=== PATIENT | female | born 1955 | race Caucasian/White ===

== ENCOUNTER 2022-09-19 15:18 | Emergency (ER) | payer OTHER ==
--- OUTSIDE RECORDS SUMMARY | 2022-09-19 15:24 | XMS REPORT | Continuity of Care Document ---
:1955 Author Organization [facility] t Address [address] [place] [address] Care Team Providers Name Role Phone Pcp, Patient Does Not Have A Primary Care Physician +1-000-0 00-0000 JOSETTE SCHAFFER Attending Clinician Unavailable MOE YOON Attending Clinician Unavailable WALTER MELTON Attending Clinician Unavailable YAAKOV SANTOYO Attending Clinician Unavailable JACEK Attending Clinician Unavailable HUNG BRAMBILA Attending Clinician Unavailable NEVILLE VACA Attending Clinician Unavailable BURKE MAI Attending Clinician Unavailable BROOKE BORJAS Attending Clinician Unavailable LAB47 Attending Clinician Unavailable LOREE GODOY Attending Clinician Unavailable FLAVIO OROURKE Attending Clinician Unavailable MD SUHAIL Attending Clinician Unavailable DARA LOPEZ Attending Clinician Unavailable AICHA ROBERTS Attending Clinician Unavailable VF1 Attending Clinician Unavailable TRED47 Attending Clinician Unavailable ERICA CROSS Attending Clinician Unavailable MARIE DELGADO Attending Clinician Unavailable PL, TECH 1 Attending Clinician Unavailable RAFIQ NERI Attending Clinician Unavailable JOSE AGUILA Attending Clinician Unavailable PAWAN RECINOS Attending Clinician Unavailable TOÑITO HUFF Attending Clinician Unavailable [facility] Attending Clinician Unavailable PRITI HAMILTON Attending Clinician Unavailable LAB90 Attending Clinician Unavailable OTTO SAUNDERS Attending Clinician Unavailable VLAD BARAHONA Attending Clinician Unavailable CLEMENCIA GANDARA Attending Clinician Unavailable PLAB Attending Clinician Unavailable LAB39 Attending Clinician Unavailable DAVID PIEDRA Attending Clinician Unavailable 39, HOLTER Attending Clinician Unavailable ESTEBAN MYERS Attending Clinician Unavailable KITTY EDMONDSON Attending Clinician Unavailable NORMA SHETH Attending Clinician Unavailable Dejah Manuel MD Attending Clinician ALICE ABBOTT Attending Clinician Unavailable GLEN SMITH Attending Clinician Unavailable JR HORTA Attending Clinician Unavailable Doctor Unassigned, [place] Attending Clinician Unavailable Bethany Grayson DO Attending Clinician ARELIS MONTELONGO Attending Clinician Unavailable Sudireddy_R Attending Clinician Unavailable BETHANY GRAYSON Admitting Clinician Unavailable Sudireddy_R Admitting Clinician Unavailable Payers Payer Name Policy Type Policy Number Effective Date Expiration Date S ource [facility] O 7 [id number] 2022 00:00:00 [facility] [id number] 2021 2021 00:00:00 00:00:00 [place] [id number] 2018 00:00:00 [facility] [id number] 2017 00:00:00 Problems Condition Condition Condition Status Onset Resolution Last Treating Co mments Source Name Details Category Date Date Treatment Clinician Date Palpitatio Palpitatio Disease Active K veronika ns ns 5-16 Seybold 00:00: - 00 Externa l Chronic Chronic Disease Active Lucero obstructiv obstructiv 1-20 Se ybold e e 00:00: - pulmonary pulmonary 00 Exte rna disease, disease, l unspecifie unspecifie d COPD d COPD type type Chronic Chronic Disease Active Lucero respirator respirator 1-20 Se ybold y failure y failure 00:00: - with with 00 Externa hypoxia hypoxia l Pulmonary Pulmonary Disease Active William heather fibrosis, fibrosis, 1-20 Seyb old postinflam postinflam 00:00: - matory matory 00 Externa l Well adult Well adult Disease Active Dea banda exam exam 1-20 Seybold 00:00: - 00 Externa l 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 due 1-20 Se ybold to to 00:00: - conditions conditions 00 Ex terna classified classified l elsewhere elsewhere ZACH ZACH Disease Active Lucero (obstructi (obstructi 1-20 Se ybold ve sleep ve sleep 00:00: - apnea) apnea) 00 Externa l Mild major Mild major Disease Active Dea banda depression depression 1-20 Se ybold 00:00: - 00 Externa l Risk for Risk for Disease Active Williamse y falls falls 1-20 Seybold 00:00: - 00 Externa l 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 1-20 Seybol d 00:00: - 00 Externa l Gastroesop Gastroesop Disease Active Dea banda hageal hageal 1-20 Seybold reflux reflux 00:00: - disease disease 00 Externa without without l esophagiti esophagiti s s Acute pain Acute pain Disease Active 2021-03 K elsey of right of right 1-22 Seybol d knee knee 00:00: - 00 Externa l Right hip Right hip Disease Active Uni vers pain pain 7-10 ity of 00:00: 00 Medical Branch Sciatica Sciatica Disease Active Unive rs of right of right 7-10 ity of side side 00:00: 00 Medical Branch Hypothyroi Hypothyroi Problem Active V illage dism dism 08-20 Family 00:00: Practic 00 e Mixed Mixed Problem Active [place] hyperlipid Hyperlipid 08-20 Fa gladis morales emia 00:00: Practic 00 e Mixed Mixed Problem Active [place] anxiety Anxiety 08-20 Family and and 00:00: Practic depressive Depressive 00 e disorder Disorder Fibromyalg Fibromyalg Problem Active V illage ia ia 08-20 Family 00:00: Practic 00 e History of History of Problem Active V illage malignant Malignant 08-20 Fami ly neoplasm Neoplasm 00:00: Practi c of breast of Breast 00 e 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 L superior occipital scalp Restless Restless Disease Active Kelse y leg leg 09-22 Seybold 00:00: - 00 Externa l Personal Personal Disease Active Kelse y history of history of 1-17 Se ybold breast breast 00:00: - cancer cancer 00 Externa l Hypothyroi Hypothyroi Disease Active K veronika dism dism 5 Seybold 00:00: - 00 Externa l Fibromyalg Fibromyalg Disease Active K elsey ia ia 07-15 Seybold 00:00: - 00 Externa l Hyperlipid Hyperlipid Disease Active K veronika rodriguezia emia 4 Seybold 00:00: - 00 Externa l Chronic Chronic Disease Active Lucero pain pain 09-26 Seybold 00:00: - 00 Externa l Insomnia Insomnia Disease Active Kelse y 7-13 Seybold 00:00: - 00 Externa l Fx Fx Disease Active Lucero 6 Seybold 00:00: - 00 Externa l Allergies, Adverse Reactions, Alerts Allergy Allergy Status Severity Reaction(s) Onset Inactive Treating Comm ents Source Name Type Date Date Clinician Doxylami Propensi Active Hives 2021-03 Lucero ne ty to 1-22 Seybold adverse 00:00: - reaction 00 Externa s l Doxycycl Propensi Active Rash Univer s ine ty to 7-10 ity of Hyclate adverse 00:00: [place] reaction 00 Medical s Branch Penicill Propensi Active Rash 2021-0 Univer s ins ty to 7-10 ity of adverse 00:00: [place] reaction 00 Medical s Branch Statins- Propensi Active Rash 0 And leg Unive rs Hmg-Coa ty to 7-10 pain ity of Reductas adverse 00:00: [place] e reaction 00 Medical Inhibito s Branch rs Penicill Propensi Active Rash Univer s ins ty to 7-10 ity of adverse 00:00: [place] reaction 00 Medical s Branch Statins- Propensi Active Rash And leg Unive rs Hmg-Coa ty to 7-10 pain ity of [place] adverse 00:00: [place] e reaction 00 Medical Inhibito s Branch rs PENICILL Drug Active Rash 2021-0 Univers INS Class 7-10 ity of 00:00: [place] 00 Medical Branch DOXYCYCL DRUG Active Rash 2021-0 Univers INE INGREDI 7-10 ity of HYCLATE 00:00: [place] 00 Medical Branch STATINS- Drug Active Rash 2021-0 Univers HMG-COA Class 7-10 ity of REDUCTAS 00:00: [place] E 00 Medical INHIBITO Branch RS Penicill DA Active [place] [facility] ins 07-10 [place] 00[facility] doxycycl DA Active U 2018- [facility] ine 4- [place] 00:00: [facility] latex DA Active [place] 2018-0 [facility] 4-26 [place] 00:00: [facility] Penicill DA Active [place] [facility] ins 425 [place] 00:00: Orthope 00 [facility] doxycycl DA Active U 2018-0 [facility] ine 4-25 [place] 00:00: [facility]ope 00 [facility] latex DA Active [place] 2018-0 [facility] 4-25 [place] 00:00: Orthope 00 [facility]osp[facility] l Doxycycl Drug Active Contact Lucero ine Allergy Dermatitis 07-22 Seybo ld 00:00: - 00 Externa l Penicill DA Active [place] 0 [facility] ins 4- [place] 00:00: Orthope 00 dic [facility]osp[facility] l Statins- DA Active U [facility] Hmg-Coa 07-06 [place] Reduct[place] 00:00: Orthope e 00 dic Inhibito Hospita r l latex DA Active [place] [facility] 4-22 [place] 00:00: Orthope 00 dic [facility]ospita l Rosuvast Propensi Active Rash Cant take William heather atin ty to 6-15 any Seybold Calcium adverse 00:00: statins - reaction 00 Externa s l Latex Propensi Active Lucero ty to 6-15 Seybold adverse 00:00: - reaction 00 Externa s l Penicill Propensi Active Rash Lucero ins ty to 6-15 Seybold adverse 00:00: - reaction 00 Externa s l Doxylami Allergy Active Severe Hives [place] ne to Family substanc Practic e e Latex Allergy Active Moderate [place] to to severe Family substanc Practic e e NO KNOWN Drug Active Univers ALLERGIE Class ity of [facility] PENICILL Allergy Active Moderate Hives [place] ge INS to to severe Family substanc Practic e e STATINS- Allergy Active [place] HMG-COA to Family REDUCTAS substanc Practi c E e e INHIBITO RS Social History Social Habit Start Date Stop Date Quantity Comments Source Gender identity 2021-02-24 Identifies as Lucero Mcbride - 00:08:00 female gender External (finding) History of tobacco Cigarette Smoker Lucero Mcbride - use External Sexual orientation Lucero Mcbride - External Alcohol intake 2022-08-22 2022-08-22 Current Lucero whiteside - 00:00:00 00:00:00 non-drinker of External alcohol (finding) Cigarette 2022-04-05 2022-04-05 Lucero Mcbride - pack-years 00:00:00 00:00:00 External Education 2022-04-05 2022-04-05 17 Lucero Mcbride - 00:00:00 00:00:00 External Cigarettes smoked 2022-04-05 2022-04-05 Lucero Mcbride - current (pack per 00:00:00 00:00:00 Externa l day) - Reported Tobacco use and 2022-04-05 2022-04-05 Smokeless tobacco Ke jed Mcbride - exposure 00:00:00 00:00:00 non-user External History of Social 2022-04-05 2022-04-05 Lucero Mcbride - function 00:00:00 00:00:00 External Exposure to 2021-09-13 2021-09-23 Not sure [facility] SARS-CoV-2 (event) 00:00:00 20:32:00 [facility] Sex Ass[birth year] Universit y of 00:00:00 00:00:00 [facility] Smoking Status Start Date Stop Date Source Tobacco smoking [facility] xa consumption unknown Medical Bran ch Ex-smoker 2022-04-05 00:00:00 2022-04-05 Lucero Seybo ld - 00:00:00 External Medications Ordered Filled Start Stop Current Ordering Indication Dosage Frequency Signature Comments Components Source Medication Medication Date Date Medication? Clinician (SIG) Name Name Famotidine Yes 40mg Take 1 Kelse y 40 MG oral 6-08 tablet (40 Sey bold Tablet 00:00: mg total) - 00 by mouth Externa daily l predniSONE Yes Take 2 Kelse y (DELTASONE) 6-08 tabs po Seybo ld 20 MG oral 00:00: daily x 3 - tablet 00 days then Externa 1 tab po l daily x 4 days predniSONE Yes Take 2 Kelse y (DELTASONE) 6-08 tabs po Seybo ld 20 MG oral 00:00: daily x 3 - tablet 00 days then Externa 1 tab po l daily x 4 days Albuterol 2022- Yes [id number] 2.5mg Q4H Take 2.5 Lucero (PROVENTIL) 6-08 07-09 mg by Seybol d (2.5 00:00: 04:59 nebulizati - MG/3ML) 00 :00 on every 4 Prekindergarten Teacher a 0.083% hours as l inhalation needed for Inhalant wheezing Solution Albuterol-I 2022- Yes [id number] 3mg Q4H Inhale 3.6 Lucero pratropium 6-08 07-09 mL (3 mg Seyb old 0.5-2.5 (3) 00:00: 04:59 total) - MG/3ML 00 :00 into the Externa inhalation lungs l Solution every 4 hours as needed (sob, cough, wheeze) Alirocumab Yes 75mg Inject 75 Ke lsey (Praluent) 6-06 mg into Seybol d 75 MG/ML 00:00: the skin - subcutaneou 00 every 14 Exte rna s Solution days l Auto-inject or Temazepam 2022-0 Yes [id number] 30mg QD Take 1 William sey 30 MG oral 5-18 capsule Seybol d Capsule 00:00: (30 mg - 00 total) by Externa mouth l nightly as needed for sleep Bupropion 2022-0 Yes [id number] 150mg Take 1 K elsey HCL XL 150 5-18 tablet Seybold MG OR TB24 00:00: (150 mg - 00 total) by Externa mouth l every morning Temazepam 2022-0 Yes [id number] 30mg QD Take 1 William sey 30 MG oral 5-18 capsule Seybol d Capsule 00:00: (30 mg - 00 total) by Externa mouth l nightly as needed for sleep Bupropion 0 Yes [id number] 150mg Take 1 K elsey HCL XL 150 5-18 tablet Seybold MG OR TB24 00:00: (150 mg - 00 total) by Externa mouth l every morning Metoprolol 0 Yes [id number] 12.5mg Take 0.5 Lucero Tartrate 5-16 tablets Seybold (LOPRESSOR) 00:00: (12.5 mg - 25 MG oral 00 total) by Exte rna Tablet mouth l daily Metoprolol Yes [id number] 12.5mg Take 0.5 Lucero Tartrate 5-16 tablets Seybold (LOPRESSOR) 00:00: (12.5 mg - 25 MG oral 00 total) by Exte rna Tablet mouth l daily Metoprolol Yes [id number] 12.5mg Take 0.5 Lucero Tartrate 5-16 tablets Seybold (LOPRESSOR) 00:00: (12.5 mg - 25 MG oral 00 total) by Exte rna Tablet mouth l daily Metoprolol 0 2022- No [id number] 12.5mg Take 0.5 Lucero Tartrate 5-16 05-16 tablets Seybold (LOPRESSOR) 00:00: 00:00 (12.5 mg - 25 MG oral 00 :00 total) by Exte rna Tablet mouth l daily Alirocumab 0 Yes 75mg Inject 75 Ke lsey (Praluent) 5-01 mg into Seybol d 75 MG/ML 00:00: the skin - subcutaneou 00 every 14 Exte rna s Solution days l Auto-inject or Alirocumab 3-0 Yes 75mg Inject 75 Ke lsey (Praluent) 5-01 mg into Seybol d 75 MG/ML 00:00: the skin - subcutaneou 00 every 14 Exte rna s Solution days l Auto-inject or Fluticasone 2022-0 Yes 1{puff} Inhale 1 Lucero -Salmeterol 4-25 puff into Sey bold (Advair 00:00: the lungs - Diskus) 00 2 times Externa 500-50 daily l MCG/ACT inhalation AEROSOL POWDER, BREATH ACTIVATED Fluticasone 2022-0 Yes 1{puff} Inhale 1 Lucero -Salmeterol 4-25 puff into Sey bold (Advair 00:00: the lungs - Diskus) 00 2 times Externa 500-50 daily l MCG/ACT inhalation AEROSOL POWDER, BREATH ACTIVATED Fluticasone 2022-0 Yes 1{puff} Inhale 1 Lucero -Salmeterol 4-25 puff into Sey bold (Advair 00:00: the lungs - Diskus) 00 2 times Externa 500-50 daily l MCG/ACT inhalation AEROSOL POWDER, BREATH ACTIVATED Fluticasone 2022-0 Yes 1{puff} Inhale 1 Lucero -Salmeterol 4-14 puff into Sey bold (Advair 00:00: the lungs - Diskus) 00 2 times Externa 500-50 daily l MCG/ACT inhalation AEROSOL POWDER, BREATH ACTIVATED Fluticasone 2022-0 Yes 1{puff} Inhale 1 Lucero -Salmeterol 4-14 puff into Sey bold (Advair 00:00: the lungs - Diskus) 00 2 times Externa 500-50 daily l MCG/ACT inhalation AEROSOL POWDER, BREATH ACTIVATED Fluticasone 3-0 Yes 1{puff} Inhale 1 Lucero -Salmeterol 4-14 puff into Sey bold (Advair 00:00: the lungs - Diskus) 00 2 times Externa 500-50 daily l MCG/ACT inhalation AEROSOL POWDER, BREATH ACTIVATED Montelukast 2022-0 Yes 10mg Take 1 Jessica ey (SINGULAIR) 4-12 tablet (10 Se ybold 10 MG oral 00:00: mg total) - Tablet 00 by mouth Externa tablet daily l Temazepam 3-0 Yes [id number] 30mg QD Take 1 William sey 30 MG oral 4-12 capsule Seybol d Capsule 00:00: (30 mg - 00 total) by Externa mouth l nightly as needed for sleep Celecoxib 3-0 Yes [id number] 200mg QD Take 1 Lucero 200 MG oral 4-12 capsule Seybo ld Capsule 00:00: (200 mg - 00 total) by Externa mouth l daily as needed for pain Montelukast 2022-0 Yes 10mg Take 1 Jessica ey (SINGULAIR) 4-12 tablet (10 Se ybold 10 MG oral 00:00: mg total) - Tablet 00 by mouth Externa tablet daily l Celecoxib 2022-0 Yes [id number] 200mg QD Take 1 Lucero 200 MG oral 4-12 capsule Seybo ld Capsule 00:00: (200 mg - 00 total) by Externa mouth l daily as needed for pain Montelukast 2022-0 Yes 10mg Take 1 Jessica ey (SINGULAIR) 4-12 tablet (10 Se ybold 10 MG oral 00:00: mg total) - Tablet 00 by mouth Externa tablet daily l Celecoxib 2022-0 Yes [id number] 200mg QD Take 1 Lucero 200 MG oral 4-12 capsule Seybo ld Capsule 00:00: (200 mg - 00 total) by Externa mouth l daily as needed for pain Paroxetine 2022-0 Yes 30mg Take 1 Kelse y HCl 30 MG 4-07 tablet (30 Seyb old oral Tablet 00:00: mg total) - 00 by mouth Externa daily l Paroxetine 3-0 Yes 30mg Take 1 Kelse y HCl 30 MG 4-07 tablet (30 Seyb old oral Tablet 00:00: mg total) - 00 by mouth Externa daily l Paroxetine 3-0 Yes 30mg Take 1 Kelse y HCl 30 MG 4-07 tablet (30 Seyb old oral Tablet 00:00: mg total) - 00 by mouth Externa daily l Methylpredn 3-0 2023- No [id number] 40mg Lcuero isolone 3-22 03-22 Seybold Acetate 22:00: 21:58 - (Depo-Medro 00 :00 Externa l) 40 mg/ml l - Physician Administere d ([id number]) Methylpredn 2022- No [id number] 40mg 40 mg, Lucero isolone 06-05 Physician Jacobol d Acetate 22:00: 21:58 Administer - (Depo-Medro 00 :00 ed, ONCE, Ext dahiana l) 40 mg/ml 1 dose, On l - Physician Wed Administere 06/05/22 at d ([id number]) 1700 Triamcinolo 2022- No by nasal K elsey ne 06-05 route Seybold Acetonide 14:25: 00:00 Indication - 55 MCG/ACT 51 :00 s: 2 Externa nasal sprays in l Aerosol each nostril every day Levothyroxi Yes [id number] 175ug Take 1 Lucero ne Sodium 3-13 tablet Seybold 175 MCG 00:00: (175 mcg - oral Tablet 00 total) by Ext dahiana mouth l daily Pantoprazol Yes [id number] 40mg Take 1 Lucero e Sodium 3-13 tablet (40 Seybo ld (Protonix) 00:00: mg total) - 40 MG oral 00 by mouth Exter na Tablet daily l Delayed Response Celecoxib Yes [id number] 200mg QD Take 1 Lucero 200 MG oral 3-13 capsule Seybo ld Capsule 00:00: (200 mg - 00 total) by Externa mouth l daily as needed for pain Montelukast Yes 10mg Take 1 Jessica ey (SINGULAIR) 3-13 tablet (10 Se ybold 10 MG oral 00:00: mg total) - Tablet 00 by mouth Externa tablet daily l Levothyroxi Yes [id number] 175ug Take 1 Lucero ne Sodium 3-13 tablet Seybold 175 MCG 00:00: (175 mcg - oral Tablet 00 total) by Ext dahiana mouth l daily Pantoprazol Yes [id number] 40mg Take 1 Lucero e Sodium 3-13 tablet (40 Seybo ld (Protonix) 00:00: mg total) - 40 MG oral 00 by mouth Exter na Tablet daily l Delayed Response Levothyroxi Yes [id number] 175ug Take 1 Lucero ne Sodium 3-13 tablet Seybold 175 MCG 00:00: (175 mcg - oral Tablet 00 total) by Ext dahiana mouth l daily Pantoprazol 2022-0 Yes [id number] 40mg Take 1 Lucero e Sodium 3-13 tablet (40 Seybo ld (Protonix) 00:00: mg total) - 40 MG oral 00 by mouth Exter na Tablet daily l Delayed Response Levothyroxi 2022-0 Yes [id number] 175ug Take 1 Lucero ne Sodium 3-13 tablet Seybold 175 MCG 00:00: (175 mcg - oral Tablet 00 total) by Ext dahiana mouth l daily Pantoprazol 2022-0 Yes [id number] 40mg Take 1 Lucero e Sodium 3-13 tablet (40 Seybo ld (Protonix) 00:00: mg total) - 40 MG oral 00 by mouth Exter na Tablet daily l Delayed Response Bupropion 2022-0 Yes 150mg Take 150 William sey HCL XL 150 3-11 mg by Seybold MG OR TB24 00:00: mouth - 00 every Externa morning l Bupropion 2022-0 Yes 150mg Take 1 Kelse y HCL XL 150 3-11 tablet Seybold MG OR TB24 00:00: (150 mg - 00 total) by Externa mouth l every morning Alirocumab 2022-0 Yes 75mg Inject 75 Ke lsey (Praluent) 3-07 mg into Seybol d 75 MG/ML 00:00: the skin - subcutaneou 00 every 14 Exte rna s Solution days l Auto-inject or Cholecalcif 2022-0 Yes [id number] 1{capsu Take 1 Lucero javier 1-23 le} capsule by Reed (Vitamin 00:00: mouth - D-3) 25 MCG 00 daily Externa (1000 UT) l oral Capsule Cholecalcif 2022-0 Yes [id number] 1{capsu Take 1 Lucero javier 1-23 le} capsule by ybmildred (Vitamin 00:00: mouth - D-3) 25 MCG 00 daily Externa (1000 UT) l oral Capsule Cholecalcif 2022-0 Yes [id number] 1{capsu Take 1 Lucero javier 1-23 le} capsule by Seybold (Vitamin 00:00: mouth - D-3) 25 MCG 00 daily Externa (1000 UT) l oral Capsule Cholecalcif 2022-0 Yes [id number] 1{capsu Take 1 Lucero javier -23 le} capsule by Seybold (Vitamin 00:00: mouth - D-3) 25 MCG 00 daily Externa (1000 UT) l oral Capsule Coenzyme 2022-0 2022- No Take by Williamse y Q10 (COQ10) -20 -20 mouth Seybol d 100 MG oral 13:57: 00:00 - Cap 06 :00 Externa l Magnesium 2022-0 2022- No Take by Jessica ey 100 MG oral -20 20 mouth Seybol d Cap 13:55: 00:00 - 54 :00 Externa l Temazepam 2022-0 2022- No 1{capsu 1 capsule Lucero 30 MG oral -20 04-05 le} Seybold Capsule 13:54: 00:00 - 44 :00 Externa l Cetirizine 2022-0 2022- No Take by William sey HCl 10 MG -20 - mouth Seybold oral 13:53: 00:00 - Capsule 11 :00 Externa l Triamcinolo 2022-0 Yes by nasal Ke lsey ne 1-20 route Seybold Acetonide 13:36: Indication - 55 MCG/ACT 17 s: 2 Externa nasal sprays in l Aerosol each nostril every day Cetirizine 2022-0 Yes [id number] 10mg Take 1 K elsey HCl 10 MG 1-20 capsule Seybold oral 00:00: (10 mg - Capsule 00 total) by Externa mouth l daily Temazepam 2022-0 Yes [id number] 30mg QD Take 1 William sey 30 MG oral 1-20 capsule Seybol d Capsule 00:00: (30 mg - 00 total) by Externa mouth l nightly as needed for sleep Magnesium 2022-0 Yes [id number] 1{capsu Take 1 Lucero 100 MG oral 1-20 le} capsule by Se ybold Capsule 00:00: mouth - 00 daily Externa l Ergocalcife 2022-0 Yes [id number] 57962B Take 1 Lucero rol 1.25 MG 1-20 capsule Seybo ld (82374 UT) 00:00: (50,000 - oral 00 units Externa Capsule total) by l mouth once a week busPIRone 2022-0 Yes [id number] 7.5mg QD Take 1 K elsey HCl 7.5 MG 1-20 tablet Seybold oral Tablet 00:00: (7.5 mg - 00 total) by Externa mouth l daily as needed (anxiety) Cetirizine 2022-0 Yes [id number] 10mg Take 1 K elsey HCl 10 MG 1-20 capsule Seybold oral 00:00: (10 mg - Capsule 00 total) by Externa mouth l daily Temazepam 2022-0 Yes [id number] 30mg QD Take 1 William sey 30 MG oral 1-20 capsule Seybol d Capsule 00:00: (30 mg - 00 total) by Externa mouth l nightly as needed for sleep Magnesium 2022-0 Yes [id number] 1{capsu Take 1 Lucero 100 MG oral 1-20 le} capsule by Se ybold Capsule 00:00: mouth - 00 daily Externa l Cetirizine 2022-0 Yes [id number] 10mg Take 1 K elsey HCl 10 MG 1-20 capsule Seybold oral 00:00: (10 mg - Capsule 00 total) by Externa mouth l daily Magnesium 2022-0 Yes [id number] 1{capsu Take 1 Lucero 100 MG oral 1-20 le} capsule by Se ybold Capsule 00:00: mouth - 00 daily Externa l Cetirizine 2022-0 Yes [id number] 10mg Take 1 K elsey HCl 10 MG 1-20 capsule Seybold oral 00:00: (10 mg - Capsule 00 total) by Externa mouth l daily Magnesium 2022-0 Yes [id number] 1{capsu Take 1 Lucero 100 MG oral 1-20 le} capsule by Se ybold Capsule 00:00: mouth - 00 daily Externa l Cetirizine 2022-0 Yes [id number] 10mg Take 1 K elsey HCl 10 MG 1-20 capsule Seybold oral 00:00: (10 mg - Capsule 00 total) by Externa mouth l daily Magnesium 2022-0 Yes [id number] 1{capsu Take 1 Lucero 100 MG oral 1-20 le} capsule by Se ybold Capsule 00:00: mouth - 00 daily Externa l busPIRone 2022-0 2022- No [id number] 7.5mg QD Take 1 Lucero HCl 7.5 MG -20 -22 tablet Seybol d oral Tablet 00:00: 00:00 (7.5 mg - 00 :00 total) by Externa mouth l daily as needed (anxiety) Repatha Yes Lucero SureClick 1-16 Seybold 140 MG/ML 00:00: - subcutaneou 00 Externa s Solution l Auto-inject or Repatha Yes Lucero SureClick 1-16 Seybold 140 MG/ML 00:00: - subcutaneou 00 Externa s Solution l Auto-inject or Repatha Yes Lucero SureClick 1-16 Seybold 140 MG/ML 00:00: - subcutaneou 00 Externa s Solution l Auto-inject or Cetirizine Yes Take by Jessica ey HCl 10 MG 1-13 mouth Seybold oral 14:53: - Capsule 26 Externa l Triamcinolo Yes by nasal Ke narinderey ne 1-13 route Seybold Acetonide 14:53: Indication - 55 MCG/ACT 26 s: 2 Externa nasal sprays in l Aerosol each nostril every day Magnesium Yes Take by Dannielle y 100 MG oral 1-13 mouth Seybold Cap 14:53: - 26 Externa l Coenzyme Yes Take by Lucero Q10 (COQ10) 1-13 mouth Seybold 100 MG oral 14:53: - Cap 26 Externa l Temazepam Yes 1{capsu 1 capsule Lucero 30 MG oral 1-13 le} Seybold Capsule 14:53: - 26 Externa l Evolocumab Yes [id number] 140mg Inject 1 Lucero (Repatha) 1-13 mL (140 mg Seyb old 140 MG/ML 00:00: total) - subcutaneou 00 into the Exte rna s Solution skin every l Prefilled 14 days Syringe Metoprolol Yes [id number] 25mg Take 1 Lucero Tartrate 25 1-13 tablet (25 Se ybold MG oral 00:00: mg total) - Tablet 00 by mouth Externa daily l Evolocumab Yes [id number] 140mg Inject 1 Lucero (Repatha) 1-13 mL (140 mg Seyb old 140 MG/ML 00:00: total) - subcutaneou 00 into the Exte rna s Solution skin every l Prefilled 14 days Syringe Metoprolol 0 Yes [id number] 25mg Take 1 Lucero Tartrate 25 1-13 tablet (25 Se ybold MG oral 00:00: mg total) - Tablet 00 by mouth Externa daily l Metoprolol 0 Yes [id number] 25mg Take 1 Lucero Tartrate 25 1-13 tablet (25 Se ybold MG oral 00:00: mg total) - Tablet 00 by mouth Externa daily l Metoprolol 2022-0 2022- No [id number] 25mg Take 1 Lucero Tartrate 25 1-13 05-16 tablet (25 S eybold MG oral 00:00: 00:00 mg total) - Tablet 00 :00 by mouth Externa daily l Cetirizine 2021-03 Yes Take by Jessica og HCl 10 MG 2-15 mouth Seybold oral 13:53: - Capsule 18 Externa l Triamcinolo 2021-03 Yes by nasal Ke lsey ne 2-15 route Seybold Acetonide 13:53: Indication - 55 MCG/ACT 18 s: 2 Externa nasal sprays in l Aerosol each nostril every day Magnesium 2021-03 Yes Take by Dannielle y 100 MG oral 2-15 mouth Seybold Cap 13:53: - 18 Externa l Coenzyme 2021-03 Yes Take by Lucero Q10 (COQ10) 2-15 mouth Seybold 100 MG oral 13:53: - Cap 18 Externa l Temazepam 2021-03 Yes 1{capsu 1 capsule Lucero 30 MG oral 2-15 le} Seybold Capsule 13:53: - 18 Externa l Fluticasone 2021-03 Yes 1{puff} Inhale 1 Lucero -Salmeterol 2-15 puff into Sey bold (Advair 00:00: the lungs - Diskus) 00 2 times Externa 500-50 daily l MCG/ACT inhalation AEROSOL POWDER, BREATH ACTIVATED Fluticasone 2021-03 Yes 1{puff} Inhale 1 Lucero -Salmeterol 2-15 puff into Sey bold (Advair 00:00: the lungs - Diskus) 00 2 times Externa 500-50 daily l MCG/ACT inhalation AEROSOL POWDER, BREATH ACTIVATED Fluticasone 2021-03 Yes 1{puff} Inhale 1 Lucero -Salmeterol 2-15 puff into Heather bold (Advair 00:00: the lungs - Diskus) 00 2 times Externa 500-50 daily l MCG/ACT inhalation AEROSOL POWDER, BREATH ACTIVATED Fluticasone 2021-03 Yes 1{puff} Inhale 1 Lucero -Salmeterol 2-15 puff into Heather bold (Advair 00:00: the lungs - Diskus) 00 2 times Externa 500-50 daily l MCG/ACT inhalation AEROSOL POWDER, BREATH ACTIVATED Ibuprofen 2021-03 as needed Ke lsey 400 MG OR 04-07 for pain Seybo ld TABS 15:18: 00:00 - 54 :00 Externa l Temazepam 2021-03 Yes 1{capsu 1 capsule Lucero 30 MG oral 04-07 le} Seybold Capsule 15:07: - 05 Externa l Cetirizine 2021-03 Yes Take by Jessica ey HCl 10 MG 04-07 mouth Seybold oral 15:07: - Capsule 05 Externa l Triamcinolo 2021-03 Yes by nasal Ke lsey ne 04-07 route Seybold Acetonide 15:07: Indication - 55 MCG/ACT 05 s: 2 Externa nasal sprays in l Aerosol each nostril every day Magnesium 2021-03 Yes Take by Kelse y 100 MG oral 04-07 mouth Seybold Cap 15:07: - 05 Externa l Coenzyme 2021-03 Yes Take by Lucero Q10 (COQ10) 04-07 mouth Seybold 100 MG oral 15:07: - Cap 05 Externa l Temazepam 2021-03 Yes 1{capsu 1 capsule Lucero 30 MG oral 04-07 le} Seybold Capsule 15:07: - 05 Externa l Cetirizine 2021-03 Yes Take by Jessica ey HCl 10 MG 22 mouth Seybold oral 15:07: - Capsule 05 Externa l Triamcinolo 2021-03 Yes by nasal Ke lsey ne 04-07 route Seybold Acetonide 15:07: Indication - 55 MCG/ACT 05 s: 2 Externa nasal sprays in l Aerosol each nostril every day Magnesium 2021-03 Yes Take by Kelse y 100 MG oral 04-07 mouth Seybold Cap 15:07: - 05 Externa l Coenzyme 2021-03 Yes Take by Lucero Q10 (COQ10) 04-07 mouth Seybold 100 MG oral 15:07: - Cap 05 Externa l Calcium 2021-03- No Take by Lucero Carb-Cholec 04-07 mouth Seybol d alciferol 07:47: 00:00 - (LIQUID 54 :00 Externa CALCIUM l WITH D3 OR) Clonazepam 2021-03- No .5mg Take 0.5 Ke lsey 0.5 MG oral 04-07 mg by Seybol d Tab 07:47: 00:00 mouth as - 48 :00 needed for Externa anxiety l Diclofenac 2021-03- No Apply to Ke lsey Sodium 04-07 eye Seybold (VOLTAREN 07:47: 00:00 - OP) 45 :00 Externa l Duloxetine 2021-03- No 30mg Take 30 mg Lucero HCl 04-07 by mouth Seybold (CYMBALTA) 07:47: 00:00 daily - 30 MG oral 42 :[address] l Particles Temazepam 2021-03- No 30mg QD Take 30 mg K elsey 30 MG oral 04-07 by mouth Seyb old Cap 07:47: 00:00 nightly as - 24 :00 needed for Externa sleep l Venlafaxine 2021-03- No 75mg Take 75 mg Lucero HCl 37.5 MG 04-07 by mouth Sey bold oral Tab 07:47: 00:00 daily 3 - 21 :00 tablet Externa daily l Indication s: 225mg daily Celecoxib 2021-03 Yes [id number] 200mg QD Take 1 Lucero 200 MG oral -22 capsule Seybo ld Capsule 00:00: (200 mg - 00 total) by Externa mouth l daily as needed for pain Celecoxib 2021-03 Yes [id number] 200mg QD Take 1 Lucero 200 MG oral -22 capsule Seybo ld Capsule 00:00: (200 mg - 00 total) by Externa mouth l daily as needed for pain Celecoxib 2021-03 Yes [id number] 200mg QD Take 1 Lucero 200 MG oral 1-22 capsule Seybo ld Capsule 00:00: (200 mg - 00 total) by Externa mouth l daily as needed for pain Celecoxib 2021-03 Yes [id number] 200mg QD Take 1 Lucero 200 MG oral 1-22 capsule Seybo ld Capsule 00:00: (200 mg - 00 total) by Externa mouth l daily as needed for pain Celecoxib 2021-03 Yes [id number] 200mg QD Take 1 Lucero 200 MG oral 1-22 capsule Seybo ld Capsule 00:00: (200 mg - 00 total) by Externa mouth l daily as needed for pain methylpredn 2021- No 125mg 125 mg, U nivers isolone sod 09-24 Intramuscu i ty of succ 02:45: 02:06 lar, ONCE, [place] (SOLU-MEDRO 00 :00 1 dose, On Me dical L) [place] injection 09/23/21 at 125 mg 2144, 2 mL diazePAM 2021- No 5mg 5 mg, [facility] (VALIUM) 09-24 Oral, ity of tablet 5 mg 01:45: 02:06 [place] dose, On Medical [place] 09/23/21 at 2044, LOLY HYDROcodone 2021- No 1{tbl} 1 tablet, [facility] -acetaminop 09-24 Oral, ity of hen (NORCO 01:45: 02:06 ONCE, 1 Dave as 5) 5-325 mg 00 :00 dose, On Medi mahin tablet 1 [place] tablet 09/23/21 at 2044, LOLY methocarbam Yes [id number] 750mg Take 1 [facility] oL 750 mg 7-10 tablet by ity o f tablet 00:00: mouth 4 [place] (four) Medical times Branch daily. methocarbam Yes [id number] 750mg Take 1 [facility] oL 750 mg 7-10 tablet by ity o f tablet 00:00: mouth 4 [place] 00 (four) Medical times Branch daily. methocarbam 0 Yes [id number] 750mg Take 1 [facility] oL 750 mg 7-10 tablet by ity o f tablet 00:00: mouth 4 [place] ([facility]) Medical times Branch daily. methocarbam 2022-0 Yes [id number] 750mg Take 1 [facility] oL 750 mg 7-10 tablet by ity o f tablet 00:00: mouth [place] ([facility]) Medical times Branch daily. methocarbam 2022-0 Yes [id number] 750mg Take 1 [facility] oL 750 mg 7-10 tablet by ity o f tablet 00:00: mouth [place] ([facility]) Medical times Branch daily. methocarbam 2022-0 Yes [id number] 750mg Take 1 [facility] oL 750 mg 7-10 tablet by ity o f tablet 00:00: mouth [place] ([facility]) Medical times Branch daily. busPIRone 2-0 Yes 7.5mg Take 7.5 William sey HCl 7.5 MG 1-01 mg by Seybold oral Tablet 00:00: mouth - 00 daily Externa l Paroxetine 2-0 Yes 20mg Take 20 mg K elsey HCl 20 MG 1-01 by mouth Seybol d oral Tablet 00:00: daily - 00 Externa l Quetiapine 2-0 Yes 25mg Take 25 mg K elsey Fumarate 25 1-01 by mouth Seyb old MG oral 00:00: daily - Tablet 00 Externa l busPIRone 2-0 Yes 7.5mg Take 7.5 William sey HCl 7.5 MG 1-01 mg by Seybold oral Tablet 00:00: mouth - 00 daily Externa l Paroxetine 2-0 Yes 20mg Take 20 mg K elsey HCl 20 MG 1-01 by mouth Seybol d oral Tablet 00:00: daily - 00 Externa l Quetiapine 2-0 Yes 25mg Take 25 mg K elsey Fumarate 25 1-01 by mouth Seyb old MG oral 00:00: daily - Tablet 00 Externa l busPIRone 2-0 Yes 7.5mg Take 7.5 William sey HCl 7.5 MG 1-01 mg by Seybold oral Tablet 00:00: mouth - 00 daily Externa l Paroxetine 2-0 Yes 20mg Take 20 mg K elsey HCl 20 MG 1-01 by mouth Seybol d oral Tablet 00:00: daily - 00 Externa l Quetiapine 2-0 Yes 25mg Take 25 mg K elsey Fumarate 25 1-01 by mouth Seyb old MG oral 00:00: daily - Tablet 00 Externa l Paroxetine 0 Yes 20mg Take 20 mg K elsey HCl 20 MG -01 by mouth Seybol d oral Tablet 00:00: daily - 00 Externa l Quetiapine 2021-0 Yes 25mg Take 25 mg K elsey Fumarate 25 - by mouth Seyb old MG oral 00:00: daily - Tablet Externa l busPIRone 0 Yes 7.5mg Take 7.5 William sey HCl 7.5 MG - mg by Seybold oral Tablet 00:00: mouth - 00 daily Externa l Paroxetine 0 Yes 20mg Take 20 mg K elsey HCl 20 MG 03-17 by mouth Seybol d oral Tablet 00:00: daily - 00 Externa l Quetiapine 0 Yes 25mg Take 25 mg K elsey Fumarate 25 - by mouth Seyb old MG oral 00:00: daily - Tablet Externa l Paroxetine 2021-0 2022- No 20mg Take 20 mg Lucero HCl 20 MG 03-17- by mouth Seybo ld oral Tablet 00:00: 00:00 daily - 00 : Externa l Quetiapine 2021-0 2023- No 25mg Take 25 mg Lucero Fumarate 25 03-17- by mouth Sey bold MG oral 00:00: 00:00 daily - Tablet 00 :00 Externa l busPIRone 2021-0 2023- No 7.5mg Take 7.5 Ke lsey HCl 7.5 MG - 01-20 mg by Seybold oral Tablet 00:00: 00:00 mouth - 00 :00 daily Externa l Celecoxib 2019-1 2021- No 200mg Take 200 Ke lsey 200 MG oral 2-22 11-22 mg by Seybol d Capsule 00:00: 00:00 mouth - 00 :00 Externa l Ergocalcife 2019-0 Yes Lucero rol 1.25 MG -01 Seybold ([id number] [place]) 00:00: - oral 00 Externa Capsule l Metoclopram 2019-0 Yes 10mg Take 10 mg Lucero connor HCl 10 - by mouth Seybo ld MG oral 00:00: daily - Tablet 00 Externa l Montelukast 2020-0 Yes 10mg Take 10 mg Lucero (SINGULAIR) -01 by mouth Seyb old 10 MG oral 00:00: daily - Tablet 00 Externa tablet l Aspirin 81 2020-0 Yes Lucero MG oral - Seybold Tablet 00:00: - Delayed 00 Externa Response l Ergocalcife 2020-0 Yes Lucero rol 1.25 MG - Seybold ([id number] UT) 00:00: - oral 00 Externa Capsule l Metoclopram 2020-0 Yes 10mg Take 10 mg Lucero connor HCl 10 - by mouth Seybo ld MG oral 00:00: daily - Tablet 00 Externa l Montelukast 2020-0 Yes 10mg Take 10 mg Lucero (SINGULAIR) - by mouth Seyb old 10 MG oral 00:00: daily - Tablet 00 Externa tablet l Aspirin 81 2020-0 Yes Lucero MG oral - Seybold Tablet 00:00: - Delayed 00 Externa Response l Ergocalcife 2020-0 Yes Lucero rol 1.25 MG - Seybold ([id number] UT) 00:00: - oral 00 Externa Capsule l Metoclopram 2020-0 Yes 10mg Take 10 mg Lucero connor HCl 10 - by mouth Seybo ld MG oral 00:00: daily - Tablet 00 Externa l Montelukast 2020-0 Yes 10mg Take 10 mg Lucero (SINGULAIR) - by mouth Seyb old 10 MG oral 00:00: daily - Tablet 00 Externa tablet l Aspirin 81 2020-0 Yes Lucero MG oral - Seybold Tablet 00:00: - Delayed 00 Externa Response l Montelukast 2020-0 Yes 10mg Take 10 mg Lucero (SINGULAIR) - by mouth Seyb old 10 MG oral 00:00: daily - Tablet 00 Externa tablet l Aspirin 81 2020-0 Yes Lucero MG oral 1- Seybold Tablet 00:00: - Delayed 00 Externa Response l Aspirin 81 2020-0 Yes Lucero MG oral - Seybold Tablet 00:00: - Delayed 00 Externa Response l Aspirin 81 2020-0 Yes Lucero MG oral - Seybold Tablet 00:00: - Delayed 00 Externa Response l Aspirin 81 2020-0 Yes Lucero MG oral - Seybold Tablet 00:00: - Delayed 00 Externa Response l Aspirin 81 2020-0 Yes Lucero MG oral - Seybold Tablet 00:00: - Delayed 00 Externa Response l Ergocalcife 2020-0 Yes Lucero rol 1.25 MG 03-17 Seybold ([id number] UT) 00:00: - oral 00 Externa Capsule l Metoclopram 2020-0 Yes 10mg Take 10 mg Lucero connor HCl 10 03-17 by mouth Seybo ld MG oral 00:00: daily - Tablet 00 Externa l Montelukast 2019-0 Yes 10mg Take 10 mg Lucero (SINGULAIR) 03-17 by mouth Seyb old 10 MG oral 00:00: daily - Tablet 00 Externa tablet l Aspirin 81 2020-0 Yes Lucero MG oral 03-17 Seybold Tablet 00:00: - Delayed 00 Externa Response l Ergocalcife 2020-0 202- No Kelse y rol 1.25 MG 03-17 Seybold ([id number] UT) 00:00: 00:00 - oral 00 :00 Externa Capsule l Metoclopram 2020-0 202- No 10mg Take 10 mg Lucero connor HCl 10 03-17 by mouth Seyb old MG oral 00:00: 00:00 daily - Tablet 00 :00 Externa l Levothyroxi 2018-0 Yes TAKE 1 Jessica ey ne Sodium 6-18 TABLET BY Seybo ld 150 MCG 00:00: MOUTH - oral Tab 00 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 Levothyroxi Yes TAKE 1 Jessica ey ne Sodium 6-18 TABLET BY Seybo ld 150 MCG 00:00: MOUTH - oral Tab 00 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 Levothyroxi Yes TAKE 1 Jessica ey ne Sodium 6-18 TABLET BY Seybo ld 150 MCG 00:00: MOUTH - oral Tab 00 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 Levothyroxi 2018- Yes TAKE 1 Jessica ey ne Sodium 6-18 TABLET BY Seybo ld 150 MCG 00:00: MOUTH - oral Tab 00 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 90 days. 90 days. Polyethylen 2021- No [id number] 17g Take 17 Lucero e Glycol 07-16 (seventeen Seyb old 3350 oral 00:00: 00:00 ) g by - Powder 00 :00 mouth Externa daily X 3 l days as needed for constipati on Gabapentin 2017-03- No 200mg TAKE 2 William sey 100 MG oral 05-05 (TWO) Seybol d Cap 00:00: 00:00 CAPSULES - 00 :00 BY MOUTH 3 Externa TIMES l DAILY Pantoprazol 2017-03 Yes [id number] 40mg Take 1 Lucero e Sodium 1-09 (one) Seybold (PROTONIX) 00:00: tablet by - 40 MG oral 00 mouth Externa Tablet daily l Delayed Response Pantoprazol 2017-03 Yes [id number] 40mg Take 1 Lucero e Sodium 1-09 (one) Seybold (PROTONIX) 00:00: tablet by - 40 MG oral 00 mouth Externa Tablet daily l Delayed Response Pantoprazol 2017-03 Yes [id number] 40mg Take 1 Lucero e Sodium 1-09 (one) Seybold (PROTONIX) 00:00: tablet by - 40 MG oral 00 mouth Externa Tablet daily l Delayed Response Pantoprazol 2017-03 Yes [id number] 40mg Take 1 Lucero e Sodium 1-09 (one) Seybold (PROTONIX) 00:00: tablet by - 40 MG oral 00 mouth Externa Tablet daily l Delayed Response Pantoprazol 2017-03 Yes [id number] 40mg Take 1 Lucero e Sodium 1-09 (one) Seybold (PROTONIX) 00:00: tablet by - 40 MG oral 00 mouth Externa Tablet daily l Delayed Response Fluticasone 2015-03 Yes 1{puff} Inhale 1 Lucero -Salmeterol 2-23 puff into Sey bold (ADVAIR 00:00: the lungs - DISKUS) 00 2 times Externa 250-50 daily l MCG/DOSE inhalation AEROSOL POWDER, BREATH ACTIVATED Fluticasone 2015-03 Yes 1{puff} Inhale 1 Lucero -Salmeterol 2-23 puff into Sey bold (ADVAIR 00:00: the lungs - DISKUS) 00 2 times Externa 250-50 daily l MCG/DOSE inhalation AEROSOL POWDER, BREATH ACTIVATED Fluticasone 2015-03 Yes 1{puff} Inhale 1 Lucero -Salmeterol 2-23 puff into Sey bold (ADVAIR 00:00: the lungs - DISKUS) 00 2 times Externa 250-50 daily l MCG/DOSE inhalation AEROSOL POWDER, BREATH ACTIVATED Fluticasone 2015-03 Yes 1{puff} Inhale 1 Lucero -Salmeterol 2-23 puff into Sey bold (ADVAIR 00:00: the lungs - DISKUS) 00 2 times Externa 250-50 daily l MCG/DOSE inhalation AEROSOL POWDER, BREATH ACTIVATED Fluticasone 2015-03- No 1{puff} Inhale 1 Lucero -Salmeterol 2-23 01-20 puff into Se tyold (ADVAIR 00:00: 00:00 the lungs - DISKUS) 00 :00 2 times Externa 250-50 daily l MCG/DOSE inhalation AEROSOL POWDER, BREATH ACTIVATED Oxcarbazepi 2015-03- No [id number] 600mg Take 1 Lucero ne 2-13 11-22 tablet by Seybold (TRILEPTAL) 00:00: 00:00 mouth - 600 MG oral 00 :00 every Externa Tab night at l bedtime Albuterol 2011-03 Yes [id number] 2{puff} 2 puffs 4 Lucero 90 MCG/ACT 1-20 6 times Seybold IN AERS 00:00: daily As - 00 needed for Externa shortness l of breath Albuterol 2011-03 Yes [id number] 2{puff} 2 puffs 4 Lucero 90 MCG/ACT 1-20 6 times Seybold IN AERS 00:00: daily As - 00 needed for Externa shortness l of breath Albuterol 2011-03 Yes [id number] 2{puff} 2 puffs 4 Lucero 90 MCG/ACT 1-20 6 times Seybold IN AERS 00:00: daily As - 00 needed for Externa shortness l of breath Albuterol 2011-03 Yes [id number] 2{puff} 2 puffs 4 Lucero 90 MCG/ACT 1-20 6 times Seybold IN AERS 00:00: daily As - 00 needed for Externa shortness l of breath Albuterol 2011-03 Yes [id number] 2{puff} 2 puffs 4 Lucero 90 MCG/ACT 1-20 6 times Seybold IN AERS 00:00: daily As - 00 needed for Externa shortness l of breath Albuterol 2011-03 Yes [id number] 2{puff} 2 puffs 4 Lucero 90 MCG/ACT 1-20 6 times Seybold IN AERS 00:00: daily As - 00 needed for Externa shortness l of breath Albuterol 2011-03 Yes [id number] 2{puff} 2 puffs 4 Lucero 90 MCG/ACT 1-20 6 times Seybold IN AERS 00:00: daily As - 00 needed for Externa shortness l of breath Albuterol 2011-03 Yes [id number] 2{puff} 2 puffs 4 Lucero 90 MCG/ACT 1-20 6 times Seybold IN AERS 00:00: daily As - 00 needed for Externa shortness l of breath Albuterol 2011-03 Yes [id number] 2{puff} 2 puffs 4 Lucero 90 MCG/ACT 1-20 6 times Seybold IN AERS 00:00: daily As - 00 needed for Externa shortness l of breath clonazepam clonazepam No 1 clonazepam [place] 0.5 mg 0.5 mg 0.5 mg Family tablet Take tablet Take tablet Practic 1 tablet as 1 tablet as Take 1 e needed by needed by tablet as oral route oral route needed by for 30 for 30 oral route days. days. for 30 days. gabapentin gabapentin No 3capsul Q1D gabapentin [place] 100 mg 100 mg e(s) 100 mg Family capsule capsule capsule Practi c Take 3 Take 3 Take 3 e capsules capsules capsules every day every day every day by oral by oral by oral route for route for route for 90 days. 90 days. 90 days. levothyroxi levothyroxi No 1 Q1D levothyrox [place] ne 150 mcg ne 150 mcg ine 150 Family tablet Take tablet Take mcg tablet Practic 1 tablet 1 tablet Take 1 e every day every day tablet by oral by oral every day route for route for by oral 90 days. 90 days. route for 90 days. pantoprazol pantoprazol No 1 Q1D pantoprazo [place] e 40 mg e 40 mg le 40 mg Famil y tablet,brooks tablet,brooks tablet,del Practic yed release yed release ayed e Take 1 Take 1 release tablet tablet Take 1 every day every day tablet by oral by oral every day route for route for by oral 90 days. 90 days. route for 90 days. temazepam temazepam No 1capsul temazepam [facility] 30 mg 30 mg e(s) 30 mg Family capsule capsule capsule Practi c Take 1 Take 1 Take 1 e capsule as capsule as capsule as needed by needed by needed by oral route oral route oral route for 30 for 30 for 30 days. days. days. venlafaxine venlafaxine No 1capsul Q1D venlafaxin [place] ER 75 mg ER 75 mg e(s) e ER 75 mg F amily capsule,ext capsule,ext capsule,ex Practic ended ended tended e release 24 release 24 release 24 hr Take 1 hr Take 1 hr Take 1 capsule capsule capsule every day every day every day by oral by oral by oral route for route for route for 90 days. 90 days. 90 days. Immunizations Ordered Immunization Filled Immunization Date Status Commen ts Source Name Name Influenza Virus 2022-02-28 Completed Lucero Se ybold Vaccine, 00:00:00 - External Quadrivalent, High Dose, Age 65 And Up Pneumococcal Vaccine, 2022-02-28 Completed William osei Seybold Polysaccharide 00:00:00 - External Influenza Virus 2022-02-28 Completed Lucero Se ybold Vaccine, 00:00:00 - External Quadrivalent, High Dose, Age 65 And Up Pneumococcal Vaccine, 2022-02-28 Completed William y Seybold Polysaccharide 00:00:00 - External Influenza Virus 2022-02-28 Completed Lucero Villas[place] ybold Vaccine, 00:00:00 - External Quadrivalent, High Dose, Age 65 And Up Pneumococcal Vaccine, 2022-02-28 Completed William y Seybold Polysaccharide 00:00:00 - External Influenza Virus 2022-02-28 Completed Lucero Se ybold Vaccine, 00:00:00 - External Quadrivalent, High Dose, Age 65 And Up Pneumococcal Vaccine, 2022-02-28 Completed William sey Seybold Polysaccharide 00:00:00 - External Influenza Virus 2022-02-28 Completed Lucero Se ybold Vaccine, 00:00:00 - External Quadrivalent, High Dose, Age 65 And Up Pneumococcal Vaccine, 2022-02-28 Completed William sey Seybold Polysaccharide 00:00:00 - External Influenza Virus 2022-02-28 Completed Lucero Se ybold Vaccine, 00:00:00 - External Quadrivalent, High Dose, Age 65 And Up Pneumococcal Vaccine, 2022-02-28 Completed William sey Seybold Polysaccharide 00:00:00 - External Influenza Virus 2022-02-28 Completed Lucero Se ybold Vaccine, 00:00:00 - External Quadrivalent, High Dose, Age 65 And Up Pneumococcal Vaccine, 2022-02-28 Completed William sey Seybold Polysaccharide 00:00:00 - External influenza, influenza, 2018-05-15 Completed [facility] injectable, injectable, 00:00:00 Practice quadrivalent quadrivalent Influenza Virus 2018-05-15 Completed Lucero Se ybold Vaccine, Split, up to 00:00:00 - E xternal age 3 Influenza Virus 2018-05-15 Completed Lucero Se ybold Vaccine, Split, up to 00:00:00 - E xternal age 3 Influenza Virus 2018-05-15 Completed Lucero Se ybold Vaccine, Split, up to 00:00:00 - E xternal age 3 Influenza Virus 2018-05-15 Completed [place] Se ybold Vaccine, Split, up to 00:00:00 - E xternal age 3 Influenza Virus 2018-05-15 Completed Lucero Se ybold Vaccine, Split, up to 00:00:00 - E xternal age 3 Influenza Virus 2018-05-15 Completed Lucero Se ybold Vaccine, Split, up to 00:00:00 - E xternal age 3 Influenza Virus 2018-05-15 Completed Lucero Se ybold Vaccine, Split, up to 00:00:00 - E xternal age 3 Influenza Virus 2018-05-15 Completed Lucero Se ybold Vaccine, Split, up to 00:00:00 - E xternal age 3 Influenza Virus 2018-05-15 Completed Lucero Se ybold Vaccine, Split, up to 00:00:00 - E xternal age 3 Influenza Virus 2016-02-29 Completed Lucero Se ybold Vaccine, age 6 months 00:00:00 - E xternal and up Pneumococcal Vaccine, 2016-02-29 Completed William sey Seybold Conjugate 13 00:00:00 - External Influenza Virus 2016-02-29 Completed Lucero Se ybold Vaccine, age 6 months 00:00:00 - E xternal and up Pneumococcal Vaccine, 2016-02-29 Completed William sey Seybold Conjugate 13 00:00:00 - External Influenza Virus 2016-02-29 Completed Lucero Se ybold Vaccine, age 6 months 00:00:00 - E xternal and up Pneumococcal Vaccine, 2016-02-29 Completed William sey Seybold Conjugate 13 00:00:00 - External Influenza Virus 2016-02-29 Completed Lucero Se ybold Vaccine, age 6 months 00:00:00 - E xternal and up Pneumococcal Vaccine, 2016-02-29 Completed William sey Seybold Conjugate 13 00:00:00 - External Influenza Virus 2016-02-29 Completed Lucero Se ybold Vaccine, age 6 months 00:00:00 - E xternal and up Pneumococcal Vaccine, 2016-02-29 Completed William sey Seybold Conjugate 13 00:00:00 - External Influenza Virus 2016-02-29 Completed Lucero Se ybold Vaccine, age 6 months 00:00:00 - E xternal and up Pneumococcal Vaccine, 2016-02-29 Completed William sey Seybold Conjugate 13 00:00:00 - External Influenza Virus 2016-02-29 Completed Lucero Se ybold Vaccine, age 6 months 00:00:00 - E xternal and up Pneumococcal Vaccine, 2016-02-29 Completed William sey Seybold Conjugate 13 00:00:00 - External Influenza Virus 2016-02-29 Completed Lucero Se ybold Vaccine, age 6 months 00:00:00 - E xternal and up Pneumococcal Vaccine, 2016-02-29 Completed William sey Seybold Conjugate 13 00:00:00 - External Influenza Virus 2016-02-29 Completed Lucero Se ybold Vaccine, age 6 months 00:00:00 - E xternal and up Pneumococcal Vaccine, 2016-02-29 Completed William sey Seybold Conjugate 13 00:00:00 - External Pneumococcal Vaccine, 2008-02-29 Completed William sey Seybold Polysaccharide 00:00:00 - External Pneumococcal Vaccine, 2008-02-29 Completed William sey Seybold Polysaccharide 00:00:00 - External Pneumococcal Vaccine, 2008-02-29 Completed William sey Seybold Polysaccharide 00:00:00 - External Pneumococcal Vaccine, 2008-02-29 Completed William sey Seybold Polysaccharide 00:00:00 - External Pneumococcal Vaccine, 2008-02-29 Completed William sey Seybold Polysaccharide 00:00:00 - External Pneumococcal Vaccine, 2008-02-29 Completed William sey Seybold Polysaccharide 00:00:00 - External Pneumococcal Vaccine, 2008-02-29 Completed William sey Seybold Polysaccharide 00:00:00 - External Pneumococcal Vaccine, 2008-02-29 Completed William sey Seybold Polysaccharide 00:00:00 - External Pneumococcal Vaccine, 2008-02-29 Completed William sey Seybold Polysaccharide 00:00:00 - External Vital Signs Vital Name Observation Time Observation Value Comments Source Systolic blood 2022-08-22 19:10:00 112 mm[Hg] Lucero Seybold - pressure External Diastolic blood 2022-08-22 19:10:00 75 mm[Hg] Williamse y Seybold - pressure External Heart rate 2022-08-22 19:10:00 79 /min Lucero Ortiz eybold - External Body temperature 2022-08-22 19:10:00 36.78 Ariela Jessica og Seybold - External Respiratory rate 2022-08-22 19:10:00 18 /min Jessica og Seybold - External Body height 2022-08-22 19:10:00 157.5 cm Lucero S eybold - External Body weight 2022-08-22 19:10:00 79.833 kg Lucero S eybold - External BMI 2022-08-22 19:10:00 32.19 kg/m2 Lucero Ortiz eybold - External Oxygen saturation in 2022-08-22 19:10:00 96 /min Lucero Mcbride - Arterial blood by External Pulse oximetry Systolic blood 2022-07-30 21:41:00 111 mm[Hg] Lucero Seybold - pressure External Diastolic blood 2022-07-30 21:41:00 91 mm[Hg] Kelse y Seybold - pressure External Heart rate 2022-07-30 21:41:00 87 /min Lucero S eybold - External Body temperature 2022-07-30 21:41:00 37.06 Ariela Jessica ey Seybold - External Respiratory rate 2022-07-30 21:41:00 16 /min Jessica ey Seybold - External Body height 2022-07-30 21:41:00 157.5 cm Lucero Ortiz eybold - External Body weight 2022-07-30 21:41:00 80.287 kg Lucero Ortiz eybold - External BMI 2022-07-30 21:41:00 32.37 kg/m2 Lucero Ortiz eybold - External Oxygen saturation in 2022-07-30 21:41:00 99 /min Lucero Mcbride - Arterial blood by External Pulse oximetry Body height 2022-06-05 19:23:00 157.5 cm Lucero Ortiz eybold - External Body weight 2022-06-05 19:23:00 79.379 kg Lucero Ortiz eybold - External BMI 2022-06-05 19:23:00 32.01 kg/m2 Lucero Ortiz eybold - External Systolic blood 2022-04-05 19:31:00 98 mm[Hg] Lucero Seybold - pressure External Diastolic blood 2022-04-05 19:31:00 56 mm[Hg] Kelse y Seybold - pressure External Heart rate 2022-04-05 19:31:00 92 /min Lucero Ortiz eybold - External Body temperature 2022-04-05 19:31:00 36.5 Ariela Jessica ey Seybold - External Respiratory rate 2022-04-05 19:31:00 14 /min Jessica ey Seybold - External Body height 2022-04-05 19:31:00 157.5 cm Lucero Ortiz eybold - External Body weight 2022-04-05 19:31:00 80.287 kg Lucero Ortiz eybold - External BMI 2022-04-05 19:31:00 32.37 kg/m2 Lucero Ortiz eybold - External Systolic blood 2022-02-28 19:48:00 123 mm[Hg] Lucero Seybold - pressure External Diastolic blood 2022-02-28 19:48:00 83 mm[Hg] Kelse y Seybold - pressure External Heart rate 2022-02-28 19:48:00 74 /min Lucero Ortiz eybold - External Body temperature 2022-02-28 19:48:00 36.17 Ariela Jessica og Seybold - External Respiratory rate 2022-02-28 19:48:00 18 /min Jessica ey Seybold - External Body height 2022-02-28 19:48:00 157.5 cm Lucero Ortiz eybold - External Body weight 2022-02-28 19:48:00 81.194 kg Lucero Ortiz eybold - External BMI 2022-02-28 19:48:00 32.74 kg/m2 Lucero Ortiz eybold - External Oxygen saturation in 2022-02-28 19:48:00 96 /min Lucero Mcbride - Arterial blood by External Pulse oximetry Systolic blood 2022-02-05 20:58:00 102 mm[Hg] Lucero Seybold - pressure External Diastolic blood 2022-02-05 20:58:00 58 mm[Hg] William y Seybold - pressure External Heart rate 2022-02-05 20:58:00 76 /min Lucero Ortiz eybold - External Body temperature 2022-02-05 20:58:00 36.56 Ariela Jessica og Seybold - External Respiratory rate 2022-02-05 20:58:00 16 /min Jessica Jamesold - External Body height 2022-02-05 20:58:00 157.5 cm Lucero ogbold - External Body weight 2022-02-05 20:58:00 81.194 kg Lucero ogbold - External BMI 2022-02-05 20:58:00 32.74 kg/m2 Lucero Ortiz eybold - External Systolic blood 2021-09-24 02:00:00 107 mm[Hg] [facility] Diastolic blood 2021-09-24 02:00:00 82 mm[Hg] [facility] Heart rate 2021-09-24 02:00:00 74 /min [facility] Respiratory rate 2021-09-24 02:00:00 16 /[facility] in 2021-09-24 02:00:00 96 /min [facility] Arterial blood by [facility] Pulse oximetry Branch Body temperature 2021-09-24 01:37:00 36.89 Ariela [facility] Body height 2021-09-24 01:37:00 157.5 cm [facility] Body weight 2021-09-24 01:37:00 78.926 [facility] BMI 2021-09-24 01:37:00 31.83 kg/m2 [facility] BP Diastolic 2018-08-20 00:00:00 84 mm[Hg] [facility] Height 2018-08-20 00:00:00 60.5 [in_i] [facility] BMI (Body Mass 2018-08-20 00:00:00 32.1 kg/m2 [facility] [place] BP Systolic 2018-08-20 00:00:00 112 mm[Hg] [facility] Body Weight 2018-08-20 00:00:00 167 [lb_av] [facility] Procedures Procedure Date / Time Performing Clinician Source Performed [place] 2022-04-05 20:17:56 Flavio Orourke - External EXTERNAL PROVIDER RECORDS 2021-10-26 05:01:00 Doctor Unassigned, [facility] HIP RIGHT WO CONTRAST 2021-09-24 01:54:59 Bethany Grayson [facility] CONSENT/REFUSAL FOR 2021-09-24 01:29:47 Doctor Unassigned, [facility] DIAGNOSIS AND TREATMENT [facility] Colonoscopy 2016-03-17 00:00:00 [facility] Cheo huynh Practice Mastectomy (One Breast) 2007-03-17 00:00:00 Rebekah amezquita [facility] Practice Breast Surgery 2007-03-17 00:00:00 [facility] Cheo huynh [facility] Reconstructive Surgery 2007-03-17 00:00:00 Raciel ewing [facility] Practice Cholecystectomy (Gall 1999-03-17 00:00:00 Christin fagan [facility] Bladder Removal) Practice Orthopedic Surgery 1990-03-17 00:00:00 [facility] Carla caro [facility] Caesarean Section 1979-03-17 00:00:00 [facility] Contreras griffith [facility] Hysterectomy (Total) 1979-03-17 00:00:00 [facility] EXHAUST TENDER Surgery (Gynecology) 1977-03-17 00:00:00 Caden arzate [facility] Appendectomy 1974-03-17 00:00:00 Kirstin huynh Practice Plan of Care Planned Activity Planned Date Details Comments Source Diagnostic Test 2018-08-20 urinalysis, Kirstin Grider ly Pending 00:00:00 dipstick [code = Practice urinalysis, dipstick] Diagnostic Test 2018-08-20 TSH, serum or [facility] Pending 00:00:00 plasma [code = TSH, Practice serum or plasma] Diagnostic Test 2018-08-20 CBC w/ auto diff [facility] Family Pending 00:00:00 [code = CBC w/ auto Practice diff] Diagnostic Test 2018-08-20 CMP, serum or [facility] Pending 00:00:00 plasma [code = CMP, Practice serum or plasma] Diagnostic Test 2018-08-20 lipid panel, serum [facility] Family Pending 00:00:00 [code = lipid Practice panel, serum] Diagnostic Test 2018-08-20 hepatitis C virus [facility] Pending 00:00:00 RNA, quant, PCR, Practice serum or plasma [code = hepatitis C virus RNA, quant, PCR, serum or plasma] Encounters Start End Encounter Admission Attending Care Care Encounter Source Date/Time Date/Time Type Type Clinicians Facility Department ID 2023-01-07 2023-01-07 Outpatient LUCERO SCHAFFER [id number] [facility] 14:15:00 14:15:00 JOSETTE Seybol d 2022-12-31 2022-12-31 Outpatient LUCERO YOON [id number] [facility] 14:30:00 14:30:00 MOE Seybol d 2022-12-18 2022-12-18 Outpatient LUCERO SCHAFFER [id number] [facility] 14:15:00 14:15:00 JOSETTE Seybol d 2022-12-17 2022-12-17 Outpatient LUCERO YOON [id number] [facility] 14:30:00 14:30:00 MOE Seybol d 2022-12-13 2022-12-13 Outpatient WALTER MELTON [id number] [facility] 14:00:00 14:00:00 Seybol d 2022-10-15 2022-10-15 Outpatient LUCERO SANTOYO [id number] [facility] 13:30:00 13:30:00 YAAKOV Damico ld 2022-10-04 2022-10-04 Outpatient NURJB LUCERO CARRASCO [id number] [facility] 13:00:00 13:00:00 Seybol d 2022-09-30 2022-09-30 Outpatient LUCERO BRAMBILA [id number] [facility] 14:30:00 14:30:00 HUNG Seybol d 2022-09-30 2022-09-30 Outpatient LUCERO VACA [id number] [facility] 13:45:00 13:45:00 NEVILLE Seybol d 2022-09-27 2022-09-27 Outpatient LUCERO BRAMBILA [id number] [facility] 14:30:00 14:30:00 HUNG Seybol d 2022-09-27 2022-09-27 Outpatient BURKE MAI [id number] [facility] 11:15:00 11:15:00 Seybol d 2022-09-20 2022-09-20 Outpatient LUCERO BORJAS [id number] [facility] 10:10:00 10:10:00 BROOKE Seybol d 2022-09-18 2022-09-18 Outpatient BURKE MAI [id number] [facility] 00:00:00 00:00:00 Seybol d 2022-09-16 2022-09-16 Outpatient LUCERO BORJAS [id number] [facility] 00:00:00 00:00:00 BROOKE Seybol d 2022-09-13 2022-09-13 Outpatient LAB47 LUCERO CARRASCO [id number] [facility] 17:20:00 17:20:00 Seybol d 2022-09-13 2022-09-13 Outpatient LUCERO CARRASCO [id number] [facility] 17:00:00 17:00:00 Seybol d 2022-09-13 2022-09-13 Outpatient LUCERO GODOY [id number] [facility] 00:00:00 00:00:00 LOREE Jameso ld 2022-09-13 2022-09-13 Outpatient LUCERO OROURKE [id number] [facility] 00:00:00 00:00:00 FLAVIO Seybol d 2022-09-13 2022-09-13 Outpatient LUCERO GODOY [id number] [facility] 00:00:00 00:00:00 LOREE Seybo ld 2022-09-13 2022-09-13 Outpatient LUCERO GODOY [id number] [facility] 00:00:00 00:00:00 LOREE Seybo ld 2022-09-12 2022-09-12 Outpatient PAUBURKE TRENT [id number] [facility] 00:00:00 00:00:00 Seybol d 2022-09-12 2022-09-12 Outpatient LUCERO GODOY [id number] [facility] 00:00:00 00:00:00 LOREE Seybo ld 2022-09-11 2022-09-11 Outpatient PAUBURKE TRENT [id number] [facility] 00:00:00 00:00:00 Seybol d 2022-09-11 2022-09-11 Outpatient LUCERO CARRASCO [id number] [facility] 00:00:00 00:00:00 Seybol d 2022-09-05 2022-09-05 Outpatient LAXMI CARRASCO [id number] [facility] 00:00:00 00:00:00 MD GISSEL Seybol d 2022-09-05 2022-09-05 Outpatient DARA LOPEZ [id number] [facility] 00:00:00 00:00:00 Seybol d 2022-09-05 2022-09-05 Outpatient LUCERO OROURKE [id number] [facility] 00:00:00 00:00:00 FLAVIO Seybol d 2022-09-05 2022-09-05 Outpatient LUCERO OROURKE [id number] [facility] 00:00:00 00:00:00 FLAVIO Seybol d 2022-09-02 2022-09-02 Outpatient LUCERO CARRASCO [id number] [facility] 00:00:00 00:00:00 Seybol d 2022-08-30 2022-08-30 Outpatient LUCERO ROBERTS [id number] [facility] 00:00:00 00:00:00 AICHA Seybol d 2022-08-30 2022-08-30 Outpatient LUCERO OROURKE [id number] [facility] 00:00:00 00:00:00 FLAVIO Seybol d 2022-08-28 2022-08-28 Outpatient LUCERO GODOY [id number] [facility] 00:00:00 00:00:00 LOREE Seybo ld 2022-08-28 2022-08-28 Outpatient PAUBURKE TRENT [id number] [facility] 00:00:00 00:00:00 Seybol d 2022-08-27 2022-08-27 Outpatient LUCERO GODOY [id number] [facility] 00:00:00 00:00:00 LOREE Seybo ld 2022-08-27 2022-08-27 Outpatient LUCERO GODOY [id number] [facility] 00:00:00 00:00:00 LOREE Seybo ld 2022-08-27 2022-08-27 Outpatient LUCERO OROURKE [id number] [facility] 00:00:00 00:00:00 FLAVIO Seybol d 2022-08-27 2022-08-27 Outpatient LUCERO GODOY [id number] [facility] 00:00:00 00:00:00 LOREE Seybo ld 2022-08-26 2022-08-26 Outpatient BURKE MAI [id number] [facility] 15:00:00 15:00:00 Seybol d 2022-08-26 2022-08-26 Outpatient LUCERO GODOY [id number] [facility] 00:00:00 00:00:00 LOREE Seybo ld 2022-08-23 2022-08-23 Outpatient LUCERO GODOY [id number] [facility] 00:00:00 00:00:00 LOREE Seybo ld 2022-08-22 2022-08-22 Outpatient LUCERO GODOY [id number] [facility] 14:30:00 14:30:00 LOREE Seybo ld 2022-08-20 2022-08-20 Outpatient LUCERO BORJAS [id number] [facility] 00:00:00 00:00:00 BROOKE Seybol d 2022-08-15 2022-08-15 Outpatient HARMS, LUCERO CARRASCO [id number] [facility] 00:00:00 00:00:00 BROOKE Seybol d 2022-08-13 2022-08-13 Outpatient PREZAS, LUCERO CARRASCO [id number] [facility] 00:00:00 00:00:00 FLAVIO Seybol d 2022-08-06 2022-08-06 Outpatient LOPEZ, DARA LUCERO CARRASCO [id number] [facility] 15:20:00 15:20:00 Seybol d 2022-08-06 2022-08-06 Outpatient VF1 LUCERO CARRASCO [id number] [facility] 14:00:00 14:00:00 Seybol d 2022-07-30 2022-07-30 Outpatient PREZAS, LUCERO CARRASCO [id number] [facility] 16:45:00 16:45:00 FLAVIO Seybol d 2022-07-30 2022-07-30 Outpatient PREZASLUCERO [id number] [facility] 00:00:00 00:00:00 FLAVIO Seybol d 2022-07-30 2022-07-30 Outpatient HARMS, LUCERO CARRASCO [id number] [facility] 00:00:00 00:00:00 BROOKE Seybol d 2022-07-28 2022-07-28 Outpatient HARMS, LUCERO CARRASCO [id number] [facility] 00:00:00 00:00:00 BROOKE Seybol d 2022-07-28 2022-07-28 Outpatient PREZASLUCERO [id number] [facility] 00:00:00 00:00:00 FLAVIO Seybol d 2022-07-28 2022-07-28 Outpatient HARMS, LUCERO CARRASCO [id number] [facility] 00:00:00 00:00:00 BROOKE Seybol d 2022-07-23 2022-07-23 Outpatient LUCERO GODOY [id number] [facility] 14:00:00 14:00:00 LOREE Jameso ld 2022-07-23 2022-07-23 Outpatient LUCERO GODOY [id number] [facility] 00:00:00 00:00:00 LOREE Seybo ld 2022-07-15 2022-07-15 Outpatient LUCERO BORJAS [id number] [facility] 00:00:00 00:00:00 BROOKE Seybol d 2022-07-11 2022-07-11 Outpatient TRED47 LUCERO CARRASCO [id number] [facility] 14:30:00 14:30:00 Seybol d 2022-07-04 2022-07-04 Outpatient LUCERO GODOY [id number] [facility] 00:00:00 00:00:00 LOREE Seybo ld 2022-07-04 2022-07-04 Outpatient LUCERO BORJAS [id number] [facility] 00:00:00 00:00:00 BROOKE Seybol d 2022-07-02 2022-07-02 Outpatient LUCERO CROSS [id number] [facility] 15:45:00 15:45:00 ERICA Seybol d 2022-07-01 2022-07-01 Outpatient LUCERO SANTOYO [id number] [facility] 08:30:00 08:30:00 YAAKOV Seybo ld 2022-06-28 2022-06-28 Outpatient LUCERO BORJAS [id number] [facility] 10:30:00 10:30:00 BROOKE Seybol d 2022-06-28 2022-06-28 Outpatient LUCERO GODOY [id number] [facility] 00:00:00 00:00:00 LOREE Seybo ld 2022-06-26 2022-06-26 Outpatient MARIE DELGADO [id number] [facility] 14:30:00 14:30:00 Seybol d 2022-06-26 2022-06-26 Outpatient LUCERO OROURKE [id number] [facility] 00:00:00 00:00:00 FLAVIO Seybol d 2022-06-26 2022-06-26 Outpatient LUCERO GODOY [id number] [facility] 00:00:00 00:00:00 LOREE Seybo ld 2022-06-21 2022-06-21 Outpatient LUCERO GODOY [id number] [facility] 00:00:00 00:00:00 LOREE Seybo ld 2022-06-17 2022-06-[address], TECH LUCERO CARRASCO [id number] [facility] 13:30:00 13:30:00 Seybol d 2022-06-14 2022-06-14 Outpatient PREZASLUCERO [id number] [facility] 00:00:00 00:00:00 FLAVIO Seybol d 2022-06-07 2022-06-[address], TECH LUCERO CARRASCO [id number] [facility] 11:00:00 11:00:00 Seybol d 2022-06-05 2022-06-05 Outpatient LUCERO CARRASCO [id number] [facility] 14:05:00 14:05:00 Seybol d 2022-06-05 2022-06-05 Outpatient LUCERO NERI [id number] [facility] 14:00:00 14:00:00 RAFIQ Seybol d 2022-06-05 2022-06-05 Outpatient LUCERO NERI [id number] [facility] 00:00:00 00:00:00 RAFIQ Seybol d 2022-06-03 2022-06-03 Outpatient LOPEZ, DARA LUCERO CARRASCO [id number] [facility] 14:20:00 14:20:00 Seybol d 2022-06-03 2022-06-03 Outpatient VF1 LUCERO CARRASCO [id number] [facility] 13:15:00 13:15:00 Seybol d 2022-06-03 2022-06-03 Outpatient PRELUCERO MATTHEW [id number] [facility] 00:00:00 00:00:00 FLAVIO Seybol d 2022-06-03 2022-06-03 Outpatient LUCERO GODOY [id number] [facility] 00:00:00 00:00:00 LOREE Seybo ld 2022-05-31 2022-05-31 Outpatient AGUILALUCERO Barkley [id number] [facility] 11:30:00 11:30:00 AUSTRALIAN Seybol d 2022-05-27 2022-05-27 Outpatient LUCERO GODOY [id number] [facility] 00:00:00 00:00:00 LOREE Seybo ld 2022-05-24 2022-05-24 Outpatient LUCERO GODOY [id number] [facility] 00:00:00 00:00:00 LOREE Seybo ld 2022-05-24 2022-05-24 Outpatient LUCERO OROURKE [id number] [facility] 00:00:00 00:00:00 FLAVIO Seybol d 2022-05-22 2022-05-22 Outpatient NOLALUCERO [id number] [facility] 13:45:00 13:45:00 NEVILLE Seybol d 2022-05-22 2022-05-22 Outpatient NATANAELLUCERO [id number] [facility] 13:45:00 13:45:00 YAAKOV Seybo ld 2022-05-21 2022-05-21 Outpatient LUCERO RECINOS [id number] [facility] 13:45:00 13:45:00 PAWAN Seybo ld 2022-05-20 2022-05-20 Outpatient LUCERO BORJAS [id number] [facility] 00:00:00 00:00:00 BROOKE Seybol d 2022-05-17 2022-05-17 Outpatient LUCERO YOON [id number] [facility] 11:30:00 11:30:00 MOE Seybol d 2022-05-16 2022-05-16 Outpatient LUCERO NERI [id number] [facility] 14:15:00 14:15:00 RAFIQ Seybol d 2022-05-08 2022-05-08 Outpatient AGUILALUCERO [id number] [facility] 11:15:00 11:15:00 AUSTRALIAN Seybol d 2022-05-06 2022-05-06 Outpatient LUCERO HUFF [id number] [facility] 15:15:00 15:15:00 TOÑITO Seybol d 2022-05-06 2022-05-06 Outpatient LUCERO HUFF [id number] [facility] 00:00:00 00:00:00 TOÑITO Seybol d 2022-05-06 2022-05-06 Outpatient LUCERO GODOY [id number] [facility] 00:00:00 00:00:00 LOREE Seybo ld 2022-05-03 2022-05-03 Outpatient PREZAS, LUCERO CARRASCO [id number] [facility] 15:15:00 15:15:00 FLAVIO Seybol d 2022-05-02 2022-05-02 Outpatient CONFERENCE, LUCERO CARRASCO [id number] [facility] 09:25:00 09:25:00 BDC Seybol d 2022-04-30 2022-04-30 Outpatient PREZAS, LUCERO CARRASCO [id number] [facility] 00:00:00 00:00:00 FLAVIO Seybol d 2022-04-29 2022-04-29 Outpatient ALFONSO, LUCERO CARRASCO [id number] [facility] 00:00:00 00:00:00 PRITI Seybo ld 2022-04-26 2022-04-26 Outpatient PREZAS, LUCERO CARRASCO [id number] [facility] 00:00:00 00:00:00 FLAVIO Seybol d 2022-04-26 2022-04-26 Outpatient PREZAS, LUCERO CARRASCO [id number] [facility] 00:00:00 00:00:00 FLAVIO Seybol d 2022-04-25 2022-04-25 Outpatient LAB90 LUCERO CARRASCO [id number] [facility] 13:45:00 13:45:00 Seybol d 2022-04-23 2022-04-23 Outpatient LOPEZ, DARA LUCERO CARRASCO [id number] [facility] 14:20:00 14:20:00 Seybol d 2022-04-23 2022-04-23 Outpatient VF1 LUCERO CARRASCO [id number] [facility] 12:30:00 12:30:00 Seybol d 2022-04-22 2022-04-22 Outpatient HARMS, LUCERO CARRASCO [id number] [facility] 00:00:00 00:00:00 BROOKE Seybol d 2022-04-19 2022-04-19 Outpatient PREZASLUCERO [id number] [facility] 00:00:00 00:00:00 FLAVIO Seybol d 2022-04-19 2022-04-19 Outpatient PREZASLUCERO [id number] [facility] 00:00:00 00:00:00 FLAVIO Seybol d 2022-04-18 2022-04-18 Outpatient BHAGIA LUCERO CARRASCO [id number] [facility] 13:30:00 13:30:00 OTTO Seybol d 2022-04-17 2022-04-17 Outpatient LUCERO CARRASCO [id number] [facility] 09:20:00 09:20:00 Seybol d 2022-04-17 2022-04-17 Outpatient LUCERO CARRASCO [id number] [facility] 09:15:00 09:15:00 Seybol d 2022-04-17 2022-04-17 Outpatient LUCERO CARRASCO [id number] [facility] 09:10:00 09:10:00 Seybol d 2022-04-17 2022-04-17 Outpatient PRELUCERO MATTHEW [id number] [facility] 00:00:00 00:00:00 FLAVIO Seybol d 2022-04-17 2022-04-17 Outpatient LUCERO OROURKE [id number] [facility] 00:00:00 00:00:00 FLAVIO Seybol d 2022-04-16 2022-04-16 Outpatient LUCERO VACA [id number] [facility] 13:45:00 13:45:00 NEVILLE Seybol d 2022-04-15 2022-04-15 Outpatient LUCERO CARRASCO [id number] [facility] 00:00:00 00:00:00 Seybol d 2022-04-12 2022-04-12 Outpatient LUCERO BARAHONA [id number] [facility] 14:30:00 14:30:00 ATASU Seybol d 2022-04-11 2022-04-11 Outpatient LUCERO GANDARA [id number] [facility] 13:00:00 13:00:00 CLEMENCIA Seybol d 2022-04-09 2022-04-09 Outpatient LUCERO CARRASCO [id number] [facility] 15:30:00 15:30:00 Seybol d 2022-04-09 2022-04-09 Outpatient LUCERO CARRASCO [id number] [facility] 13:40:00 13:40:00 Seybol d 2022-04-09 2022-04-09 Outpatient LUCERO OROURKE [id number] [facility] 00:00:00 00:00:00 FLAVIO Seybol d 2022-04-09 2022-04-09 Outpatient DELONTEVidal LUCERO CARRASCO [id number] [facility] 00:00:00 00:00:00 FLAVIO Seybol d 2022-04-08 2022-04-08 Outpatient WILLY LUCERO CARRASCO [id number] [facility] 00:00:00 00:00:00 FLAVIO Seybol d 2022-04-07 2022-04-07 Outpatient LUCERO GODOY [id number] [facility] 00:00:00 00:00:00 LOREE Seybo ld 2022-04-05 2022-04-05 Outpatient LAB90 LUCERO CARRASCO [id number] [facility] 14:35:00 14:35:00 Seybol d 2022-04-05 2022-04-05 Outpatient LUCERO OROURKE [id number] [facility] 13:30:00 13:30:00 FLAVIO Seybol d 2022-04-04 2022-04-04 Outpatient PLAB LUCERO CARRASCO [id number] [facility] 14:10:00 14:10:00 Seybol d 2022-04-04 2022-04-04 Outpatient LUCERO NERI [id number] [facility] 13:45:00 13:45:00 RAFIQ Seybol d 2022-04-04 2022-04-04 Outpatient ELANGRECIALUCERO Ortiz [id number] [facility] 00:00:00 00:00:00 FLAVIO Seybol d 2022-04-03 2022-04-03 Outpatient LUCERO CARRASCO [id number] [facility] 13:45:00 13:45:00 Seybol d 2022-04-01 2022-04-01 Outpatient LUCERO HAMILTON [id number] [facility] 00:00:00 00:00:00 PRITI Seybo ld 2022-03-29 2022-03-29 Outpatient LAB39 LUCERO CARRASCO [id number] [facility] 15:35:00 15:35:00 Seybol d 2022-03-29 2022-03-29 Outpatient LUCERO PIEDRA [id number] [facility] 15:00:00 15:00:00 DAVID Seybol d 2022-03-29 2022-03-29 Outpatient [id number] LUCERO CARRASCO [id number] [facility] 14:15:00 14:15:00 Seybol d 2022-03-29 2022-03-29 Outpatient SUAD LUCERO CARRASCO [id number] [facility] 13:30:00 13:30:00 BROOKE Seybol d 2022-03-29 2022-03-29 Outpatient PREZALUCERO Ortiz [id number] [facility] 00:00:00 00:00:00 FLAVIO Seybol d 2022-03-27 2022-03-27 Outpatient MARIE DELGADO [id number] [facility] 14:00:00 14:00:00 Seybol d 2022-03-26 2022-03-26 Outpatient LUCERO MYERS [id number] [facility] 14:30:00 14:30:00 ESTEBAN Seybol d 2022-03-26 2022-03-26 Outpatient LUCERO CARRASCO [id number] [facility] 00:00:00 00:00:00 Seybol d 2022-03-25 2022-03-25 Outpatient PLAB LUCERO CARRASCO [id number] [facility] 11:20:00 11:20:00 Seybol d 2022-03-22 2022-03-22 Outpatient LUCERO EDMONDSON [id number] [facility] 14:20:00 14:20:00 KITTY Seybol d 2022-03-22 2022-03-22 Outpatient LUCERO NERI [id number] [facility] 00:00:00 00:00:00 RAFIQ Seybol d 2022-03-21 2022-03-21 Outpatient PREZALUCERO Ortiz [id number] [facility] 00:00:00 00:00:00 FLAVIO Seybol d 2022-03-15 2022-03-15 Outpatient LUCERO SHETH [id number] [facility] 09:40:00 09:40:00 NORMA Seybol d 2022-03-15 2022-03-15 Outpatient LUCERO OROURKE [id number] [facility] 00:00:00 00:00:00 FLAVIO Seybol d 2022-03-15 2022-03-15 Telephone [place], [facility] [phone] [id number] [facility] 00:00:00 00:00:00 Dejah [employer] [id number] [facility] [id number] [facility] - [id number] Med ical MDA [address] 2022-03-12 2022-03-12 Outpatient LUCERO CARRASCO [id number] [place] 00:00:00 00:00:00 Seybol d 2022-03-08 2022-03-08 Outpatient PLAB LUCERO CARRASCO [id number] [facility] 11:40:00 11:40:00 Seybol d 2022-03-08 2022-03-08 Outpatient LUCERO GODOY [id number] [place] 00:00:00 00:00:00 LOREE Seybo ld 2022-03-07 2022-03-07 Outpatient PLAB LUCERO CARRASCO [id number] [place] 13:30:00 13:30:00 Seybol d 2022-03-05 2022-03-05 Outpatient LUCERO RECINOS [id number] [place] 16:30:00 16:30:00 PAWAN Seybo ld 2022-03-05 2022-03-05 Outpatient PLAB LUCERO CARRASCO [id number] [place] 14:30:00 14:30:00 Seybol d 2022-03-04 2022-03-04 Outpatient LUCERO ABBOTT [id number] [place] 14:30:00 14:30:00 ALICE Seybol d 2022-03-04 2022-03-04 Outpatient SARAHLUCERO JOSE [id number] [place] 13:40:00 13:40:00 GLEN Seybol d 2022-03-01 2022-03-01 Outpatient LUCERO OROURKE [id number] [place] 16:00:00 16:00:00 FLAVIO Seybol d 2022-03-01 2022-03-01 Outpatient LUCERO BRAMBILA [id number] [place] 15:15:00 15:15:00 HUNG Seybol d 2022-02-28 2022-02-28 Outpatient LUCERO GODOY [id number] [place] 14:00:00 14:00:00 LOREE Seybo ld 2022-02-27 2022-02-27 Outpatient LUCERO HORTA [id number] [place] 16:00:00 16:00:00 JR Seybol d 2022-02-22 2022-02-22 Outpatient LUCERO MYERS [id number] [place] 13:00:00 13:00:00 ESTEBAN Seybol d 2022-02-21 2022-02-21 Outpatient LUCERO NERI [id number] [place] 14:00:00 14:00:00 RAFIQ Seybol d 2022-02-18 2022-02-18 Outpatient LUCERO OROURKE [id number] [place] 14:30:00 14:30:00 FLAVIO Seybol d 2022-02-18 2022-02-18 [facility] [id number] Univers 00:00:00 00:00:00 MyFab [id number] it y of [place] [facility] 4.2.7.2.686 [facility] - [id number] Med ical MDA [address] 2022-02-14 2022-02-14 Outpatient LUCERO NERI [id number] [place] 00:00:00 00:00:00 RAFIQ Seybol d 2022-02-06 2022-02-06 Outpatient LUCERO PIEDRA [id number] [place] 11:00:00 11:00:00 DAVID Seybol d 2022-02-06 2022-02-06 Outpatient LUCERO PIEDRA [id number] [place] 00:00:00 00:00:00 DAVID Seybol d 2022-02-05 2022-02-05 Outpatient LUCERO OROURKE [id number] [place] 15:00:00 15:00:00 FLAVIO Seybol d 2022-01-29 2022-01-29 Outpatient LUCERO SHETH [id number] [place] 13:00:00 13:00:00 NORMA pineda 2022-01-18 2022-01-18 Outpatient LUCERO OROURKE [id number] [place] 14:15:00 14:15:00 FLAVIO pineda 2021-11-02 2021-11-02 Telephone [facility] [id number] Univers 00:00:00 00:00:00 Dejah HEALTH [id number] it y of [place] 4.2.7.2.686 [facility] - [id number] [facility] [address] 2021-11-01 2021-11-01 [facility] [id number] Univers 00:00:00 00:00:00 Dejah HEALTH [id number] it y of [place] 4.2.7.2.[address] [facility] - [id number] [facility] [address] 2021-10-26 2021-10-26 Orders Doctor BURKE [id number] Univers 00:00:00 00:00:00 Only Unassigned, BRENDAN [id number] [facility] 4.2.7.2.686 [facility] [phone] [facility] [address] 2021-09-23 2021-09-23 Emergency [facility] [id number] Univers 20:40:00 21:51:00 [facility] 350.1.13.10 i ty of [place] 4.2.7.2.686 [facility] [phone] [facility] [address] 2021-09-23 2021-09-[address] [facility] E[facility] [id number] Univers 20:40:00 21:51:00 BETHANY woodward of [facility] 2021-03-27 2021-03-27 Outpatient LUCERO GODOY [id number] [place] 13:30:00 13:30:00 LOREE joiner 2021-03-15 2021-03-15 Outpatient LUCERO GODOY [id number] [facility] 11:30:00 11:30:00 LOREE joiner 2021-01-23 2021-01-23 Outpatient LUCERO MONTELONGO LUCERO [id number] [place] 15:00:00 15:00:00 ARELIS jose m pineda 2020-10-03 2020-10-03 Outpatient Sudireddy_R VFP VFP [phone] [facility] 06:47:00 06:47:00 [id number] Family Practic e 2018-08-20 2018-08-20 Virginie VF [place] - [id number] [facility] 00:00:00 00:00:00 Rose [facility] Family Adejumo, Family Practic MD: [id number] Practice - e Meghan, VFP-[facility] [address], [place] [address] , Ph. Results Test Description Test Time Test Comments Results Result Comments Source QUANTA[facility] 2022-04-05 20:18:54 Test Item Value Reference Range Interpretation Comme nts [facility] left side (test 1.07 See_Comment [ Automated message] The system which code = 56725-1U) generated t his result transmitted reference range : 1.40 - 0.90 NA. The reference range was not used to interpret this result as normal/abnormal . [facility] ([facility] 1.26 See_Comment P resentation Factors: history of breast code = 70722-6P) cancer, hyp othyroidismExercise Modality: At Re stNormal - 1.40 - 1.00Borderline - 0.99 - 0.90Mild - 0.89 - 0.60Moderate - 0.59 - 0.30Severe - 0.29 - 0.00 [Au tomated message] The system which ge nerated this result transmitted ref erence range: 1.40 - 0.90 NA. The re ference range was not used to interpr et this result as normal/abnormal . Lucero Mcbride - ExternalTSH + FREE T4 [id number] 06:35:20 Test Item Value Reference Range Interpretation Comments TSH, THIRD GENERATION (test 27.800 UIU/ML 0.400-4.100 H code = 2821) FREE T4 (THYROXINE) (test code 0.96 NG/DL 0.80-1.90 = 2823) VITAMIN [id number] 06:35:20 Test Item Value Reference Range Interpretation Comments VITAMIN B-12 (test 380 PG/ML 200-950 UNLESS O THERWISE code = 9330) INDICATED, ALL TESTING PERFORMED [facility] [employer] [employer]. [address] [place] [id number] [place] [address] DIRECTOR: KATLIN MEDRANO M.D. CLIA NUMBER [id number] CAP ACCREDITATION N O. [id number] CBC W/AUTO DIFF WITH [id number] 04:17:03 Test Item Value Reference Range Interpretation Comments WBC (test code = 8.4 K/UL 3.5-11.0 1001) RBC (test code = 4.75 M/UL 3.80-5.40 1002) HEMOGLOBIN (test code 14.2 G/DL 11.5-15.5 = 1003) HEMATOCRIT (test code 42.1 % 34.0-45.0 = 1004) MCV (test code = 88.6 fL 80.0-99.0 1005) MCH (test code = 29.9 PG 25.0-33.0 1006) MCHC (test code = 33.7 G/DL 31.0-36.0 1007) RDW (test code = 14.6 % 11.5-15.0 1038) NEUTROPHILS (test 48.1 % code = 1008) LYMPHOCYTES (test 39.1 % code = 1010) MONOCYTES (test code 8.7 % = 1011) EOSINOPHILS (test 2.7 % code = 1012) BASOPHILS (test code 1.2 % = 1013) IMMATURE GRANULOCYTES 0.2 % (test code = 1036) NUCLEATED RBCS (test 0.0 /100 WBC'S See_Comment [Aut omated code = 1065) message] The sy stem which generated this result transmitted reference range : 0.0. The refere nce range was not u sed to interpret th is result as normal/abnormal . PLATELET COUNT (test 350 K/UL 130-400 code = 1015) ABSOLUTE NEUTROPHILS 4.05 K/UL 1.50-7.50 (test code = 1066) ABSOLUTE LYMPHOCYTES 3.29 K/UL 1.00-4.00 (test code = 1067) ABSOLUTE MONOCYTES 0.73 K/UL 0.20-1.00 (test code = 1068) ABSOLUTE EOSINOPHILS 0.23 K/UL 0.00-0.50 (test code = 1040) ABSOLUTE BASOPHILS 0.10 K/UL 0.00-0.20 (test code = 1069) ABS IMMATURE 0.02 K/UL 0.00-0.10 GRANULOCYTES (test code = 1020) ABS NUCLEATED RBCS 0.00 K/UL 0.00-0.11 (test code = 95286) LIPID [id number] 04:08:05 Test Item Value Reference Range Interpretation Comments CHOLESTEROL (test 298 MG/DL <200 H code = 2210) TRIGLYCERIDES (test 225 MG/DL <150 H code = 2232) HDL CHOLESTEROL (test 54 MG/DL >39 code = 2220) CALC LDL CHOL (test 202 MG/DL <100 H NOTE: C ALCULATED LDL code = 2237) IS BASED ON MAIKOL-GRAJEDA METHOD WHICHINCLUDES ADJUSTABLE TRIGLYCERIDE:VL DL CHOLESTEROL RAT IO.THIS FACTOR VARIES B Y MEASURED TRIGLY CERIDE AND NON-HDLCHOL ESTEROL CONCENTRATIONS WITH INCREASED CALCU LATED LDL SEENIN HIGH ER TRIGLYCERIDE OR LOWER NON-HDL SPECIME NS. FOR MOREINFORMATION , SEE CLIENT ANNOUNCE MENT AT [email or web address] [email or web address] LDL/HDL 3.74 RATIO <3.22 H (test code = 2238) COMPREHENSIVE METABOLIC [id number] 04:08:05 Test Item Value Reference Range Interpretation Comments GLUCOSE (test code = 92 MG/DL 70-99 2216) BUN (test code = 16 MG/DL 8-23 2207) CREATININE (test 0.93 MG/DL 0.60-1.30 code = 2214) eGFR (2020 CKD-EPI) 69 ML/MIN/1.73 >60 (test code = 64491) CALC BUN/CREAT (test 17 RATIO 6-28 code = 2235) SODIUM (test code = 141 MEQ/L 762-343 3650) POTASSIUM (test code 4.6 MEQ/L 3.5-5.4 = 2227) CHLORIDE (test code 103 MEQ/L 95-107 = 2214) CARBON DIOXIDE (test 27 MEQ/L 19-31 code = 2206) CALCIUM (test code = 10.0 MG/DL 8.5-10.5 2208) PROTEIN, TOTAL (test 6.8 G/DL 6.1-8.3 code = 2229) ALBUMIN (test code = 4.3 G/DL 3.5-5.2 2200) CALC GLOBULIN (test 2.5 G/DL 1.9-3.7 code = 2240) CALC A/G RATIO (test 1.7 RATIO 1.0-2.6 code = 2234) BILIRUBIN, TOTAL 0.2 MG/DL See_Comment [Automated message] (test code = 2206) The syste m which generated this result transmit harvey reference range : <=1.2. The refe rence range was not u sed to interpret th is result as normal/abnormal . ALKALINE PHOSPHATASE 81 U/L 40-140 (test code = 2203) AST (test code = 16 U/L 9-40 2217) ALT (test code = 14 U/L 5-40 2218) BREAST ULTRASOUND CORE BIOPSY [id number] 14:00:24 Name: Chantel : 1955 Sex: F- BREAST ULTRASOUND CORE BIOPSY LEFTULTRASOUND GUIDED BIOPSY LEFT BREAST WITH MARKING DEVICE INSERTED: 08/30/2021LINICAL: Ultrasound biopsy, left breast. Comparison is made to exams dated 08/15/2021 ultrasound and 08/15/2021 mammogram - [facility]-. An ultrasound guided biopsy using real-time ultrasound was performed for the circumscribed oval lymph node located in the left axillary tail. This was described on the previous mammography and ultrasound reports. The skin was prepped in the usual manner. Local anesthetic was administered to the access site. The abnormality was approached from the lateral aspect. A biopsy needle was placed adjacent to the abnormality under ultrasound guidance. Once the needle was documented to be in the correct location, a specimen was obtained using a [employer] biopsy device. A clip was inserted into the biopsy cavity. The specimen was sent to the laboratory for pathological analysis. IMPRESSION: ULTRASOUND GUIDED BIOPSYUltrasound guided biopsy of the lymph node in the left axillary tail was successful with no apparent post procedure complications. Waiting for pathology results. A final report will be issued when these become available. Final Pathology:Lymph node with no diagnostic evidence of metastatic tumor or lymphoproliferative disorder.Recommendation:Benign biopsy, concordant. Normal interval follow-up in 12 months is recommended for screening mammography.Xavier Moreland M.D. ss/:09/05/2021 14:00:24 Manager Asset: Oly KOCH, [facility]-FWletter sent: Benign BiopsyDIAG MAMM LEFT CAD [id number] 11:47:51Name: Chantel : 1955 Sex: F - DIAG MAMM LEFT CAD DIGITALUNILATERAL LEFTDIGITAL DIAGNOSTIC MAMMOGRAM WITH CAD - LEFT BREAST POST- PROCEDURE IMAGING FOR MARKER PLACEMENT: 08/30/2021LINICAL: Post clip placement,left breast. Current mammographic images were evaluated by [employer] CAD (computer-aided detection) software. Comparison is made to exams dated 08/15/2021 ultrasound and 08/15/2021 mammogram - [facility]-. The tissue of the left breast is predominantly fatty. Postprocedure mammogram demonstrates biopsy marker clip within the biopsied left axillary lymph node. IMPRESSION: POST PROCEDURE IMAGING FOR MARKER PLACEMENTSuccessful biopsy marker placement within the biopsied left axillary lymph node.Xavier Moreland M.D. ss/:08/30/2021 11:47:51 Manager Asset: Anh KOCH, [facility]-Mammogram BI-RADS: Post-procedure mammogram for marker placementBREAST ULTRASOUND [id number] 14:50:53 Name: Chantel : 1955 Sex: F - DIAG MAMM BILATERAL AJ CAD DIGITALBILATERAL DIGITAL DIAGNOSTIC MAMMOGRAM 3D/2D WITH CAD: 08/15/2021LINICAL: Left axillary breast lump.Personal history of breast cancer. Family history of breast cancer. Digital breast tomosynthesis was performed in addition to routine CC and MLO views. Current mammographic images were evaluated by [employer] CAD (computer-aided detection) software. No prior exams were available for comparison. The tissue of both breasts is predominantly fatty. Right mastectomy with TRAM flap reconstruction, benign. No suspicious mass, architectural distortion, malignant type calcification detected. Prominent leftaxillary lymph node. Another axillary lymph node calcifications in the cortex.INCOMPLETE: ADDITIONALIMAGING EVALUATION NEEDEDProminent left axillary lymph node. Another axillary lymph node calcification is in the cortex. Targeted left axillary and bilateral survey ultrasound to follow.- BREAST ULTRASOUND BILATERALULTRASOUND OF BOTH BREASTS: 08/15/2021No prior exams were available for comparison. Colorflow and real-time ultrasound of both breasts were performed. Patel scale images of the real-time examination were reviewed. The breast tissue has scattered fibroglandular background echotexture. Targeted left axillary ultrasound demonstrates a lymph node with thickened cortex up to 5 mm probably correlating with the mammographic left axillary lymph node. No other abnormal lymph nodes are identified. The rest of the bilateral survey ultrasound is negative. No axillary lymphadenopathy on the right wasseen.IMPRESSION: SUSPICIOUS OF MALIGNANCY - FOLLOW-UP RECOMMENDEDThickened cortex of left axillary lymph node. BI-RADS 4. Ultrasound- guided core biopsy is recommended at this time.Xavier Moreland M.D. ss/:08/15/2021 14:50:53 Manager Asset: Suzette KOCH, [facility]-FWletter sent:BIRADS 4/5 Biopsy Mammogram BI-RADS: 0 Incomplete: Additional Imaging Evaluation Needed Ultrasound BI-RADS: 4a Suspicious abnormality - low suspicion for malignancyDIAG MAMM BILATERAL AJ CAD DIGITAL 2021-08-15 14:50:53 Name: Chantel : 1955 Sex: F - DIAG MAMM BILATERAL AJ CAD DIGITALBILATERAL DIGITAL DIAGNOSTIC MAMMOGRAM 3D/2D WITH CAD: 08/15/2021LINICAL: Left axillary breast lump.Personal history of breast cancer. Family history of breast cancer. Digital breast tomosynthesis was performed in addition to routine CC and MLO views. Current mammographic images were evaluated by [employer] CAD (computer-aided detection) software. No prior exams were available for comparison. Thetissue of both breasts is predominantly fatty. Right mastectomy with TRAM flap reconstruction, benign. No suspicious mass, architectural distortion, malignant type calcification detected. Prominent left axillary lymph node. Another axillary lymph node calcifications in the cortex.INCOMPLETE: ADDITIONAL IMAGING EVALUATION NEEDEDProminent left axillary lymph node. Another axillary lymph node calcification is in the cortex. Targeted left axillary and bilateral survey ultrasound to follow.- BREAST ULTRASOUND BILATERALULTRASOUND OF BOTH BREASTS: 08/15/2021No prior exams were available for comparison. Color flow and real-time ultrasound of both breasts were performed. Patel scale images of the real-time examination were reviewed. The breast tissue has scattered fibroglandular background echotexture. Targeted left axillary ultrasound demonstrates a lymph node with thickened cortex up to 5 mm probably correlating with the mammographic left axillary lymph node. No other abnormal lymph nodes are identified.The rest of the bilateral survey ultrasound is negative. No axillary lymphadenopathy on the right was seen.IMPRESSION: SUSPICIOUS OF MALIGNANCY - FOLLOW-UP RECOMMENDEDThickened cortex of left axillary lymph node. BI-RADS 4. Ultrasound- guided core biopsy is recommended at this time.Xavier Moreland M.D. ss/:08/15/2021 14:50:53 Manager Asset: Suzette KOCH, [facility]-FWletter sent: BIRADS 4/5 Biopsy Mammogram BI-RADS: 0 Incomplete: Additional Imaging Evaluation Needed Ultrasound BI-RADS: 4a Suspicious abnormality - low suspicion for malignancy- XR FLUORO FOR SPINE [id number] 16:06:00 Patient Name: CHANTEL RODRIGUEZ Unit No: [id number] EXAMS: CPT CODE: [id number] XR FLUORO FOR SPINE [id number] CERVICAL TRANSFORAMINAL INJECTION REFERRING PHYSICIAN:Inder Tucrios M.D. PREOPERATIVE DIAGNOSIS: Cervical radiculitis POSTOPERATIVE DIAGNOSIS: Bilateral cervical radiculopathy PROCEDURES PERFORMED: Fluoroscopically guided needle localization of the bilateral C6, bilateral C7 spinal nerves with transforaminal epidural steroid injection/injections. 2. Transforaminal epidurogram/epidurograms at bilateral C6, bilateral C7 FINDINGS: Poor filling bilateral C6, bilateral C7. Concordant provocation left C7 posterior shoulder, left C6 neck, right C6 neck. Pain relief-100%. ANTIBIOTICS:Cefazolin ESTIMATED BLOOD LOSS: Minimal ANESTHESIA: (TIVA ) Total intravenous anesthetic (patient intolerant tosedatives and hypnotics) COMPLICATIONS: None DETAILS OF PROCEDURE: After obtaining stable vital signs, informed consent and IV access, with no known contraindications to proceeding, the patient was taken to the fluoroscopy suite and placed in a supine position with all extremities padded and appropriate monitors placed. A sterile prep and drape was performed over the cervical spine. Using fluoroscopic visualization at each level the insertion site was marked for a paravertebral approach to the foramen. Using standard technique, a 27gauge needle was advanced to the base of the pedicle. In AP view, final positioning was obtained outside the 6 on a clock position on the pedicle. Then, 0.5 ml of Isovue-300 contrast was injected to produce the epidurograms. No paresthesias were elicited with needle insertion or injection and there were no signs of intravascular or intrathecal uptake. Then, 0.5 ml of 4% lidocaine was injected as a test dose with no signs of intravascular or intrathecal uptake. Next, 10 mg of Decadron was injected incrementally with frequent negative aspirations.Each subsequent cervical nerve root sleeve was done with the same technique and medications were used.There were no signs of intravascular or intrathecal uptake. The patient's vital signs remained stable. The patient was taken to the PACU in good condition. [facility] Ortho Pain NAME: CHANTEL RODRIGUEZ [facility] P HYS: Edward Salcedo MD [place] [address] : 1955 AGE: 63 SEX: F LOC: ARANZA PHONE #: [phone] EXAM DATE: 07/10/2018 STATUS: [facility] [place] FAX #: [phone] RAD #: D/C DT PAGE 1 Signed Report (CONTINUED) Patient Name: CHANTEL RODRIGUEZ Unit No: [id number] EXAMS: CPT CODE: [id number] XR FLUORO FOR SPINE INJ 17176 (Continued) at 1606 Reported and signed by: Edward Vickers M.D. CC: Technologist: Naila Hernandez(R) Transcribed D/ (4837) Jody [facility] NAME: CHANTEL RODRIGUEZ [facility] PHYS: Edward Salcedo MD [place] [address] : 1955 AGE: 63 SEX: F LOC: ARANZA PHONE #: [phone] EXAM DATE: 07/10/2018 STATUS: [facility] [place] FAX #: [phone] RAD #: D/C DT PAGE 2 Signed Report Patient Name: CHANTEL RODRIGUEZ Unit No: [id number] EXAMS: CPT CODE: [id number] XR FLUORO FOR SPINE INJ 80856 (Continued) Orig Print D/T: S: 07/10/2018 (7621) [facility] Ortho Pain NAME: CHANTEL RODRIGUEZ [facility] PHYS: DOCUD - DoctorEdward MD [place] [address] : 1955 AGE: 63 SEX: F : ARANZA PHONE #: [phone] EXAM DATE: 07/10/2018 STATUS: [facility] [place] FAX #: [phone] RAD #: D/C DT PAGE 3 Signed Report- MRI C-SPINE W/O [id number] 11:38:00 Patient Name: CHANTEL RODRIGUEZ Unit No: [id number] EXAMS: CPT CODE: [id number] MRI C-SPINE W/O CONT 33647 MRI OF THE CERVICAL SPINE: DIAGNOSIS: 1. At C2-3, disc desiccation. No central canal or foraminal stenosis. 2. At C3-4, disc desiccation. No central canal or foraminal stenosis. 3. At C4-5, mild disc degeneration. No central canal or foraminal stenosis. 4. At C5-6,mild disc degeneration. Mild central canal stenosis. 3 mm right foraminal disc protrusion. Moderate to marked right foraminal stenosis. Mild left foraminal stenosis. 5. At C6-7, mild disc degeneration. 3 mm disc protrusion flattens the ventral thecal sac. Moderate central canal stenosis. No foraminal stenosis. 6. At C7-T1, no disc bulge or herniation. No central canal or foraminal stenosis. COMMENT: COMPARISON: No prior exams available. Sagittal T1, T2 and STIR and axial T2 and gradient-echo sequences are obtained of the cervicalspine. Cervical vertebrae are within normal limits in signal. The findings are as above. at 1138 Reported and signed by: Rosalie Brown MD CC: Cj Turcios M.D. Technologist: Char Oliveira, RT(R) Transcribed D/ (8969) tASTERGVG [facility] Orthopedic NAME: CHANTEL RODRIGUEZ [address] [facility] PHYS: Eriberto Hopkins MD : 1955 AGE: 63 SEX: F [place] [address] LOC: Y.MRI PHONE #: [phone] EXAM DATE: 05/30/2018 STATUS: [facility] FAX #: [phone] RAD #: D/C DT PAGE 1 SignedReport Patient Name: CHANTEL RODRIGEUZ Unit No: [id number] EXAMS: CPT CODE: [id number] MRI C-SPINE W/O CONT 33831 (Continued) Orig Print D/T: S: 06/01/2018 (1141) [facility] Orthopedic NAME: CHANTEL RODRIGUEZ [address] [facility] PHYS: Eriberto Hopkins MD : 1955 AGE: 63 SEX: F [place], [place] [address] LOC: Y.MRI PHONE #: [phone] EXAM DATE: 05/30/2018 STATUS: [facility] FAX #: [phone] RAD #: D/C DT PAGE 2 Signed Report
[2022-09-19 16:43] LABS: Absolute Lymphocytes (CBC) 2.1 K/uL (0.7-4.9); Hematocrit 39.9 % (36.0-45.0); Lymphocytes % 15.3 % (15.3-44.8); MCV 89.2 fL (80-100); MPV 7.4 fL (7.6-11.3); RBC Red Blood Cell Count 4.47 M/uL (3.86-4.86)
[2022-09-19 17:02] LABS: Magnesium 2.2 mg/dL (1.6-2.4); Potassium 3.7 mEq/L (3.5-5.1); Troponin High Sensitivity 3.1 pg/mL (<58.9)
--- NOTE | 2022-09-19 17:29 | RAD REPORT ---
EXAM DESCRIPTION: Ladonna Single View09/19/2022 4:03 pm CLINICAL HISTORY: PALPITATIONS COMPARISON: No comparisons TECHNIQUE: Portable AP view of the chest. FINDINGS: The lungs are clear. No pneumothorax or effusion. The cardiomediastinal contours are unre markable. IMPRESSION: No acute cardiopulmonary process.
--- NOTE | 2022-09-19 19:02 | RAD REPORT ---
EXAM DESCRIPTION: CT - Chest For Pe Angio - 09/19/2022 6:29 pm CLINICAL HISTORY: COUGH COMPARISON: Chest Single View dated 09/19/2022 TECHNIQUE: Thin axial CT images of the chest were obtained following administration of 100 mL Isovue 370 IV contrast. Multiplanar reconstructions, and maximum intensity projection reconstructions were generated and reviewed. Exam utilizes a protocol for optimal evaluation of pulmonary arterial tree. All CT scans are performed using dose optimization technique as appropriate and may include automated exposure control or mA/KV adjustment according to patient size. FINDINGS: Noninclusion of the posterior costophrenic angles limits evaluation. Pulmonary arteries ar e normal. No emboli or other suspicious finding. 5 millimeter subpleural left lower lobe granuloma. P latelike atelectatic changes. No acute or significant aorta findings. No mass or infiltrate in the lung parenchyma. No pleural thickening or pleural effusion. No pneumotho rax. No abnormal mediastinal or hilar masses or lymphadenopathy seen. No chest wall mass or abnormal axill iary lymphadenopathy. IMPRESSION: No evidence of acute central pulmonary emboli. No other acute findings in the chest.
--- NOTE | 2022-09-19 19:06 | ER ---
Nurse's Notes [facility] Name: Chantel Rodriguez Age: 67 yrs Sex: Female : 1955 Arrival Date: 09/19/2022 Time: 15:18 Bed 8 Private MD: Diagnosis: Cough Presentation: 09/19 15:27 Chief complaint: Patient states: Cough, SOB for 5 weeks. CXR last week showed ll1 infiltrate R lower lobe. On Levaquin and 2nd round of prednisone. 15:29 Coronavirus screen: Vaccine status: Patient reports receiving the 2nd dose of the covid ll1 vaccine. Client denies travel out of the [place] in the last 14 days. congestion, cough unrelated to allergies, fatigue, shortness of breath, Client presents with at least one sign or symptom that may indicate coronavirus-19. Standard/surgical mask placed on the client. Ebola Screen: Patient denies travel to an Ebola-affected area in the 21 days before illness onset. Initial Sepsis Screen: Does the patient meet any 2 criteria? No. Patient's initial sepsis screen is negative. Does the patient have a suspected source of infection? Yes: Productive cough/pneumonia. Risk Assessment: Do you want to hurt yourself or someone else? Patient reports no desire to harm self or others. Onset of symptoms was August 15, 2022. 15:29 Method Of Arrival: Ambulatory ll1 15:29 Acuity: MIKE 3 ll1 Triage Assessment: 15:27 General: Appears uncomfortable, ill, Behavior is cooperative, appropriate for age. ll1 Pain: Complains of pain in R trunk Quality of pain is described as aching. Respiratory: Reports shortness of breath cough that is Onset: The symptoms/episode began/occurred 5 weeks ago, the patient has moderate shortness of breath. Historical: - Allergies: 15:30 PENICILLINS; ll1 15:30 doxycycline monohydrate (bulk); ll1 15:30 all statins; ll1 - PMHx: 15:27 copd; long covid; ll1 15:30 pulmonary stenosis; Asthma; ll1 15:34 CPAP with oxygen; ll1 - PSHx: 15:30 breast CA R mastectomy; Cholecystectomy; ll1 - Immunization history:: Adult Immunizations up to date, Client reports receiving the 2nd dose of the Covid vaccine. - Social history:: Smoking status: Patient/guardian denies using tobacco, the patient reports quitting approximately 35 years ago. Screenin:23 [facility] ED Fall Risk Assessment (Adult) History of falling in the last 3 months, cm10 including since admission No falls in past 3 months (0 pts) Confusion or Disorientation No (0 pts) Intoxicated or Sedated No (0 pts) Impaired Gait No (0 pts) Mobility Assist Device Used No (0 pt) Altered Elimination No (0 pt) Score/Fall Risk Level 0 - 2 = Low Risk Oriented to surroundings, Maintained a safe environment, Hourly rounding (assess needs \T\ fall precautionary measures) done. Abuse screen: Denies threats or abuse. Denies injuries from another. Nutritional screening: No deficits noted. Tuberculosis screening: No symptoms or risk factors identified. Assessment: 16:22 Neuro: No deficits noted. Level of Consciousness is awake, alert, obeys commands, cm10 Oriented to person, place, time, situation. Cardiovascular: No deficits noted. Rhythm is regular. Respiratory: Airway is patent Respiratory effort is even, unlabored, Respiratory pattern is regular, symmetrical, Breath sounds are clear in right upper lobe, left upper lobe, left posterior upper lobe, right posterior upper lobe and right posterior middle lobe Breath sounds are diminished in left lower lobe, right lower lobe, left posterior lower lobe and right posterior lower lobe Onset: The symptoms/episode began/occurred 5 weeks ago.. 18:08 General: Appears in no apparent distress. comfortable, Behavior is calm, cooperative, ld1 appropriate for age. Pain: Denies pain. Neuro: Level of Consciousness is awake, alert, obeys commands, Oriented to person, place, time, situation. Cardiovascular: No deficits noted. Rhythm is regular. Respiratory: Airway is patent Respiratory effort is even, unlabored, Breath sounds are clear. Vital Signs: 15:29 BP 119 / 89; Pulse 85; Resp 17; Temp 97.9; Pulse Ox 98% on R/A; Pain 2/10; ll1 16:40 BP 106 / 71; Pulse 80; Resp 18; Pulse Ox 95% on R/A; ld1 19:12 BP 105 / 67; Pulse 77; Resp 18 S; Pulse Ox 99% on R/A; as6 15:29 Pain Scale: Adult ll1 ED Course: 15:21 Patient arrived in ED. rg4 15:23 Isabel Palacio FNP-C is [facility]. kb 15:23 Mk Ackerman MD is Attending Physician. kb 15:30 Triage completed. ll1 15:33 Arm band placed on. ll1 16:01 Patient placed in an exam room, on a stretcher. ll1 16:05 XRAY Chest (1 view) In Process Unspecified. EDMS 16:24 Patient has correct armband on for positive identification. Bed in low position. Call cm10 light in reach. Side rails up X2. Client placed on continuous cardiac and pulse oximetry monitoring. NIBP monitoring applied. 16:37 CBC with Diff Sent. aw1 16:38 Inserted saline lock: 20 gauge in right antecubital area, using aseptic technique. aw1 16:38 Initial lab(s) drawn, by me, sent to lab. aw1 18:09 Karma Townsend, RN is Primary Nurse. ld1 18:31 CT Chest For PE Angio In Process Unspecified. EDMS 19:08 No provider procedures requiring assistance completed. IV discontinued, intact, as6 bleeding controlled, No redness/swelling at site. Pressure dressing applied. Administered Medications: No medications were administered Medication: 19:08 VIS not applicable for this client. as6 Outcome: 19:05 Discharge ordered by MD. kb 19:08 Discharged to home ambulatory. as6 19:08 Condition: stable 19:11 Discharge instructions given to patient, Instructed on discharge instructions, follow as6 up and referral plans. Demonstrated understanding of instructions, follow-up care. 19:13 Patient left the ED. as6 Signatures: Dispatcher [employer] EDWA Isabel Palacio FNP-C JOB SUPERINTENDENT-Jing Valera rg4 Tamar James RN RN ll1 Karma Townsend, RN RN ld1 Mitch Pagan, VADIM RN as6 Flor Pimentel, RN RN cm10 Lisa Khan aw1 Corrections: (The following items were deleted from the chart) 15:30 15:27 Chief complaint: Patient states: Cough, SOB for 5 weeks ll1 ll1 15:33 15:26 Social history: Smoking status: Patient denies any tobacco usage or history of. ll1 ll1
--- NOTE | 2022-09-19 19:06 | EDPHYS ---
Physician Documentation [facility] Name: Chantel Rodriguez Age: 67 yrs Sex: Female : 1955 Arrival Date: 09/19/2022 Time: 15:18 Bed 8 Private MD: ED Physician Mk Ackerman HPI: 09/19 18:21 This 67 yrs old Female presents to ER via Ambulatory with complaints of Cough, kb Breathing Difficulty. 18:21 The patient or guardian reports cough, that is intermittent, described as moderate, kb difficulty breathing. Onset: The symptoms/episode began/occurred 5 week(s) ago. Severity of symptoms: At their worst the symptoms were moderate, in the emergency department the symptoms are unchanged. Modifying factors: The symptoms are alleviated by nothing, the symptoms are aggravated by nothing. Associated signs and symptoms: The patient has no apparent associated signs or symptoms. The patient has not experienced similar symptoms in the past. The patient has been recently seen by a physician:. Pt reports cough and shortness of breath for 5 weeks. Has been seen by discotheque dancer a few times since onset of symptoms. Has taken 2 courses of steroids and levaquin without resolution of symptoms. Historical: - Allergies: 15:30 PENICILLINS; ll1 15:30 doxycycline monohydrate (bulk); ll1 15:30 all statins; ll1 - PMHx: 15:27 copd; long covid; ll1 15:30 pulmonary stenosis; Asthma; ll1 15:34 CPAP with oxygen; ll1 - PSHx: 15:30 breast CA R mastectomy; Cholecystectomy; ll1 - Immunization history:: Adult Immunizations up to date, Client reports receiving the 2nd dose of the Covid vaccine. - Social history:: Smoking status: Patient/guardian denies using tobacco, the patient reports quitting approximately 35 years ago. ROS: 18:22 Constitutional: Negative for fever, chills, and weight loss. kb 18:22 Respiratory: Positive for cough, dyspnea on exertion, shortness of breath. 18:22 All other systems are negative. Exam: 17:51 Constitutional: This is a well developed, well nourished patient who is awake, alert, kb and in no acute distress. Head/Face: Normocephalic, atraumatic. ENT: Moist Mucous membranes Cardiovascular: Regular rate and rhythm with a normal S1 and S2. No gallops, murmurs, or rubs. No pulse deficits. Respiratory: Respirations even and unlabored. No increased work of breathing. Talking in full sentences Abdomen/GI: Soft, non-tender. No distention Skin: Warm, dry with normal turgor. Normal color. MS/ Extremity: Pulses equal, no cyanosis. Neurovascular intact. Full, normal range of motion. Neuro: Awake and alert, GCS 15, oriented to person, place, time, and situation. Moves all extremities. Normal gait. 17:51 ECG was reviewed by the Attending Physician. Vital Signs: 15:29 BP 119 / 89; Pulse 85; Resp 17; Temp 97.9; Pulse Ox 98% on R/A; Pain 2/10; ll1 16:40 BP 106 / 71; Pulse 80; Resp 18; Pulse Ox 95% on R/A; ld1 19:12 BP 105 / 67; Pulse 77; Resp 18 S; Pulse Ox 99% on R/A; as6 15:29 Pain Scale: Adult ll1 MDM: 15:24 Patient medically screened. kb 18:22 Differential Diagnosis: Obstructed Airway Bronchitis Influenza Upper Respiratory kb Infection Pneumonia. Data reviewed: vital signs, nurses notes. Consideration of Admission/Observation Escalation of care including admission/observation considered. admission considered, but pt is nontoxic in appearance, in no resp distress. . Counseling: I had a detailed discussion with the patient and/or guardian regarding: the historical points, exam findings, and any diagnostic results supporting the discharge/admit diagnosis, lab results, radiology results, the need for outpatient follow up, a family practitioner, a discotheque dancer, to return to the emergency department if symptoms worsen or persist or if there are any questions or concerns that arise at home. 18:24 Historians other than the Patient: Dr Ackerman spoke with pt's discotheque dancer and obtained kb history. 09/19 15:31 Order name: Basic Metabolic Panel; Complete Time: 17:03 kb 09/19 15:31 Order name: CBC with Diff; Complete Time: 16:55 kb 09/19 15:31 Order name: Magnesium; Complete Time: 17:03 kb 09/19 15:31 Order name: NT PRO-BNP; Complete Time: 17:03 kb 09/19 15:31 Order name: Troponin HS; Complete Time: 17:03 kb 09/19 15:31 Order name: XRAY Chest (1 view); Complete Time: 17:38 kb 09/19 17:20 Order name: CT Chest For PE Angio; Complete Time: 19:03 kb 09/19 15:31 Order name: EKG; Complete Time: 15:32 kb 09/19 15:31 Order name: Cardiac monitoring; Complete Time: 16:35 kb 09/19 15:31 Order name: EKG - Nurse/Tech; Complete Time: 16:35 kb 09/19 15:31 Order name: IV Saline Lock; Complete Time: 16:37 kb 09/19 15:31 Order name: Labs collected and sent; Complete Time: 16:37 kb 09/19 15:31 Order name: O2 Per Protocol; Complete Time: 16:40 kb 09/19 15:31 Order name: O2 Sat Monitoring; Complete Time: 16:40 kb EC:51 Rate is 84 beats/min. Rhythm is regular. QRS [place] is Normal. ND interval is normal at kb 148 msec. QRS interval is normal at 74 msec. QT interval is normal at 449 msec. Administered Medications: No medications were administered Disposition: 20:38 Co-signature as Attending Physician, Mk Ackerman MD I reviewed the patient's care rn provided by the Advanced Practice Provider and agree with the diagnosis and treatment plan. Disposition Summary: 09/19/22 19:05 Discharge Ordered Location: Home kb Condition: Stable kb Diagnosis - Cough kb Followup: kb - With: Emergency Department - When: As needed - Reason: Worsening of condition Followup: kb - With: Private Physician - When: 2 - 3 days - Reason: Recheck today's complaints, Continuance of care, Re-evaluation by your physician Discharge Instructions: - Discharge Summary Sheet kb - Cough, Adult, [id number] kb Forms: - Medication Reconciliation Form kb - Thank You Letter kb - Antibiotic Education kb - Prescription Opioid Use kb - [email or web address] kb Signatures: Dispatcher [employer] Isabel Pino FNP-C FNP-Mk Mayen MD MD rn Lewis, Lynsay, RN RN ll1 Corrections: (The following items were deleted from the chart) 15:33 15:26 Social history: Smoking status: Patient denies any tobacco usage or history of. ll1 ll1 17:50 15:32 [email or web address] ordered. EDMS EDMS
[2022-09-19 19:50] VITALS: TEMP 97.9
[2022-09-19 19:53] VITALS: BP 105/67; O2SAT 99
--- NOTE | 2022-09-21 16:22 | EKG ---
Test Date: 2022-09-19 Test Time: 16:21:43 Client Support Associate: FLIP MEASUREMENT RESULTS: Intervals: Rate: 84 [place]: 148 QRSD: 74 QT: 380 QTc: 449 [place]: P: 23 [place]: 148 QRS: 9 T: 27 INTERPRETIVE STATEMENTS: Sinus rhythm with occasional premature ventricular complexes Low voltage QRS Borderline ECG No previous ECG available for comparison Electronically Signed On 09-21-22 16:18:41 CDT by Lito Viveros
== END 2022-09-19 19:13 | disposition home or self-care (01) ==
LOC: ER 15:18
DX: R05.9 Cough, unspecified (principal); J44.9 Chronic obstructive pulmonary disease, unspecified; Z88.0 Allergy status to penicillin; Z88.1 Allergy status to other antibiotic agents; Z88.8 Allergy status to other drugs, medicaments and biological substances
CPT/HCPCS: 93005; 85025; 80048; 83735; 84484; 83880; 71275; 71045; 99284; Q9967

== ENCOUNTER 2022-10-14 16:02 | Emergency (ER) | payer OTHER ==
--- OUTSIDE RECORDS SUMMARY | 2022-10-14 16:09 | XMS REPORT | Continuity of Care Document ---
:1955 Author Organization [facility] t Address [address] [facility] [address] [place] [address] Care Team Providers Name Role Phone Pcp, Patient Does Not Have A Primary Care Physician +[id number] JOSETTE SCHAFFER Attending Clinician Unavailable MOE YOON Attending Clinician Unavailable ARTHUR KRAMER Attending Clinician Unavailable WALTER MELTON Attending Clinician Unavailable BURKE MAI Attending Clinician Unavailable YAAKOV SANTOYO Attending Clinician Unavailable BROOKE BORJAS Attending Clinician Unavailable MD SUHAIL Attending Clinician Unavailable JACEK Attending Clinician Unavailable FLAVIO OROURKE Attending Clinician Unavailable HUNG BRAMBILA Attending Clinician Unavailable NEVILLE VACA Attending Clinician Unavailable HILDA RINCON Attending Clinician Unavailable LAB47 Attending Clinician Unavailable LOREE GODOY Attending Clinician Unavailable DARA LOPEZ Attending Clinician Unavailable AICHA ROBERTS Attending Clinician Unavailable VF1 Attending Clinician Unavailable TRED47 Attending Clinician Unavailable ERICA CROSS Attending Clinician Unavailable MARIE DELGADO Attending Clinician Unavailable PL, TECH 1 Attending Clinician Unavailable RAFIQ NERI Attending Clinician Unavailable JOSE AGUILA Attending Clinician Unavailable PAWAN RECINOS Attending Clinician Unavailable TOÑITO HUFF Attending Clinician Unavailable CONFERENCE, BDC Attending Clinician Unavailable PRITI HAMILTON Attending Clinician [...] JR HORTA Attending Clinician Unavailable Doctor Unassigned, [place] Attending Clinician Unavailable Bethany Grayson DO Attending Clinician ARELIS MONTELONGO Attending Clinician Unavailable Sudireddy_R Attending Clinician Unavailable BETHANY GRAYSON Admitting Clinician Unavailable Sudireddy_R Admitting Clinician Unavailable Payers Payer Name Policy Type Policy Number Effective Date Expiration Date S drake [facility] O 7 [id number] 2022 00:00:00 [facility] [id number] 2021 2021 00:00:00 00:00:00 [place] [id number] 2018 00:00:00 [facility] [id number] 2017 00:00:00 Problems Condition Condition Condition Status Onset Resolution Last Treating Co mments Source Name Details Category Date Date Treatment Clinician Date Palpitatio Palpitatio Disease Active K elsey ns ns 5-16 Seybold 00:00: - 00 [...] hypoxia l Pulmonary Pulmonary Disease Active William jonesy fibrosis, fibrosis, 1-20 Seyb old postinflam postinflam [...] vers pain pain 7-10 ity of 00:00: Medical Branch Sciatica Sciatica Disease Active Unive rs of right of right 7-10 ity of side side 00:00: Medical Branch Hypothyroi Hypothyroi Problem Active V illage dism dism 6-06 Family 00:00: Practic 00 e Mixed Mixed Problem Active [place] hyperlipid Hyperlipid 08-20 Contreras morales emia 00:00: Practic 00 e Mixed [...] 2-14 Formattin S eybold 00:00: g of note Externa might be l different from [...] Externa l Fibromyalg Fibromyalg Disease Active K veronika ia ia 5 Seybold 00:00: - 00 Externa l Hyperlipid Hyperlipid Disease Active Dea jinroly rodriguezia emia 4 Seybold 00:00: - 00 Externa l Chronic Chronic Disease Active Lucero pain pain 7 Seybold 00:00: - 00 Externa l Insomnia Insomnia Disease Active Kelse y 7- Seybold 00:00: - 00 Externa l Fx Fx Disease Active Lucero 6 Seybold 00:00: - 00 Externa l Allergies, Adverse Reactions, Alerts Allergy Allergy Status Severity Reaction(s) Onset Inactive Treating Comm ents Source Name Type Date Date Clinician Doxylami Propensi Active Hives 2021-03 Lucero ne ty to 04-07 Seybold adverse 00:00: - reaction 00 Externa s l Doxycycl Propensi Active Rash 2021-0 Univer s ine ty to 7-10 ity [...] s Branch rs Penicill Propensi Active Rash 2021-0 Univer s [...] INHIBITO Branch RS Penicill DA Active [place] 2018- [facility] - [place] [facility] doxycycl DA Active [facility] in[facility] 4- [place] 00:00: [facility] latex DA Active [place] 2018- [facility] 4- [place] 00:00: Orthope 00 [facility] Penicill DA Active [place] [facility] ins 4 [place] 00:00: Orthope 00 dic Hospita l doxycycl DA Active U [facility] ine 4-25 [place] 00:00: Orthope 00 [facility] latex DA Active [place] 2018-0 [facility] 4-25 [place] 00:00: Orthope 00 dic Hospita l Doxycycl Drug Active Contact Lucero ine Allergy Dermatitis 07-22 Seybo ld 00:00: - 00 Externa l Penicill DA Active [place] [facility] ins 07-06 [place] 00:00: Orthope 00 dic Hospita l Statins- DA Active U [facility] 07-06 [place] 00:00: Orthope e 00 dic Inhibito Hospita r l latex DA Active [place] [facility] 4-22 [place] 00:00: Orthope 00 dic Hospita l Rosuvast Propensi Active Rash Cant take William sea atin ty to 6-15 any Seybold Calcium [...] to severe Family substanc Practic e e PENICILL Allergy Active Moderate Hives Schrader ge INS to to severe Family substanc Practic e e STATINS- Allergy Active [place] [facility] to Family REDUCTAS substanc Practi c E e e INHIBITO RS NO KNOWN Drug Active Univers ALLERGIE Class ity of [facility] Social History Social Habit Start Date Stop Date Quantity Comments Source Gender identity 2021-02-24 Identifies as Lucero Reed - 00:08:00 female gender External (finding) History [...] External Exposure to 2021-09-13 2021-09-23 Not sure [facility] SARS-CoV-2 (event) 00:00:00 20:32:00 [facility] Sex Ass[birth year] Universit y of 00:00:00 00:00:00 [facility] Smoking Status Start Date Stop Date Source Tobacco smoking [facility] xa consumption unknown Medical Bran ch Ex-smoker [...] daily x 4 days Albuterol 2022- Yes [id number] 2.5mg Q4H Take 2.5 Lucero (PROVENTIL) 08-22 07-09 mg by Seybol d (2.5 00:00: 04:59 nebulizati - MG/3ML) 00 :00 on every 4 [employer] a 0.083% hours as l inhalation needed for Inhalant wheezing Solution Albuterol-I 2022- Yes [id number] 3mg Q4H Inhale 3.6 Lucero pratropium 08-22 07-09 mL (3 mg Seyb old 0.5-2.5 [...] days l Auto-inject or Temazepam 2022-0 Yes [id number] 30mg QD Take 1 William sey 30 MG oral 5-18 capsule Seybol d Capsule 00:00: (30 mg - 00 total) by Externa mouth l nightly as needed for sleep Bupropion 2022-0 Yes [id number] 150mg Take 1 K elsey HCL XL 150 5-18 tablet Seybold MG OR TB24 00:00: (150 mg - 00 total) by Externa mouth l every morning Temazepam 2022-0 Yes [id number] 30mg QD Take 1 William sey 30 MG oral 5-18 capsule Seybol d Capsule 00:00: (30 mg - 00 total) by Externa mouth l nightly as needed for sleep Bupropion 2022-0 Yes [id number] 150mg Take 1 K elsey HCL XL 150 5-18 tablet Seybold MG OR TB24 00:00: (150 mg - 00 total) by Externa mouth l every morning Metoprolol 2022-0 Yes [id number] 12.5mg Take 0.5 Lucero Tartrate 5-16 tablets Seybold (LOPRESSOR) 00:00: (12.5 mg - 25 MG oral 00 total) by Exte rna Tablet mouth l daily Metoprolol 0 Yes [id number] 12.5mg Take 0.5 Lucero Tartrate 5-16 tablets Seybold (LOPRESSOR) 00:00: (12.5 mg - 25 MG oral 00 total) by Exte rna Tablet mouth l daily Metoprolol 0 Yes [id number] 12.5mg Take 0.5 Lucero Tartrate 5-16 tablets Seybold (LOPRESSOR) 00:00: (12.5 mg - 25 MG oral 00 total) by Exte rna Tablet mouth l daily Metoprolol 0 2022- No [id number] 12.5mg Take 0.5 Lucero Tartrate 5-16 05-16 tablets Seybold (LOPRESSOR) 00:00: 00:00 (12.5 mg - 25 MG oral 00 :00 total) by Exte rna Tablet mouth l daily Alirocumab 2023-0 Yes 75mg Inject 75 Ke lsey (Praluent) 5-01 mg into Seybol d 75 MG/ML 00:00: the skin - subcutaneou 00 every 14 Exte rna s Solution days l Auto-inject or Alirocumab 2023-0 Yes 75mg Inject 75 Ke lsey (Praluent) 5-01 mg into Seybol d 75 MG/ML 00:00: the skin - subcutaneou 00 every 14 Exte rna s Solution days l Auto-inject or Fluticasone 2023-0 Yes 1{puff} Inhale 1 Lucero -Salmeterol 4-25 puff into Sey bold (Advair 00:00: the lungs - Diskus) 00 2 times Externa 500-50 daily l MCG/ACT inhalation AEROSOL POWDER, BREATH ACTIVATED Fluticasone 2023-0 Yes 1{puff} Inhale 1 Lucero -Salmeterol 4-25 puff into Sey bold (Advair 00:00: the lungs - Diskus) 00 2 times Externa 500-50 daily l MCG/ACT inhalation AEROSOL POWDER, BREATH ACTIVATED Fluticasone 3-0 Yes 1{puff} Inhale 1 Lucero -Salmeterol 4-25 puff into Sey bold (Advair 00:00: the lungs - Diskus) 00 2 times Externa 500-50 daily l MCG/ACT inhalation AEROSOL POWDER, BREATH ACTIVATED Fluticasone 3-0 Yes 1{puff} Inhale 1 Lucero -Salmeterol 4-14 puff into Sey bold (Advair 00:00: the lungs - Diskus) 00 2 times Externa 500-50 daily l MCG/ACT inhalation AEROSOL POWDER, BREATH ACTIVATED Fluticasone 2023-0 Yes 1{puff} Inhale 1 Lucero -Salmeterol 4-14 puff into Sey bold (Advair 00:00: the lungs - Diskus) 00 2 times Externa 500-50 daily l MCG/ACT inhalation AEROSOL POWDER, BREATH ACTIVATED Fluticasone 2023-0 Yes 1{puff} Inhale 1 Lucero -Salmeterol 4-14 puff into Sey bold (Advair 00:00: the lungs - Diskus) 00 2 times Externa 500-50 daily l MCG/ACT inhalation AEROSOL POWDER, BREATH ACTIVATED Montelukast 2023-0 Yes 10mg Take 1 Jessica ey (SINGULAIR) 4-12 tablet (10 Se ybold 10 MG oral 00:00: mg total) - Tablet 00 by mouth Externa tablet daily l Temazepam 2022-0 Yes [id number] 30mg QD Take 1 William sey 30 MG oral 4-12 capsule Seybol d Capsule 00:00: (30 mg - 00 total) by Externa mouth l nightly as needed for sleep Celecoxib 2022-0 Yes [id number] 200mg QD Take 1 Lucero 200 MG oral 4-12 capsule Seybo ld Capsule 00:00: (200 mg - 00 total) by Externa mouth l daily as needed for pain Montelukast 2022-0 Yes 10mg Take 1 Jessica ey (SINGULAIR) 4-12 tablet (10 Se ybold 10 MG oral 00:00: mg total) - Tablet 00 by mouth Externa tablet daily l Celecoxib 2022-0 Yes [id number] 200mg QD Take 1 Lucero 200 MG oral 4-12 capsule Seybo ld Capsule 00:00: (200 mg - 00 total) by Externa mouth l daily as needed for pain Montelukast 2022-0 Yes 10mg Take 1 Jessica ey (SINGULAIR) 4-12 tablet (10 Se ybold 10 MG oral 00:00: mg total) - Tablet 00 by mouth Externa tablet daily l Celecoxib 2022-0 Yes [id number] 200mg QD Take 1 Lucero 200 MG oral 4-12 capsule Seybo ld Capsule 00:00: (200 mg - 00 total) by Externa mouth l daily as needed for pain Paroxetine 2022-0 Yes 30mg Take 1 Kelse y HCl 30 MG 4-07 tablet (30 Seyb old oral Tablet 00:00: mg total) - 00 by mouth Externa daily l Paroxetine 2022-0 Yes 30mg Take 1 Kelse y HCl 30 MG 4-07 tablet (30 Seyb old oral Tablet 00:00: mg total) - 00 by mouth Externa daily l Paroxetine 2022-0 Yes 30mg Take 1 Kelse y HCl 30 MG 4-07 tablet (30 Seyb old oral Tablet 00:00: mg total) - 00 by mouth Externa daily l Methylpredn 3-0 3- No [id number] 40mg Lucero isolone 3-22 03-22 Seybold Acetate 22:00: 21:58 - (Depo-Medro 00 :00 Externa l) 40 mg/ml l - Physician Administere d ([id number]) Methylpredn 2022- No [id number] 40mg 40 mg, Lucero isolone 06-05 Physician [...] Aerosol each nostril every day Levothyroxi Yes [id number] 175ug Take 1 Lucero ne Sodium 3-13 tablet Seybold 175 MCG 00:00: (175 mcg - oral Tablet 00 total) by Ext dahiana mouth l daily Pantoprazol Yes [id number] 40mg Take 1 Lucero e Sodium 3-13 tablet (40 Seybo ld (Protonix) 00:00: mg total) - 40 MG oral 00 by mouth Exter na Tablet daily l Delayed Response Celecoxib Yes [id number] 200mg QD Take 1 Lucero 200 MG oral 3-13 capsule Seybo ld Capsule 00:00: (200 mg - 00 total) by Externa mouth l daily as needed for pain Montelukast Yes 10mg Take 1 Jessica ey (SINGULAIR) 3-13 tablet (10 Se ybold 10 MG oral 00:00: mg total) - Tablet 00 by mouth Externa tablet daily l Levothyroxi Yes [id number] 175ug Take 1 Lucero ne Sodium 3-13 tablet Seybold 175 MCG 00:00: (175 mcg - oral Tablet 00 total) by Ext dahiana mouth l daily Pantoprazol 0 Yes [id number] 40mg Take 1 Lucero e Sodium 3-13 tablet (40 Seybo ld (Protonix) 00:00: mg total) - 40 MG oral 00 by mouth Exter na Tablet daily l Delayed Response Levothyroxi 2022-0 Yes [id number] 175ug Take 1 Lucero ne Sodium 3-13 tablet Seybold 175 MCG 00:00: (175 mcg - oral Tablet 00 total) by Ext dahiana mouth l daily Pantoprazol 2022-0 Yes [id number] 40mg Take 1 Lucero e Sodium 3-13 tablet (40 Seybo ld (Protonix) 00:00: mg total) - 40 MG oral 00 by mouth Exter na Tablet daily l Delayed Response Levothyroxi 2022-0 Yes [id number] 175ug Take 1 Lucero ne Sodium 3-13 tablet Seybold 175 MCG 00:00: (175 mcg - oral Tablet 00 total) by Ext dahiana mouth l daily Pantoprazol 2022-0 Yes [id number] 40mg Take 1 Lucero e Sodium 3-13 [...] days l Auto-inject or Cholecalcif 2022-0 Yes [id number] 1{capsu Take 1 Lucero javier 1-23 le} capsule by Seybold (Vitamin 00:00: mouth - D-3) 25 MCG 00 daily Externa (1000 UT) l oral Capsule Cholecalcif 2022-0 Yes [id number] 1{capsu Take 1 Lucero javier 1-23 le} capsule by Seybold (Vitamin 00:00: mouth - D-3) 25 MCG 00 daily Externa (1000 UT) l oral Capsule Cholecalcif 2022-0 Yes [id number] 1{capsu Take 1 Lucero javier 1-23 le} capsule by Reed (Vitamin 00:00: mouth - D-3) 25 MCG 00 daily Externa (1000 UT) l oral Capsule Cholecalcif 0 Yes [id number] 1{capsu Take 1 Lucero javier 1-23 le} capsule by Reed (Vitamin 00:00: mouth - D-3) 25 MCG 00 daily Externa (1000 UT) l oral Capsule Coenzyme 2022-0 2022- No Take by Dannielle y Q10 (COQ10) 1-20 -20 mouth Seybol d 100 MG oral 13:57: 00:00 - Cap 06 :00 Externa l Magnesium 2022-0 2022- No Take by Jessica ey 100 MG oral -20 20 mouth Seybol d Cap 13:55: 00:00 - 54 :00 Externa l Temazepam 2022-0 2022- No 1{capsu 1 capsule Lucero 30 MG oral 1-20 04-05 le} Seybold Capsule 13:54: 00:00 - 44 :00 Externa l Cetirizine 2022-0 2022- No Take by William sey HCl 10 MG -20 20 mouth Seybold oral 13:53: 00:00 - Capsule 11 :00 Externa l Triamcinolo 0 Yes by nasal Ke lsey ne 1-20 route Seybold Acetonide 13:36: Indication - 55 MCG/ACT 17 s: 2 Externa nasal sprays in l Aerosol each nostril every day Cetirizine 2022-0 Yes [id number] 10mg Take 1 K elsey HCl 10 MG 1-20 capsule Seybold oral 00:00: (10 mg - Capsule 00 total) by Externa mouth l daily Temazepam 2022-0 Yes [id number] 30mg QD Take 1 William sey 30 MG oral 1-20 capsule Seybol d Capsule 00:00: (30 mg - 00 total) by Externa mouth l nightly as needed for sleep Magnesium 2022-0 Yes [id number] 1{capsu Take 1 Lcuero 100 MG oral 1-20 le} capsule by Se ybold Capsule 00:00: mouth - 00 daily Externa l Ergocalcife 2022-0 Yes [id number] 30291Z Take 1 Lucero rol 1.25 MG 1-20 capsule Seybo ld (73929 UT) 00:00: (50,000 - oral 00 units Externa Capsule total) by l mouth once a week busPIRone 2022-0 Yes [id number] 7.5mg QD Take 1 K elsey HCl 7.5 MG 1-20 tablet Seybold oral Tablet 00:00: (7.5 mg - 00 total) by Externa mouth l daily as needed (anxiety) Cetirizine 2022-0 Yes [id number] 10mg Take 1 K elsey HCl 10 MG 1-20 capsule Seybold oral 00:00: (10 mg - Capsule 00 total) by Externa mouth l daily Temazepam 2022-0 Yes [id number] 30mg QD Take 1 William sey 30 MG oral 1-20 capsule Seybol d Capsule 00:00: (30 mg - 00 total) by Externa mouth l nightly as needed for sleep Magnesium 2022-0 Yes [id number] 1{capsu Take 1 Lucero 100 MG oral 1-20 le} capsule by Se ybold Capsule 00:00: mouth - 00 daily Externa l Cetirizine 2022-0 Yes [id number] 10mg Take 1 K elsey HCl 10 MG 1-20 capsule Seybold oral 00:00: (10 mg - Capsule 00 total) by Externa mouth l daily Magnesium 2022-0 Yes [id number] 1{capsu Take 1 Lucero 100 MG oral 1-20 le} capsule by Se ybold Capsule 00:00: mouth - 00 daily Externa l Cetirizine 2022-0 Yes [id number] 10mg Take 1 K elsey HCl 10 MG 1-20 capsule Seybold oral 00:00: (10 mg - Capsule 00 total) by Externa mouth l daily Magnesium 2022-0 Yes [id number] 1{capsu Take 1 Lucero 100 MG oral 1-20 le} capsule by Se ybold Capsule 00:00: mouth - 00 daily Externa l Cetirizine 2022-0 Yes [id number] 10mg Take 1 K elsey HCl 10 MG 1-20 capsule Seybold oral 00:00: (10 mg - Capsule 00 total) by Externa mouth l daily Magnesium 2022-0 Yes [id number] 1{capsu Take 1 Lucero 100 MG oral 1-20 le} capsule by Se ybold Capsule 00:00: mouth - 00 daily Externa l busPIRone 2022-0 3- No [id number] 7.5mg QD Take 1 Lucero HCl 7.5 MG 04-05-22 tablet Seybol d oral Tablet 00:00: 00:00 (7.5 mg - 00 :00 total) by Externa mouth l daily as needed (anxiety) Repatha 0 Yes Lucero SureClick 1-16 Seybold 140 MG/ML 00:00: - subcutaneou 00 Externa s Solution l Auto-inject or Repatha Yes Lucero SureClick 1-16 Seybold 140 MG/ML 00:00: - subcutaneou 00 Externa s Solution l Auto-inject or Repatha Yes Lucero SureClick 1-16 Seybold 140 MG/ML 00:00: - subcutaneou 00 Externa s Solution l Auto-inject or Cetirizine Yes Take by Jessica og HCl 10 MG 1-13 mouth Seybold oral 14:53: - Capsule 26 Externa l Triamcinolo Yes by nasal Ke lsey ne 1-13 route Seybold Acetonide 14:53: Indication - 55 MCG/ACT 26 s: 2 Externa nasal sprays in l Aerosol each nostril every day Magnesium Yes Take by Dannielle y 100 MG oral 1-13 mouth Seybold Cap 14:53: - 26 Externa l Coenzyme 0 Yes Take by Lucero Q10 (COQ10) 1-13 mouth Seybold 100 MG oral 14:53: - Cap 26 Externa l Temazepam 0 Yes 1{capsu 1 capsule Lucero 30 MG oral 1-13 le} Seybold Capsule 14:53: - 26 Externa l Evolocumab 0 Yes [id number] 140mg Inject 1 Lucero (Repatha) 1-13 mL (140 mg Seyb old 140 MG/ML 00:00: total) - subcutaneou 00 into the Exte rna s Solution skin every l Prefilled 14 days Syringe Metoprolol 0 Yes [id number] 25mg Take 1 Lucero Tartrate 25 1-13 tablet (25 Se ybold MG oral 00:00: mg total) - Tablet 00 by mouth Externa daily l Evolocumab Yes [id number] 140mg Inject 1 Lucero (Repatha) 1-13 mL (140 mg Seyb old 140 MG/ML 00:00: total) - subcutaneou 00 into the Exte rna s Solution skin every l Prefilled 14 days Syringe Metoprolol Yes [id number] 25mg Take 1 Lucero Tartrate 25 1-13 tablet (25 Se ybold MG oral 00:00: mg total) - Tablet 00 by mouth Externa daily l Metoprolol Yes [id number] 25mg Take 1 Lucero Tartrate 25 1-13 tablet (25 Se ybold MG oral 00:00: mg total) - Tablet 00 by mouth Externa daily l Metoprolol 2022- No [id number] 25mg Take 1 Lucero Tartrate 25 1-13 [...] Inhale 1 Lucero -Salmeterol 2-15 puff into y bold (Advair 00:00: the lungs - Diskus) [...] inhalation AEROSOL POWDER, BREATH ACTIVATED Ibuprofen 2021-03 No as needed Ke lsey 400 MG OR [...] every day Magnesium 2021-03 Yes Take by Williamse y 100 MG oral 04-07 mouth Seybold [...] Indication s: 225mg daily Celecoxib 2021-03 Yes [id number] 200mg QD Take 1 Lucero 200 MG oral 22 capsule Seybo ld Capsule 00:00: (200 mg - 00 total) by Externa mouth l daily as needed for pain Celecoxib 2021-03 Yes [id number] 200mg QD Take 1 Lucero 200 MG oral -22 capsule Seybo ld Capsule 00:00: (200 mg - 00 total) by Externa mouth l daily as needed for pain Celecoxib 2021-03 Yes [id number] 200mg QD Take 1 Lucero 200 MG oral 1-22 capsule Seybo ld Capsule 00:00: (200 mg - 00 total) by Externa mouth l daily as needed for pain Celecoxib 2021-03 Yes [id number] 200mg QD Take 1 Lucero 200 MG oral 1-22 capsule Seybo ld Capsule 00:00: (200 mg - 00 total) by Externa mouth l daily as needed for pain Celecoxib 2021-03 Yes [id number] 200mg QD Take 1 Lucero 200 MG oral 1-22 capsule Seybo ld Capsule 00:00: (200 mg - 00 total) by Externa mouth l daily as needed for pain methylpredn 2021- No 125mg 125 mg, U nivers isolone sod 09-24 Intramuscu i ty of succ 02:45: 02:06 lar, ONCE, [place] (SOLU-MEDRO 00 :00 1 dose, On Me [...] tablet 09/23/21 at 2044, LOLY methocarbam Yes [id number] 750mg Take 1 Univers oL 750 mg 7-10 tablet by ity o f tablet 00:00: mouth 4 [place] (four) Medical times Branch daily. methocarbam 2021-0 Yes [id number] 750mg Take 1 Univers oL 750 mg 7-10 tablet by ity o f tablet 00:00: mouth 4 [place] (four) Medical times Branch daily. methocarbam 2021-0 Yes [id number] 750mg Take 1 Univers oL 750 mg 7-10 tablet by ity o f tablet 00:00: mouth ([facility]) Medical times Branch daily. methocarbam 2-0 Yes [id number] 750mg Take 1 Univers oL 750 mg 7-10 tablet by ity o f tablet 00:00: mouth ([facility]) Medical times Branch daily. methocarbam 2-0 Yes [id number] 750mg Take 1 Univers oL 750 mg 7-10 tablet by ity o f tablet 00:00: mouth ([facility]) Medical times Branch daily. methocarbam 2-0 Yes [id number] 750mg Take 1 Univers oL 750 mg 7-10 tablet by ity o f tablet 00:00: mouth [place] ([facility]) Medical times Branch daily. busPIRone 2021-0 Yes 7.5mg Take 7.5 William sey HCl 7.5 MG 1-01 mg by Seybold oral Tablet 00:00: mouth - 00 daily Externa l Paroxetine 2021-0 Yes 20mg Take 20 mg K elsey HCl 20 MG 1-01 by mouth Seybol d oral Tablet 00:00: daily - 00 Externa l Quetiapine 2021-0 Yes 25mg Take 25 mg K elsey Fumarate 25 1-01 by mouth Seyb old MG oral 00:00: daily - Tablet 00 Externa l busPIRone 2021-0 Yes 7.5mg Take 7.5 William sey HCl 7.5 MG 1-01 mg by Seybold oral Tablet 00:00: mouth - 00 daily Externa l Paroxetine 2021-0 Yes 20mg Take 20 mg K elsey HCl 20 MG 1-01 by mouth Seybol d oral Tablet 00:00: daily - 00 Externa l Quetiapine 2021-0 Yes 25mg Take 25 mg K elsey Fumarate 25 1-01 by mouth Seyb old MG oral 00:00: daily - Tablet 00 Externa l busPIRone 2021-0 Yes 7.5mg Take 7.5 William sey HCl [...] 00:00: daily - Tablet Externa l Paroxetine 0 Yes 20mg Take [...] Take 25 mg K elsey Fumarate 25 03-17 by mouth Seyb old MG oral 00:00: daily - Tablet Externa l Paroxetine 0 2022- No 20mg Take 20 mg Lucero HCl 20 MG 03-17- by mouth Seybo ld oral Tablet 00:00: 00:00 daily - 00 : Externa l Quetiapine 0 2022- No 25mg Take 25 mg Lucero Fumarate 25 03-17- by mouth Sey bold MG oral 00:00: 00:00 daily - Tablet 00 :00 Externa l busPIRone 0 2022- No 7.5mg Take 7.5 Ke lsey HCl 7.5 MG - 01-20 mg by Seybold oral Tablet 00:00: 00:00 mouth - 00 :00 daily Externa l Celecoxib 2019-2021- No 200mg Take 200 Ke lsey 200 MG oral - 11-22 mg by Seybol d Capsule 00:00: 00:00 mouth - 00 :00 Externa l Ergocalcife 2019-0 Yes Lucero rol 1.25 MG - Seybold (78994 UT) 00:00: - oral 00 Externa Capsule l Metoclopram 2019- Yes 10mg Take 10 mg Lucero connor [...] Yes Lucero rol 1.25 MG - Seybold (23377 UT) 00:00: - oral 00 Externa Capsule [...] Yes Lucero rol 1.25 MG - Seybold (00214 UT) 00:00: - oral 00 Externa Capsule [...] Yes Lucero rol 1.25 MG - Seybold (08428 UT) 00:00: - oral 00 Externa Capsule [...] Delayed 00 Externa Response l Ergocalcife 2020-0 2023- No Kelse y rol 1.25 MG 03-17 Seybold (75687 UT) 00:00: 00:00 - oral 00 :00 Externa Capsule l Metoclopram 2020-0 2023- No 10mg Take 10 mg Lucero connor HCl 10 03-17 by mouth Seyb old MG oral 00:00: 00:00 daily - Tablet 00 :00 Externa l Levothyroxi 2019-0 Yes TAKE 1 Jessica ey ne Sodium 6-18 TABLET BY Seybo ld 150 MCG 00:00: MOUTH - oral Tab 00 EVERY DAY [employer] a l Levothyroxi Yes TAKE 1 Jessica ey ne Sodium 6-18 TABLET BY Seybo ld 150 MCG 00:00: MOUTH - oral Tab 00 EVERY DAY [employer] a l Levothyroxi 2019- Yes TAKE 1 Jessica ey ne Sodium 6-18 TABLET BY Seybo ld 150 MCG 00:00: MOUTH - oral Tab 00 EVERY DAY [employer] a l Levothyroxi 2019- Yes TAKE 1 Jessica ey ne Sodium 6-18 TABLET BY Seybo ld 150 MCG 00:00: MOUTH - oral Tab 00 EVERY DAY [employer] a l Levothyroxi 2019- Yes TAKE 1 Jessica ey ne Sodium 6-18 TABLET BY Seybo ld 150 MCG 00:00: MOUTH - oral Tab 00 EVERY DAY [employer] a l duloxetine duloxetine No 1capsul Q1D duloxetine [place] 60 mg 60 mg 6-06 e(s) 60 mg Family capsule,del capsule,del 00:00: capsule,de Practic ayed ayed 00 layed e release release release Take 1 Take 1 Take 1 capsule capsule capsule every day every day every day by oral by oral by oral route for route for route for 90 days. 90 days. 90 days. Polyethylen 2021- No [id number] 17g Take 17 Lucero e Glycol 07-16 [...] Externa TIMES l DAILY Pantoprazol 2017-03 Yes [id number] 40mg Take 1 Lucero e Sodium 1-09 (one) Seybold (PROTONIX) 00:00: tablet by - 40 MG oral 00 mouth Externa Tablet daily l Delayed Response Pantoprazol 2017-03 Yes [id number] 40mg Take 1 Lucero e Sodium 1-09 (one) Seybold (PROTONIX) 00:00: tablet by - 40 MG oral 00 mouth Externa Tablet daily l Delayed Response Pantoprazol 2017-03 Yes [id number] 40mg Take 1 Lucero e Sodium 1-09 (one) Seybold (PROTONIX) 00:00: tablet by - 40 MG oral 00 mouth Externa Tablet daily l Delayed Response Pantoprazol 2017-03 Yes [id number] 40mg Take 1 Lucero e Sodium 1-09 (one) Seybold (PROTONIX) 00:00: tablet by - 40 MG oral 00 mouth Externa Tablet daily l Delayed Response Pantoprazol 2017-03 Yes [id number] 40mg Take 1 Lucero e Sodium 1-09 (one) Seybold (PROTONIX) 00:00: tablet by - 40 MG oral 00 mouth Externa Tablet daily l Delayed Response Fluticasone 2015-03 Yes 1{puff} Inhale 1 Lucero -Salmeterol 2-23 puff into Sey bold (ADVAIR 00:00: the lungs - DISKUS) 00 2 times Externa 250-50 daily l MCG/DOSE inhalation AEROSOL POWDER, BREATH ACTIVATED Fluticasone 2015-03 Yes 1{puff} Inhale 1 Ulcero -Salmeterol 2-23 puff into Sey bold (ADVAIR [...] Lucero -Salmeterol 2-23 01-20 puff into Se ybold (ADVAIR 00:00: 00:00 the lungs - DISKUS) 00 :00 2 times Externa 250-50 daily l MCG/DOSE inhalation AEROSOL POWDER, BREATH ACTIVATED Oxcarbazepi 2015-03- No [id number] 600mg Take 1 Lucero ne 2-13 11-22 tablet by ybmildred (TRILEPTAL) 00:00: 00:00 mouth - 600 MG oral 00 :00 every Externa Tab night at l bedtime Albuterol 2011-03 Yes [id number] 2{puff} 2 puffs 4 Lucero 90 MCG/ACT 1-20 6 times Seybold IN AERS 00:00: daily As - 00 needed for Externa shortness l of breath Albuterol 2011-03 Yes [id number] 2{puff} 2 puffs 4 Lucero 90 MCG/ACT 1-20 6 times Seybold IN AERS 00:00: daily As - 00 needed for Externa shortness l of breath Albuterol 2011-03 Yes [id number] 2{puff} 2 puffs 4 Lucero 90 MCG/ACT 1-20 6 times Seybold IN AERS 00:00: daily As - 00 needed for Externa shortness l of breath Albuterol 2011-03 Yes [id number] 2{puff} 2 puffs 4 Lucero 90 MCG/ACT 1-20 6 times Seybold IN AERS 00:00: daily As - 00 needed for Externa shortness l of breath Albuterol 2011-03 Yes [id number] 2{puff} 2 puffs 4 Lucero 90 MCG/ACT 1-20 6 times Seybold IN AERS 00:00: daily As - 00 needed for Externa shortness l of breath Albuterol 2011-03 Yes [id number] 2{puff} 2 puffs 4 Lucero 90 MCG/ACT 1-20 6 times Seybold IN AERS 00:00: daily As - 00 needed for Externa shortness l of breath Albuterol 2011-03 Yes [id number] 2{puff} 2 puffs 4 Lucero 90 MCG/ACT 1-20 6 times Seybold IN AERS 00:00: daily As - 00 needed for Externa shortness l of breath Albuterol 2011-03 Yes [id number] 2{puff} 2 puffs 4 Lucero 90 MCG/ACT 1-20 6 times Seybold IN AERS 00:00: daily As - 00 needed for Externa shortness l of breath Albuterol 2011-03 Yes [id number] 2{puff} 2 puffs 4 Lucero 90 MCG/ACT 1-20 6 times Seybold IN AERS 00:00: daily As - 00 needed for Externa shortness l of breath clonazepam clonazepam No 1 clonazepam [facility] 0.5 mg 0.5 mg 0.5 mg Family tablet Take tablet Take tablet Practic 1 tablet as 1 tablet as Take 1 e needed by needed by tablet as oral route oral route needed by for 30 for 30 oral route days. days. for 30 days. gabapentin gabapentin No 3capsul Q1D gabapentin [facility] 100 mg 100 mg e(s) 100 mg Family capsule capsule capsule Practi c Take 3 Take 3 Take 3 e capsules capsules capsules every day every day every day by oral by oral by oral route for route for route for 90 days. 90 days. 90 days. levothyroxi levothyroxi No 1 Q1D levothyrox [facility] ne 150 mcg ne 150 mcg ine [...] 90 days. temazepam temazepam No 1capsul temazepam [facility] 30 mg 30 mg e(s) 30 mg Family capsule capsule capsule Practi c Take 1 Take 1 Take 1 e capsule as capsule as capsule as needed by needed by needed by oral route oral route oral route for 30 for 30 for 30 days. days. days. venlafaxine venlafaxine No 1capsul Q1D venlafaxin [facility] ER 75 mg ER 75 mg e(s) [...] Name Name Influenza Virus 2022-02-28 Completed Lucero Jones ybold Vaccine, 00:00:00 - External Quadrivalent, High Dose, Age 65 And Up Pneumococcal Vaccine, 2022-02-28 Completed William osei Seybold Polysaccharide 00:00:00 - External Influenza Virus 2022-02-28 Completed Lucero Se ybold Vaccine, 00:00:00 - External Quadrivalent, High Dose, Age 65 And Up Pneumococcal Vaccine, 2022-02-28 Completed William osei Seybold Polysaccharide 00:00:00 - External Influenza Virus 2022-02-28 Completed Lucero Jones ybold Vaccine, 00:00:00 - External Quadrivalent, High Dose, Age 65 And Up Pneumococcal Vaccine, 2022-02-28 Completed William osei Seybold Polysaccharide 00:00:00 - External Influenza Virus 2022-02-28 Completed Lucero Jones ybold Vaccine, 00:00:00 - External Quadrivalent, High [...] Seybold Polysaccharide 00:00:00 - External Influenza Virus 2018-05-15 Completed Lucero Se ybold [...] to 00:00:00 - E xternal age 3 influenza, influenza, 2018-05-15 Completed [facility] injectable, injectable, 00:00:00 Practice quadrivalent quadrivalent Influenza Virus 2016-02-29 Completed Lucero Se ybold [...] External Diastolic blood 2022-08-22 19:10:00 75 mm[Hg] Kelse y Seybold - pressure External Heart rate 2022-08-22 19:10:00 79 /min Lucero ogbold - External Body temperature 2022-08-22 19:10:00 36.78 Ariela Jessica og Seybold - External Respiratory rate 2022-08-22 19:10:00 18 /min Jessica og Seybold - External Body height 2022-08-22 19:10:00 157.5 cm Lucero ogbold - External Body weight 2022-08-22 19:10:00 79.833 kg Lucero ogbold - External BMI 2022-08-22 19:10:00 32.19 kg/m2 Lucero ogbold - External Oxygen saturation in 2022-08-22 19:10:00 96 /min Lucero Seap - Arterial blood by External Pulse oximetry [...] Body height 2022-07-30 21:41:00 157.5 cm Lucero S eybold - External Body weight 2022-07-30 21:41:00 80.287 kg Lucero S eybold - External BMI 2022-07-30 21:41:00 32.37 kg/m2 Lucero Drake eybold - External Oxygen saturation in 2022-07-30 21:41:00 99 /min Lucero Mcbride - Arterial blood by External Pulse oximetry Body height 2022-06-05 19:23:00 157.5 cm Lucero Drake eybold - External Body weight 2022-06-05 19:23:00 79.379 kg Lucero Drake eybold - External BMI 2022-06-05 19:23:00 32.01 kg/m2 Lucero S eybold - External Systolic blood 2022-04-05 19:31:00 98 mm[Hg] Lucero Seybold - pressure External Diastolic blood 2022-04-05 19:31:00 56 mm[Hg] Williamse y Seybold - pressure External Heart rate 2022-04-05 19:31:00 92 /min Lucero Drake eybold - External Body temperature 2022-04-05 19:31:00 36.5 Ariela Jessica ey Seybold - External Respiratory rate 2022-04-05 19:31:00 14 /min Jessica ey Seybold - External Body height 2022-04-05 19:31:00 157.5 cm Lucero Drake eybold - External Body weight 2022-04-05 19:31:00 80.287 kg Lucero S eybold - External BMI 2022-04-05 19:31:00 32.37 kg/m2 Lucero S eybold - External Systolic blood 2022-02-28 19:48:00 123 mm[Hg] Lucero Seybold - pressure External Diastolic blood 2022-02-28 19:48:00 83 mm[Hg] Kelse y Seybold - pressure External Heart rate 2022-02-28 19:48:00 74 /min Lucero S eybold - External Body temperature 2022-02-28 19:48:00 36.17 Ariela Jessica ey Seybold - External Respiratory rate 2022-02-28 19:48:00 18 /min Jessica ey Seybold - External Body height 2022-02-28 19:48:00 157.5 cm Lucero S eybold - External Body weight 2022-02-28 19:48:00 81.194 kg Lucero Drake eybold - External BMI 2022-02-28 19:48:00 32.74 kg/m2 Lucero Drake eybold - External Oxygen saturation in 2022-02-28 19:48:00 96 /min Lucero Mcbride - Arterial blood by External Pulse oximetry Systolic blood 2022-02-05 20:58:00 102 mm[Hg] Lucero Seybold - pressure External Diastolic blood 2022-02-05 20:58:00 58 mm[Hg] Dannielle y Seybold - pressure External Heart rate 2022-02-05 20:58:00 76 /min Lucreo Drake eybold - External Body temperature 2022-02-05 20:58:00 36.56 Ariela Jessica og Seybold - External Respiratory rate 2022-02-05 20:58:00 16 /min Jessica og Seybold - External Body height 2022-02-05 20:58:00 157.5 cm Lucero Drake eybold - External Body weight 2022-02-05 20:58:00 81.194 kg Lucero Drake eybold - External BMI 2022-02-05 20:58:00 32.74 kg/m2 Lucero Drake eybold - External Systolic blood 2021-09-24 02:00:00 107 mm[Hg] Univer sity of pressure [facility] Diastolic blood 2021-09-24 02:00:00 82 mm[Hg] Unive rsity of pressure [facility] Heart rate 2021-09-24 02:00:00 74 /min [facility] Respiratory rate 2021-09-24 02:00:00 16 /[facility] 2021-09-24 02:00:00 96 /min [facility] Arterial blood by [facility] Pulse oximetry Branch Body temperature 2021-09-24 01:37:00 36.89 Ariela [facility] Body height 2021-09-24 01:37:00 157.5 cm [facility] Body weight 2021-09-24 01:37:00 78.926 kg [facility] BMI 2021-09-24 01:37:00 31.83 kg/m2 [facility] BP Diastolic 2018-08-20 00:00:00 84 mm[Hg] [facility] Height 2018-08-20 00:00:00 60.5 [in_i] [facility] BMI (Body Mass 2018-08-20 00:00:00 32.1 kg/m2 Rebekah gracia [facility]) Practice BP Systolic 2018-08-20 00:00:00 112 mm[Hg] [facility] Body Weight 2018-08-20 00:00:00 167 [lb_av] [facility] Procedures Procedure Date / Time Performing Clinician Source Performed [facility] 2022-04-05 20:17:56 Flavio Orourke ld - External EXTERNAL PROVIDER RECORDS 2021-10-26 05:01:00 Doctor Unassigned, [facility] [place] [facility] CT HIP RIGHT WO CONTRAST 2021-09-24 01:54:59 Bethany Grayson [facility] CONSENT/REFUSAL FOR 2021-09-24 01:29:47 Doctor Unassigned, [facility] DIAGNOSIS AND TREATMENT [place] [facility] Colonoscopy 2016-03-17 00:00:00 [facility] Practice Mastectomy (One Breast) 2007-03-17 00:00:00 Rebekah amezquita [facility] Breast Surgery 2007-03-17 00:00:00 [facility] Practice Reconstructive Surgery 2007-03-17 00:00:00 Raciel ewing [facility] Cholecystectomy (Gall 1999-03-17 00:00:00 Christin fagan [facility] Bladder Removal) Practice Orthopedic Surgery 1990-03-17 00:00:00 [facility] Carla caro [facility] Caesarean Section 1979-03-17 00:00:00 [facility] Contreras griffith [facility] Hysterectomy (Total) 1979-03-17 00:00:00 [facility] STAKE SETTER Surgery (Gynecology) 1977-03-17 00:00:00 Caden arzate [facility] Practice Appendectomy 1974-03-17 00:00:00 [facility] Cheo ly Practice Plan of Care Planned Activity Planned Date Details Comments Source Diagnostic Test 2018-08-20 CBC w/ auto diff [facility] Pending 00:00:00 [code = CBC w/ auto Practice diff] Diagnostic Test 2018-08-20 CMP, serum or [facility] Fam marlon Pending 00:00:00 plasma [code = CMP, Practice serum or plasma] Diagnostic Test 2018-08-20 lipid panel, [facility] Pending 00:00:00 [code = lipid Practice panel, serum] Diagnostic Test 2018-08-20 hepatitis C virus [facility] Pending 00:00:00 RNA, quant, PCR, Practice serum or plasma [code = hepatitis C virus RNA, quant, PCR, serum or plasma] Diagnostic Test 2018-08-20 urinalysis, [facility] Fami ly Pending 00:00:00 dipstick [code = Practice urinalysis, dipstick] Diagnostic Test 2018-08-20 TSH, serum or [facility] Fam marlon Pending 00:00:00 plasma [code = TSH, Practice serum or plasma] Encounters Start End Encounter Admission Attending Care Care Encounter Source Date/Time Date/Time Type Type Clinicians Facility Department ID 2023-01-07 2023-01-07 Outpatient LUCERO SCHAFFER [id number] [facility] 14:15:00 14:15:00 JOSETTE Seybol d 2022-12-31 2022-12-31 Outpatient LUCERO YOON [id number] [facility] 14:30:00 14:30:00 MOE Seybol d 2022-12-18 2022-12-18 Outpatient LUCERO SCHAFFER [id number] [facility] 14:15:00 14:15:00 JOSETTE Seybol d 2022-12-17 2022-12-17 Outpatient LUCERO YOON [id number] [facility] 14:30:00 14:30:00 MOE Seybol d 2022-12-16 2022-12-16 Outpatient LUCERO KRAMER [id number] [facility] 09:45:00 09:45:00 ARTHUR joiner 2022-12-13 2022-12-13 Outpatient WALTER MELTON [id number] [facility] 14:00:00 14:00:00 Seybol d 2022-11-04 2022-11-04 Outpatient BURKE MAI [id number] [facility] 09:00:00 09:00:00 Seybol d 2022-10-15 2022-10-15 Outpatient LUCERO SANTOYO [id number] [facility] 13:30:00 13:30:00 YAAKOV Seybo ld 2022-10-14 2022-10-14 Outpatient LUCERO BORJAS [id number] [facility] 00:00:00 00:00:00 BROOKE Seybol d 2022-10-10 2022-10-10 Outpatient LAXMI CARRASCO [id number] [facility] 00:00:00 00:00:00 MD GISSEL Seybol d 2022-10-04 2022-10-04 Outpatient NURJB LUCERO CARRASCO [id number] [facility] 13:00:00 13:00:00 Seybol d 2022-10-02 2022-10-02 Outpatient LUCERO OROURKE [id number] [facility] 00:00:00 00:00:00 FLAVIO Seybol d 2022-09-30 2022-09-30 Outpatient LUCERO BRAMBILA [id number] [facility] 14:30:00 14:30:00 HUNG Seybol d 2022-09-30 2022-09-30 Outpatient LUCERO VACA [id number] [facility] 13:45:00 13:45:00 NEVILLE Seybol d 2022-09-30 2022-09-30 Outpatient LUCERO CARRASCO [id number] [facility] 00:00:00 00:00:00 Seybol d 2022-09-27 2022-09-27 Outpatient LUCERO BRAMBILA [id number] [facility] 14:30:00 14:30:00 HUNG Seybol d 2022-09-27 2022-09-27 Outpatient LUCERO RINCON [id number] [facility] 14:00:00 14:00:00 LYNDALL Seybol d 2022-09-27 2022-09-27 Outpatient BURKE MAI [id number] [facility] 11:15:00 11:15:00 Seybol d 2022-09-20 2022-09-20 Outpatient LUCERO BORJAS [id number] [facility] 10:10:00 10:10:00 BROOKE Seybol d 2022-09-18 2022-09-18 Outpatient BURKE MAI [id number] [facility] 00:00:00 00:00:00 Seybol d 2022-09-16 2022-09-16 Outpatient LUCERO BORJAS [id number] [facility] 00:00:00 00:00:00 BROOKE Seybol d 2022-09-13 2022-09-13 Outpatient LAB47 LUCERO CARRASCO [id number] [facility] 17:20:00 17:20:00 Seybol d 2022-09-13 2022-09-13 Outpatient LUCERO CARRASCO [id number] [facility] 17:00:00 17:00:00 Seybol d 2022-09-13 2022-09-13 Outpatient LUCERO GODOY [id number] [facility] 00:00:00 00:00:00 LOREE Seybo ld 2022-09-13 2022-09-13 Outpatient PRELUCERO MATTHEW [id number] [facility] 00:00:00 00:00:00 FLAVIO Seybol d 2022-09-13 2022-09-13 Outpatient LUCERO GODOY [id number] [facility] 00:00:00 00:00:00 LOREE Seybo ld 2022-09-13 2022-09-13 Outpatient LUCERO GODOY [id number] [facility] 00:00:00 00:00:00 LOREE Seybo ld 2022-09-12 2022-09-12 Outpatient BURKE MAI [id number] [facility] 00:00:00 00:00:00 Seybol d 2022-09-12 2022-09-12 Outpatient LUCERO GODOY [id number] [facility] 00:00:00 00:00:00 LOREE Seybo ld 2022-09-11 2022-09-11 Outpatient BURKE MAI [id number] [facility] 00:00:00 00:00:00 Seybol d 2022-09-11 2022-09-11 Outpatient LUCERO CARRASCO [id number] [facility] 00:00:00 00:00:00 Seybol d 2022-09-05 2022-09-05 Outpatient LAXMI LUCERO CARRASCO [id number] [facility] 00:00:00 00:00:00 MD GISSEL Seybol d 2022-09-05 2022-09-05 Outpatient DARA LOPEZ [id number] [facility] 00:00:00 00:00:00 Seybol d 2022-09-05 2022-09-05 Outpatient PRELUCERO MATTHEW [id number] [facility] 00:00:00 00:00:00 FLAVIO Seybol d 2022-09-05 2022-09-05 Outpatient LUCERO OROURKE [id number] [facility] 00:00:00 00:00:00 FLAVIO Seybol d 2022-09-02 2022-09-02 Outpatient LUCERO CARRASCO [id number] [facility] 00:00:00 00:00:00 Seybol d 2022-08-30 2022-08-30 Outpatient LUCERO ROBERTS [id number] [facility] 00:00:00 00:00:00 AICHA Seybol d 2022-08-30 2022-08-30 Outpatient LUCERO OROURKE [id number] [facility] 00:00:00 00:00:00 FLAVIO Seybol d 2022-08-28 2022-08-28 Outpatient LUCERO GODOY [id number] [facility] 00:00:00 00:00:00 LOREE Seybo ld 2022-08-28 2022-08-28 Outpatient BURKE MAI [id number] [facility] 00:00:00 00:00:00 Seybol d 2022-08-27 2022-08-27 Outpatient LUCERO GODOY [id number] [facility] 00:00:00 00:00:00 LOREE Seybo ld 2022-08-27 2022-08-27 Outpatient LUCERO GODOY [id number] [facility] 00:00:00 00:00:00 LOREE Seybo ld 2022-08-27 2022-08-27 Outpatient PRELUCERO MATTHEW [id number] [facility] 00:00:00 00:00:00 FLAVIO Seybol d 2022-08-27 2022-08-27 Outpatient LUCERO GODOY [id number] [facility] 00:00:00 00:00:00 LOREE Seybo ld 2022-08-26 2022-08-26 Outpatient BURKE MAI [id number] [facility] 15:00:00 15:00:00 Seybol d 2022-08-26 2022-08-26 Outpatient LUCERO GODOY [id number] [facility] 00:00:00 00:00:00 LOREE Seybo ld 2022-08-23 2022-08-23 Outpatient LUCERO GODOY [id number] [facility] 00:00:00 00:00:00 LOREE Seybo ld 2022-08-22 2022-08-22 Outpatient LUCERO GODOY [id number] [facility] 14:30:00 14:30:00 LOREE Seybo ld 2022-08-20 2022-08-20 Outpatient LUCERO BORJAS [id number] [facility] 00:00:00 00:00:00 BROOKE Seybol d 2022-08-15 2022-08-15 Outpatient LUCERO BORJAS [id number] [facility] 00:00:00 00:00:00 BROOKE Seybol d 2022-08-13 2022-08-13 Outpatient PREZASLUCERO [id number] [facility] 00:00:00 00:00:00 FLAVIO Seybol d 2022-08-06 2022-08-06 Outpatient LOPEZDARA [id number] [facility] 15:20:00 15:20:00 Seybol d 2022-08-06 2022-08-06 Outpatient VF1 LUCERO CARRASCO [id number] [facility] 14:00:00 14:00:00 Seybol d 2022-07-30 2022-07-30 Outpatient PREZASLUCERO [id number] [facility] 16:45:00 16:45:00 FLAVIO Seybol d 2022-07-30 2022-07-30 Outpatient PREZAS, LUCERO CARRASCO [id number] [facility] 00:00:00 00:00:00 FLAVIO Seybol d 2022-07-30 2022-07-30 Outpatient HARMS, LUCERO CARRASCO [id number] [facility] 00:00:00 00:00:00 BROOKE Seybol d 2022-07-28 2022-07-28 Outpatient HARMS, LUCERO CARRASCO [id number] [facility] 00:00:00 00:00:00 BROOKE Seybol d 2022-07-28 2022-07-28 Outpatient PREZAS, LUCERO CARRASCO [id number] [facility] 00:00:00 00:00:00 FLAVIO Seybol d 2022-07-28 2022-07-28 Outpatient HARMS, LUCERO CARRASCO [id number] [facility] 00:00:00 00:00:00 BROOKE Seybol d 2022-07-23 2022-07-23 Outpatient LUCERO GODOY [id number] [facility] 14:00:00 14:00:00 LOREE Seybo ld 2022-07-23 2022-07-23 Outpatient LUCERO GODOY [id number] [facility] 00:00:00 00:00:00 LOREE Seybo ld 2022-07-15 2022-07-15 Outpatient LUCERO BORJAS [id number] [facility] 00:00:00 00:00:00 BROOKE Seybol d 2022-07-11 2022-07-11 Outpatient TRED47 LUCERO CARRASCO [id number] [facility] 14:30:00 14:30:00 Seybol d 2022-07-04 2022-07-04 Outpatient WALTLUCERO ELLER [id number] [facility] 00:00:00 00:00:00 LOREE Seybo ld 2022-07-04 2022-07-04 Outpatient SUAD, LUCERO CARRASCO [id number] [facility] 00:00:00 00:00:00 BROOKE Seybol d 2022-07-02 2022-07-02 Outpatient LUCERO CROSS [id number] [facility] 15:45:00 15:45:00 ERICA Seybol d 2022-07-01 2022-07-01 Outpatient NATANAELLUCERO [id number] [facility] 08:30:00 08:30:00 YAAKOV Seybo ld 2022-06-28 2022-06-28 Outpatient LUCERO BORJAS [id number] [facility] 10:30:00 10:30:00 BROOKE Seybol d 2022-06-28 2022-06-28 Outpatient LUCERO GODOY [id number] [facility] 00:00:00 00:00:00 LOREE Seybo ld 2022-06-26 2022-06-26 Outpatient DELGADOMARIE [id number] [facility] 14:30:00 14:30:00 Seybol d 2022-06-26 2022-06-26 Outpatient LUCERO OROURKE [id number] [facility] 00:00:00 00:00:00 FLAVIO Seybol d 2022-06-26 2022-06-26 Outpatient LUCERO GODOY [id number] [facility] 00:00:00 00:00:00 LOREE Seybo ld 2022-06-21 2022-06-21 Outpatient LUCERO GODOY [id number] [facility] 00:00:00 00:00:00 LOREE Seybo ld 2022-06-17 2022-06-[address], TECH LUCERO CARRASCO [id number] [facility] 13:30:00 13:30:00 Seybol d 2022-06-14 2022-06-14 Outpatient PRELUCERO MATTHEW [id number] [facility] 00:00:00 00:00:00 FLAVIO Seybol d 2022-06-07 2022-06-[address], TECH LUCERO CARRASCO [id number] [facility] 11:00:00 11:00:00 Seybol d 2022-06-05 2022-06-05 Outpatient LUCERO CARRASCO [id number] [facility] 14:05:00 14:05:00 Seybol d 2022-06-05 2022-06-05 Outpatient LUCERO NERI [id number] [facility] 14:00:00 14:00:00 RAFIQ Seybol d 2022-06-05 2022-06-05 Outpatient DARONLUCERO [id number] [facility] 00:00:00 00:00:00 RAFIQ Seybol d 2022-06-03 2022-06-03 Outpatient DARA LOPEZ LUCERO CARRASCO [id number] [facility] 14:20:00 14:20:00 Seybol d 2022-06-03 2022-06-03 Outpatient VF1 LUCERO CARRASCO [id number] [facility] 13:15:00 13:15:00 Seybol d 2022-06-03 2022-06-03 Outpatient PRELUCERO MATTHEW [id number] [facility] 00:00:00 00:00:00 FLAVIO Seybol d 2022-06-03 2022-06-03 Outpatient LUCERO GODOY [id number] [facility] 00:00:00 00:00:00 LOREE Seybo ld 2022-05-31 2022-05-31 Outpatient AGUILALUCERO [id number] [facility] 11:30:00 11:30:00 GUATEMALAN Seybol d 2022-05-27 2022-05-27 Outpatient LUCERO GODOY [id number] [facility] 00:00:00 00:00:00 LOREE Seybo ld 2022-05-24 2022-05-24 Outpatient LUCERO GODOY [id number] [facility] 00:00:00 00:00:00 LOREE Seybo ld 2022-05-24 2022-05-24 Outpatient LUCERO OROURKE [id number] [facility] 00:00:00 00:00:00 FLAVIO Seybol d 2022-05-22 2022-05-22 Outpatient LUCERO VACA [id number] [facility] 13:45:00 13:45:00 NEVILLE Seybol d 2022-05-22 2022-05-22 Outpatient LUCERO SANTOYO [id number] [facility] 13:45:00 13:45:00 YAAKOV Seybo ld 2022-05-21 2022-05-21 Outpatient LUCERO RECINOS [id number] [facility] 13:45:00 13:45:00 PAWAN Seybo ld 2022-05-20 2022-05-20 Outpatient LUCERO BORJAS [id number] [facility] 00:00:00 00:00:00 BROOKE Seybol d 2022-05-17 2022-05-17 Outpatient LUCERO YOON [id number] [facility] 11:30:00 11:30:00 MOE Seybol d 2022-05-16 2022-05-16 Outpatient LUCERO NERI [id number] [facility] 14:15:00 14:15:00 RAFIQ Seybol d 2022-05-08 2022-05-08 Outpatient AGUILALUCERO [id number] [facility] 11:15:00 11:15:00 GUATEMALAN Seybol d 2022-05-06 2022-05-06 Outpatient LUCERO HUFF [id number] [facility] 15:15:00 15:15:00 TOÑITO Seybol d 2022-05-06 2022-05-06 Outpatient LUCERO HUFF [id number] [facility] 00:00:00 00:00:00 TOÑITO Seybol d 2022-05-06 2022-05-06 Outpatient LUCERO GODOY [id number] [facility] 00:00:00 00:00:00 LOREE Seybo ld 2022-05-03 2022-05-03 Outpatient PRELUCERO MATTHEW [id number] [facility] 15:15:00 15:15:00 FLAVIO Seybol d 2022-05-02 2022-05-02 Outpatient LUCERO RICHARDSON [id number] [facility] 09:25:00 09:25:00 BDC Seybol d 2022-04-30 2022-04-30 Outpatient PRELUCERO MATTHEW [id number] [facility] 00:00:00 00:00:00 FLAVIO Seybol d 2022-04-29 2022-04-29 Outpatient LUCERO HAMILTON [id number] [facility] 00:00:00 00:00:00 PRITI Seybo ld 2022-04-26 2022-04-26 Outpatient LUCERO OROURKE [id number] [facility] 00:00:00 00:00:00 FLAVIO Seybol d 2022-04-26 2022-04-26 Outpatient PREZAS, LUCERO CARRASCO [id number] [facility] 00:00:00 00:00:00 FLAVIO Seybol d 2022-04-25 2022-04-25 Outpatient LAB90 LUCERO CARRASCO [id number] [facility] 13:45:00 13:45:00 Seybol d 2022-04-23 2022-04-23 Outpatient LOPEZ, DARA LUCERO CARRASCO [id number] [facility] 14:20:00 14:20:00 Seybol d 2022-04-23 2022-04-23 Outpatient VF1 LUCERO CARRASCO [id number] [facility] 12:30:00 12:30:00 Seybol d 2022-04-22 2022-04-22 Outpatient HARMS, LUCERO CARRASCO [id number] [facility] 00:00:00 00:00:00 BROOKE Seybol d 2022-04-19 2022-04-19 Outpatient PREZASLUCERO [id number] [facility] 00:00:00 00:00:00 FLAVIO Seybol d 2022-04-19 2022-04-19 Outpatient PREZASLUCERO [id number] [facility] 00:00:00 00:00:00 FLAVIO Seybol d 2022-04-18 2022-04-18 Outpatient BHAGIALUCERO [id number] [place] 13:30:00 13:30:00 OTTO Seybol d 2022-04-17 2022-04-17 Outpatient LUCERO CARRASCO [id number] [place] 09:20:00 09:20:00 Seybol d 2022-04-17 2022-04-17 Outpatient LUCERO CARRASCO [id number] [place] 09:15:00 09:15:00 Seybol d 2022-04-17 2022-04-17 Outpatient LUCERO CARRASCO [id number] [place] 09:10:00 09:10:00 Seybol d 2022-04-17 2022-04-17 Outpatient PREZALUCERO Drake [id number] [place] 00:00:00 00:00:00 FLAVIO Seybol d 2022-04-17 2022-04-17 Outpatient WILLY LUCERO CARRASCO [id number] [place] 00:00:00 00:00:00 FLAVIO Seybol d 2022-04-16 2022-04-16 Outpatient NOLA LUCERO CARRASCO [id number] [place] 13:45:00 13:45:00 NEVILLE Seybol d 2022-04-15 2022-04-15 Outpatient LUCERO CARRASCO [id number] [place] 00:00:00 00:00:00 Seybol d 2022-04-12 2022-04-12 Outpatient JUNLUCERO [id number] [place] 14:30:00 14:30:00 ATASU Seybol d 2022-04-11 2022-04-11 Outpatient LUCERO GANDARA [id number] [place] 13:00:00 13:00:00 CLEMENCIA Seybol d 2022-04-09 2022-04-09 Outpatient LUCERO CARRASCO [id number] [place] 15:30:00 15:30:00 Seybol d 2022-04-09 2022-04-09 Outpatient LUCERO CARRASCO [id number] [place] 13:40:00 13:40:00 Seybol d 2022-04-09 2022-04-09 Outpatient LUCERO OROURKE [id number] [place] 00:00:00 00:00:00 FLAVIO Seybol d 2022-04-09 2022-04-09 Outpatient LUCERO OROURKE [id number] [place] 00:00:00 00:00:00 FLAVIO Seybol d 2022-04-08 2022-04-08 Outpatient LUCERO OROURKE [id number] [place] 00:00:00 00:00:00 FLAVIO Seybol d 2022-04-07 2022-04-07 Outpatient LUCERO GODOY [id number] [place] 00:00:00 00:00:00 LOREE Seybo ld 2022-04-05 2022-04-05 Outpatient LAB90 LUCERO CARRASCO [id number] [place] 14:35:00 14:35:00 Seybol d 2022-04-052022-04-05 Outpatient PREZAVidal LUCERO CARRASCO [id number] [place] 13:30:00 13:30:00 FLAVIO Seybol d 2022-04-04 2022-04-04 Outpatient PLAB LUCERO CARRASCO [id number] [place] 14:10:00 14:10:00 Seybol d 2022-04-04 2022-04-04 Outpatient BELIN, LUCERO CARRASCO [id number] [place] 13:45:00 13:45:00 RAFIQ Seybol d 2022-04-04 2022-04-04 Outpatient PREZAVidal LUCERO CARRASCO [id number] [place] 00:00:00 00:00:00 FLAVIO Seybol d 2022-04-03 2022-04-03 Outpatient LUCERO CARRASCO [id number] [place] 13:45:00 13:45:00 Seybol d 2022-04-01 2022-04-01 Outpatient LUCERO HAMILTON [id number] [place] 00:00:00 00:00:00 PRITI Seybo ld 2022-03-29 2022-03-29 Outpatient LAB39 LUCERO CARRASCO [id number] [place] 15:35:00 15:35:00 Seybol d 2022-03-29 2022-03-29 Outpatient PIEDRALUCERO [id number] [place] 15:00:00 15:00:00 DAVID Seybol d 2022-03-29 2022-03-29 Outpatient 39, HOLTER LUCERO CARRASCO [id number] [place] 14:15:00 14:15:00 Seybol d 2022-03-29 2022-03-29 Outpatient HARMSLUCERO [id number] [place] 13:30:00 13:30:00 BROOKE Seybol d 2022-03-29 2022-03-29 Outpatient PREZASLUCERO [id number] [place] 00:00:00 00:00:00 FLAVIO Seybol d 2022-03-27 2022-03-27 Outpatient MARIE DELGADO [id number] [place] 14:00:00 14:00:00 Seybol d 2022-03-26 2022-03-26 Outpatient MYERSLUCERO [id number] [place] 14:30:00 14:30:00 ESTEBAN Seybol d 2022-03-26 2022-03-26 Outpatient LUCERO CARRASCO [id number] [place] 00:00:00 00:00:00 Seybol d 2022-03-25 2022-03-25 Outpatient PLAB LUCERO CARRASCO [id number] [place] 11:20:00 11:20:00 Seybol d 2022-03-22 2022-03-22 Outpatient DEBOLUCERO [id number] [place] 14:20:00 14:20:00 KITTY Seybol d 2022-03-22 2022-03-22 Outpatient LUCERO NERI [id number] [place] 00:00:00 00:00:00 RAFIQ Seybol d 2022-03-21 2022-03-21 Outpatient LUCERO OROURKE [id number] [place] 00:00:00 00:00:00 FLAVIO Seybol d 2022-03-15 2022-03-15 Outpatient LUCERO SHETH [id number] [place] 09:40:00 09:40:00 NORMA Seybol d 2022-03-15 2022-03-15 Outpatient LUCERO OROURKE [id number] [place] 00:00:00 00:00:00 FLAVIO Seybol d 2022-03-15 2022-03-15 Telephone Manuel [facility] [id number] Univers 00:00:00 00:00:00 [facility] [id number] it y of [place] CANCER 4.2.7.2.686 [facility] - [phone] Med ical MDA [address] Branch 2022-03-12 2022-03-12 Outpatient LUCERO CARRASCO [id number] [place] 00:00:00 00:00:00 Seybol d 2022-03-08 2022-03-08 Outpatient PLAB LUCERO CARRASCO [id number] [place] 11:40:00 11:40:00 Seybol d 2022-03-08 2022-03-08 Outpatient LUCERO GODOY [id number] [place] 00:00:00 00:00:00 LOREE Seybo ld 2022-03-07 2022-03-07 Outpatient PLAB LUCERO CARRASCO [id number] [place] 13:30:00 13:30:00 Seybol d 2022-03-05 2022-03-05 Outpatient JORJELUCERO [id number] [place] 16:30:00 16:30:00 PAWAN Seybo ld 2022-03-05 2022-03-05 Outpatient PLAB LUCERO CARRASCO [id number] [place] 14:30:00 14:30:00 Seybol d 2022-03-04 2022-03-04 Outpatient STALUCERO CHAWLA [id number] [place] 14:30:00 14:30:00 ALICE Seybol d 2022-03-04 2022-03-04 Outpatient LUCERO SMITH [id number] [place] 13:40:00 13:40:00 GLEN Seybol d 2022-03-01 2022-03-01 Outpatient LUCERO OROURKE [id number] [place] 16:00:00 16:00:00 FLAVIO Seybol d 2022-03-01 2022-03-01 Outpatient LUCERO BRAMBILA [id number] [place] 15:15:00 15:15:00 HUNG Seybol d 2022-02-28 2022-02-28 Outpatient LUCERO GODOY [id number] [place] 14:00:00 14:00:00 LOREE Seybo ld 2022-02-27 2022-02-27 Outpatient LUCERO HORTA [id number] [place] 16:00:00 16:00:00 JR Seybol d 2022-02-22 2022-02-22 Outpatient LUCERO MYERS [id number] [place] 13:00:00 13:00:00 ESTEBAN Seybol d 2022-02-21 2022-02-21 Outpatient LUCERO NERI [id number] [place] 14:00:00 14:00:00 RAFIQ Seybol d 2022-02-18 2022-02-18 Outpatient LUCERO OROURKE [id number] [place] 14:30:00 14:30:00 FLAVIO Seybol d 2022-02-18 2022-02-[address] [facility] [id number] Univers 00:00:00 00:00:00 Dejah HEALTH 350.1.13.10 it y of [place] 4.2.7.2.686 [facility] - [id number] Med ical MDA [address] 2022-02-14 2022-02-14 Outpatient LUCERO NERI [id number] [place] 00:00:00 00:00:00 RAFIQ Seybol d 2022-02-06 2022-02-06 Outpatient LUCERO PIEDRA [id number] [place] 11:00:00 11:00:00 DAVID Seybol d 2022-02-06 2022-02-06 Outpatient LUCERO PIEDRA [id number] [place] 00:00:00 00:00:00 DAVID Seybol d 2022-02-05 2022-02-05 Outpatient LUCERO OROURKE [id number] [place] 15:00:00 15:00:00 FLAVIO Seybol d 2022-01-29 2022-01-29 Outpatient LUCERO SHETH [id number] [place] 13:00:00 13:00:00 NORMA Seybol d 2022-01-18 2022-01-18 Outpatient LUCERO OROURKE [id number] [place] 14:15:00 14:15:00 FLAVIO Seybol d 2021-11-02 2021-11-02 [facility] [id number] Univers 00:00:00 00:00:00 Dejah HEALTH [id number] it y of [place] 4.2.7.2.686 [facility] - [id number] Med ical MDA [address] 2021-11-01 2021-11-01 [facility] [id number] Univers 00:00:00 00:00:00 Dejah HEALTH 350.1.13.10 it y of [place] 4.2.7.2.686 [facility] - [id number] Med ical MDA [address] 2021-10-26 2021-10-26 Orders Doctor BURKE [id number] Univers 00:00:00 00:00:00 Only Unassigned, BRENDAN 350.1.13.10 ity of [place] [facility] 4.2.7.2.686 Dave [phone] [facility] 009 Branch 2021-09-23 2021-09-23 [facility] [id number] Univers 20:40:00 21:51:00 Ambica [place] 350.1.13.10 i ty of [place] 4.2.7.2.686 [facility] [id number] [facility] 084 Branch 2021-09-23 2021-09-23 Emergency X OMEGALAR, [facility] ERT [id number] Univers 20:40:00 21:51:00 AMBICA ity of [facility] 2021-03-27 2021-03-27 Outpatient LUCERO GODOY [id number] [place] 13:30:00 13:30:00 LOREE joiner 2021-03-15 2021-03-15 Outpatient LUCERO GODOY [id number] [place] 11:30:00 11:30:00 LOREE joiner 2021-01-23 2021-01-23 Outpatient LUCERO MONTELONGO [id number] [place] 15:00:00 15:00:00 ARELIS pineda 2020-10-03 2020-10-03 Outpatient Sudireddy_R [facility] [id number] [facility] 06:47:00 06:47:00 [id number] Family Practic e 2018-08-20 2018-08-20 Virginie [facility] [place] - [id number] [facility] 00:00:00 00:00:00 Rose [facility] Family Family Dejan Harris MD: 94[address] Mike - gracia Christianson [facility] [address], d EDNA Rodriguez [phone] , Ph. Results Test Description Test Time Test Comments Results Result Comments Source [facility] 2022-04-05 20:18:54 Test Item Value Reference Range Interpretation Comme nts [employer] left side (test 1.07 See_Comment [ Automated message] The system which code = 81521-2X) generated t his result transmitted reference range : 1.40 - 0.90 NA. The reference range was not used to interpret this result as normal/abnormal . Quanta[employer] right side (test 1.26 See_Comment P resentation Factors: history of breast code = 69463-5H) cancer, hyp othyroidismExercise Modality: At Re stNormal - 1.40 - 1.00Borderline - 0.99 - 0.90Mild - 0.89 - 0.60Moderate - 0.59 - 0.30Severe - 0.29 - 0.00 [Au tomated message] The system which ge nerated this result transmitted ref erence range: 1.40 - 0.90 NA. The re ference range was not used to interpr et this result as normal/abnormal . Lucero Gutierrez [facility] + FREE T4 [id number] 06:35:20 Test Item Value Reference Range Interpretation Comments TSH, THIRD GENERATION (test 27.800 UIU/ML 0.400-4.100 H code = 2821) FREE T4 (THYROXINE) (test code 0.96 NG/DL 0.80-1.90 = 2823) VITAMIN [id number] 06:35:20 Test Item Value Reference Range Interpretation Comments VITAMIN B-12 (test 380 PG/ML 200-950 UNLESS O THERWISE code = 2840) INDICATED, ALL TESTING PERFORMED [facility] [address] [place] [address] DIRECTOR: KATLIN MEDRANO M.D. CLIA NUMBER [id number] CAP ACCREDITATION N O. 78974-40 CBC W/AUTO DIFF WITH [id number] 04:17:03 Test Item Value Reference Range Interpretation [...] RBCS 0.00 K/UL 0.00-0.11 (test code = 60707) LIPID [id number] 04:08:05 Test Item Value Reference Range Interpretation [...] MOREINFORMATION , SEE CLIENT ANNOUNCE MENT AT [email or web address] Spotted /CalcLDL-C RISK RATIO LDL/HDL 3.74 RATIO <3.22 H (test code = 2238) COMPREHENSIVE METABOLIC [id number] 04:08:05 Test Item Value Reference Range Interpretation Comments GLUCOSE (test code = 92 MG/DL 70-99 2216) BUN (test code = 16 MG/DL 8-23 2207) CREATININE (test 0.93 MG/DL 0.60-1.30 code = 2214) eGFR (2020 CKD-EPI) 69 ML/MIN/1.73 >60 (test code = 45250) CALC BUN/CREAT (test 17 RATIO 6-28 code = 2235) SODIUM (test code = 141 MEQ/L 155-354 7148) POTASSIUM (test code 4.6 MEQ/L 3.5-5.4 = 2227) CHLORIDE (test code 103 MEQ/L 95-107 = 2215) CARBON DIOXIDE (test 27 MEQ/L 19-31 code = 2206) CALCIUM (test code = 10.0 MG/DL 8.5-10.5 2208) PROTEIN, TOTAL (test 6.8 G/DL 6.1-8.3 code = 2229) ALBUMIN (test code = 4.3 G/DL 3.5-5.2 2200) CALC GLOBULIN (test 2.5 G/DL 1.9-3.7 code = 2240) CALC A/G RATIO (test 1.7 RATIO 1.0-2.6 code = 2234) BILIRUBIN, TOTAL 0.2 MG/DL See_Comment [Automated message] (test code = 2207) The syste m which generated this result transmit harvey reference range : <=1.2. The refe rence range was not u sed to interpret th is result as normal/abnormal . ALKALINE PHOSPHATASE 81 U/L 40-140 (test code = 2204) AST (test code = 16 U/L 9-40 2217) ALT (test code = 14 U/L 5-40 2218) BREAST ULTRASOUND CORE BIOPSY [id number] 14:00:24 Name: Chantel : 1955 Sex: F- BREAST ULTRASOUND CORE BIOPSY LEFTULTRASOUND GUIDED BIOPSY LEFT BREAST WITH MARKING DEVICE INSERTED: 08/30/2021LINICAL: Ultrasound biopsy, leftbreast. Comparison is made to exams dated 08/15/2021 ultrasound and 08/15/2021 mammogram - [facility]-. An ultrasound guided biopsy using real-time ultrasound was performed for the circumscribed oval lymph node located in the left axillary tail. This was described on the previous mammography and ultrasound reports. The skin was prepped in the usual manner. Local anesthetic was administeredto the access site. The abnormality was approached from the lateral aspect. A biopsy needle was placed adjacent to the abnormality under ultrasound guidance. Once the needle was documented to be in thecorrect location, a specimen was obtained using a BARD biopsy device. A clip was inserted into [...] for screening mammography.Xavier Moreland M.D. ss/:09/05/2021 14:00:24 Property Valuer: Oly KOCH, [facility]-FWletter sent: Benign BiopsyDIAG MAMM LEFT CAD [id number] 11:47:51Name: Chantel: 1955 Sex: F - DIAG MAMM LEFT CAD DIGITALUNILATERAL LEFTDIGITAL DIAGNOSTIC MAMMOGRAM WITH CAD - LEFT BREAST POST- PROCEDURE IMAGING FOR MARKER PLACEMENT: 08/30/2021LINICAL: Post clip placement,left breast. Current mammographic images were evaluated by [place] CAD (computer-aided detection) software. Comparison is made to exams dated 08/15/2021 ultrasound and 08/15/2021 mammogram - [facility]. The tissue of the left breast is predominantly fatty. Postprocedure mammogram demonstrates biopsy marker clip within the biopsied left axillary lymph node. IMPRESSION: POST PROCEDURE IMAGING FOR MARKER PLACEMENTSuccessful biopsy marker placement within the biopsied left axillary lymph node.Xavier Moreland M.D. ss/:08/30/2021 11:47:51 Property Valuer: Anh Montilla , [facility]-FWMammogram BI-RADS: Post-procedure mammogram for marker placementBREAST ULTRASOUND [id number] 14:50:53 Name: Chantel : 1955 Sex: F - DIAG MAMM BILATERAL AJ CAD DIGITALBILATERAL DIGITAL DIAGNOSTIC MAMMOGRAM 3D/2D WITH CAD: 08/15/2021LINICAL: Left axillary breast lump.Personal history of breast cancer. Family history of breast cancer. Digital breast tomosynthesis was performed in addition to routine CC and MLO views. Current mammographic images were evaluated by [place] ImageReally Simple CAD (computer-aided detection) software. No prior exams [...] at this time.Xavier Moreland M.D. ss/:08/15/2021 14:50:53 Property Valuer: Suzette KOCH, [facility]-FWletter sent:BIRADS 4/5 Biopsy Mammogram BI-RADS: [...] views. Current mammographic images were evaluated by [place] ImageReally Simple CAD (computer-aided detection) software. No prior exams [...] at this time.Xavier Moreland M.D. ss/:08/15/2021 14:50:53 Property Valuer: Suzette KOCH, [facility]-FWletter sent:BIRADS 4/5 Biopsy Mammogram BI-RADS: 0 Incomplete: Additional Imaging Evaluation Needed Ultrasound BI-RADS: 4a Suspicious abnormality - low suspicion for malignancy- XR FLUORO FOR SPINE [id number] 16:06:00 Patient Name: CHANTEL RODRIGUEZ Unit No: [id number] EXAMS: CPT CODE: [id number] XR FLUORO FOR SPINE [id number] CERVICAL TRANSFORAMINAL INJECTION REFERRING PHYSICIAN:Inder Turcios M.D. PREOPERATIVE DIAGNOSIS: Cervical radiculitis POSTOPERATIVE DIAGNOSIS: Bilateral cervical radiculopathy PROCEDURES PERFORMED: Fluoroscopically guided needle localization of the bilateral C6, bilateral C7 spinal nerves with transforaminal epidural steroid injection/injections. 2. Transforaminal epidurogram/epidurograms atbilateral C6, bilateral C7 FINDINGS: Poor filling bilateral C6, bilateral C7. Concordant provocationleft C7 posterior shoulder, left C6 neck, right C6 neck. Pain relief- 100%. ANTIBIOTICS:Cefazolin ESTIMATED BLOOD LOSS: Minimal ANESTHESIA: (TIVA ) Total intravenous anesthetic (patient intolerant to sedatives and hypnotics) COMPLICATIONS: None DETAILS OF PROCEDURE: After obtaining stable vital signs, i nformed consent and IV access, with no known contraindications to proceeding, the patient was taken to the fluoroscopy suite and placed in a supine position with all extremities padded and appropriate monitors placed. A sterile prep and drape was performed over the cervical spine. Using fluoroscopic visualization at each level the insertion site was marked for a paravertebral approach to the foramen.Using standard technique, a 27gauge needle was advanced [...] injected incrementally with frequent negative aspirations.Each subsequent cervicalnerve root sleeve was done with the same technique and medications were used.There were no signs of intravascular or intrathecal uptake. The patient's vital signs remained stable. The patient was takento the PACU in good condition. [facility] Ortho Pain NAME: CHANTEL RODRIGUEZ [address] [facility] Main PHYS: DOCUD - Doctor,Edward Samano MD [place], [place] [address] : 1955 AGE: 63 SEX: F [id number] LOC: AbbeRYLIE PHONE #: [phone] EXAM DATE: 07/10/2018 STATUS: REG [facility] FAX #: [phone] RAD#: D/C DT PAGE 1 Signed Report (CONTINUED) Patient Name: CHANTEL RODRIGUEZ Unit No: [id number] EXAMS: CPT CODE: [id number] XR FLUORO FOR SPINE INJ 11474 (Continued) at 1606 Reported and signed by: Edward Vickers M.D. CC: Technologist: Shyann Hernandez(R) Transcribed D/ (1606) Jody [facility] Ortho Pain NAME: CHANTEL RODRIGUEZ [address] [facility] Main PHYS: Edward Salcedo MD [place] [address] : 1955 AGE: 63 SEX: F LOC: ARANZA PHONE #: [phone] EXAM DATE: 07/10/2018 STATUS: REG [facility] FAX #: [phone] RAD #: D/C DT PAGE 2 Signed Report Patient Name: CHANTEL RODRIGUEZ Unit No: [id number] EXAMS: CPT CODE: [id number] XR FLUORO FOR SPINE INJ 63938 (Continued) Orig Print D/T: S: 07/10/2018 (1609) [facility] Ortho Pain NAME: CHANTEL RODRIGUEZ [facility] PHYS: Edward Salcedo MD [place] [address] : 1955 AGE: 63 SEX: F LOC: ARANZA PHONE #: [phone] EXAM DATE: 07/10/2018 STATUS: REG [facility] FAX #: [phone] RAD #: D/C DT PAGE 3 Signed Report- MRI C-SPINE W/O [id number] 11:38:00 Patient Name: CHANTEL RODRIGUEZ Unit No: [id number] EXAMS: CPT CODE: [id number] MRI C-SPINE W/O CONT 77918 MRI OF THE CERVICAL SPINE: DIAGNOSIS: 1. At C2-3, disc desiccation. No central canal or foraminalstenosis. 2. At C3-4, disc desiccation. No central canal or foraminal stenosis. 3. At C4-5, mild disc degeneration. No central canal or foraminal stenosis. 4. At C5-6,mild disc degeneration. Mild central canal stenosis. 3 mm right foraminal disc protrusion. Moderate to marked right foraminal stenosis. Mild left foraminal stenosis. 5. At C6-7, mild disc degeneration. 3 mm disc protrusion flattens theventral thecal sac. Moderate central canal stenosis. No foraminal stenosis. 6. At C7-T1, no disc bulge or herniation. No central canal or foraminal stenosis. COMMENT: COMPARISON: No prior exams available. Sagittal T1, T2 and STIR and axial T2 and gradient-echo sequences are obtained of the cervical spine. Cervical vertebrae are within normal limits in signal. The findings are as above. at 1134 Reported and signed by: Rosalie Brown MD CC:Cj Turcios M.D. Technologist: Char Oliveira RT(R) Transcribed D/ (2795) Jean PaulGVG [facility] Orthopedic NAME: CHANTEL RODRIGUEZ [address] [facility] PHYS: Eriberto Hopkins MD : 1955 AGE: 63 SEX: F [place] [address] LOC: Y.MRI PHONE #: [phone] EXAM DATE: 05/30/2018 STATUS: DEP CLI FAX #: [phone] RAD #: D/C DT PAGE 1 Signed Report Patient Name: CHANTEL RODRIGUEZ Unit No: [id number] EXAMS: CPT CODE: [id number] MRI C-SPINE W/O [id number] (Continued) Orig Print D/T: S: 06/01/2018 (1141) [facility] Orthopedic NAME: GREGORY RODRIGUEZ [address] [facility] PHYS: Eriberto Hopkins MD : 1955 AGE: 63 SEX: F [place] [address] LOC: Y.MRI PHONE #: [phone] EXAM DATE: 05/30/2018 STATUS: [place]P [place] #: [phone] RAD #: D/C DT PAGE 2 Signed Report
--- NOTE | 2022-10-14 16:54 | RAD REPORT ---
EXAM DESCRIPTION: RAD - Chest Pa And Lat (2 Views) - 10/14/2022 4:49 pm CLINICAL HISTORY: COUGH COMPARISON: <Comparisons> FINDINGS: Lines: None. Lungs: No evidence of edema or pneumonia. Pleural: No significant pleural effusions or pneumothorax. Cardiac: The heart size is within normal limits. Mediastinum: Within normal limits. Bones: No acute fractures. Other: None IMPRESSION: No acute cardiopulmonary disease.
[2022-10-14] MEDS ORDERED: BENZONATATE 100 MG CAP PO ONE (17:36)
[2022-10-14] MEDS ORDERED: ALBUTEROL 2.5 MG/3 ML NEB SOL ONE (17:36)
[2022-10-14] MEDS ORDERED: IPRATROPIUM BROM 0.5MG/2.5ML ONE (17:37)
[2022-10-14] MEDS ORDERED: NA CHLORIDE 0.9% 500 ML ONE (17:37)
[2022-10-14 18:03] LABS: Absolute Lymphocytes (CBC) 2.8 K/uL (0.7-4.9); Lymphocytes % 24.4 % (15.3-44.8); MCV 90.2 fL (80-100); MPV 7.4 fL (7.6-11.3); RBC Red Blood Cell Count 4.88 M/uL (3.86-4.86)
[2022-10-14 18:24] LABS: BUN Blood Urea Nitrogen 9 mg/dL (7-18); Bicarbonate 29 mEq/L (21-32); Glomerular Filtration Rate 57 ml/min (=/>90); Glucose Level 92 mg/dL (74-106); NT PRO-BNP 33 pg/mL (<125); Sodium Level 137 mEq/L (136-145)
[2022-10-14] MEDS ORDERED: predniSONE 20 MG TAB ONE (18:24)
[2022-10-14 18:25] LABS: Magnesium 2.5 mg/dL (1.6-2.4); Potassium 4.1 mEq/L (3.5-5.1); Troponin High Sensitivity < 3.0 pg/mL (<58.9)
--- NOTE | 2022-10-14 18:46 | ER ---
Nurse's Notes [facility] Name: Chantel Rodriguez Age: 67 yrs Sex: Female : 1955 Arrival Date: 10/14/2022 Time: 16:02 Bed 16 Private MD: Diagnosis: COPD/ Chronic obstructive pulmonary disease, unspecified;Unspecified asthma, uncomplicated Presentation: 10/14 16:12 Chief complaint: Patient states: shortness of breath and cough onset Friday. Pt states cm10 that she was seen here 1 month ago for the same thing and was discharged. Pt states that on Friday she started having a productive cough and shortness of breath. Pt able to speak in complete sentences. Coronavirus screen: Client denies travel out of the [place] in the last 14 days. Ebola Screen: No symptoms or risks identified at this time. Initial Sepsis Screen: Does the patient meet any 2 criteria? No. Patient's initial sepsis screen is negative. Does the patient have a suspected source of infection? No. Patient's initial sepsis screen is negative. Risk Assessment: Do you want to hurt yourself or someone else? Patient reports no desire to harm self or others. Onset of symptoms was October 11, 2022. 16:12 Method Of Arrival: Ambulatory cm10 16:12 Acuity: MIKE 3 cm10 Historical: - Allergies: 16:15 all statins; cm10 16:15 doxycycline monohydrate (bulk); cm10 16:15 PENICILLINS; cm10 16:17 Latex, Natural Rubber; cm10 - PMHx: 16:15 Asthma; COPD; CPAP with oxygen; long covid; Pulmonary Stenosis; cm10 - PSHx: 16:15 breast CA R mastectomy; Cholecystectomy; cm10 - Immunization history:: Adult Immunizations unknown. - Social history:: Smoking status: unknown. Screenin:30 [facility] ED Fall Risk Assessment (Adult) History of falling in the last 3 months, ko1 including since admission No falls in past 3 months (0 pts). Abuse screen: Denies threats or abuse. Denies injuries from another. Nutritional screening: No deficits noted. Tuberculosis screening: No symptoms or risk factors identified. Assessment: 16:30 General: Appears in no apparent distress. uncomfortable, Behavior is calm, cooperative, ko1 appropriate for age. Pain: Denies pain. Neuro: No deficits noted. Cardiovascular: Rhythm is sinus rhythm. Respiratory: Airway is patent Respiratory effort is even, unlabored, Breath sounds are clear. GI: No deficits noted. : No deficits noted. EENT: No deficits noted. Derm: No deficits noted. Musculoskeletal: No deficits noted. Vital Signs: 16:12 BP 127 / 80; Pulse 79; Resp 18; Temp 98; Pulse Ox 97% on R/A; cm10 16:16 Weight 77.11 kg; Height 5 ft. 2 in. ; Pain 4/10; cm10 18:30 BP 124 / 72; Pulse 84; Resp 18; Pulse Ox 99% ; ko1 16:16 Body Mass Index 31.09 (77.11 kg, 157.48 cm) cm10 16:16 Pain Scale: Adult cm10 ED Course: 16:06 Patient arrived in ED. mg5 16:09 Dustin Leyva PA is PHCP. cp 16:10 To Martinez MD is Attending Physician. cp 16:15 Triage completed. cm10 16:15 Arm band placed on Patient placed in waiting room. cm10 16:51 XRAY Chest Pa And Lat (2 Views) In Process Unspecified. EDMS 17:23 Glenys Plascencia, RN is Primary Nurse. ko1 17:35 Inserted saline lock: 22 gauge in left forearm, using aseptic technique. Blood ko1 collected. 17:38 Influenza Screen (a \T\ B) Sent. ko1 17:38 COVID-19 SARS RT PCR Sent. ko1 17:59 Basic Metabolic Panel Sent. ko1 17:59 CBC with Diff Sent. ko1 17:59 D-Dimer Sent. ko1 17:59 Magnesium Sent. ko1 17:59 NT PRO-BNP Sent. ko1 17:59 Troponin HS Sent. ko1 18:10 Simón Ibrahim MD is Attending Physician. cp 18:30 Patient has correct armband on for positive identification. Bed in low position. Call ko1 light in reach. Provided Education on: NA. Pulse ox on. NIBP on. Door closed. Noise minimized. 18:30 No provider procedures requiring assistance completed. IV discontinued, intact, ko1 bleeding controlled, No redness/swelling at site. Pressure dressing applied. Administered Medications: 17:38 Drug: Tessalon Perle PO 200 mg Route: PO; ko1 17:38 Drug: DuoNeb Nebulize (2.5 mg - 0.5 mg) 3 ml Route: Nebulizer; ko1 18:13 CANCELLED (Physician Discretion): MethylPrednisoLONE IVP 125 mg IVP once cp 18:19 Drug: predniSONE PO 80 mg Route: PO; ko1 18:57 Not Given (Patient Refused): NS 0.9% IV 500 ml IV at 250 ml/hr continuous ko1 Medication: 18:30 VIS not applicable for this client. ko1 Outcome: 18:46 Discharge ordered by MD. cp 19:11 Discharged to home ambulatory, with family. ko1 19:11 Condition: good 19:11 Discharge instructions given to patient, family, Instructed on discharge instructions, follow up and referral plans. medication usage, Demonstrated understanding of instructions, follow-up care, medications, Prescriptions given X 3. 19:11 Patient left the ED. ko1 Signatures: Dispatcher [employer] EDMS Dustin Leyva PA PA cp Oliver, Kathy, RN RN ko1 Flor Pimentel RN RN cm10 Denise Patino 5
--- NOTE | 2022-10-14 18:46 | EDPHYS ---
Physician Documentation [facility] Name: Chantel Rodriguez Age: 67 yrs Sex: Female : 1955 Arrival Date: 10/14/2022 Time: 16:02 Bed 16 Private MD: ED Physician Simón Ibrahim HPI: 10/14 16:17 This 67 yrs old Female presents to ER via Ambulatory with complaints of Cough, cp Shortness Of Breath. 16:17 The patient or guardian reports cough, with productive sputum, that is white, that is cp purulent. Onset: The symptoms/episode began/occurred last month. Associated signs and symptoms: Pertinent negatives: chest pain, fever, vomiting. 16:17 Patient reports she was treated with oral Levaquin last month, steroids and dis have cp some improvement but felt like she symptoms did not resolve. Symptoms worse since this past Friday. Historical: - Allergies: 16:15 all statins; cm10 16:15 doxycycline monohydrate (bulk); cm10 16:15 PENICILLINS; cm10 16:17 Latex, Natural Rubber; cm10 - PMHx: 16:15 Asthma; COPD; CPAP with oxygen; long covid; Pulmonary Stenosis; cm10 - PSHx: 16:15 breast CA R mastectomy; Cholecystectomy; cm10 - Immunization history:: Adult Immunizations unknown. - Social history:: Smoking status: unknown. ROS: 16:20 Constitutional: Negative for body aches, chills, fever, poor PO intake. cp 16:20 Cardiovascular: Negative for chest pain, edema, palpitations. cp 16:20 Eyes: Negative for injury, pain, redness, and discharge. cp 16:20 ENT: Negative for drainage from ear(s), ear pain, sore throat, difficulty swallowing, difficulty handling secretions. 16:20 Respiratory: Positive for cough, with white sputum, shortness of breath, at rest. 16:20 Abdomen/GI: Negative for abdominal pain, vomiting, diarrhea, constipation. 16:20 : Negative for urinary symptoms. cp 16:20 Neuro: Negative for altered mental status, dizziness, headache, numbness, syncope, weakness. 16:20 All other systems are negative. Exam: 16:25 Constitutional: The patient appears in no acute distress, alert, awake, cp non-diaphoretic, non-toxic, well developed, well nourished. 16:25 Head/Face: Normocephalic, atraumatic. cp 16:25 Eyes: Periorbital structures: appear normal, Conjunctiva: normal, no exudate, no injection, Sclera: no appreciated abnormality, Lids and lashes: appear normal, bilaterally. 16:25 ENT: External ear(s): are unremarkable, Ear canal(s): are normal, clear, TM's: bulging, is not appreciated, bilaterally, dullness, bilaterally, erythema, is not appreciated, bilaterally, Nose: is normal, Mouth: Lips: moist, Oral mucosa: pink and intact, moist, Posterior pharynx: is normal, airway is patent, no erythema, no exudate. 16:25 Neck: ROM/movement: is normal, is supple, without pain, no range of motions limitations, no meningismus. 16:25 Chest/axilla: Inspection: normal, Palpation: is normal, no crepitus, no tenderness. 16:25 Cardiovascular: Rate: normal, Rhythm: regular, Edema: is not appreciated, JVD: is not appreciated. 16:25 Respiratory: the patient does not display signs of respiratory distress, Respirations: labored breathing, is not present, intercostal retractions, are absent, Breath sounds: bronchial sounds, that are mild, are heard diffusely, decreased breath sounds, are not appreciated, stridor, is not appreciated, wheezing: is not appreciated. 16:25 Abdomen/GI: Exam negative for discomfort, distension, guarding, Inspection: abdomen appears normal. 16:25 Back: pain, is absent, ROM is normal. 16:25 Skin: no rash present. 16:25 Neuro: Orientation: to person, place \T\ time. Mentation: is normal, Motor: moves all fours, strength is normal, Sensation: is normal. 19:00 ECG was reviewed by the Attending Physician. cp Vital Signs: 16:12 BP 127 / 80; Pulse 79; Resp 18; Temp 98; Pulse Ox 97% on R/A; cm10 16:16 Weight 77.11 kg; Height 5 ft. 2 in. ; Pain 4/10; cm10 18:30 BP 124 / 72; Pulse 84; Resp 18; Pulse Ox 99% ; ko1 16:16 Body Mass Index 31.09 (77.11 kg, 157.48 cm) cm10 16:16 Pain Scale: Adult cm10 MDM: 16:19 Patient medically screened. 18:45 Data reviewed: vital signs, nurses notes, lab test result(s), EKG, radiologic studies, cp plain films. 18:45 I considered the following discharge prescriptions or medication management in the emergency department Medications were administered in the Emergency Department. See MAR. Test considered but Not performed: CT: chest. Care significantly affected by the following chronic conditions: Chronic Obstructive Pulmonary Disease, asthma, pulmonary stenosis. Counseling: I had a detailed discussion with the patient and/or guardian regarding: the historical points, exam findings, and any diagnostic results supporting the discharge/admit diagnosis, lab results, radiology results, the need for outpatient follow up, a applications specialist, to return to the emergency department if symptoms worsen or persist or if there are any questions or concerns that arise at home. Response to treatment: the patient's symptoms have mildly improved after treatment, and as a result, I will discharge patient. ED course: VSS. Patient appears non-toxic and no signs of respiratory distress. Will discharge to home for continued monitoring. 10/14 16:19 Order name: Basic Metabolic Panel; Complete Time: 18:30 10/14 18:31 Interpretation: Normal except: CRE 1.08; GFR 57. 10/14 16:19 Order name: CBC with Diff; Complete Time: 18:30 10/14 18:31 Interpretation: Normal except: WBC 11.50; RBC 4.88; MPV 7.4. 10/14 16:19 Order name: D-Dimer; Complete Time: 18:30 10/14 16:19 Order name: Magnesium; Complete Time: 18:30 10/14 18:31 Interpretation: Abnormal: MG 2.5. 10/14 16:19 Order name: NT PRO-BNP; Complete Time: 18:30 10/14 16:19 Order name: Troponin HS; Complete Time: 18:30 10/14 18:31 Interpretation: Reviewed. 10/14 17:18 Order name: COVID-19 SARS RT PCR; Complete Time: 18:30 10/14 17:18 Order name: Influenza Screen (a \T\ B); Complete Time: 18:30 10/14 16:19 Order name: XRAY Chest Pa And Lat (2 Views); Complete Time: 17:14 cp 10/14 16:19 Order name: EKG; Complete Time: 16:20 cp 10/14 16:19 Order name: Cardiac monitoring; Complete Time: 17:23 cp 10/14 16:19 Order name: EKG - Nurse/Tech; Complete Time: 18:57 cp 10/14 16:19 Order name: IV Saline Lock; Complete Time: 18:42 cp 10/14 16:19 Order name: Labs collected and sent; Complete Time: 17:59 cp 10/14 16:19 Order name: O2 Per Protocol; Complete Time: 17:23 cp 10/14 16:19 Order name: O2 Sat Monitoring; Complete Time: 17:23 cp EC:00 Rate is 71 beats/min. Rhythm is regular. ND interval is normal. QRS interval is normal. cp QT interval is normal. T waves are Inverted in leads III, aVR, V2. Interpreted by me. Reviewed by me. Administered Medications: 17:38 Drug: Tessalon Perle PO 200 mg Route: PO; ko1 17:38 Drug: DuoNeb Nebulize (2.5 mg - 0.5 mg) 3 ml Route: Nebulizer; ko1 18:13 CANCELLED (Physician Discretion): MethylPrednisoLONE IVP 125 mg IVP once cp 18:19 Drug: predniSONE PO 80 mg Route: PO; ko1 18:57 Not Given (Patient Refused): NS 0.9% IV 500 ml IV at 250 ml/hr continuous ko1 Disposition: 19:25 Co-signature as Attending Physician, Dustin CASTANO. [email or web address] Disposition Summary: 10/14/22 18:46 Discharge Ordered Location: Home cp Problem: an acute exacerbation cp Symptoms: have improved cp Condition: Stable cp Diagnosis - COPD/ Chronic obstructive pulmonary disease, unspecified cp - Unspecified asthma, uncomplicated cp Followup: cp - With: Private Physician - When: 2 - 3 days - Reason: Recheck today's complaints Discharge Instructions: - Discharge Summary Sheet cp - Asthma, Adult cp - Chronic Obstructive Pulmonary Disease cp Forms: - Medication Reconciliation Form cp - Thank You Letter cp - Antibiotic Education cp - Prescription Opioid Use cp - Patient Portal Instructions cp Prescriptions: - Combivent Respimat 20-100 mcg/actuation Inhalation Mist - administer 1 puff by INHALATION route every 6 hours; 1 unit; Refills: 0, cp Product Selection Permitted - ipratropium-albuterol 0.5 mg-3 mg(2.5 mg base)/3 mL Inhalation Solution for Nebulization - nebulize 3 milliliter by INHALATION route every 6 to 8 hours As needed as cp needed for wheezing; 1 unit; Refills: 0, Product Selection Permitted - Prednisone 20 mg Oral Tablet - take 2 tablets by ORAL route once daily for 5 days then take 1 tablet daily for cp 3 days and then 1/2 tablet daily for 2 days; 14 tablet; Refills: 0, Product Selection Permitted Signatures: Dispatcher [employer] EDMS Dustin Leyva PA PA cp Simón Ibrahim MD MD [email or web address] Glenys Plascencia RN RN ko1 Flor Pimentel RN RN cm10 Corrections: (The following items were deleted from the chart) 18:13 17:14 MethylPrednisoLONE IVP 125 mg IVP once ordered. cp cp 18:13 17:38 MethylPrednisoLONE IVP 125 mg IVP once ordered. ko1 cp
[2022-10-14 19:39] VITALS: TEMP 98
[2022-10-14 19:44] VITALS: BP 124/72; O2SAT 99
--- NOTE | 2022-10-16 17:41 | EKG ---
Test Date: 2022-10-14 Test Time: 18:52:05 Vehicle Dismantler: CANDICE MEASUREMENT RESULTS: Intervals: Rate: 71 HI: 160 QRSD: 78 QT: 418 QTc: 454 [place]: P: 15 HI: 160 QRS: -24 T: -1 INTERPRETIVE STATEMENTS: Normal sinus rhythm Low voltage QRS Borderline ECG Compared to ECG 09/19/2022 16:21:43 Ventricular premature complex(es) no longer present Electronically Signed On 10-16-22 17:35:27 CDT by Lito Viveros
== END 2022-10-14 19:11 | disposition home or self-care (01) ==
LOC: ER 16:02
DX: J44.1 Chronic obstructive pulmonary disease with (acute) exacerbation (principal); Z20.822 Contact with and (suspected) exposure to COVID-19; Z88.0 Allergy status to penicillin; Z88.1 Allergy status to other antibiotic agents; Z88.8 Allergy status to other drugs, medicaments and biological substances; Z91.040 Latex allergy status; Z91.048 Other nonmedicinal substance allergy status
CPT/HCPCS: 93005; 85025; 80048; 36415; 83735; 85379; 84484; 83880; 87635; 87804 ×2; 71046; 94640; 99284; J7512; J7613; J7644; J7040

== ENCOUNTER 2023-09-05 14:48 | Emergency (ER) | payer OTHER ==
--- OUTSIDE RECORDS SUMMARY | 2023-09-05 14:55 | XMS REPORT | Continuity of Care Document ---
Author Name Unknown Address [address] [facility] [address]. [address] [place] [address] [facility] Address [address] [facility] [place] [address] Care Team Providers Care Academic Affairs Coordinator Name Role Phone Pcp, Patient Does Not Have A Primary Care Physic javan FLAVIO OROURKE Attending Clinician Unavailable MD SUHAIL Attending Clinician UnavailLOREE Tang Attending Clinician Unavailable DANYELL ARROYO Attending Clinician UnavailKAREN Raines Attending Clinician Unavailable BROOKE BORJAS Attending Clinician UnaLENORA Girard Attending Clinician Unavailable JANELLE MILLER Attending Clinician Unavailable SYL KISER Attending Clinician Unavailable PAWAN RECINOS Attending Clinician Unavail able LAB90 Attending Clinician Unavailable PL, TECH 1 Attending Clinician Unavailable MISSY COLLADO Attending Clinician Unavailab SHRUTHI Coffman Attending Clinician Unavailabl BURKE Zeng Attending Clinician Unavaila CHERYL Chau Attending Clinician Unavailab ESTEBAN Purcell Attending Clinician Unavailable JENNIFER CAMPOS Attending Clinician Unavailabl JOSETTE Acosta Attending Clinician Unavailable MARIE DELGADO Attending Clinician Unavailable MOE YOON Attending Clinician Unavailable TONA CIFUENTES Attending Clinician Unavailable HUNG BRAMBILA Attending Clinician Unavailable ARTHUR KRAMER Attending Clinician Unavailab WALTER Ferrell Attending Clinician Unavailable TRED47 Attending Clinician Unavailable LAB39 Attending Clinician Unavailable DAVID PIEDRA Attending Clinician Unavailable AICHA RODRÍGUEZ Attending Clinician Unavailable JASWINDER HERRERA Attending Clinician Unavailable YAAKOV SANTOYO Attending Clinician Unavailab justo READ Attending Clinician Unavailable NEVILLE VACA Attending Clinician Unav ailable HILDA RINCON Attending Clinician Unavailabl e LAB47 Attending Clinician Unavailable DARA LOPEZ Attending Clinician Unavailable VF1 Attending Clinician Unavailable ERICA CROSS Attending Clinician Unava ilRAFIQ Shay Attending Clinician Unavailable JOSE AGUILA Attending Clinician Unavailable TOÑITO HUFF Attending Clinician Unavailable [facility] Attending Clinician Unavailable PRITI HAMILTON Attending Clinician Unavailab OTTO Ortega Attending Clinician Unavailable VLAD BARAHONA Attending Clinician Unavailable CLEMENCIA GANDARA Attending Clinician Unavailab le PLAB Attending Clinician Unavailable 39, HOLTER Attending Clinician Unavailable KITTY EDMONDSON Attending Clinician Unavailab NORMA Goodman Attending Clinician Unavailable Dejah Manuel MD Attending Clinician ALICE ABBOTT Attending Clinician Unavailabl GLEN Dominguez Attending Clinician Unavailable JR HORTA Attending Clinician Unavanew novoa Doctor Unassigned, [place] Attending Clinician U navailable Bethany Grayson DO Attending Clinician ARELIS MONTELONGO Attending Clinician Unavailable Sudireddy_R Attending Clinician Unavailable BETHANY GRAYSON Admitting Clinician Unavailable Sudireddy_R Admitting Clinician Unavailable Payers Payer Name Policy Type Policy Number Effective Date Expirati on Date Source [facility] SIGNATURE O 7 [id number] 2022 00:00:00 ICF [id number] 2021 00:00:00 2021 00:00:00 CIGARMIN [id number] 2018 00:00:00 CIGNA [facility] [id number] 2017 00:00:00 Problems Condition Name Condition Details Condition Category Status Onset Date Resolution Date Last Treatment Date Treating Clinician Comments Source Headache Headache Disease Active 06-22 00:00: 00 Lucero Seybold - Externa l Prediabete s Prediabete s Disease Active 06-22 00:00: 00 Lucero Seybold - Externa l Palpitatio ns Palpitatio ns Disease Active 07-30 00:00: 00 Lucero Seybold - Externa l Chronic obstructiv e pulmonary disease, unspecifie d COPD type (multi HCC) Chronic obstructiv e pulmonary disease, unspecifie d COPD type (multi HCC) Disease Active 04-05 00:00: 00 Lucero Seybold - Externa l Chronic respirator y failure with hypoxia (multi HCC) Chronic respirator y failure with hypoxia (multi HCC) Disease Active 04-05 00:00: 00 Lucero Seybold - Externa l Pulmonary fibrosis, postinflam matory (multi HCC) Pulmonary fibrosis, postinflam matory (multi HCC) Disease Active 04-05 00:00: 00 Lucero Seybold - Externa l Well adult exam Well adult exam Disease Active 04-05 00:00: 00 Lucero Seybold - Externa l Immunodefi ciency due to conditions classified elsewhere (multi HCC) Immunodefi ciency due to conditions classified elsewhere (multi HCC) Disease Active 04-05 00:00: 00 Lucero Seybold - Externa l ZACH (obstructi ve sleep apnea) ZACH (obstructi ve sleep apnea) Disease Active 04-05 00:00: 00 Lucero Seybold - Externa l Mild major depression Mild major depression Disease Active 04-05 00:00: 00 Lucero Mcbride - Externa l Risk for falls Risk for falls Disease Active 04-05 00:00: 00 Lucero Jamesold - Externa l Post-COVID syndrome Post-COVID syndrome Disease Active 04-05 00:00: 00 Lucero Jamesold - Externa l Gastroesop hageal reflux disease without esophagiti s Gastroesop hageal reflux disease without esophagiti s Disease Active 04-05 00:00: 00 Lucero Jamesold - Externa l Acute pain of right knee Acute pain of right knee Disease Active 2021-03 00:00: 00 Lucero Setyold - Externa l Right hip pain Right hip pain Disease Active 09-23 00:00: 00 [facility] Sciatica of right side Sciatica of right side Disease Active 09-23 00:00: 00 [facility] Hypothyroi dism Hypothyroi dism Problem Active 08-20 00:00: 00 [facility] Mixed hyperlipid emia Mixed Hyperlipid emia Problem Active 08-20 00:00: 00 [facility] Mixed anxiety and depressive disorder Mixed Anxiety and Depressive Disorder Problem Active 08-20 00:00: 00 [facility] Fibromyalg ia Fibromyalg ia Problem Active 08-20 00:00: 00 [facility] History of malignant neoplasm of breast History of Malignant Neoplasm of Breast Problem Active 08-20 00:00: 00 [facility] Moderate persistent asthma without complicati on Moderate persistent asthma without complicati on Disease Active 08-03 00:00: 00 Lucero Mcbride - Externa l Basal cell carcinoma Basal cell carcinoma Disease Active 2015-03 00:00: 00 Overview: Formattin g of this note might be different from the original. L superior occipital scalp Lucero Mcbride - Externa l Restless leg Restless leg Disease Active 09-22 00:00: 00 Lcuero Jamesold - Externa l Personal history of breast cancer Personal history of breast cancer Disease Active 04-02 00:00: 00 Lucero Seybold - Externa l Hypothyroi dism Hypothyroi dism Disease Active 07-22 00:00: 00 Lucero Jamesold - Externa l Fibromyalg ia Fibromyalg ia Disease Active 07-15 00:00: 00 Lucero Jamesold - Externa l Hyperlipid emia Hyperlipid emia Disease Active - 00:00: 00 Lucero Jamesold - Externa l Chronic pain Chronic pain Disease Active 09-26 00:00: 00 Lucero Villasenorybold - Externa l Insomnia Insomnia Disease Active 09-26 00:00: 00 Lucero Jamesold - Externa l Fx Fx Disease Active 09-04 00:00: 00 Lucero Villasenorybold - Externa l Allergies, Adverse Reactions, Alerts Allergy Name Allergy Type Status Severity Reaction(s) Onset Date Inactive Date Treating Clinician Comments Source Doxylami ne Propensi ty to adverse reaction s Active Hives 2021-03- 00:00: 00 Lucero Jamesold - Externa l Doxycycl ine Hyclate Propensi ty to adverse reaction s Active Rash 2021-0 7-10 00:00: 00 [facility] Penicill ins Propensi ty to adverse reaction s Active Rash 0 7-10 00:00: 00 [facility] Statins- Hmg-Coa Reductas e Inhibito rs Propensi ty to adverse reaction s Active Rash 2021-0 7-10 00:00: 00 And leg pain [facility] Penicill ins Propensi ty to adverse reaction s Active Rash 2021-0 7-10 00:00: 00 [facility] Statins- Hmg-Coa Reductas e Inhibito rs Propensi ty to adverse reaction s Active Rash 2021-0 7-10 00:00: 00 And leg pain [facility] PENICILL INS Drug Class Active Rash 0 7-10 00:00: 00 [facility] DOXYCYCL INE HYCLATE DRUG INGREDI Active Rash 0 7-10 00:00: 00 [facility] STATINS- HMG-COA REDUCTAS E INHIBITO RS Drug Class Active Rash 0 7-10 00:00: 00 [facility] Penicill ins DA Active [place] 07-10 00:00: 00 [facility] doxycycl ine DA Active U 07-10 00:00: 00 [facility] latex DA Active [place] 07-10 00:00: 00 [facility] Penicill ins DA Active [place] 07-09 00:00: 00 [facility] doxycycl ine DA Active U 07-09 00:00: 00 [facility] latex DA Active [place] 07-09 00:00: 00 [facility] Ezetimib e Propensi ty to adverse reaction s Active 05-11 00:00: 00 Other Reaction( s): Not available Lucero Guadalupea tayo Doxycycl ine Drug Allergy Active Contact Dermatitis 07-22 00:00: 00 Lucero Guadalupea tayo Penicill ins DA Active [place] 07-06 00:00: 00 [facility] Statins- Hmg-Coa Reductas e Inhibito r DA Active U 07-06 00:00: 00 [facility] latex DA Active [place] 07-06 00:00: 00 [facility] Hmg-Coa- R Inhibito rs Propensi ty to adverse reaction s Active 07-06 00:00: 00 Lucero Guadalupea l Rosuvast atin Calcium Propensi ty to adverse reaction s Active Rash 08-29 00:00: 00 Cant take any statins Lucero Guadalupea l Latex Propensi ty to adverse reaction s Active Swelling 08-29 00:00: 00 Lucero Guadalupea tayo Penicill ins Propensi ty to adverse reaction s Active Rash 08-29 00:00: 00 Lucero Guadalupea l Rosuvast atin Calcium Propensi ty to adverse reaction s Active Rash 08-29 00:00: 00 Cant take any statins Lucero Guadalupea tayo Doxylami ne Allergy to substanc e Active Severe Hives [facility] Latex Allergy to substanc e Active Moderate to severe Edema [facility] PENICILL INS Allergy to substanc e Active Moderate to severe Hives [facility] STATINS- HMG-COA REDUCTAS E INHIBITO RS Allergy to substanc e Active [facility] NO KNOWN ALLERGIE S Drug Class Active [facility] Social History Social Habit Start Date Stop Date Quantity Comments Source Gender identity 2021-02-24 00:08:00 Identifies as female gender (finding) Lucero Mcbride - External History of tobacco use Cigarette Smoker Lucero levy - External Sexual orientation Dea veronika Mcbride - External Alcoholic beverage intake 2023-07-24 00:00:00 2023-07-24 00:00:00 Current non-drinker of alcohol (finding) Lucero Mcbride - External Cigarette pack-years 2023-06-23 00:00:00 2023-06-23 00:00:00 Lucero Mcbride - External Cigarettes smoked current (pack per day) - Reported 2023-06-23 00:00:00 2023-06-23 00:00:00 Lucero Mcbride - External Tobacco use and exposure 2023-06-23 00:00:00 2023-06-23 00:00:00 Smokeless tobacco non-user Lucero Mcbride - External Alcohol intake 2023-05-23 00:00:00 2023-05-23 00:00:00 Current non-drinker of alcohol (finding) Lucero Mcbride - External History of Social function 2022-12-02 00:00:00 2022-12-02 00:00:00 Lucero Mcbride - External Education - What is the highest level of school you have completed or the highest degree you have received? 2022-04-05 00:00:00 2022-04-05 00:00:00 Bachelor's degree (e.g., BA, AB, BS) Lucero Mcbride - External Exposure to SARS-CoV-2 (event) 2021-09-13 00:00:00 2021-09-23 20:32:00 Not sure [facility] Sex Assigned At 1955 00:00:00 1955 00:00:00 [facility] Smoking Status Start Date Stop Date Source Tobacco smoking consumption unknown [facility] Ex-smoker 2023-06-23 00:00:00 2023-06-23 00:00:00 Lucero Oneil Medications Ordered Medication Name Filled Medication Name Start Date Stop Date Current Medication? Ordering Clinician Indication Dosage Frequency Signature (SIG) Comments Components Source Evolocumab (Melissa ZhouMarquesmiroslava) 140 MG/ML subcutaneou s Solution Auto-inject or 5-09 00:00: 00 Yes 140mg Inject 1 mL (140 mg total) into the skin every 14 days. Lucero cr Pantoprazol e Sodium 40 MG oral Tablet Delayed Response 4-15 00:00: 00 Yes [id number] 40mg Take 1 tablet (40 mg total) by mouth daily. Lucero cr Levothyroxi ne Sodium 137 MCG oral Tablet 08 00:00: 00 Yes [id number] Every Friday, , and Friday. Lucero cr Levothyroxi ne Sodium 150 MCG oral Tablet 06-22 00:00: 00 Yes [id number] Every Friday, Friday, Friday and Friday. Lucero cr Celecoxib 200 MG oral Capsule 3-07 00:00: 00 Yes [id number] 200mg Take 1 capsule (200 mg total) by mouth daily. Lucero cr Levothyroxi ne Sodium 137 MCG oral Tablet 2-23 00:00: 00 Yes [id number] 137ug Take 1 tablet (137 mcg total) by mouth daily. Lucero cr Fluticasone -Salmeterol (Advair Diskus) 500-50 MCG/ACT inhalation AEROSOL POWDER, BREATH ACTIVATED 2-20 00:00: 00 Yes [id number] 1{puff} Inhale 1 puff into the lungs 2 times daily. Lucero cr Montelukast (SINGULAIR) 10 MG oral Tablet tablet 2-20 00:00: 00 Yes [id number] 10mg Take 1 tablet (10 mg total) by mouth daily. Lucero cr Tizanidine HCl 2 MG oral Tablet 1-30 00:00: 00 Yes [id number] 2mg QD Take 1 tablet (2 mg total) by mouth nightly as needed for muscle spasms. Lucero cr Pantoprazol e Sodium 40 MG oral Tablet Delayed Response 1- 00:00: 00 Yes [id number] 40mg Take 1 tablet (40 mg total) by mouth daily. Lucero cr Alirocumab (Praluent) 75 MG/ML subcutaneou s Solution Auto-inject or 2022-03 1-16 00:00: 00 Yes [id number] 75mg Inject 75 mg into the skin every 14 days. Lucero cr predniSONE (DELTASONE) 10 MG oral tablet 2022-03 0- 00:00: 00 05-22 00:00 :00 No [id number] 10mg Take 1 tablet (10 mg total) by mouth daily. Lucero cr Temazepam 30 MG oral Capsule 2022-03 0-24 00:00: 00 Yes Lucero cr HYDROcodone -Acetaminop hen (NORCO) 5-325 MG oral Tablet 2022-03 0-13 00:00: 00 06-22 00:00 :00 No 1{tbl} Q.25D Take 1 tablet by mouth every 6 hours as needed for pain. Lucero cr White Petrolatum- Mineral Oil (Refresh Lacri-Lube) ophthalmic Ointment 2022-03 0-05 00:00: 00 Yes .25[in_ us] Place 0.25 inches into both eyes nightly If causing your vision to be too blurry, discontinu e use.. Lucero cr Docusate Sodium (Colace) 100 MG oral Capsule 2022-03 0-05 00:00: 00 Yes 100mg Take 1 capsule (100 mg total) by mouth 2 times daily. Lucero cr Polyethyl Glycol-Prop yl Glycol (Systane) 0.4-0.3 % ophthalmic Solution 2022-03 0-05 00:00: 00 Yes 1[drp] Place 1 drop into both eyes 2 times daily. Lucero cr Celecoxib 200 MG oral Capsule 12-02 00:00: 00 Yes [id number] 200mg Take 1 capsule (200 mg total) by mouth daily. Lucero cr Triamcinolo ne Acetonide (Kenalog) 40 mg/mL - Physician Administere d ([id number]) 11-08 20:15: 00 11-08 22:04 :00 No [id number] 40mg Lucero cr Celecoxib 200 MG oral Capsule 10-30 00:00: 00 Yes [id number] 200mg Take 1 capsule (200 mg total) by mouth daily Lucero cr Pantoprazol e Sodium 40 MG oral Tablet Delayed Response 10-30 00:00: 00 Yes [id number] 40mg Take 1 tablet (40 mg total) by mouth daily Lucero cr Bupropion HCL XL 150 MG OR TB24 10-30 00:00: 00 Yes [id number] 150mg Take 1 tablet (150 mg total) by mouth every morning Lucero cr Metoprolol Tartrate (LOPRESSOR) 25 MG oral Tablet 10-30 00:00: 00 01-10 00:00 :00 No [id number] 12.5mg Take 0.5 tablets (12.5 mg total) by mouth daily Lucero cr Fluticasone -Salmeterol (Advair Diskus) 500-50 MCG/ACT inhalation AEROSOL POWDER, BREATH ACTIVATED 10-29 00:00: 00 Yes 1{puff} Inhale 1 puff into the lungs 2 times daily Lucero cr Albuterol (PROVENTIL) (2.5 MG/3ML) 0.083% inhalation Inhalant Solution 10-29 00:00: 00 01-10 00:00 :00 No [id number] 2.5mg Q4H Take 2.5 mg by nebulizati on every 4 hours as needed for wheezing Lucero cr Albuterol-I pratropium 0.5-2.5 (3) MG/3ML inhalation Solution 10-29 00:00: 11-29 04:59 :00 No [id number] 3mg Q4H Inhale 3.6 mL (3 mg total) into the lungs every 4 hours as needed (sob, cough, wheeze) Luceor cr predniSONE (DELTASONE) 20 MG oral tablet 10-15 00:00: 00 Yes Take 2 tabs po daily x 3 days then 1 tab po daily x 4 days Lucero cr Combivent Respimat 20-100 MCG/ACT inhalation aerosol inhaler 10-15 00:00: 00 Yes Lucero cr levoFLOXaci n 750 MG oral Tablet 10-15 00:00: 00 11-11 00:00 :00 No 750mg Take 1 tablet (750 mg total) by mouth daily for 7 days Lucero cr Alirocumab (Praluent) 75 MG/ML subcutaneou s Solution Auto-inject or 10-14 00:00: 00 Yes 75mg Inject 75 mg into the skin every 14 days Lucero cr Temazepam 30 MG oral Capsule 10-03 00:00: 00 Yes [id number] TAKE 1 CAPSULE BY MOUTH NIGHTLY NEEDED FOR SLEEP. Lucero cr Hydrocod Dax-Chlorp he Dax ER (Tussionex Pennkinetic ER) 10-8 MG/5ML oral Suspension Extended Release 09-25 00:00: 00 Yes 5mL Take 5 mL by mouth every 12 hours as needed Lucero cr Famotidine 40 MG oral Tablet 09-14 00:00: 00 Yes 40mg Take 1 tablet (40 mg total) by mouth daily Lucero cr Azithromyci n 500 MG oral Tablet 09-13 00:00: 00 11-11 00:00 :00 No 500mg Take 1 tablet (500 mg total) by mouth daily for 5 days Lucero cr levoFLOXaci n 750 MG oral Tablet 09-13 00:00: 00 11-11 00:00 :00 No 750mg Take 1 tablet (750 mg total) by mouth daily for 7 days Lucero cr predniSONE (DELTASONE) 10 MG oral tablet 09-13 00:00: 00 11-11 00:00 :00 No Take 2 tablets (20 mg total) by mouth daily for 4 days, THEN 1 tablet (10 mg total) daily for 3 days. Lucero cr Nebulizers does not apply Misc 0 09-04 00:00: 00 Yes [id number] USE EVERY 4-6 HOURS PRN SOB, WHEEZING OR COUGH FOR ASTHMA Lucero Mcbride - Externa l Nebulizers does not apply Misc 0 14 00:00: 00 Yes [id number] Use every 4-6 hours prn sob, wheezing or cough for asthma Lucero Mcbride - Externa l Nebulizers does not apply Misc 0 08-26 00:00: 00 05-22 00:00 :00 No [id number] Nebulizer and supplies to be used every 4-6 hours as needed for cough, wheezing or sob.Diagno sis ASTHMA Lucero cr Famotidine 40 MG oral Tablet 08-22 00:00: 00 Yes 40mg Take 1 tablet (40 mg total) by mouth daily Lucero cr predniSONE (DELTASONE) 20 MG oral tablet 08-22 00:00: 00 11-11 00:00 :00 No Take 2 tabs po daily x 3 days then 1 tab po daily x 4 days Lucero cr Albuterol (PROVENTIL) (2.5 MG/3ML) 0.083% inhalation Inhalant Solution 08-22 00:00: 00 09-22 04:59 :00 No [id number] 2.5mg Q4H Take 2.5 mg by nebulizati on every 4 hours as needed for wheezing Lucero cr Albuterol-I pratropium 0.5-2.5 (3) MG/3ML inhalation Solution 08-22 00:00: 00 09-22 04:59 :00 No [id number] 3mg Q4H Inhale 3.6 mL (3 mg total) into the lungs every 4 hours as needed (sob, cough, wheeze) Lucero cr Alirocumab (Praluent) 75 MG/ML subcutaneou s Solution Auto-inject or 6-06 00:00: 00 Yes 75mg Inject 75 mg into the skin every 14 days Lucero cr Temazepam 30 MG oral Capsule -18 00:00: 00 Yes [id number] 30mg QD Take 1 capsule (30 mg total) by mouth nightly as needed for sleep Lucero cr Bupropion HCL XL 150 MG OR TB24 18 00:00: 00 Yes [id number] 150mg Take 1 tablet (150 mg total) by mouth every morning Lucero cr Metoprolol Tartrate (LOPRESSOR) 25 MG oral Tablet -16 00:00: 00 Yes [id number] 12.5mg Take 0.5 tablets (12.5 mg total) by mouth daily Lucero cr Alirocumab (Praluent) 75 MG/ML subcutaneou s Solution Auto-inject or 07-15 00:00: 00 Yes 75mg Inject 75 mg into the skin every 14 days Lucero cr Fluticasone -Salmeterol (Advair Diskus) 500-50 MCG/ACT inhalation AEROSOL POWDER, BREATH ACTIVATED -25 00:00: 00 Yes 1{puff} Inhale 1 puff into the lungs 2 times daily Lucero cr Fluticasone -Salmeterol (Advair Diskus) 500-50 MCG/ACT inhalation AEROSOL POWDER, BREATH ACTIVATED -14 00:00: 00 Yes 1{puff} Inhale 1 puff into the lungs 2 times daily Lucero cr Temazepam 30 MG oral Capsule 4-12 00:00: 00 Yes [id number] 30mg QD Take 1 capsule (30 mg total) by mouth nightly as needed for sleep Lucero cr Celecoxib 200 MG oral Capsule 06-26 00:00: 00 Yes [id number] 200mg QD Take 1 capsule (200 mg total) by mouth daily as needed for pain Lucero cr Montelukast (SINGULAIR) 10 MG oral Tablet tablet 06-26 00:00: 00 Yes 10mg Take 1 tablet (10 mg total) by mouth daily Lucero cr Paroxetine HCl 30 MG oral Tablet 06-21 00:00: 00 Yes 30mg Take 1 tablet (30 mg total) by mouth daily. Lucero cr Methylpredn isolone Acetate (Depo-Medro l) 40 mg/ml - Physician Wai pineda ([id number]) 06-05 22:00: 00 06-05 21:58 :00 No [id number] 40mg Lucero cr Triamcinolo ne Acetonide 55 MCG/ACT nasal Aerosol 06-05 14:25: 51 06-05 00:00 :00 No by nasal route Indication s: 2 sprays in each nostril every day Lucero cr Celecoxib 200 MG oral Capsule 05-27 00:00: 00 Yes [id number] 200mg QD Take 1 capsule (200 mg total) by mouth daily as needed for pain Lucero cr Montelukast (SINGULAIR) 10 MG oral Tablet tablet 05-27 00:00: 00 Yes 10mg Take 1 tablet (10 mg total) by mouth daily Lucero cr Pantoprazol e Sodium (Protonix) 40 MG oral Tablet Delayed Response 05-27 00:00: 00 Yes [id number] 40mg Take 1 tablet (40 mg total) by mouth daily Lucero cr Levothyroxi ne Sodium 175 MCG oral Tablet 05-27 00:00: 00 Yes [id number] 175ug Take 1 tablet (175 mcg total) by mouth daily Lucero cr Bupropion HCL XL 150 MG OR TB24 - 00:00: 00 Yes 150mg Take 150 mg by mouth every morning Lucero cr Alirocumab (Praluent) 75 MG/ML subcutaneou s Solution Auto-inject or 3-07 00:00: 00 Yes 75mg Inject 75 mg into the skin every 14 days Lucero cr Cholecalcif javier (Vitamin D-3) 25 MCG (1000 UT) oral Capsule 04-08 00:00: 00 Yes [id number] 1{capsu le} Take 1 capsule by mouth daily Lucero cr Coenzyme Q10 (COQ10) 100 MG oral Cap 04-05 13:57: 06 04-05 00:00 :00 No Take by mouth Lucero cr Magnesium 100 MG oral Cap 04-05 13:55: 54 04-05 00:00 :00 No Take by mouth Lucero cr Temazepam 30 MG oral Capsule 04-05 13:54: 44 04-05 00:00 :00 No 1{capsu le} 1 capsule Lucero cr Cetirizine HCl 10 MG oral Capsule 04-05 13:53: 11 04-05 00:00 :00 No Take by mouth Lucero cr Triamcinolo ne Acetonide 55 MCG/ACT nasal Aerosol 04-05 13:36: 17 Yes by nasal route Indication s: 2 sprays in each nostril every day Lucero cr Temazepam 30 MG oral Capsule 04-05 00:00: 00 Yes [id number] 30mg QD Take 1 capsule (30 mg total) by mouth nightly as needed for sleep Lucero cr Ergocalcife rol 1.25 MG (74267 UT) oral Capsule 04-05 00:00: 00 Yes [id number] 68024M Take 1 capsule (50,000 units total) by mouth once a week Lucero cr busPIRone HCl 7.5 MG oral Tablet 04-05 00:00: 00 Yes [id number] 7.5mg QD Take 1 tablet (7.5 mg total) by mouth daily as needed (anxiety) Lucero cr Magnesium 100 MG oral Capsule 04-05 00:00: 00 Yes [id number] 1{capsu le} Take 1 capsule by mouth daily Lucero cr Cetirizine HCl 10 MG oral Capsule 04-05 00:00: 00 Yes [id number] 10mg Take 1 capsule (10 mg total) by mouth daily Lucero cr Magnesium 100 MG oral Capsule 04-05 00:00: 00 Yes [id number] 1{capsu le} Take 1 capsule by mouth daily Lucero cr Repatha SureClick 140 MG/ML subcutaneou s Solution Auto-inject or 04-01 00:00: 00 Yes Lucero cr Cetirizine HCl 10 MG oral Capsule 03-29 14:53: 26 Yes Take by mouth Lucero cr Triamcinolo ne Acetonide 55 MCG/ACT nasal Aerosol 03-29 14:53: 26 Yes by nasal route Indication s: 2 sprays in each nostril every day Lucero cr Magnesium 100 MG oral Cap 03-29 14:53: 26 Yes Take by mouth Lucero cr Coenzyme Q10 (COQ10) 100 MG oral Cap 03-29 14:53: 26 Yes Take by mouth Lucero cr Temazepam 30 MG oral Capsule 03-29 14:53: 26 Yes 1{capsu le} 1 capsule Lucero rc Evolocumab (Repatha) 140 MG/ML subcutaneou s Solution Prefilled Syringe 03-29 00:00: 00 Yes [id number] 140mg Inject 1 mL (140 mg total) into the skin every 14 days Lucero cr Metoprolol Tartrate 25 MG oral Tablet 03-29 00:00: 00 07-30 00:00 :00 No [id number] 25mg Take 1 tablet (25 mg total) by mouth daily Lucero cr Cetirizine HCl 10 MG oral Capsule 2021-03 13:53: 18 Yes Take by mouth Lucero Seap cr Triamcinolo ne Acetonide 55 MCG/ACT nasal Aerosol 2021-03 13:53: 18 Yes by nasal route Indication s: 2 sprays in each nostril every day Lucero cr Magnesium 100 MG oral Cap 2021-03 13:53: 18 Yes Take by mouth Lucero Guadalupea tayo Coenzyme Q10 (COQ10) 100 MG oral Cap 2021-03 13:53: 18 Yes Take by mouth Lucero Guadalupea tayo Temazepam 30 MG oral Capsule 2021-03 13:53: 18 Yes 1{capsu le} 1 capsule Lucero Reed cr Fluticasone -Salmeterol (Advair Diskus) 500-50 MCG/ACT inhalation AEROSOL POWDER, BREATH ACTIVATED 2021-03 00:00: 00 Yes 1{puff} Inhale 1 puff into the lungs 2 times daily Lucero cr Ibuprofen 400 MG OR TABS 2021-03 15:18: 54 02-05 00:00 :00 No as needed for pain Lucero cr Temazepam 30 MG oral Capsule 2021-03 15:07: 05 Yes 1{capsu le} 1 capsule Lucero Villasenorap cr Cetirizine HCl 10 MG oral Capsule 2021-03 15:07: 05 Yes Take by mouth Lucero cr Triamcinolo ne Acetonide 55 MCG/ACT nasal Aerosol 2021-03 15:07: 05 Yes by nasal route Indication s: 2 sprays in each nostril every day Lucero cr Magnesium 100 MG oral Cap 2021-03 15:07: 05 Yes Take by mouth Lucero Guadalupea tayo Coenzyme Q10 (COQ10) 100 MG oral Cap 2021-03 15:07: 05 Yes Take by mouth Lucero Guadalupea tayo Calcium Carb-Cholec alciferol (LIQUID CALCIUM WITH D3 OR) 2021-03 07:47: 54 02-05 00:00 :00 No Take by mouth Lucero cr Clonazepam 0.5 MG oral Tab 2021-03 07:47: 48 02-05 00:00 :00 No .5mg Take 0.5 mg by mouth as needed for anxiety Lucero cr Diclofenac Sodium (VOLTAREN OP) 2021-03 07:47: 45 02-05 00:00 :00 No Apply to eye Lucero cr Duloxetine HCl (CYMBALTA) [address] Particles 2021-03 07:47: 42 02-05 00:00 :00 No 30mg Take 30 mg by mouth daily Lucero cr Temazepam 30 MG oral Cap 2021-03 07:47: 24 02-05 00:00 :00 No 30mg QD Take 30 mg by mouth nightly as needed for sleep Lucero cr Venlafaxine HCl 37.5 MG oral Tab 2021-03 07:47: 21 02-05 00:00 :00 No 75mg Take 75 mg by mouth daily 3 tablet daily Indication s: 225mg daily Lucero cr Celecoxib 200 MG oral Capsule 2021-03 00:00: 00 Yes [id number] 200mg QD Take 1 capsule (200 mg total) by mouth daily as needed for pain Lucero cr methylpredn isolone sod succ (SOLU-MEDRO L) injection 125 mg 09-24 02:45: 00 09-24 02:06 :00 No 125mg 125 mg, Intramuscu lar, ONCE, 1 dose, On 09/23/21 at 2145, 2 mL [facility] diazePAM (VALIUM) tablet 5 mg 09-24 01:45: 00 09-24 02:06 :00 No 5mg 5 mg, Oral, ONCE, 1 dose, On 09/23/21 at 2045, LOLY [facility] HYDROcodone -acetaminop hen (NORCO 5) 5-325 mg tablet 1 tablet 09-24 01:45: 00 09-24 02:06 :00 No 1{tbl} 1 tablet, Oral, ONCE, 1 dose, On 09/23/21 at 2045, LOLY [facility] methocarbam oL 750 mg tablet 09-23 00:00: 00 Yes [id number] 750mg Take 1 tablet by mouth 4 (four) times daily. [facility] Paroxetine HCl 20 MG oral Tablet 03-17 00:00: 06-05 00:00 :00 No 20mg Take 20 mg by mouth daily Lucero cr Quetiapine Fumarate 25 MG oral Tablet 03-17 00:00: 00 06-05 00:00 :00 No 25mg Take 25 mg by mouth daily Lucero cr busPIRone HCl 7.5 MG oral Tablet 03-17 00:00: 00 04-05 00:00 :00 No 7.5mg Take 7.5 mg by mouth daily Lucero cr Celecoxib 200 MG oral Capsule 2019-03 00:00: 00 02-05 00:00 :00 No 200mg Take 200 mg by mouth Lucero cr Montelukast (SINGULAIR) 10 MG oral Tablet tablet 03-17 00:00: 00 Yes 10mg Take 10 mg by mouth daily Lucero cr Aspirin 81 MG oral Tablet Delayed Response 03-17 00:00: 00 06-22 00:00 :00 No Lucero cr Ergocalcife rol 1.25 MG (61926 UT) oral Capsule 03-17 00:00: 00 04-05 00:00 :00 No Lucero cr Metoclopram connor HCl 10 MG oral Tablet 03-17 00:00: 00 04-05 00:00 :00 No 10mg Take 10 mg by mouth daily Lucero cr Levothyroxi ne Sodium 150 MCG oral Tab 09-01 00:00: 00 Yes TAKE 1 TABLET BY MOUTH EVERY DAY Lucero cr duloxetine 60 mg capsule,del ayed release Take 1 capsule every day by oral route for 90 days. duloxetine 60 mg capsule,del ayed release Take 1 capsule every day by oral route for 90 days. 08-20 00:00: 00 No 1capsul e(s) Q1D duloxetine 60 mg capsule,de layed release Take 1 capsule every day by oral route for 90 days. [facility] e Polyethylen e Glycol 3350 oral Powder 07-16 00:00: 00 02-05 00:00 :00 No [id number] 17g Take 17 (seventeen ) g by mouth daily X 3 days as needed for constipati on Lucero cr Gabapentin 100 MG oral Cap 2017-03 00:00: 00 02-05 00:00 :00 No 200mg TAKE 2 (TWO) CAPSULES BY MOUTH 3 TIMES DAILY Lucero cr Pantoprazol e Sodium (PROTONIX) 40 MG oral Tablet Delayed Response 2017-03 00:00: 00 Yes [id number] 40mg Take 1 (one) tablet by mouth daily Lucero cr Fluticasone -Salmeterol (ADVAIR DISKUS) 250-50 MCG/DOSE inhalation AEROSOL POWDER, BREATH ACTIVATED 2015-03 00:00: 00 04-05 00:00 :00 No 1{puff} Inhale 1 puff into the lungs 2 times daily Lucero cr Oxcarbazepi ne (TRILEPTAL) 600 MG oral Tab 2015-03 00:00: 00 02-05 00:00 :00 No [id number] 600mg Take 1 tablet by mouth every night at bedtime Lucero cr Albuterol 90 MCG/ACT IN AERS 2011-03 00:00: 00 Yes [id number] 6 2{puff} 2 puffs 4 times daily As needed for shortness of breath Lucero cr clonazepam 0.5 mg tablet Take 1 tablet as needed by oral route for 30 days. clonazepam 0.5 mg tablet Take 1 tablet as needed by oral route for 30 days. No 1 clonazepam 0.5 mg tablet Take 1 tablet as needed by oral route for 30 days. [facility] gabapentin 100 mg capsule Take 3 capsules every day by oral route for 90 days. gabapentin 100 mg capsule Take 3 capsules every day by oral route for 90 days. No 3capsul e(s) Q1D gabapentin 100 mg capsule Take 3 capsules every day by oral route for 90 days. [facility] pantoprazol e 40 mg tablet,brooks yed release Take 1 tablet every day by oral route for 90 days. pantoprazol e 40 mg tablet,brooks yed release Take 1 tablet every day by oral route for 90 days. No 1 Q1D pantoprazo le 40 mg tablet,del ayed release Take 1 tablet every day by oral route for 90 days. [facility] venlafaxine ER 75 mg capsule,ext ended release 24 hr Take 1 capsule every day by oral route for 90 days. venlafaxine ER 75 mg capsule,ext ended release 24 hr Take 1 capsule every day by oral route for 90 days. No 1capsul e(s) Q1D venlafaxin e ER 75 mg capsule,ex tended release 24 hr Take 1 capsule every day by oral route for 90 days. [facility] Immunizations Ordered Immunization Name Filled Immunization Name Date Status Comments Source Influenza Virus Vaccine, Quadrivalent, High Dose, Age 65 And Up 2022-02-28 00:00:00 Completed Lucero Mcbride - External Pneumococcal Vaccine, Polysaccharide 2022-02-28 00:00:00 Completed Lucero Mcbride - External Influenza Virus Vaccine, Quadrivalent, High Dose, Age 65 And Up 2022-02-28 00:00:00 Completed Lucero Villasenorybold - External Pneumococcal Vaccine, Polysaccharide 2022-02-28 00:00:00 Completed Lucero Jamesold - External Influenza Virus Vaccine, Quadrivalent, High Dose, Age 65 And Up 2022-02-28 00:00:00 Completed Lucero Jamesold - External Pneumococcal Vaccine, Polysaccharide 2022-02-28 00:00:00 Completed Lucero Jamesold - External Influenza Virus Vaccine, Quadrivalent, High Dose, Age 65 And Up 2022-02-28 00:00:00 Completed Lucero Mcbride - External Pneumococcal Vaccine, Polysaccharide 2022-02-28 00:00:00 Completed Lucero Seybold - External Influenza Virus Vaccine, Quadrivalent, High Dose, Age 65 And Up 2022-02-28 00:00:00 Completed Lucero Seybold - External Pneumococcal Vaccine, Polysaccharide 2022-02-28 00:00:00 Completed Lucero Seybold - External Influenza Virus Vaccine, Quadrivalent, High Dose, Age 65 And Up 2022-02-28 00:00:00 Completed Lucero Seybold - External Pneumococcal Vaccine, Polysaccharide 2022-02-28 00:00:00 Completed Lucero Seybold - External Influenza Virus Vaccine, Quadrivalent, High Dose, Age 65 And Up 2022-02-28 00:00:00 Completed Lucero Seybold - External Pneumococcal Vaccine, Polysaccharide 2022-02-28 00:00:00 Completed Lucero Seybold - External Influenza Virus Vaccine, Quadrivalent, High Dose, Age 65 And Up 2022-02-28 00:00:00 Completed Lucero Seybold - External Pneumococcal Vaccine, Polysaccharide 2022-02-28 00:00:00 Completed Lucero Seybold - External Influenza Virus Vaccine, Quadrivalent, High Dose, Age 65 And Up 2022-02-28 00:00:00 Completed Lucero Seybold - External Pneumococcal Vaccine, Polysaccharide 2022-02-28 00:00:00 Completed Lucero Seybold - External influenza, injectable, quadrivalent influenza, injectable, quadrivalent 2018-05-15 00:00:00 Completed [facility] Influenza Virus Vaccine, Split, up to age 3 2018-05-15 00:00:00 Completed Lucero Seybold - External Influenza Virus Vaccine, Split, up to age 3 2018-05-15 00:00:00 Completed Lucero Seybold - External Influenza Virus Vaccine, Split, up to age 3 2018-05-15 00:00:00 Completed Lucero Seybold - External Influenza Virus Vaccine, Split, up to age 3 2018-05-15 00:00:00 Completed Lucero Seybold - External Influenza Virus Vaccine, Split, up to age 3 2018-05-15 00:00:00 Completed Lucero Seybold - External Influenza Virus Vaccine, Split, up to age 3 2018-05-15 00:00:00 Completed Lucero Seybold - External Influenza Virus Vaccine, Split, up to age 3 2018-05-15 00:00:00 Completed Lucero Seybold - External Influenza Virus Vaccine, Split, up to age 3 2018-05-15 00:00:00 Completed Lucero Seybold - External Influenza Virus Vaccine, Split, up to age 3 2018-05-15 00:00:00 Completed Lucero Seybold - External Influenza Virus Vaccine, Split, up to age 3 2018-05-15 00:00:00 Completed Lucero Seybold - External Influenza Virus Vaccine, Split, up to age 3 2018-05-15 00:00:00 Completed Lucero Seybold - External Influenza Virus Vaccine, age 6 months and up 2016-02-29 00:00:00 Completed Lucero Seybold - External Pneumococcal Vaccine, Conjugate 13 2016-02-29 00:00:00 Completed Lucero Seybold - External Influenza Virus Vaccine, age 6 months and up 2016-02-29 00:00:00 Completed Lucero Seybold - External Pneumococcal Vaccine, Conjugate 13 2016-02-29 00:00:00 Completed Lucero Seybold - External Influenza Virus Vaccine, age 6 months and up 2016-02-29 00:00:00 Completed Lucero Seybold - External Pneumococcal Vaccine, Conjugate 13 2016-02-29 00:00:00 Completed Lucero Seybold - External Influenza Virus Vaccine, age 6 months and up 2016-02-29 00:00:00 Completed Lucero Seybold - External Pneumococcal Vaccine, Conjugate 13 2016-02-29 00:00:00 Completed Lucero Seybold - External Influenza Virus Vaccine, age 6 months and up 2016-02-29 00:00:00 Completed Lucero Seybold - External Pneumococcal Vaccine, Conjugate 13 2016-02-29 00:00:00 Completed Lucero Seybold - External Influenza Virus Vaccine, age 6 months and up 2016-02-29 00:00:00 Completed Lucero Seybold - External Pneumococcal Vaccine, Conjugate 13 2016-02-29 00:00:00 Completed Lucero Seybold - External Influenza Virus Vaccine, age 6 months and up 2016-02-29 00:00:00 Completed Lucero Seybold - External Pneumococcal Vaccine, Conjugate 13 2016-02-29 00:00:00 Completed Lucero Seybold - External Influenza Virus Vaccine, age 6 months and up 2016-02-29 00:00:00 Completed Lucero Seybold - External Pneumococcal Vaccine, Conjugate 13 2016-02-29 00:00:00 Completed Lucero Seybold - External Influenza Virus Vaccine, age 6 months and up 2016-02-29 00:00:00 Completed Lucero Seybold - External Pneumococcal Vaccine, Conjugate 13 2016-02-29 00:00:00 Completed Lucero Seybold - External Influenza Virus Vaccine, age 6 months and up 2016-02-29 00:00:00 Completed Lucero Seybold - External Pneumococcal Vaccine, Conjugate 13 2016-02-29 00:00:00 Completed Lucero Seybold - External Influenza Virus Vaccine, age 6 months and up 2016-02-29 00:00:00 Completed Lucero Seybold - External Pneumococcal Vaccine, Conjugate 13 2016-02-29 00:00:00 Completed Lucero Seybold - External Pneumococcal Vaccine, Polysaccharide 2008-02-29 00:00:00 Completed Lucero Seybold - External Pneumococcal Vaccine, Polysaccharide 2008-02-29 00:00:00 Completed Lucero Seybold - External Pneumococcal Vaccine, Polysaccharide 2008-02-29 00:00:00 Completed Lucero Seybold - External Pneumococcal Vaccine, Polysaccharide 2008-02-29 00:00:00 Completed Lucero Seybold - External Pneumococcal Vaccine, Polysaccharide 2008-02-29 00:00:00 Completed Lucero Seybold - External Pneumococcal Vaccine, Polysaccharide 2008-02-29 00:00:00 Completed Lucero Seybold - External Pneumococcal Vaccine, Polysaccharide 2008-02-29 00:00:00 Completed Lucero Seybold - External Pneumococcal Vaccine, Polysaccharide 2008-02-29 00:00:00 Completed Lucero Seybold - External Pneumococcal Vaccine, Polysaccharide 2008-02-29 00:00:00 Completed Lucero Seybold - External Pneumococcal Vaccine, Polysaccharide 2008-02-29 00:00:00 Completed Lucero Seybold - External Pneumococcal Vaccine, Polysaccharide 2008-02-29 00:00:00 Completed Lucero Seybold - External Pneumococcal Vaccine, Polysaccharide Unknown Completed Lucero Jamesol d - External Influenza Virus Vaccine, age 6 months and up Unknown Completed Lucero Seybold - External Pneumococcal Vaccine, Conjugate 13 Unknown Completed Lucero Seybold - External Influenza Virus Vaccine, Split, up to age 3 Unknown Completed Lucero Seybold - External Influenza Virus Vaccine, Quadrivalent, High Dose, Age 65 And Up Unknown Completed Lucero S eybold - External Pneumococcal Vaccine, Polysaccharide Unknown Completed Lucero Seybol d - External Pneumococcal Vaccine, Polysaccharide Unknown Completed Lucero Seybol d - External Influenza Virus Vaccine, age 6 months and up Unknown Completed Lucero Seybold - External Pneumococcal Vaccine, Conjugate 13 Unknown Completed Lucero Seybold - External Influenza Virus Vaccine, Split, up to age 3 Unknown Completed Lucero Seybold - External Influenza Virus Vaccine, Quadrivalent, High Dose, Age 65 And Up Unknown Completed Lucero S eybold - External Pneumococcal Vaccine, Polysaccharide Unknown Completed Lucero Seybol d - External Influenza Virus Vaccine, No Preserv, age 6 months and up Unknown Completed Lucero S eybold - External Pneumococcal Vaccine, Polysaccharide Unknown Completed Lucero Seybol d - External Influenza Virus Vaccine, age 6 months and up Unknown Completed Lucero Seybold - External Pneumococcal Vaccine, Conjugate 13 Unknown Completed Lucero Seybold - External Influenza Virus Vaccine, Split, up to age 3 Unknown Completed Lucero Seybold - External Influenza Virus Vaccine, Quadrivalent, High Dose, Age 65 And Up Unknown Completed Lucero S eybold - External Pneumococcal Vaccine, Polysaccharide Unknown Completed Lucero Seybol d - External Influenza Virus Vaccine, No Preserv, age 6 months and up Unknown Completed Lucero S eybold - External Pneumococcal Vaccine, Polysaccharide Unknown Completed Lucero Seybol d - External Influenza Virus Vaccine, age 6 months and up Unknown Completed Lucero Seybold - External Pneumococcal Vaccine, Conjugate 13 Unknown Completed Lucero Seybold - External Influenza Virus Vaccine, Split, up to age 3 Unknown Completed Lucero Seybold - External Influenza Virus Vaccine, Quadrivalent, High Dose, Age 65 And Up Unknown Completed Lucero S eybold - External Pneumococcal Vaccine, Polysaccharide Unknown Completed Lucero Seybol d - External Influenza Virus Vaccine, No Preserv, age 6 months and up Unknown Completed Lucero S eybold - External Vital Signs Vital Name Observation Time Observation Value Comments S ource Systolic blood pressure 2023-06-23 16:43:00 102 mm[Hg] Lucero Jameso ld - External Diastolic blood pressure 2023-06-23 16:43:00 75 mm[Hg] Lucero Jameso ld - External Heart rate 2023-06-23 16:43:00 80 /min Dannielle Mcbride - External Body temperature 2023-06-23 16:43:00 36.61 Ariela Lucero Seybold - External Respiratory rate 2023-06-23 16:43:00 15 /min Lucero Seybold - External Body height 2023-06-23 16:43:00 157.5 cm Jessica ey Seybold - External Body weight 2023-06-23 16:43:00 77.111 kg Jessica ey Seybold - External BMI 2023-06-23 16:43:00 31.09 kg/m2 Jessica ey Seybold - External Systolic blood pressure 2023-05-23 15:37:00 120 mm[Hg] Lucero Seybo ld - External Diastolic blood pressure 2023-05-23 15:37:00 74 mm[Hg] Lucero Seybo ld - External Heart rate 2023-05-23 15:37:00 69 /min Kelse y Seybold - External Body temperature 2023-05-23 15:37:00 36.94 Ariela Lucero Seybold - External Body height 2023-05-23 15:37:00 157.5 cm Jessica ey Seybold - External Body weight 2023-05-23 15:37:00 78.019 kg Jessica ey Seybold - External BMI 2023-05-23 15:37:00 31.46 kg/m2 Jessica ey Seybold - External Oxygen saturation in Arterial blood by Pulse oximetry 2023-05-23 15:37:00 97 /min Lucero Seybo ld - External Systolic blood pressure 2023-01-10 16:10:00 118 mm[Hg] Lucero Seybo ld - External Diastolic blood pressure 2023-01-10 16:10:00 71 mm[Hg] Lucero Seybo ld - External Heart rate 2023-01-10 16:10:00 76 /min Kelse y Seybold - External Body temperature 2023-01-10 16:10:00 36.61 Ariela Lucero Seybold - External Respiratory rate 2023-01-10 16:10:00 15 /min Lucero Seybold - External Body height 2023-01-10 16:10:00 157.5 cm Jessica ey Seybold - External Body weight 2023-01-10 16:10:00 77.111 kg Jessica ey Seybold - External BMI 2023-01-10 16:10:00 31.09 kg/m2 Jessica ey Seybold - External Oxygen saturation in Arterial blood by Pulse oximetry 2023-01-10 16:10:00 99 /min Lucero Seybo ld - External Systolic blood pressure 2022-11-11 19:46:00 118 mm[Hg] Lucero Seybo ld - External Diastolic blood pressure 2022-11-11 19:46:00 82 mm[Hg] Lucero Seybo ld - External Heart rate 2022-11-11 19:46:00 76 /min Kelse y Seybold - External Respiratory rate 2022-11-11 19:46:00 18 /min Lucero Seybold - External Body height 2022-11-11 19:46:00 157.5 cm Jessica ey Seybold - External Body weight 2022-11-11 19:46:00 78.019 kg Jessica ey Seybold - External BMI 2022-11-11 19:46:00 31.46 kg/m2 Jessica ey Seybold - External Systolic blood pressure 2022-11-08 19:20:00 118 mm[Hg] Lucero Seybo ld - External Diastolic blood pressure 2022-11-08 19:20:00 70 mm[Hg] Lucero Seybo ld - External Heart rate 2022-11-08 19:20:00 76 /min Kelse y Seybold - External Body height 2022-11-08 19:20:00 157.5 cm Jessica ey Seybold - External Body weight 2022-11-08 19:20:00 78.109 kg Jessica ey Seybold - External BMI 2022-11-08 19:20:00 31.50 kg/m2 Jessica ey Seybold - External Systolic blood pressure 2022-08-22 19:10:00 112 mm[Hg] Lucero Seybo ld - External Diastolic blood pressure 2022-08-22 19:10:00 75 mm[Hg] Lucero Seybo ld - External Heart rate 2022-08-22 19:10:00 79 /min Kelse y Seybold - External Body temperature 2022-08-22 19:10:00 36.78 Ariela Lucero Seybold - External Respiratory rate 2022-08-22 19:10:00 18 /min Lucero Seybold - External Body height 2022-08-22 19:10:00 157.5 cm Jessica ey Seybold - External Body weight 2022-08-22 19:10:00 79.833 kg Jessica ey Seybold - External BMI 2022-08-22 19:10:00 32.19 kg/m2 Jessica ey Seybold - External Oxygen saturation in Arterial blood by Pulse oximetry 2022-08-22 19:10:00 96 /min Lucero Seybo ld - External Systolic blood pressure 2022-07-30 21:41:00 111 mm[Hg] Lucero Seybo ld - External Diastolic blood pressure 2022-07-30 21:41:00 91 mm[Hg] Lucero Seybo ld - External Heart rate 2022-07-30 21:41:00 87 /min Kelse y Seybold - External Body temperature 2022-07-30 21:41:00 37.06 Ariela Lucero Seybold - External Respiratory rate 2022-07-30 21:41:00 16 /min Lucero Seybold - External Body height 2022-07-30 21:41:00 157.5 cm Jessica ey Seybold - External Body weight 2022-07-30 21:41:00 80.287 kg Jessica ey Seybold - External BMI 2022-07-30 21:41:00 32.37 kg/m2 Jessica ey Seybold - External Oxygen saturation in Arterial blood by Pulse oximetry 2022-07-30 21:41:00 99 /min Lucero Seybo ld - External Body height 2022-06-05 19:23:00 157.5 cm Jessica ey Seybold - External Body weight 2022-06-05 19:23:00 79.379 kg Jessica ey Seybold - External BMI 2022-06-05 19:23:00 32.01 kg/m2 Jessica ey Seybold - External Systolic blood pressure 2022-04-05 19:31:00 98 mm[Hg] Lucero Seybo ld - External Diastolic blood pressure 2022-04-05 19:31:00 56 mm[Hg] Lucero Seybo ld - External Heart rate 2022-04-05 19:31:00 92 /min Kelse y Seybold - External Body temperature 2022-04-05 19:31:00 36.5 Ariela Lucero Seybold - External Respiratory rate 2022-04-05 19:31:00 14 /min Lucero Seybold - External Body height 2022-04-05 19:31:00 157.5 cm Jessica ey Seybold - External Body weight 2022-04-05 19:31:00 80.287 kg Jessica ey Seybold - External BMI 2022-04-05 19:31:00 32.37 kg/m2 Jessica ey Seybold - External Systolic blood pressure 2022-02-28 19:48:00 123 mm[Hg] Lucero Seybo ld - External Diastolic blood pressure 2022-02-28 19:48:00 83 mm[Hg] Lucero Seybo ld - External Heart rate 2022-02-28 19:48:00 74 /min Kelse y Seybold - External Body temperature 2022-02-28 19:48:00 36.17 Ariela Lucero Seybold - External Respiratory rate 2022-02-28 19:48:00 18 /min Lucero Seybold - External Body height 2022-02-28 19:48:00 157.5 cm Jessica ey Seybold - External Body weight 2022-02-28 19:48:00 81.194 kg Jessica ey Seybold - External BMI 2022-02-28 19:48:00 32.74 kg/m2 Jessica ey Seybold - External Oxygen saturation in Arterial blood by Pulse oximetry 2022-02-28 19:48:00 96 /min Lucero Seybo ld - External Systolic blood pressure 2022-02-05 20:58:00 102 mm[Hg] Lucero Seybo ld - External Diastolic blood pressure 2022-02-05 20:58:00 58 mm[Hg] Lucero Seybo ld - External Heart rate 2022-02-05 20:58:00 76 /min Kelse y Seybold - External Body temperature 2022-02-05 20:58:00 36.56 Ariela Lucero Seybold - External Respiratory rate 2022-02-05 20:58:00 16 /min Lucero Seybold - External Body height 2022-02-05 20:58:00 157.5 cm Jessica ey Seybold - External Body weight 2022-02-05 20:58:00 81.194 kg Jessica ey Seybold - External BMI 2022-02-05 20:58:00 32.74 kg/m2 Jessica og Seybold - External Systolic blood pressure 2021-09-24 02:00:00 107 mm[Hg] [facility] Diastolic blood pressure 2021-09-24 02:00:00 82 mm[Hg] [facility] Heart rate 2021-09-24 02:00:00 74 /min [facility] Respiratory rate 2021-09-24 02:00:00 16 /min [facility] Oxygen saturation in Arterial blood by Pulse oximetry 2021-09-24 02:00:00 96 /min [facility] BMI 2021-09-24 01:37:00 31.83 kg/m2 [facility] Body temperature 2021-09-24 01:37:00 36.89 Ariela [facility] Body height 2021-09-24 01:37:00 157.5 cm [facility] Body weight 2021-09-24 01:37:00 78.926 kg [facility] BP Diastolic 2018-08-20 00:00:00 84 mm[Hg] [facility] Height 2018-08-20 00:00:00 60.5 [in_i] [facility] BMI (Body Mass Index) 2018-08-20 00:00:00 32.1 kg/m2 [facility] BP Systolic 2018-08-20 00:00:00 112 mm[Hg] [facility] Body Weight 2018-08-20 00:00:00 167 [lb_av] [facility] Procedures Procedure Date / Time Performed Performing Clinician Source LUMBAR SPINE 2 VIEWS UPRIGHT - CHIRO 2022-11-11 21:12:51 Aicha Rodríguez Seybmildred - External THORACIC SPINE 3 VIEWS 2022-11-11 21:12:15 Inga Rodríguez - External CERVICAL SPINE - 2 VIEW 2022-11-08 20:38:55 Stan Rutledge Seybold - External QUANTAFLO 2022-04-05 20:17:56 Flavio Orourke - External EXTERNAL PROVIDER RECORDS 2021-10-26 05:01:00 Do ctor Unassigned, [place] [facility] CT HIP RIGHT WO CONTRAST 2021-09-24 01:54:59 Bethany Grayson [facility] CONSENT/REFUSAL FOR DIAGNOSIS AND TREATMENT 2021-09-24 01:29:47 Doctor Unassigned, [place] [facility] Colonoscopy 2016-03-17 00:00:00 [facility] Mastectomy (One Breast) 2007-03-17 00:00:00 [facility] Breast Surgery 2007-03-17 00:00:00 Christin fagan [facility] Reconstructive Surgery 2007-03-17 00:00:00 [facility] Cholecystectomy (Gall Bladder Removal) 1999-03-17 00:00:00 [facility] Orthopedic Surgery 1990-03-17 00:00:00 Helen ruano [facility] Caesarean Section 1979-03-17 00:00:00 Caden arzate [facility] Hysterectomy (Total) 1979-03-17 00:00:00 [facility] [employer] SPECIALIST Surgery (Gynecology) 1977-03-17 00:00:00 [facility] Appendectomy 1974-03-17 00:00:00 [facility] Plan of Care Planned Activity Planned Date Details Comments Source Diagnostic Test Pending 2018-08-20 00:00:00 CBC w/ auto diff [code = CBC w/ auto diff] [facility] Diagnostic Test Pending 2018-08-20 00:00:00 CMP, serum or plasma [code = CMP, serum or plasma] [facility] Diagnostic Test Pending 2018-08-20 00:00:00 lipid panel, serum [code = lipid panel, serum] [facility] Diagnostic Test Pending 2018-08-20 00:00:00 hepatitis C virus RNA, quant, PCR, serum or plasma [code = hepatitis C virus RNA, quant, PCR, serum or plasma] [facility] Diagnostic Test Pending 2018-08-20 00:00:00 urinalysis, dipstick [code = urinalysis, dipstick] [facility] Diagnostic Test Pending 2018-08-20 00:00:00 TSH, serum or plasma [code = TSH, serum or plasma] [facility] Encounters Start Date/Time End Date/Time Encounter Type Admission Type Attending Clinicians Care Facility Care Department Encounter ID Source 2023-09-04 00:00:00 2023-09-04 00:00:00 Outpatient FLAVIO OROURKE [id number] [facility] 2023-08-29 00:00:00 2023-08-29 00:00:00 Outpatient MD LUCERO REED [id number] [facility] 2023-08-28 00:00:00 2023-08-28 00:00:00 Outpatient LUCERO CARRASCO [id number] [facility] 2023-08-28 00:00:00 2023-08-28 00:00:00 Outpatient FLAVIO OROURKE [id number] [facility] 2023-08-28 00:00:00 2023-08-28 00:00:00 Outpatient LOREE GODOY [id number] [facility] 2023-08-26 00:00:00 2023-08-26 00:00:00 Outpatient MD LUCERO REED [id number] [facility] 2023-08-25 11:15:00 2023-08-25 11:15:00 Outpatient FLAVIO OROURKE [id number] [facility] 2023-08-25 00:00:00 2023-08-25 00:00:00 Outpatient DANYELL ARROYO [id number] [facility] 2023-08-24 00:00:00 2023-08-24 00:00:00 Outpatient MD LUCERO REED [id number] [facility] 2023-08-24 00:00:00 2023-08-24 00:00:00 Outpatient LOREE GODOY [id number] [facility] 2023-08-23 00:00:00 2023-08-23 00:00:00 Outpatient KAREN COOK [id number] [facility] 2023-08-03 00:00:00 2023-08-03 00:00:00 Outpatient FLAVIO OROURKE [id number] [facility] 2023-07-30 15:15:00 2023-07-30 15:15:00 Outpatient BROOKE BORJAS LUCERO CARRASCO [id number] [facility] 2023-07-25 00:00:00 2023-07-25 00:00:00 Outpatient LENORA MAI [facility]ERO CARRASCO [id number] [facility] 2023-07-24 15:00:00 2023-07-24 15:00:00 Outpatient LENORA MAI L[facility]ERO CARRASCO [id number] [facility] 2023-07-23 15:00:00 2023-07-23 15:00:00 Outpatient SANJANA MAIAntonio CARRASCO [id number] [facility] 2023-07-23 00:00:00 2023-07-23 00:00:00 Outpatient PAUL JANELLE LUCERO CARRASCO [id number] [facility] 2023-07-21 15:00:00 2023-07-21 15:00:00 Outpatient PUTTAMAINSYL Barkley LUCERO CARRASCO [id number] [facility] 2023-07-18 15:00:00 2023-07-18 15:00:00 Outpatient JORJE PAWAN [facility]ERO [facility] [id number] [facility] [place] 2023-07-18 14:15:00 2023-07-18 14:15:00 Outpatient LUCERO CARRASCO [id number] [facility] [place] 2023-07-18 13:40:00 2023-07-18 13:40:00 Outpatient LUCERO CARRASCO [id number] [facility] [place] 2023-07-18 00:00:00 2023-07-18 00:00:00 Outpatient MD LUCERO REED [id number] [facility] 2023-07-15 00:00:00 2023-07-15 00:00:00 Outpatient LUCERO CARRASCO [id number] [facility] 2023-07-11 00:00:00 2023-07-11 00:00:00 Outpatient FLAVIO OROURKE [id number] [facility] 2023-07-03 00:00:00 2023-07-03 00:00:00 Outpatient PREZAS, FLAVIO CARRASCO LUCERO [id number] [facility] 2023-07-03 00:00:00 2023-07-03 00:00:00 Outpatient LUCERO LUCERO [id number] [facility] 2023-07-03 00:00:00 2023-07-03 00:00:00 Outpatient PREZAS, FLAVIO CARRASCO LUCERO [id number] [facility] 2023-07-01 16:00:00 2023-07-01 16:00:00 Outpatient LUCERO LUCERO [id number] [facility] 2023-06-30 00:00:00 2023-06-30 00:00:00 Outpatient PREZAS, FLAVIO LUCERO CARRASCO [id number] [facility] 2023-06-27 00:00:00 2023-06-27 00:00:00 Outpatient PREZAS, FLAVIO [facility] CARRASCO [id number] [facility] 2023-06-24 00:00:00 2023-06-24 00:00:00 Outpatient WALT, LOREE LUCERO CARRASCO [id number] [facility] 2023-06-23 11:30:00 2023-06-23 11:30:00 Outpatient PREZAS, FLAVIO [facility] CARRASCO [id number] [facility] 2023-06-23 00:00:00 2023-06-23 00:00:00 Outpatient PREZAS, FLAVIO L[facility]ERO CARRASCO [id number] [facility] 2023-06-22 00:00:00 2023-06-22 00:00:00 Outpatient WALTLOREE ELLER LUCERO CARRASCO [id number] [facility] [place] 2023-06-20 08:50:00 2023-06-20 08:50:00 Outpatient LABRaheem CARRASCO [id number] [facility] [place] 2023-06-20 00:00:00 2023-06-20 00:00:00 Outpatient PREZAS, FLAVIO LUCERO CARRASCO [id number] [facility] 2023-06-20 00:00:00 2023-06-20 00:00:00 Outpatient PREZAS, FLAVIO CARRASCO [id number] [facility] 2023-06-18 00:00:00 2023-06-18 00:00:00 Outpatient PREZAS, FLAVIO [facility]ERO C[facility]ASCO [id number] [facility] 2023-06-18 00:00:00 2023-06-18 00:00:00 Outpatient MD LUCERO REED [id number] [facility] 2023-06-17 00:00:00 2023-06-17 00:00:00 Outpatient PREZAS, FLAVIO LUCERO CARRACSO [id number] [facility] 2023-06-12 15:30:00 2023-06-12 15:30:00 Outpatient LUCERO CARRASCO [id number] [facility] 2023-05-23 09:30:00 2023-05-23 09:30:00 Outpatient PREZAS, FLAVIOBETINA CARRASCO [id number] [facility] [place] 2023-05-22 00:00:00 2023-05-22 00:00:00 Outpatient PREZAS, FLAVIO LUCERO CARRASCO [id number] [facility] [place] 2023-05-17 00:00:00 2023-05-17 00:00:00 Outpatient PREZAS, FLAVIOBETINA CARRASCO [id number] [facility] 2023-05-09 16:30:00 2023-05-09 16:30:00 Outpatient PLRADHA [id number] [facility] 2023-05-09 00:00:00 2023-05-09 00:00:00 Outpatient PREZAS, FLAVIO LUCERO CARRASCO [id number] [facility] 2023-05-08 09:30:00 2023-05-08 09:30:00 Outpatient LAB90 LUCERO CARRASCO [id number] [facility] 2023-05-08 00:00:00 2023-05-08 00:00:00 Outpatient PREZAS, FLAVIO CARRASCO [id number] [facility] 2023-05-08 00:00:00 2023-05-08 00:00:00 Outpatient PREZAS, FLAVIO CARRASCO [id number] [facility] 2023-05-06 00:00:00 2023-05-06 00:00:00 Outpatient WALT LOREE LUCERO CARRASCO [id number] [facility] 2023-05-06 00:00:00 2023-05-06 00:00:00 Outpatient WALT LOREE CRARASCO [id number] [facility] 2023-05-06 00:00:00 2023-05-06 00:00:00 Outpatient LUCERO CARRASCO [id number] [facility] 2023-05-06 00:00:00 2023-05-06 00:00:00 Outpatient WALT LOREE CARRASCO [id number] [facility] 2023-04-29 15:30:00 2023-04-29 15:30:00 Outpatient HEAVEN MISSYKAITLYNN CARRASCO [id number] [facility] [place] 2023-04-11 00:00:00 2023-04-11 00:00:00 Outpatient PREZASFLAVIO [id number] [facility] [place] 2023-04-08 00:00:00 2023-04-08 00:00:00 Outpatient PREZAS, FLAVIO CARRASCO [id number] [facility] [place] 2023-04-03 00:00:00 2023-04-03 00:00:00 Outpatient PREZASFLAVIO [id number] [facility] 2023-04-03 00:00:00 2023-04-03 00:00:00 Outpatient LUCERO CARRASCO [id number] [facility] 2023-04-03 00:00:00 2023-04-03 00:00:00 Outpatient BROWNSHRUTHI LUCERO CARRASCO [id number] [facility] 2023-03-27 00:00:00 2023-03-27 00:00:00 Outpatient LOREE GODOY [id number] [facility] 2023-03-25 00:00:00 2023-03-25 00:00:00 Outpatient PREZASFLAVIO [id number] [facility] 2023-03-24 11:00:00 2023-03-24 11:00:00 Outpatient PAU BURKE CARRASCO [id number] [facility] 2023-03-24 00:00:00 2023-03-24 00:00:00 Outpatient LOREE GODOY LUCERO CARRASCO [id number] [facility] [place] 2023-03-24 00:00:00 2023-03-24 00:00:00 Outpatient WALT LOREE LUCERO CARRASCO [id number] [facility] [place] 2023-03-21 10:30:00 2023-03-21 10:30:00 Outpatient CHERYL GALINDO L[facility]ERO CARRASCO [id number] [facility] [place] 2023-03-19 00:00:00 2023-03-19 00:00:00 Outpatient WALT LOREE LUCERO CARRASCO [id number] [facility] [place] 2023-03-14 00:00:00 2023-03-14 00:00:00 Outpatient LUCERO CARRASCO [id number] [facility] [place] 2023-03-12 00:00:00 2023-03-12 00:00:00 Outpatient LUCERO CARRASCO [id number] [facility] [place] 2023-03-12 00:00:00 2023-03-12 00:00:00 Outpatient BURKE MAI [id number] [facility] [place] 2023-03-11 00:00:00 2023-03-11 00:00:00 Outpatient BURKE MAI [id number] [facility] [place] 2023-02-25 00:00:00 2023-02-25 00:00:00 Outpatient BURKE MAI [id number] [facility] 2023-02-24 14:00:00 2023-02-24 14:00:00 Outpatient FLAVIO OROURKE [id number] [facility] 2023-02-11 16:15:00 2023-02-11 16:15:00 Outpatient FLAVIO OROURKE [id number] [facility] 2023-01-29 00:00:00 2023-01-29 00:00:00 Outpatient BURKE MAI [id number] [facility] 2023-01-29 00:00:00 2023-01-29 00:00:00 Outpatient SUAD, BROOKE CARRASCO [id number] [facility] 2023-01-28 00:00:00 2023-01-28 00:00:00 Outpatient LUCERO CARRASCO [id number] [facility] 2023-01-27 00:00:00 2023-01-27 00:00:00 Outpatient HARMS, BROOKE CARRASCO [id number] [facility] 2023-01-27 00:00:00 2023-01-27 00:00:00 Outpatient PREZAS, FLAVIO CARRASCO [id number] [facility] 2023-01-24 14:00:00 2023-01-24 14:00:00 Outpatient RUTLEDGEESTEBAN ARCINIEGA [id number] [facility] 2023-01-20 11:00:00 2023-01-20 11:00:00 Outpatient PAU, BURKE CARRASCO [id number] [facility] 2023-01-20 00:00:00 2023-01-20 00:00:00 Outpatient UKJENNIFER SAMPSON [id number] [facility] 2023-01-20 00:00:00 2023-01-20 00:00:00 Outpatient HARMS, BROOKE CARRASCO [id number] [facility] 2023-01-16 00:00:00 2023-01-16 00:00:00 Outpatient PREZAS, FLAVIO CARRASCO [id number] [facility] 2023-01-15 00:00:00 2023-01-15 00:00:00 Outpatient PREZAS, FLAVIO CARRASCO [id number] [facility] 2023-01-14 00:00:00 2023-01-14 00:00:00 Outpatient PREZAS, FLAVIO CARRASCO [id number] [facility] 2023-01-14 00:00:00 2023-01-14 00:00:00 Outpatient PREZAS, FLAVIO CARRASCO [id number] [facility] 2023-01-13 00:00:00 2023-01-13 00:00:00 Outpatient FLAVIO OROURKE LUCERO CARRASCO [id number] [facility] 2023-01-10 11:55:00 2023-01-10 11:55:00 Outpatient DHARA LUCERO CARRASCO [id number] [facility] 2023-01-10 11:00:00 2023-01-10 11:00:00 Outpatient FLAVIO OROURKE [facility]ERO [facility]ARRASCO [id number] [facility] 2023-01-07 14:15:00 2023-01-07 14:15:00 Outpatient NIHARIKAJOSETTE Ramirez LUCEOR CARRASCO [id number] [facility] 2023-01-01 13:45:00 2023-01-01 13:45:00 Outpatient MARIE DELGADO [id number] [facility] 2023-01-01 11:30:00 2023-01-01 11:30:00 Outpatient JENNIFER CAMPOS [id number] [facility] 2022-12-31 14:30:00 2022-12-31 14:30:00 Outpatient MICHELLE YOONIA LUCERO CARRASCO [id number] [facility] 2022-12-31 00:00:00 2022-12-31 00:00:00 Outpatient BURKE MAI [id number] [facility] 2022-12-30 09:00:00 2022-12-30 09:00:00 Outpatient BURKE MAI [id number] [facility] 2022-12-28 00:00:00 2022-12-28 00:00:00 Outpatient TONA CIFUENTES [id number] [facility] 2022-12-28 00:00:00 2022-12-28 00:00:00 Outpatient BURKE MAI [id number] [facility] 2022-12-27 07:10:00 2022-12-27 07:10:00 Outpatient BURKE MAI [id number] [facility] 2022-12-26 00:00:00 2022-12-26 00:00:00 Outpatient MD LUCERO REED [id number] [facility] 2022-12-26 00:00:00 2022-12-26 00:00:00 Outpatient MD LUCERO REED [id number] [facility] 2022-12-25 00:00:00 2022-12-25 00:00:00 Outpatient LUCERO CARRASCO [id number] [facility] 2022-12-23 00:00:00 2022-12-23 00:00:00 Outpatient BURKE MAI [id number] [facility] 2022-12-20 13:45:00 2022-12-20 13:45:00 Outpatient HUNG BRAMBILA [id number] [facility] 2022-12-20 00:00:00 2022-12-20 00:00:00 Outpatient LUCERO CARRASCO [id number] [facility] 2022-12-18 14:15:00 2022-12-18 14:15:00 Outpatient JOSETTE SCHAFFER [id number] [facility] 2022-12-17 14:30:00 2022-12-17 14:30:00 Outpatient MOE YOON [id number] [facility] 2022-12-16 09:45:00 2022-12-16 09:45:00 Outpatient ARTHUR KRAMER [id number] [facility] 2022-12-13 14:00:00 2022-12-13 14:00:00 Outpatient WALTER MELTON [id number] [facility] 2022-12-12 14:15:00 2022-12-12 14:15:00 Outpatient TRED47 LUCERO CARRASCO [id number] [facility] 2022-12-12 12:00:00 2022-12-12 12:00:00 Outpatient LAB39 LUCERO CARRASCO [id number] [facility] 2022-12-12 11:00:00 2022-12-12 11:00:00 Outpatient BURKE MAI [id number] [facility] 2022-12-10 00:00:00 2022-12-10 00:00:00 Outpatient DAVID PIEDRA [facility]ERO [facility] [id number] [facility] 2022-12-09 00:00:00 2022-12-09 00:00:00 Outpatient LUCERO CARRASCO [id number] [facility] [place] 2022-12-06 00:00:00 2022-12-06 00:00:00 Outpatient PATTY HUNG [facility] [id number] [facility] [place] 2022-12-06 00:00:00 2022-12-06 00:00:00 Outpatient MD LUCERO REED [id number] [facility] 2022-12-05 00:00:00 2022-12-05 00:00:00 Outpatient LOREE GODOY [id number] [facility] 2022-12-05 00:00:00 2022-12-05 00:00:00 Outpatient BURKE MAI [id number] [facility] 2022-12-04 00:00:00 2022-12-04 00:00:00 Outpatient LUCERO CARRASCO [id number] [facility] [place] 2022-12-02 00:00:00 2022-12-02 00:00:00 Outpatient BURKE MAI [id number] [facility] [place] 2022-12-02 00:00:00 2022-12-02 00:00:00 Outpatient FLAVIO OROURKE [id number] [facility] [place] 2022-12-02 00:00:00 2022-12-02 00:00:00 Outpatient FLAVIO OROURKE [id number] [facility] [place] 2022-11-28 00:00:00 2022-11-28 00:00:00 Outpatient MD LUCERO REED [id number] [facility] [place] 2022-11-27 00:00:00 2022-11-27 00:00:00 Outpatient ESTEBAN RUTLEDGE [id number] [facility] 2022-11-26 00:00:00 2022-11-26 00:00:00 Outpatient LOREE GODOY L[facility]ERO C[facility]ASCO [id number] [facility] 2022-11-26 00:00:00 2022-11-26 00:00:00 Outpatient LOREE GODOY [facility]ERO [facility]ASCO [id number] [facility] 2022-11-19 14:00:00 2022-11-19 14:00:00 Outpatient AICHA RODRÍGUEZ [id number] [facility] 2022-11-19 00:00:00 2022-11-19 00:00:00 Outpatient ESTEBAN RUTLEDGE [id number] [facility] 2022-11-15 00:00:00 2022-11-15 00:00:00 Outpatient BURKE MAI [id number] [facility] 2022-11-14 00:00:00 2022-11-14 00:00:00 Outpatient MD LUCERO REED [id number] [facility] 2022-11-13 08:00:00 2022-11-13 08:00:00 Outpatient JASWINDER HERRERA [id number] [facility] 2022-11-12 00:00:00 2022-11-12 00:00:00 Outpatient AICHA RODRÍGUEZ [id number] [facility] 2022-11-11 15:55:00 2022-11-11 15:55:00 Outpatient LUCERO CARRASCO [id number] [facility] 2022-11-11 15:50:00 2022-11-11 15:50:00 Outpatient LUCERO CARRASCO [id number] [facility] 2022-11-11 14:30:00 2022-11-11 14:30:00 Outpatient AICHA RODRÍGUEZ [id number] [facility] 2022-11-11 00:00:00 2022-11-11 00:00:00 Outpatient LUCERO CARRASCO [id number] [facility] 2022-11-08 15:25:00 2022-11-08 15:25:00 Outpatient LUCERO CARRASCO [id number] [facility] 2022-11-08 14:30:00 2022-11-08 14:30:00 Outpatient ESTEBAN RUTLEDGE [facility]ERO [facility] [id number] [facility] [place] 2022-11-06 00:00:00 2022-11-06 00:00:00 Outpatient LOREE GODOY [id number] [facility] [place] 2022-11-04 09:00:00 2022-11-04 09:00:00 Outpatient PAU BURKE LUCERO C[facility]ASCO [id number] [facility] 2022-11-01 00:00:00 2022-11-01 00:00:00 Outpatient LOREE GODOY [id number] [facility] 2022-10-31 09:45:00 2022-10-31 09:45:00 Outpatient LUCERO CARRASCO [id number] [facility] 2022-10-29 00:00:00 2022-10-29 00:00:00 Outpatient FLAVIO OROURKE [id number] [facility] 2022-10-29 00:00:00 2022-10-29 00:00:00 Outpatient LOREE GODOY [id number] [facility] [place] 2022-10-29 00:00:00 2022-10-29 00:00:00 Outpatient LOREE GODOY [id number] [facility] [place] 2022-10-25 00:00:00 2022-10-25 00:00:00 Outpatient LOREE GODOY [id number] [facility] [place] 2022-10-17 09:30:00 2022-10-17 09:30:00 Outpatient LUCERO CARRASCO [id number] [facility] 2022-10-17 00:00:00 2022-10-17 00:00:00 Outpatient LOREE GODOY [id number] [facility] 2022-10-17 00:00:00 2022-10-17 00:00:00 Outpatient LOREE GODOY [id number] [facility] [place] 2022-10-16 11:20:00 2022-10-16 11:20:00 Outpatient DAVID PIEDRA LUCERO CARRASCO [id number] [facility] 2022-10-15 13:30:00 2022-10-15 13:30:00 Outpatient YAAKOV SANTOYO [facility] [id number] [facility] 2022-10-15 00:00:00 2022-10-15 00:00:00 Outpatient LOREE GODOY [id number] [facility] 2022-10-14 00:00:00 2022-10-14 00:00:00 Outpatient BROOKE BORJAS [id number] [facility] 2022-10-10 00:00:00 2022-10-10 00:00:00 Outpatient MD LUCERO REED [id number] [facility] 2022-10-04 13:00:00 2022-10-04 13:00:00 Outpatient JACEK CARRASCO [id number] [facility] 2022-10-02 00:00:00 2022-10-02 00:00:00 Outpatient FLAVIO OROURKE [id number] [facility] 2022-09-30 14:30:00 2022-09-30 14:30:00 Outpatient HUNG BRAMBILA [id number] [facility] 2022-09-30 13:45:00 2022-09-30 13:45:00 Outpatient NEVILLE VACA [id number] [facility] 2022-09-30 00:00:00 2022-09-30 00:00:00 Outpatient LUCERO CARRASCO [id number] [facility] 2022-09-27 14:30:00 2022-09-27 14:30:00 Outpatient HUNG BRAMBILA [id number] [facility] 2022-09-27 14:00:00 2022-09-27 14:00:00 Outpatient HILDA RINCON [id number] [facility] 2022-09-20 10:10:00 2022-09-20 10:10:00 Outpatient BROOKE BORJAS [facility]ERO CARRASCO [id number] [facility] 2022-09-18 00:00:00 2022-09-18 00:00:00 Outpatient BURKE MAI LUCERO CARRASCO [id number] [facility] 2022-09-16 00:00:00 2022-09-16 00:00:00 Outpatient BROOKE BORJAS [facility]ERO CARRASCO [id number] [facility] 2022-09-13 17:20:00 2022-09-13 17:20:00 Outpatient LAN LUCERO CARRASCO [id number] [facility] 2022-09-13 17:00:00 2022-09-13 17:00:00 Outpatient LUCERO CARRASCO [id number] [facility] 2022-09-13 00:00:00 2022-09-13 00:00:00 Outpatient LOREE GODOY [id number] [facility] 2022-09-13 00:00:00 2022-09-13 00:00:00 Out[facility]OURKE [id number] [facility]22-09-13 00:00:00 2022-09-13 00:00:00 Outpatient LOREE GODOY [id number] [facility] 2022-09-13 00:00:00 2022-09-13 00:00:00 Outpatient LOREE GODOY [id number] [facility] 2022-09-12 00:00:00 2022-09-12 00:00:00 Outpatient BURKE MAI [id number] [facility] 2022-09-12 00:00:00 2022-09-12 00:00:00 Outpatient LOREE GODOY [id number] [facility] 2022-09-11 00:00:00 2022-09-11 00:00:00 Outpatient BURKE MAI [id number] [facility] [place] 2022-09-11 00:00:00 2022-09-11 00:00:00 Outpatient LUCERO CARRASCO [id number] [facility] 2022-09-05 00:00:00 2022-09-05 00:00:00 Outpatient MD LUCERO REED [id number] [facility] 2022-09-05 00:00:00 2022-09-05 00:00:00 Outpatient JESSICADARA LUCERO CARRASCO [id number] [facility] 2022-09-05 00:00:00 2022-09-05 00:00:00 Outpatient PREZAS FLAVIO CARRASCO [id number] [facility] [place] 2022-09-05 00:00:00 2022-09-05 00:00:00 Outpatient PREZAS FLAVIO CARRASCO [id number] [facility] [place] 2022-09-02 00:00:00 2022-09-02 00:00:00 Outpatient LUCERO CARRASCO [id number] [facility] [place] 2022-08-30 00:00:00 2022-08-30 00:00:00 Outpatient ARMANDOAICHA ENRIQUEZ LUCERO CARRASCO [id number] [facility] [place] 2022-08-30 00:00:00 2022-08-30 00:00:00 Outpatient PREZAS FLAVIO CARRASCO [id number] [facility] [place] 2022-08-28 00:00:00 2022-08-28 00:00:00 Outpatient LOREE GODOY [id number] [facility] [place] 2022-08-28 00:00:00 2022-08-28 00:00:00 Outpatient BURKE MAI [id number] [facility] [place] 2022-08-27 00:00:00 2022-08-27 00:00:00 Outpatient LOREE GODOY [id number] [facility] [place] 2022-08-27 00:00:00 2022-08-27 00:00:00 Outpatient LOREE GODOY [id number] [facility] [place] 2022-08-27 00:00:00 2022-08-27 00:00:00 Outpatient PREZASFLAVIO [id number] [facility] [place] 2022-08-27 00:00:00 2022-08-27 00:00:00 Outpatient WALT, LOREE LUCERO CARRASCO [id number] [facility] [place] 2022-08-26 15:00:00 2022-08-26 15:00:00 Outpatient PAUBURKE LUCERO CARRASCO [id number] [facility] [place] 2022-08-26 00:00:00 2022-08-26 00:00:00 Outpatient WALT, LOREE LUCERO CARRASCO [id number] [facility] 2022-08-23 00:00:00 2022-08-23 00:00:00 Outpatient WALT, LOREE LUCERO CARRASCO [id number] [facility] 2022-08-22 14:30:00 2022-08-22 14:30:00 Outpatient WALT, LOREE CARRASCO [id number] [facility] 2022-08-20 00:00:00 2022-08-20 00:00:00 Outpatient HARMS, BROOKE CARRASCO [id number] [facility] 2022-08-15 00:00:00 2022-08-15 00:00:00 Outpatient HARMS, BROOKE CARRASCO [id number] [facility] 2022-08-13 00:00:00 2022-08-13 00:00:00 Outpatient PREZAS, FLAVIO CARRASCO [id number] [facility] 2022-08-06 15:20:00 2022-08-06 15:20:00 Outpatient LOPEZ, DARA CARRASCO [id number] [facility] 2022-08-06 14:00:00 2022-08-06 14:00:00 Outpatient VF1 LUCERO CARRASCO [id number] [facility] 2022-07-30 16:45:00 2022-07-30 16:45:00 Outpatient PREZAS, FLAVIO CARRASCO [id number] [facility] [place] 2022-07-30 00:00:00 2022-07-30 00:00:00 Outpatient PREZAS, FLAVIO CARRASCO [id number] [facility] 2022-07-30 00:00:00 2022-07-30 00:00:00 Outpatient HARMS, BROOKE CARRASCO [id number] [facility] [place] 2022-07-28 00:00:00 2022-07-28 00:00:00 Outpatient HARMS, BROOKE LUCERO CARRASCO [id number] [facility] [place] 2022-07-28 00:00:00 2022-07-28 00:00:00 Outpatient PREZASFLAVIO LUCERO CARRASCO [id number] [facility] [place] 2022-07-28 00:00:00 2022-07-28 00:00:00 Outpatient HARMS, BROOKE CARRASCO [id number] [facility] [place] 2022-07-23 14:00:00 2022-07-23 14:00:00 Outpatient WALT, LOREE CARRASCO [id number] [facility] [place] 2022-07-23 00:00:00 2022-07-23 00:00:00 Outpatient WALT, LOREE CARRASCO [id number] [facility] 2022-07-15 00:00:00 2022-07-15 00:00:00 Outpatient HARMS, BROOKE CARRASCO [id number] [facility] [place] 2022-07-11 14:30:00 2022-07-11 14:30:00 Outpatient TRED47 LUCERO CARRASCO [id number] [facility] 2022-07-04 00:00:00 2022-07-04 00:00:00 Outpatient WALTLOREE ELLER [id number] [facility] 2022-07-04 00:00:00 2022-07-04 00:00:00 Outpatient HARMS, BROOKE CARRASCO [id number] [facility] 2022-07-02 15:45:00 2022-07-02 15:45:00 Outpatient ERICA CROSS [id number] [facility] 2022-07-01 08:30:00 2022-07-01 08:30:00 Outpatient YAAKOV SANTOYO [id number] [facility] [place] 2022-06-28 10:30:00 2022-06-28 10:30:00 Outpatient HARMS, BROOKE CARRASCO [id number] [facility] 2022-06-28 00:00:00 2022-06-28 00:00:00 Outpatient WALTLOREE ELLER LUCERO CARRASCO [id number] [facility] 2022-06-26 14:30:00 2022-06-26 14:30:00 Outpatient DANNYMARIE LUCERO CARRASCO [id number] [facility] [place] 2022-06-26 00:00:00 2022-06-26 00:00:00 Outpatient PREZAFLAVIO Drake LUCERO CARRASCO [id number] [facility] [place] 2022-06-26 00:00:00 2022-06-26 00:00:00 Outpatient WALT, LOREE LUCERO CARRASCO [id number] [facility] [place] 2022-06-21 00:00:00 2022-06-21 00:00:00 Outpatient WALT, LOREE LUCERO CARRASCO [id number] [facility] [place] 2022-06-17 13:30:00 2022-06-17 13:30:[address], RADHA CARRASCO [id number] [facility] [place] 2022-06-14 00:00:00 2022-06-14 00:00:00 Outpatient PREZAS, FLAVIO LUCERO CARRASCO [id number] [facility] [place] 2022-06-07 11:00:00 2022-06-07 11:00:[address], TECH LUCERO CARRASCO [id number] [facility] [place] 2022-06-05 14:05:00 2022-06-05 14:05:00 Outpatient LUCERO CARRASCO [id number] [facility] [place] 2022-06-05 14:00:00 2022-06-05 14:00:00 Outpatient RAFIQ NERI [id number] [facility] 2022-06-05 00:00:00 2022-06-05 00:00:00 Outpatient RAFIQ NERI [id number] [facility] 2022-06-03 14:20:00 2022-06-03 14:20:00 Outpatient DARA LOPEZ [id number] [facility] 2022-06-03 13:15:00 2022-06-03 13:15:00 Outpatient VF1 LUCERO CARRASCO [id number] [facility] 2022-06-03 00:00:00 2022-06-03 00:00:00 Outpatient FLAVIO OROURKE LUCERO CARRASCO [id number] [facility] [place] 2022-06-03 00:00:00 2022-06-03 00:00:00 Outpatient LOREE GODOY [id number] [facility] [place] 2022-05-31 11:30:00 2022-05-31 11:30:00 Outpatient JOSE AGUILA LUCERO CARRASCO [id number] [facility] [place] 2022-05-27 00:00:00 2022-05-27 00:00:00 Outpatient LOREE GODOY [id number] [facility] 2022-05-24 00:00:00 2022-05-24 00:00:00 Outpatient LOREE GODOY [id number] [facility] 2022-05-24 00:00:00 2022-05-24 00:00:00 Outpatient FLAVIO OROURKE LUCERO CARRASCO [id number] [facility] [place] 2022-05-22 13:45:00 2022-05-22 13:45:00 Outpatient NEVILLE VACA [id number] [facility] [place] 2022-05-22 13:45:00 2022-05-22 13:45:00 Outpatient YAAKOV SANTOYO [id number] [facility] [place] 2022-05-21 13:45:00 2022-05-21 13:45:00 Outpatient PAWAN RECINOS [id number] [facility] [place] 2022-05-20 00:00:00 2022-05-20 00:00:00 Outpatient BROOKE BORJAS [id number] [facility] [place] 2022-05-17 11:30:00 2022-05-17 11:30:00 Outpatient MOE YOON [id number] [facility] 2022-05-16 14:15:00 2022-05-16 14:15:00 Outpatient RAFIQ NERI L[facility]ERO [id number] [facility] 2022-05-08 11:15:00 2022-05-08 11:15:00 Outpatient OJSE AGUILA LUCERO CARRASCO [id number] [facility] 2022-05-06 15:15:00 2022-05-06 15:15:00 Outpatient TOÑITO HUFF LUCERO CARRASCO [id number] [facility] 2022-05-06 00:00:00 2022-05-06 00:00:00 Outpatient TOÑITO HUFF LUCERO CARRASCO [id number] [facility] 2022-05-06 00:00:00 2022-05-06 00:00:00 Outpatient MARIIA GODOYISTINE LUCERO CARRASCO [id number] [facility] 2022-05-03 15:15:00 2022-05-03 15:15:00 Outpatient PREFLAVIO MATTHEW [id number] [facility] [place] 2022-05-02 09:25:00 2022-05-02 09:25:00 Outpatient DEBRA, [facility] LUCERO CARRASCO [id number] [facility] 2022-04-30 00:00:00 2022-04-30 00:00:00 Outpatient PREZASFLAVIO [id number] [facility] 2022-04-29 00:00:00 2022-04-29 00:00:00 Outpatient PRITI HAMILTON [id number] [facility] 2022-04-26 00:00:00 2022-04-26 00:00:00 Outpatient PREZASFLAVIO [id number] [facility] 2022-04-26 00:00:00 2022-04-26 00:00:00 Outpatient PREZASFLAVIO [id number] [facility] 2022-04-25 13:45:00 2022-04-25 13:45:00 Outpatient LAB90 LUCERO CARRASCO [id number] [facility] 2022-04-23 14:20:00 2022-04-23 14:20:00 Outpatient DARA LOPEZ [id number] [facility] 2022-04-23 12:30:00 2022-04-23 12:30:00 Outpatient VF1 LUCERO LUCERO [id number] [facility] 2022-04-22 00:00:00 2022-04-22 00:00:00 Outpatient HARMSBROOKE LUCERO CARRASCO [id number] [facility] 2022-04-19 00:00:00 2022-04-19 00:00:00 Outpatient PREZAS, FLAVIO [facility] CARRASCO [id number] [facility] 2022-04-19 00:00:00 2022-04-19 00:00:00 Outpatient PREZAS, FLAVIO [facility]ARRASCO [id number] [facility]-18 13:30:00 2022-04-18 13:30:00 Outpatient BHAGIA OTTO LUCERO CARRASCO [id number] [facility] 2022-04-17 09:20:00 2022-04-17 09:20:00 Outpatient LUCERO CARRASCO [id number] [facility] 2022-04-17 09:15:00 2022-04-17 09:15:00 Outpatient LUCERO CARRASCO [id number] [facility] 2022-04-17 09:10:00 2022-04-17 09:10:00 Outpatient LUCERO CARRASCO [id number] [facility] 2022-04-17 00:00:00 2022-04-17 00:00:00 Outpatient PREZAS, FLAVIO [facility]ERO CARRASCO [id number] [facility] 2022-04-17 00:00:00 2022-04-17 00:00:00 Outpatient PREZAS, FLAVIO CARRASCO [id number] [facility] [place] 2022-04-16 13:45:00 2022-04-16 13:45:00 Outpatient NEVILLE VACA [id number] [facility] [place] 2022-04-15 00:00:00 2022-04-15 00:00:00 Outpatient LUCERO CARRASCO [id number] [facility] 2022-04-12 14:30:00 2022-04-12 14:30:00 Outpatient JUN, ATASU LUCERO CARRASCO [id number] [facility] 2022-04-11 13:00:00 2022-04-11 13:00:00 Outpatient CLEMENCIA GANDARA LUCERO CARRASCO [id number] [facility] 2022-04-09 15:30:00 2022-04-09 15:30:00 Outpatient LUCERO CARRASCO [id number] [facility] 2022-04-09 13:40:00 2022-04-09 13:40:00 Outpatient LUCERO LUCERO [id number] [facility] 2022-04-09 00:00:00 2022-04-09 00:00:00 Outpatient PREZAFLAVIO Drake LUCERO CARRASCO [id number] [facility] 2022-04-09 00:00:00 2022-04-09 00:00:00 Outpatient PREZAFLAVIO Drake LUCERO CARRASCO [id number] [facility] [place] 2022-04-08 00:00:00 2022-04-08 00:00:00 Outpatient PREZAS, FLAVIO LUCERO CARRASCO [id number] [facility] [place] 2022-04-07 00:00:00 2022-04-07 00:00:00 Outpatient WALT LOREE CARRASCO [id number] [facility] 2022-04-05 14:35:00 2022-04-05 14:35:00 Outpatient LAB90 LUCERO CARRASCO [id number] [facility] 2022-04-05 13:30:00 2022-04-05 13:30:00 Outpatient PREZAS, FLAVIO L[facility]ERO CARRASCO [id number] [facility] 2022-04-04 14:10:00 2022-04-04 14:10:00 Outpatient PLAB LUCERO CARRASCO [id number] [facility] 2022-04-04 13:45:00 2022-04-04 13:45:00 Outpatient MAGRAFIQ RODRIGUEZ LUCERO CARRASCO [id number] [facility] 2022-04-04 00:00:00 2022-04-04 00:00:00 Outpatient PREZAFLAVIO Drake LUCERO CARRASCO [id number] [facility] 2022-04-03 13:45:00 2022-04-03 13:45:00 Outpatient LUCERO CARRASCO [id number] [facility] 2022-04-01 00:00:00 2022-04-01 00:00:00 Outpatient PRITI HAMILTON LUCERO CARRASCO [id number] [facility] 2022-03-29 15:35:00 2022-03-29 15:35:00 Outpatient LAB39 LUCERO CARRASCO [id number] [facility] 2022-03-29 15:00:00 2022-03-29 15:00:00 Outpatient DAVID PIEDRA LUCERO CARRASCO [id number] [facility] 2022-03-29 14:15:00 2022-03-29 14:15:00 Outpatient LexiMAYRA LUCERO CARRASCO [id number] [facility] 2022-03-29 13:30:00 2022-03-29 13:30:00 Outpatient BROOKE BORJAS [id number] [facility] 2022-03-29 00:00:00 2022-03-29 00:00:00 Outpatient FLAVIO OROURKE [id number] [facility] 2022-03-27 14:00:00 2022-03-27 14:00:00 Outpatient MARIE DELGADO [id number] [facility] 2022-03-26 14:30:00 2022-03-26 14:30:00 Outpatient ESTEBAN RUTLEDGE [id number] [facility] [place] 2022-03-26 00:00:00 2022-03-26 00:00:00 Outpatient LUCERO CARRASCO [id number] [facility] 2022-03-25 11:20:00 2022-03-25 11:20:00 Outpatient GUSTAVO CARRASCO [id number] [facility] 2022-03-22 14:20:00 2022-03-22 14:20:00 Outpatient KITTY EDMONDSON [id number] [facility] 2022-03-22 00:00:00 2022-03-22 00:00:00 Outpatient RAFIQ NERI LUCERO CARRASCO [id number] [facility] 2022-03-21 00:00:00 2022-03-21 00:00:00 Outpatient FLAVIO OROURKE LUCERO CARRASCO [id number] [facility] 2022-03-15 09:40:00 2022-03-15 09:40:00 Outpatient NORMA SHETH LUCERO CARRASCO [id number] [facility] 2022-03-15 00:00:00 2022-03-15 00:00:00 Outpatient FLAVIO OROURKE LUCERO CARRASCO [id number] [facility] 2022-03-15 00:00:00 2022-03-15 00:00:00 [facility] [id number] [id number] [id number] [facility] 2022-03-12 00:00:00 2022-03-12 00:00:00 Outpatient LUCERO CARRASCO [id number] [facility] 2022-03-08 11:40:00 2022-03-08 11:40:00 Outpatient GUSTAVO CARRASCO [id number] [facility] 2022-03-08 00:00:00 2022-03-08 00:00:00 Outpatient LOREE GODOY [id number] [facility] 2022-03-07 13:30:00 2022-03-07 13:30:00 Outpatient GUSTAVO CARRASCO [id number] [facility] 2022-03-05 16:30:00 2022-03-05 16:30:00 Outpatient PAWAN RECINOS [id number] [facility] 2022-03-05 14:30:00 2022-03-05 14:30:00 Outpatient GUSTAVO CARRASCO [id number] [facility] 2022-03-04 14:30:00 2022-03-04 14:30:00 Outpatient ALICE ABBOTT [id number] [facility] [place] 2022-03-04 13:40:00 2022-03-04 13:40:00 Outpatient GLEN SMITH LUCERO CARRASCO [id number] [facility] 2022-03-01 16:00:00 2022-03-01 16:00:00 Outpatient FLAVIO OROURKE LUCERO CARRASCO [id number] [facility] 2022-03-01 15:15:00 2022-03-01 15:15:00 Outpatient HUNG BRAMBILA LUCERO CARRASCO [id number] [facility] 2022-02-28 14:00:00 2022-02-28 14:00:00 Outpatient WALTLOREE LUCERO CARRASCO [id number] [facility] 2022-02-27 16:00:00 2022-02-27 16:00:00 Outpatient RULAJR LUCERO CARRASCO [id number] [facility] 2022-02-22 13:00:00 2022-02-22 13:00:00 Outpatient STAN RUTLEDGEUEL LUCERO CARRASCO [id number] [facility] 2022-02-21 14:00:00 2022-02-21 14:00:00 Outpatient RAFIQ NERI LUCERO CARRASCO [id number] [facility] 2022-02-18 14:30:00 2022-02-18 14:30:00 Outpatient FLAVIO OROURKE [facility]ERO CARRASCO [id number] [facility] 2022-02-18 00:00:00 2022-02-18 00:00:00 Telephone Dejah Manuel [facility] [id number] [id number] [id number] [facility] 2022-02-14 00:00:00 2022-02-14 00:00:00 Outpatient RAFIQ NERI LUCERO CARRASCO [id number] [facility] 2022-02-06 11:00:00 2022-02-06 11:00:00 Outpatient DAVID PIEDRA [id number] [facility] 2022-02-06 00:00:00 2022-02-06 00:00:00 Outpatient DAVID PIEDRA LUCERO [id number] [facility] 2022-02-05 15:00:00 2022-02-05 15:00:00 Outpatient FLAVIO OROURKE LUCERO [id number] [facility] 2022-01-29 13:00:00 2022-01-29 13:00:00 Outpatient NORMA SHETH LUCERO LUCERO [id number] [facility] 2022-01-18 14:15:00 2022-01-18 14:15:00 Outpatient FLAVIO OROURKE LUCERO [id number] [facility] 2021-11-02 00:00:00 2021-11-02 00:00:00 Telephone [facility] 1.840.114 350.1.13.10 4.2.7.2.686 [id number] [facility] 2021-11-01 00:00:00 2021-11-01 00:00:00 Telephone [facility] 1.840.114 350.1.13.10 4.2.7.2.686 [id number] [facility] 2021-10-26 00:00:00 2021-10-26 00:00:00 Orders Only Doctor Unassigned, [place] [facility] 1.840.114 350.1.13.10 4.2.7.2.686 [id number] [facility] 2021-09-23 20:40:00 2021-09-23 21:51:00 Emergency Bethany Grayson [facility] 1.2840.114 350.1.13.10 4.2.7.2.686 [id number] [facility] 2021-09-23 20:40:00 2021-09-23 21:51:00 Emergency X BETHANY GRAYSON [facility] [id number] [facility] 2021-03-27 13:30:00 2021-03-27 13:30:00 Outpatient LOREE GODOY [id number] [facility] 2021-03-15 11:30:00 2021-03-15 11:30:00 Outpatient LOREE GODOY [id number] [facility] 2021-01-23 15:00:00 2021-01-23 15:00:00 Outpatient ARELIS MONTELONGO [id number] [facility] 2020-10-03 06:47:00 2020-10-03 06:47:[address]_R [facility] [id number] [facility] 2018-08-20 00:00:00 2018-08-20 00:00:00 Virginie Harris MD: [address] [place] [phone] , Ph. [facility] [place] - [facility] - [facility] d [id number] [facility] e Results Test Description Test Time Test Comments Results Result Co mments Source [facility] - ExternalTSH + FREE T4 [id number] 06:35:20* Test Item Value Reference Range Interpretation Comme nts TSH, THIRD GENERATION (test code = 2821) 27.800 UIU/ML 0.400-4.100 H FREE T4 (THYROXINE) (test co de = 2823) 0.96 NG/DL 0.80-1.90 VITAMIN [id number] 06:35:20* Test Item Value Reference Range Interpretation Comme nts VITAMIN B-12 (test code = 2840) 380 PG/ML 200-950 UNLESS OTHERWISE INDICATED, ALL TESTING PERFORMED [facility] [address] [place] [address] CIGAR BINDER: KATLIN MEDRANO M.D. CLIA NUMBER [id number] [place]. [id number] CBC W/AUTO DIFF WITH [id number] 04:17:03* Test Item Value Reference Range Interpretation Comme nts WBC (test code = 1001) 8.4 K/UL 3.5-11.0 RBC (test code = 1002) 4.75 M/UL 3.80-5.40 HEMOGLOBIN (test code = 1003) 14.2 G/DL 11.5-15.5 HEMATOCRIT (test code = 1004) 42.1 % 34.0-45.0 MCV (test code = 1005) 88.6 fL 80.0-99.0 MCH (test code = 1006) 29.9 PG 25.0-33.0 MCHC (test code = 1007) 33.7 G/DL 31.0-36.0 RDW (test code = 1038) 14.6 % 11.5-15.0 NEUTROPHILS (test code = 1008) 48.1 % LYMPHOCYTES (test code = 1010) 39.1 % MONOCYTES (test code = 1011) 8.7 % EOSINOPHILS (test code = 1012) 2.7 % BASOPHILS (test code = 1013) 1.2 % IMMATURE GRANULOCYTES (test code = 1036) 0.2 % NUCLEATED RBCS (test code = 1065) 0.0 /100 WBC'S See_Comment [Automated messa ge] The system which generated this result transmitted reference range: 0.0. The reference range was not used to interpret this result as normal/abnormal. PLATELET COUNT (test code = 1015) 350 K/UL 130-400 ABSOLUTE NEUTROPHILS (test code = 1066) 4.05 K/UL 1.50-7.50 ABSOLUTE LYMPHOCYTES (test code = 1067) 3.29 K/UL 1.00-4.00 ABSOLUTE MONOCYTES (test code = 1068) 0.73 K/UL 0.20-1.00 ABSOLUTE EOSINOPHILS (test code = 1040) 0.23 K/UL 0.00-0.50 ABSOLUTE BASOPHILS (test code = 1069) 0.10 K/UL 0.00-0.20 ABS IMMATURE GRANULOCYTES (test code = 1020) 0.02 K/UL 0.00-0.10 ABS NUCLEATED RBCS (test code = 15644) 0.00 K/UL 0.00-0.11 LIPID [id number] 04:08:05* Test Item Value Reference Range Interpretation Comme nts CHOLESTEROL (test code = 2210) 298 MG/DL <200 H TRIGLYCERIDES (test code = 2232) 225 MG/DL <150 H HDL CHOLESTEROL (test code = 2220) 54 MG/DL >39 CALC LDL CHOL (test code = 2236) 202 MG/DL <100 H NOTE: CALCULATED LDL IS BASED ON MAIKOL-GRAJEDA METHOD WHICHINCLUDES ADJUSTABLE TRIGLYCERIDE:VLDL CHOLESTEROL RATIO.THIS FACTOR VARIES BY MEASURED TRIGLYCERIDE AND NON-HDLCHOLESTEROL CONCENTRATIONS WITH INCREASED CALCULATED LDL SEENIN HIGHER TRIGLYCERIDE OR LOWER NON-HDL SPECIMENS. FOR MOREINFORMATION, SEE CLIENT ANNOUNCEMENT AT [email or web address] RISK RATIO LDL/HDL (test code = 2237) 3.74 RATIO <3.22 H COMPREHENSIVE METABOLIC [id number] 04:08:05* Test Item Value Reference Range Interpretation Comme nts GLUCOSE (test code = 2216) 92 MG/DL 70-99 BUN (test code = 2207) 16 MG/DL 8-23 CREATININE (test code = 221) 0.93 MG/DL 0.60-1.30 eGFR (2020 CKD-EPI) (test code = 27409) 69 ML/MIN/1.73 >60 CALC BUN/CREAT (test code = 2235) 17 RATIO 6-28 SODIUM (test code = 223) 141 MEQ/L 133-146 POTASSIUM (test code = 2228) 4.6 MEQ/L 3.5-5.4 CHLORIDE (test code = 2215) 103 MEQ/L 95-107 CARBON DIOXIDE (test code = 2206) 27 MEQ/L 19-31 CALCIUM (test code = 220) 10.0 MG/DL 8.5-10.5 PROTEIN, TOTAL (test code = 2228) 6.8 G/DL 6.1-8.3 ALBUMIN (test code = 2200) 4.3 G/DL 3.5-5.2 CALC GLOBULIN (test code = 2240) 2.5 G/DL 1.9-3.7 CALC A/G RATIO (test code = 223) 1.7 RATIO 1.0-2.6 BILIRUBIN, TOTAL (test code = 2206) 0.2 MG/DL See_Comment [Automated me ssage] The system which generated this result transmitted reference range: <=1.2. The reference range was not used to interpret this result as normal/abnormal. ALKALINE PHOSPHATASE (test code = 2203) 81 U/L 40-140 AST (test code = 2218) 16 U/L 9-40 ALT (test code = 2219) 14 U/L 5-40 BREAST ULTRASOUND CORE BIOPSY [id number] 14:00:24 Name: Chantel : 1955 Sex: F- BREAST ULTRASOUND CORE BIOPSY LEFTULTRASOUND GUIDED BIOPSY LEFT BREAST WITH MARKING DEVICE INSERTED: 08/30/2021LINICAL: Ultrasound biopsy, left breast. Comparison is made to exams dated 08/15/2021 ultrasound and 08/15/2021 mammogram - [facility]-. An ultrasound guided biopsy using [...] for screening mammography.Xavier Moreland M.D. ss/:09/05/2021 14:00:24 [employer] Operator: Oly KOCH, [facility]-FWletter sent: Benign BiopsyDIAG MAMM LEFT CAD [id number] 11:47:51Name: Chantel DOB: 1955 Sex: F - DIAG MAMM LEFT CAD DIGITALUNILATERAL LEFT DIGITAL DIAGNOSTIC MAMMOGRAM WITH CAD - LEFT BREAST POST- PROCEDURE IMAGING FOR MARKER PLACEMENT: 08/30/2021LINICAL: Post clip placement,left breast. Current mammographic images were evaluated by [employer] CAD (computer-aided detection) software. Comparison is made to exams dated 08/15/2021 ultrasound and 08/15/2021 mammogram - [facility]-. The tissue of the left breast is predominantly fatty. Postprocedure mammogram demonstrates biopsy marker clip within the biopsied left axillary lymph node. IMPRESSION: POST PROCEDURE IMAGING FOR MARKER PLACEMENTSuccessful biopsy marker placement within the biopsied left axillary lymph node.Xavier Moreland M.D. ss/:08/30/2021 11:47:51 [employer] Operator: Anh Montilla , [facility]-FWMammogram BI-RADS: Post-procedure mammogram for marker placementBREAST ULTRASOUND [id number] 14:50:53 Name: Chantel : 1955 Sex: F - DIAG MAMM BILATERAL AJ CAD DIGITALBILATERAL DIGITAL DIAGNOSTIC MAMMOGRAM 3D/2D WITH CAD: 08/15/2021LINICAL: Left axillary breast lump.Personal history of breast cancer. Family history of breast cancer. Digital breast tomosynthesis was perf ormed in addition to routine CC and MLO views. Current mammographic images were evaluated by [employer] CAD (computer-aided detection) software. No prior exams were available for comparison. The tissue of both breasts is predominantly fatty. Right mastectomy with TRAM flap reconstruction,benign. No suspicious mass, architectural distortion, malignant type calcification detected. Prominent left axillary lymph node. Another axillary lymph node calcifications in the cortex.INCOMPLETE: ADDITIONAL IMAGING EVALUATION NEEDEDProminent left axillary lymph node. Another axillary lymph node ca lcification is in the cortex. Targeted left axillary [...] node with thickened cortex up to 5 mmprobably correlating with the mammographic left axillary lymph node. No other abnormal lymph nodes are identified. The rest of the bilateral survey ultrasound is negative. No axillary lymphadenopathyon the right was seen.IMPRESSION: SUSPICIOUS OF MALIGNANCY - FOLLOW-UP RECOMMENDEDThickened cortex of left axillary lymph node. BI-RADS 4. Ultrasound- guided core biopsy is recommended at this time.Xavier Moreland M.D. ss/:08/15/2021 14:50:53 [employer] Operator: Suzette KOCH, [facility] BIRADS 4/5 Biopsy Mammogram BI-RADS: 0 Incomplete: Additional Imaging Evaluation Needed Ultrasound BI-RADS: 4a Suspicious abnormality - low suspicion for malignancyDIAG MAMM BILATERAL AJ CAD DIGITAL 2021-08-15 14:50:53 Name: , Chantel CHENG: 1955 Sex: F - DIAG MAMM BILATERAL AJ CAD DIGITALBILATERAL DIGITAL DIAGNOSTIC MAMMOGRAM 3D/2D WITH CAD: 08/15/2021LINICAL: Left axillary breast lump.Personal history of breast cancer. Family history of breast cancer. Digital breast tomosynthesis was perf ormed in addition to routine CC and MLO views. Current mammographic images were evaluated by [employer] CAD (computer-aided detection) software. No prior exams were available for comparison. The tissue of both breasts is predominantly fatty. Right mastectomy with TRAM flap reconstruction,benign. No suspicious mass, architectural distortion, malignant type calcification detected. Prominent left axillary lymph node. Another axillary lymph node calcifications in the cortex.INCOMPLETE: ADDITIONAL IMAGING EVALUATION NEEDEDProminent left axillary lymph node. Another axillary lymph node ca lcification is in the cortex. Targeted left axillary [...] node with thickened cortex up to 5 mmprobably correlating with the mammographic left axillary lymph node. No other abnormal lymph nodes are identified. The rest of the bilateral survey ultrasound is negative. No axillary lymphadenopathyon the right was seen.IMPRESSION: SUSPICIOUS OF MALIGNANCY - FOLLOW-UP RECOMMENDEDThickened cortex of left axillary lymph node. BI-RADS 4. Ultrasound- guided core biopsy is recommended at this time.Xavier Moreland M.D. ss/:08/15/2021 14:50:53 [employer] Operator: Suzette KOCH, [facility] Granite ManorFWletter sent: BIRADS 4/5 Biopsy Mammogram BI-RADS: 0 Incomplete: Additional Imaging Evaluation Needed Ultrasound BI-RADS: 4a Suspicious abnormality - low suspicion for malignancy- XR FLUORO FOR SPINE [id number] 16:06:00Patient Name: CHANTEL RODRIGUEZ Unit No: [id number] EXAMS: CPT CODE: [id number] XR FLUORO FOR SPINE INJ [id number] CERVICAL TRANSFORAMINAL INJECTION REFERRING PHYSICIAN:Inder Turcios M.D. [...] None DETAILS OF PROCEDURE: After obtaining stable vit al signs, informed consent and IV access, with no known contraindications to proceeding, the patient was taken to the fluoroscopy suite and placed in a supine position with all extremities padded andappropriate monitors placed. A sterile prep and drape was performed over the cervical spine. Using fluoroscopic visualization at each level the insertion site was marked for a paravertebral approachto the foramen. Using standard technique, a 27gauge needle was advanced to the base of the pedicle.In AP view, final positioning was obtained outside the 6 on a clock position on the pedicle. Then, 0.5 ml of Isovue-300 contrast was injected to produce the epidurograms. No paresthesias were elicited with needle insertion or injection and there were no signs of intravascular or intrathecal uptake.Then, 0.5 ml of 4% lidocaine was injected [...] taken to the PACU in good condition. [facility] NAME: CHANTEL RODRIGUEZ [address] [facility] PHYS: DOCUD - Doctor,Edward Samano MD [place], [place] [address] : 1955 AGE: 63 SEX: F LOC: [facility] PHONE #: [phone] EXAM DATE: 07/10/2018 STATUS: [facility] FAX #: [phone] RAD #: D/C DT PAGE 1 Signed Report (CONTINUED) Patient Name: Bre RODRIGUEZ No: [id number] EXAMS: CPT CODE: [id number] XR FLUORO FOR SPINE INJ 20456 (Continued) at 1606 Reported and signed by: Edward Vickers M.D. CC: Technologist: Shyann Hernandez(R) Transcribed D/ (6681) J[facility] NAME: CHANTEL RODRIGUEZ [address] [facility] Main PHYS: Ewdard Salcedo MD [place] [address] : 1955 AGE: 63 SEX: F LOC: ARANZA PHONE #: [phone] EXAM DATE: 07/10/2018 STATUS: [facility] FAX #: [phone] RAD #: D/C DT PAGE 2 Signed Report Patient Name: CHANTEL RODRIGUEZ Unit No: [id number] EXAMS: CPT CODE: [id number] XR FLUORO FOR SPINE INJ [id number] (Continued) Orig Print D/T: S: 07/10/2018 (8803) [facility] NAME: CHANTEL RODRIGUEZ [address] [facility] Main PHYS: dEward Salcedo MD [place] [address] : 1955 AGE: 63 SEX: F LOC: ARANZA PHONE #: [phone] EXAM DATE: 07/10/2018 STATUS: REG [facility] FAX #: [phone] RAD #: D/C DT PAGE 3 Signed Report- MRI C-SPINE W/O [id number] 11:38:00Patient Name: CHANTEL RODRIGUZE Unit No: [id number] EXAMS: CPT CODE: [id number] MRI C-SPINE W/O CONT [id number] MRI OF THE CERVICAL SPINE: DIAGNOSIS: 1. [...] mild disc degeneration. 3 mm disc protrusion flattensthe ventral thecal sac. Moderate central canal stenosis. [...] M.D. Technologist: Char Oliveira, RT(R) Transcribed D/ (2735) [facility] NAME: CHANTEL RODRIGUEZ [address] [facility] PHYS: Eriberto Hopkins MD : 1955 AGE: 63 SEX: F [place] [address] LOC: Y.MRI PHONE #: [phone] EXAM DATE: 05/30/2018 STATUS: [facility] FAX #: [phone] RAD #: D/C DT PAGE 1 Signed Report Patient Name: CHANTEL RODRIGUEZ Unit No: [id number] EXAMS: CPT CODE: [id number] MRI C-SPINE W/O CONT [id number] (Continued) Orig Print D/T: S: 06/01/2018 (1141) [facility] [address] [facility] PHYS: Eriberto Hopkins MD : 1955 AGE: 63 SEX: F [place] [address] LOC: MAURI PHONE #: [phone] EXAM DATE: 05/30/2018 STATUS: [facility] FAX #: [phone] RAD #: D/C DT PAGE 2 Signed Report Notes Date/Time Note Provider Source 2022-11-11 14:49:34 [id number]:49:34F ormatting of this note is different from the original.Chief Complaint Patient presents with Back Pain Upper/Mid/Lower back pain, on going for years on/off. Neck Pain Neck pain on going for years. 16492-2Kmcoo AohoRS9547-48-60L32:55:38Nurse [id number] .[id number] for patient cmpn16213-1Tfxbu NoteLN75 Cox [id number] [id number]:55:381.2.840.1143 50.1.72.3.15|1.2.840.894913.1.13.1 [id number] [facility] 2022-11-08 14:30:00 3441-03-33N49:30:00F ormatting of this note might be different from the original.Reviewed all medication with the patient on ov 11/08/22 [place] [id number] [id number]:45:56Nurse NoteTXT1.2.840.695022.1.13.131.2.7 .2.428482|[id number] for patient jazg26787-1Yujys NoteLNKELTwin City Hospital[address] [facility].[id number] [id number]:45:561.2.840.1143 50.1.72.3.15|1.2.840.191624.1.13.1 [id number] [facility]"
--- NOTE | 2023-09-05 16:15 | RAD REPORT ---
EXAM DESCRIPTION: RAD - Chest Single View - 09/05/2023 4:07 pm CLINICAL HISTORY: Cough;SOB Chest pain. COMPARISON: <Comparisons> FINDINGS: Portable technique limits examination quality. Mild interstitial pulmonary edema. The heart is mildly enlarged in size. No displaced fractures. IMPRESSION: Mild CHF is possible.
[2023-09-05] MEDS ORDERED: dexAMETHasone 10 MG/ML VIAL ONE (16:44)
[2023-09-05] MEDS ORDERED: ONDANSETRON 4 MG/2 ML VIAL ONE (16:44)
[2023-09-05] MEDS ORDERED: BENZONATATE 100 MG CAP PO ONE (16:44)
[2023-09-05 16:48] LABS: Absolute Basophils 0.1 K/uL (0-0.5); Absolute Eosinophils 0.1 K/uL (0-0.5); Absolute Lymphocytes (CBC) 2.2 K/uL (0.7-4.9); Absolute Monocytes 1.4 K/uL (0.1-1.3); Absolute Neutrophil 17.2 K/uL (1.8-8.0); Basophils % 0.6 % (0-1.3); Eosinophils % 0.4 % (0-4.4); Hematocrit 40.7 % (36.0-45.0); Hemoglobin 13.5 g/dL (12.0-15.0); Lymphocytes % 10.6 % (15.3-44.8); MCHC 33.2 g/dL (32.0-36.0); MCV 87.3 fL (80-100); MPV 7.1 fL (7.6-11.3); Monocytes % 6.6 % (3.3-12.3); Neutrophils % 81.8 % (41.7-73.7); Platelets 394 thou/uL (152-406); RBC Red Blood Cell Count 4.67 M/uL (3.86-4.86); Red Cell Distribution Width 14.9 % (12.1-15.2)
[2023-09-05 16:51] LABS: PT Prothrombin Time 11.2 SECONDS (9.4-12.5); Protime INR 1.02
[2023-09-05 17:08] LABS: ALT/SGPT 31 U/L (13-56); AST/SGOT 17 U/L (15-37); Albumin 3.2 g/dL (3.4-5.0); Albumin/Globulin Ratio 0.9 (1.1-1.8); Alkaline Phosphatase 75 U/L (45-117); BUN Blood Urea Nitrogen 17 mg/dL (7-18); Bicarbonate 27 mEq/L (21-32); Bilirubin Total 0.5 mg/dL (0.2-1.0); C-Reactive Protein 3.9 mg/L (<3.00); Ferritin 48.2 ng/mL (8-388); Globulin 3.6 g/dL (2.3-3.5); Glomerular Filtration Rate 63 ml/min (=/>90); Glucose Level 98 mg/dL (74-106); Magnesium 2.3 mg/dL (1.6-2.4); NT PRO-BNP 38 pg/mL (<125); Protein, Total 6.8 g/dL (6.4-8.2); Sodium Level 133 mEq/L (136-145)
[2023-09-05 17:10] LABS: Bilirubin Direct < 0.2 mg/dL (0-0.2); Bilirubin Indirect, Calculated 0.3 mg/dL (0.2-0.8); Troponin High Sensitivity < 3.0 pg/mL (<58.9)
[2023-09-05 17:36] LABS: Band Neutrophils 4 % (0-1); Blood Morphology Comment NOT SEEN (NOT SEEN); Differential Total Cells Count 100; Lymphocytes 14 % (15-42); Monocytes 9 % (0-10); Platelet Estimate ADEQ; Segmented Neutrophils 73 % (40-80)
--- NOTE | 2023-09-05 17:50 | RAD REPORT ---
EXAM DESCRIPTION: CT - Chest For Pe Angio - 09/05/2023 5:26 pm CLINICAL HISTORY: Chest pain. Cough;SOB COMPARISON: <Comparisons> TECHNIQUE: CT angiogram of the pulmonary arteries was performed with MIP. All CT scans are performed using dose optimization technique as appropriate and may include automated exposure control or mA/KV adjustment according to patient size. FINDINGS: No evidence of pulmonary thromboembolism. No acute aortic finding demonstrated. The lungs are clear. The inferior lung bases were not included. No significant pericardial or pleural fluid. No concerning bony finding. IMPRESSION: No evidence of pulmonary thromboembolism.
--- NOTE | 2023-09-05 18:36 | EDPHYS ---
Physician Documentation [facility] Name: Chantel Rodriguez Age: 68 yrs Sex: Female : 1955 Arrival Date: 09/05/2023 Time: 14:48 Bed 7 Private MD: ED Physician To Martinez HPI: 09/04 15:10 This 68 yrs old Female presents to ER via Ambulatory with complaints of covid positive, cp Shortness Of Breath. 15:10 The patient has shortness of breath at rest. cp 15:10 Duration: The symptoms are continuous, and are steadily getting worse. Associated signs cp and symptoms: Pertinent positives: non-productive cough, Pertinent negatives: chest pain, diaphoresis, fever, hemoptysis, vomiting. Severity of symptoms: in the emergency department the symptoms are unchanged despite home interventions. Patient reports testing positive for COVID 2 weeks ago. Patient reports taking 2 rounds of antibiotics and steroids. Continues to have cough, shortness of breath. Historical: - Allergies: 14:58 all statins; ap3 14:58 doxycycline monohydrate (bulk); ap3 14:58 PENICILLINS; ap3 - PMHx: 14:58 Asthma; breast cancer; COPD; CPAP with oxygen; long covid; Pulmonary Stenosis; ap3 - PSHx: 14:58 breast CA R mastectomy; Cholecystectomy; ap3 - Immunization history:: Client reports receiving the 2nd dose of the Covid vaccine. - Infectious Disease History:: Denies. ROS: 15:15 Constitutional: Negative for body aches, chills, fever, poor PO intake, cp 15:15 Eyes: Negative for injury, pain, redness, and discharge, cp 15:15 ENT: Negative for drainage from ear(s), ear pain, sore throat, difficulty swallowing, difficulty handling secretions, 15:15 Cardiovascular: Negative for chest pain, edema, palpitations, 15:15 Respiratory: Positive for cough, with no reported sputum, shortness of breath, at rest. Negative for hemoptysis, 15:15 Abdomen/GI: Negative for abdominal pain, vomiting, diarrhea, constipation, 15:15 Neuro: Negative for altered mental status, headache, numbness, weakness, 15:15 All other systems are negative, Exam: 15:20 Constitutional: The patient appears in no acute distress, alert, awake, cp non-diaphoretic, non-toxic, well developed, well nourished, uncomfortable, 15:20 Head/Face: Normocephalic, atraumatic. cp 15:20 Eyes: Periorbital structures: appear normal, Conjunctiva: normal, no exudate, no injection, Sclera: no appreciated abnormality, Lids and lashes: appear normal, bilaterally, 15:20 ENT: External ear(s): are unremarkable, Nose: is normal, Mouth: Lips: moist, Oral mucosa: pink and intact, moist, Posterior pharynx: is normal, airway is patent, no erythema, no exudate, 15:20 Neck: ROM/movement: is normal, is supple, without pain, no range of motions limitations, no meningismus, 15:20 Chest/axilla: Inspection: normal, 15:20 Cardiovascular: Rate: normal, Rhythm: regular, Edema: is not appreciated, JVD: is not appreciated, 15:20 Respiratory: the patient does not display signs of respiratory distress, Respirations: labored breathing, that is mild, Breath sounds: decreased breath sounds, are not appreciated, stridor, is not appreciated, wheezing: that is mild, is heard diffusely, 15:20 Abdomen/GI: Inspection: abdomen appears normal, Bowel sounds: active, all quadrants, Palpation: abdomen is soft and non-tender, in all quadrants, 15:20 Back: pain, is absent, ROM is normal, 15:20 Neuro: Orientation: is normal, Mentation: is normal, Motor: moves all fours, strength is normal, Sensation: is normal, 16:45 ECG was reviewed by the Attending Physician. cp Vital Signs: 14:56 BP 109 / 83; Pulse 88; Resp 21; Temp 97.8; Pulse Ox 98% on R/A; Weight 77.11 kg; Height ap3 5 ft. 2 in. ; 17:30 BP 103 / 85; Pulse 77; Resp 19 S; Pulse Ox 98% on R/A; aa5 18:30 BP 107 / 81; Pulse 74; Resp 16 S; Pulse Ox 97% on R/A; aa5 14:56 Body Mass Index 31.09 (77.11 kg, 157.48 cm) ap3 MDM: 15:03 Patient medically screened. cp 18:34 Data reviewed: vital signs, nurses notes, lab test result(s), EKG, radiologic studies, cp CT scan, plain films. 18:34 Differential diagnosis: asthma, Bronchitis CHF exacerbation, Chronic Obstructive cp Pulmonary Disease Myocardial Infarction pneumonia, Pneumothorax pulmonary edema, Pulmonary Embolism Sepsis. Consideration of Admission/Observation Escalation of care including admission/observation considered. I considered the following discharge prescriptions or medication management in the emergency department Medications were administered in the Emergency Department. See MAR. Care significantly affected by the following chronic conditions: Chronic Obstructive Pulmonary Disease, asthma. Counseling: I had a detailed discussion with the patient and/or guardian regarding the historical points, exam findings, and any diagnostic results supporting the discharge/admit diagnosis, lab results, radiology results, the need for outpatient follow up, a family practitioner, to return to the emergency department if symptoms worsen or persist or if there are any questions or concerns that arise at home. Response to treatment: the patient's symptoms have markedly improved after treatment, and as a result, I will discharge patient. 09/04 15:04 Order name: Basic Metabolic Panel; Complete Time: 17:54 cp 09/04 17:54 Interpretation: Normal except: NA 133; GFR 63. cp 09/04 15:04 Order name: CBC with Diff; Complete Time: 17:54 cp 09/04 17:54 Interpretation: Normal except: WBC 21.10; MPV 7.1; NEAL% 81.8; LYM% 10.6; NEUT A 17.2; cp MNA 1.4. 09/04 15:04 Order name: LFT's; Complete Time: 17:54 cp 09/04 17:54 Interpretation: Normal except: ALB 3.2; GLOB 3.6; A/G 0.9. cp 09/04 15:04 Order name: Magnesium; Complete Time: 17:54 cp 09/04 15:04 Order name: NT PRO-BNP; Complete Time: 17:54 cp 09/04 15:04 Order name: PT-INR; Complete Time: 17:54 cp 09/04 15:04 Order name: Troponin HS; Complete Time: 17:54 cp 09/04 15:08 Order name: Ferritin; Complete Time: 17:54 cp 09/04 15:08 Order name: CRP; Complete Time: 17:54 cp 09/04 17:55 Interpretation: Abnormal: C-REACTIVE PROT 3.90. cp 09/04 16:31 Order name: SARS RAPID cp 09/04 16:31 Order name: Influenza Screen (a \T\ B); Complete Time: 17:54 cp 09/04 16:46 Order name: D-Dimer; Complete Time: 17:54 EDMS 09/04 16:51 Order name: Manual Differential; Complete Time: 17:54 EDMS 09/04 17:55 Interpretation: Normal except: BANDS [F] 4; LYM 14. 09/04 15:04 Order name: XRAY Chest (1 view); Complete Time: 16:21 09/04 16:25 Order name: CT Chest For PE Angio; Complete Time: 17:54 cp 09/04 17:55 Interpretation: Report reviewed. 09/04 15:04 Order name: EKG; Complete Time: 15:04 09/04 15:04 Order name: Cardiac monitoring; Complete Time: 16:37 09/04 15:04 Order name: EKG - Nurse/Tech; Complete Time: 16:37 09/04 15:04 Order name: IV Saline Lock; Complete Time: 16:37 09/04 15:04 Order name: Labs collected and sent; Complete Time: 16:37 09/04 15:04 Order name: O2 Per Protocol; Complete Time: 16:37 09/04 15:04 Order name: O2 Sat Monitoring; Complete Time: 16:37 cp EC:45 Rate is 72 beats/min. Rhythm is regular. MT interval is normal. QRS interval is normal. cp QT interval is normal. T waves are Inverted in leads III, aVR. Interpreted by me. Reviewed by me. Administered Medications: 16:49 Drug: Dexamethasone IVP 10 mg IVP once; (not to exceed 40 mg) Route: IVP; Site: right aa5 antecubital; 17:00 Follow up: Response: No adverse reaction aa5 16:49 Drug: Ondansetron IVP 4 mg IVP once; over 2 minutes Route: IVP; Site: right antecubital;aa5 17:00 Follow up: Response: No adverse reaction aa5 16:49 Drug: Tessalon Perle PO 200 mg PO once Route: PO; aa5 17:00 Follow up: Response: No adverse reaction aa5 Disposition: 09/05 07:15 Co-signature as Attending Physician, To Martinez MD I reviewed the patient's care rt provided by the Advanced Practice Provider and agree with the diagnosis and treatment plan. Disposition Summary: 09/05/23 18:35 Discharge Ordered Notes: Location: Home cp Problem: an acute exacerbation cp Symptoms: have improved cp Condition: Stable cp Diagnosis - COPD/ Chronic obstructive pulmonary disease with (acute) exacerbation cp - Unspecified asthma with (acute) exacerbation cp Followup: cp - With: Private Physician - When: 2 - 3 days - Reason: Recheck today's complaints Discharge Instructions: - Discharge Summary Sheet cp - Asthma, Adult cp - Chronic Obstructive Pulmonary Disease cp - Pulmonary Function Tests cp Forms: - Medication Reconciliation Form cp - Antibiotic Education cp - Prescription Opioid Use cp - Patient Portal Instructions cp - Leadership Thank You Letter cp Prescriptions: - dexamethasone 2 mg Oral tablet - take 1 tablet ORAL route every 12 hours for 5 days; 10 tablet; Refills: 0, cp Product Selection Permitted - Tessalon Perles 100 mg Oral capsule - take 2 capsule ORAL route every 8 hours As needed; 30 capsule; Refills: 0, cp Product Selection Permitted Signatures: Dispatcher [employer] Roslyn De Anda RN RN aa5 Dustin Leyva PA PA cp Monica Lopez RN RN ap3 To Martinez MD MD rt Corrections: (The following items were deleted from the chart) 09/04 16:25 16:25 Chest For PE Angio+CT.RAD.BRZ ordered. EDMS EDMS 16:46 15:04 D-DIMER+COAG.LAB.BRZ ordered. EDMS EDMS
--- NOTE | 2023-09-05 18:36 | ER ---
Nurse's Notes [facility] Name: Chantel Rodriguez Age: 68 yrs Sex: Female : 1955 Arrival Date: 09/05/2023 Time: 14:48 Bed 7 Private MD: Diagnosis: COPD/ Chronic obstructive pulmonary disease with (acute) exacerbation;Unspecified asthma with (acute) exacerbation Presentation: 09/04 14:56 Chief complaint: Patient states: she tested positive for COVID 2 weeks ago, and has ap3 completed all her medications but continues to get short of breath and coughs when talking for long periods of time. Coronavirus screen: Client presents with at least one sign or symptom that may indicate coronavirus-19. Ebola Screen: No symptoms or risks identified at this time. Initial Sepsis Screen: Does the patient meet any 2 criteria? RR > 20 per min. Does the patient have a suspected source of infection? No. Patient's initial sepsis screen is negative. Risk Assessment: Do you want to hurt yourself or someone else? Patient reports no desire to harm self or others. Onset of symptoms is unknown. 14:56 Method Of Arrival: Ambulatory ap3 14:56 Acuity: MIKE 3 ap3 Triage Assessment: 15:00 General: Appears in no apparent distress. Behavior is calm, cooperative, appropriate ap3 for age. Pain: Denies pain. Neuro: Level of Consciousness is awake, alert, obeys commands, Oriented to person, place, time, situation, Gait is steady, Speech is normal. Cardiovascular: Patient's skin is warm and dry. Respiratory: Reports shortness of breath cough that is pain with cough Onset: The symptoms/episode began/occurred two weeks ago, the patient has moderate shortness of breath. Historical: - Allergies: 14:58 all statins; ap3 14:58 doxycycline monohydrate (bulk); ap3 14:58 PENICILLINS; ap3 - PMHx: 14:58 Asthma; breast cancer; COPD; CPAP with oxygen; long covid; Pulmonary Stenosis; ap3 - PSHx: 14:58 breast CA R mastectomy; Cholecystectomy; ap3 - Immunization history:: Client reports receiving the 2nd dose of the Covid vaccine. - Infectious Disease History:: Denies. Screenin:02 Abuse screen: Denies threats or abuse. Nutritional screening: No deficits noted. ap3 Tuberculosis screening: No symptoms or risk factors identified. Assessment: 16:30 General: Appears uncomfortable, Behavior is calm, cooperative. Pain: Denies pain. aa5 Neuro: Level of Consciousness is awake, alert, obeys commands, Oriented to person, place, time, situation. Cardiovascular: Heart tones S1 S2 present Rhythm is regular. Respiratory: Reports shortness of breath at rest cough that is productive, Airway is patent Respiratory effort is even, unlabored, Respiratory pattern is regular, symmetrical, Breath sounds are clear bilaterally. GI: Abdomen is round non-distended, Bowel sounds present X 4 quads. Abd is soft and non tender X 4 quads. Reports nausea. : No signs and/or symptoms were reported regarding the genitourinary system. EENT: No signs and/or symptoms were reported regarding the EENT system. Derm: Skin is pink, warm \T\ dry. Musculoskeletal: Range of motion: intact in all extremities. 16:49 Reassessment: Patient is alert, oriented x 3, equal unlabored respirations, skin aa5 warm/dry/pink. 17:30 Reassessment: Pt assisted to bathroom . aa5 19:00 Reassessment: Patient is alert, oriented x 3, equal unlabored respirations, skin aa5 warm/dry/pink. Vital Signs: 14:56 BP 109 / 83; Pulse 88; Resp 21; Temp 97.8; Pulse Ox 98% on R/A; Weight 77.11 kg; Height ap3 5 ft. 2 in. ; 17:30 BP 103 / 85; Pulse 77; Resp 19 S; Pulse Ox 98% on R/A; aa5 18:30 BP 107 / 81; Pulse 74; Resp 16 S; Pulse Ox 97% on R/A; aa5 14:56 Body Mass Index 31.09 (77.11 kg, 157.48 cm) ap3 ED Course: 14:50 Patient arrived in ED. im 14:53 To Martniez MD is Attending Physician. rt 14:58 Dustin Leyva PA is PHCP. cp 14:58 Triage completed. ap3 15:01 Arm band placed on right wrist. ap3 16:09 XRAY Chest (1 view) In Process Unspecified. EDMS 16:23 Roslyn Barnes, RN is Primary Nurse. aa5 16:30 Patient has correct armband on for positive identification. Placed in gown. Bed in low aa5 position. Call light in reach. Side rails up X2. Client placed on continuous cardiac and pulse oximetry monitoring. NIBP monitoring applied. telemetry monitor on. Pulse ox on. NIBP on. 16:35 Initial lab(s) drawn, by me, sent to lab. Inserted saline lock: 20 gauge in right aa5 antecubital area, using aseptic technique. Blood collected. 16:39 EKG done, by ED staff, reviewed by Dustin CASTANO. aa5 17:27 CT Chest For PE Angio In Process Unspecified. EDMS 19:00 No provider procedures requiring assistance completed. IV discontinued, intact, aa5 bleeding controlled, No redness/swelling at site. Pressure dressing applied. Administered Medications: 16:49 Drug: Dexamethasone IVP 10 mg IVP once; (not to exceed 40 mg) Route: IVP; Site: right aa5 antecubital; 17:00 Follow up: Response: No adverse reaction aa5 16:49 Drug: Ondansetron IVP 4 mg IVP once; over 2 minutes Route: IVP; Site: right antecubital;aa5 17:00 Follow up: Response: No adverse reaction aa5 16:49 Drug: Tessalon Perle PO 200 mg PO once Route: PO; aa5 17:00 Follow up: Response: No adverse reaction aa5 Medication: 17:14 VIS not applicable for this client. aa5 Outcome: 18:35 Discharge ordered by . ismael 19:00 Discharged to home ambulatory, aa5 19:00 Condition: stable 19:00 Discharge instructions given to patient, Instructed on discharge instructions, follow up and referral plans. medication usage, Demonstrated understanding of instructions, follow-up care, medications, Prescriptions given X 2, 19:04 Patient left the ED. aa5 Signatures: Dispatcher [employer] EDND Roslyn Barnes RN RN aa5 Dustin Leyva PA PA cp Prokisch, Amanda, RN RN ap3 To Martinez MD MD rt Mendoza, Itzel im
[2023-09-05 19:20] LABS: SARS-CoV-2 Antigen CONTROL BLUE LINE VIS/BG OK; SARS-CoV-2 Antigen Rapid Res Negative (Negative)
[2023-09-05 19:51] VITALS: BP 109/83; TEMP 97.8; O2SAT 98
--- NOTE | 2023-09-08 13:10 | EKG ---
Test Date: 2023-09-05 Test Time: 16:39:01 Hotel Housekeeper: LUCIANA MEASUREMENT RESULTS: Intervals: Rate: 72 IN: 150 QRSD: 66 QT: 408 QTc: 446 Munday: P: 11 IN: 150 QRS: -6 T: 9 INTERPRETIVE STATEMENTS: Normal sinus rhythm Inferior infarct, age undetermined Anterolateral infarct, age undetermined Abnormal ECG Compared to ECG 08/23/2023 21:03:38 Myocardial infarct finding now present Fusion complex(es) no longer present Electronically Signed On 09-08-23 13:04:08 CDT by Lito Viveros
== END 2023-09-05 19:04 | disposition home or self-care (01) ==
LOC: ER 14:48
DX: J44.1 Chronic obstructive pulmonary disease with (acute) exacerbation (principal); J45.901 Unspecified asthma with (acute) exacerbation; Z11.52 Encounter for screening for COVID-19
CPT/HCPCS: 85025; 80048; 36415; 83735; 85610; 85379; 80076; 84484; 82728; 83880; 86140; 87804 ×2; 71275; 71045; 96375; 96374; 99285; 87811; Q9967; J1100; J2405; 93005

== ENCOUNTER 2024-02-23 10:18 | Emergency (ER) | payer OTHER ==
--- OUTSIDE RECORDS SUMMARY | 2024-02-23 10:26 | XMS REPORT | Continuity of Care Document ---
Author Name Unknown Address [address] [facility] [address] [place] [address] [facility] Address [address] [facility] [place] [address] Care Team Providers Care Industrial Education Teacher Name Role Phone Pcp, Patient Does Not Have A Primary Care Physic javan PAWAN RECIONS Attending Clinician Unavail able FLAVIO OROURKE Attending Clinician Unavailable JOSETTE SCHAFFER Attending Clinician Unavailable KRISHAN CHANG Attending Clinician Unavaila GLEN Gallegos Attending Clinician Unavailable MISSY COLLADO Attending Clinician Unavailab BROOKE Sharp Attending Clinician Unavai sommer JANG MD Attending Clinician Unavailab le LENORA MAI Attending Clinician Unavailable LAB90 Attending Clinician Unavailable LOREE GODOY Attending Clinician Unavailable PLAB Attending Clinician Unavailable PL, TECH 1 Attending Clinician Unavailable DANYELL ARROYO Attending Clinician Unavailabl KAREN Wing Attending Clinician Unavailable JANELLE MILLER Attending Clinician Unavailable SYL KISER Attending Clinician Unavailable SHRUTHI BROWN Attending Clinician Unavailabl BURKE Zeng Attending Clinician Unavaila CHERYL Chau Attending Clinician Unavailab ESTEBAN Purcell Attending Clinician Unavailable JENNIFER CAMPOS Attending Clinician Unavailabl MARIE Henderson Attending Clinician Unavailable MOE YOON Attending Clinician Unavailable TONA CIFUENTES Attending Clinician Unavailable HUNG BRAMBILA Attending Clinician Unavailable ARTHUR KRAMER Attending Clinician Unavailab WALTER Ferrell Attending Clinician Unavailable TRED47 Attending Clinician Unavailable LAB39 Attending Clinician Unavailable DAVID PIEDRA Attending Clinician Unavailable AICHA RODRÍGUEZ Attending Clinician Unavailable JASWINDER HERRERA Attending Clinician Unavailable YAAKOV SANTOYO Attending Clinician Unavailab justo PRABHAKARB Attending Clinician Unavailable NEVILLE VACA Attending Clinician Unav ailHILDA Rodriguez Attending Clinician Unavailabl e LAB47 Attending Clinician Unavailable DARA LOPEZ Attending Clinician Unavailable VF1 Attending Clinician Unavailable ERICA CROSS Attending Clinician Unava ilable RAFIQ NERI Attending Clinician Unavailable JOSE AGUILA Attending Clinician Unavailable TOÑITO HUFF Attending Clinician Unavailable CONFERENCE, BD Attending Clinician Unavailable PRITI HAMILTON Attending Clinician Unavailab justo CURRIEAGIAOTTO Attending Clinician Unavailable VLAD BARAHONA Attending Clinician Unavailable CLEMENCIA GANDARA Attending Clinician Unavailab le 39, HOLTER Attending Clinician Unavailable KITTY EDMONDSON Attending Clinician Unavailab NORMA Goodman Attending Clinician Unavailable Dejah Manuel MD Attending Clinician ALICE ABBOTT Attending Clinician UnavailJR Espinoza Attending Clinician Unavai sommer Doctor Unassigned, Rhine Attending Clinician U navailable BETHANY GRAYSON Attending Clinician Unavailable ARELIS MONTELONGO Attending Clinician Unavailable Sudireddy_R Attending Clinician Unavailable SANDHIR, AMBICA Admitting Clinician Unavailable Sudireddy_R Admitting Clinician Unavailable Payers Payer Name Policy Type Policy Number Effective Date Expirati on Date Source [facility] SIGNATURE O 7 [id number] 2022 00:00:00 ICF [id number] 2021 00:00:00 2021 00:00:00 [place] [id number] 2018 00:00:00 [facility] [id number] 2017 00:00:00 Problems Condition Name Condition Details [...] depression Disease Active 04-05 00:00: 00 [facility] - Externa l Risk for falls Risk for falls Disease Active 04-05 00:00: 00 [facility] - Extern[facility] l Post-COVID syndrome Post-COVID syndrome Disease Active 04-05 00:00: 00 [facility] - [facility] l Gastroesop hageal reflux disease without esophagiti s Gastroesop hageal reflux disease without esophagiti s Disease Active 04-05 00:00: 00 [facility] - [facility] l Chronic obstructiv e pulmonary disease, unspecifie d COPD type (multi HCC) Chronic obstructiv e pulmonary disease, unspecifie d COPD type (multi HCC) Disease Active 04-05 00:00: 00 [facility] Villasenorybold - Externa l Chronic respirator y failure with hypoxia (multi HCC) Chronic respirator y failure with hypoxia (multi HCC) Disease Active 04-05 00:00: 00 [facility] - Extern[facility] l Acute pain of right knee Acute pain of right knee Disease Active 2021-03 00:00: 00 [facility] Sey[facility] - Externa l Right hip pain Right hip pain Disease Active 09-23 00:00: 00 [facility] Sciatica of right side Sciatica of right side Disease Active 09-23 00:00: 00 [facility] Hypothyroi dism Hypothyroi dism Problem Active 08-20 00:00: 00 [facility] Mixed hyperlipid emia Mixed Hyperlipid emia Problem Active 08-20 00:00: 00 [facility] Mixed anxiety and depressive disorder Mixed Anxiety and Depressive Disorder Problem Active 08-20 00:00: 00 [facility] Fibromyalg ia Fibromyalg ia Problem Active 08-20 00:00: 00 [facility] History of malignant neoplasm of breast History of Malignant Neoplasm of Breast Problem Active 08-20 00:00: 00 [facility] Moderate persistent asthma without complicati on Moderate persistent asthma without complicati on Disease Active 08-03 00:00: 00 [facility]enorybold - Externa l Basal cell carcinoma Basal cell carcinoma Disease Active 2015-03 00:00: 00 Overview: Formattin g of this note might be different from the original. L superior occipital scalp [facility] Mc[facility]ide - Externa l Restless leg Restless leg Disease Active 09-22 00:00: 00 [facility] Villasenorybold - Externa l Personal history of breast cancer Personal history of breast cancer Disease Active 04-02 00:00: 00 [facility] - Externa l Hypothyroi dism Hypothyroi dism Disease Active 07-22 00:00: 00 [facility] Jamesold - Externa l Fibromyalg ia Fibromyalg ia Disease Active 07-15 00:00: 00 [facility] Jamesold - Externa l Hyperlipid emia Hyperlipid emia Disease Active 06-23 00:00: 00 [facility] Jamesold - Externa l Chronic pain Chronic pain Disease Active 09-26 00:00: 00 [facility] Jamesold - Externa l Insomnia Insomnia Disease Active 09-26 00:00: 00 [facility] Jamesold - Externa l Fx Fx Disease Active 09-04 00:00: 00 [facility] Jamesold - Externa l Allergies, Adverse Reactions, Alerts Allergy Name Allergy Type Status Severity Reaction(s) Onset Date Inactive Date Treating Clinician Comments Source Doxylami ne Propensi ty to adverse reaction s Active Hives 2021-03- 00:00: 00 [facility] Jamesold - Extern[facility] l Doxycycl ine Hyclate Propensi ty to adverse reaction s Active Rash 2021-0 7-10 00:00: 00 [facility] Penicill ins Propensi ty to adverse reaction s Active Rash 2021-0 7-10 00:00: 00 [facility] Statins- Hmg-Coa Reductas e Inhibito rs Propensi ty to adverse reaction s Active Rash 2021-0 7-10 00:00: 00 And leg pain [facility] Penicill ins Propensi ty to adverse reaction s Active Rash 2021-0 7-10 00:00: 00 [facility] Statins- Hmg-Coa Reductas e Inhibito rs Propensi ty to adverse reaction s Active Rash 2021-0 7-10 00:00: 00 And leg pain [facility] PENICILL INS Drug Class Active Rash 2021-0 7-10 00:00: 00 [facility] DOXYCYCL INE HYCLATE DRUG INGREDI Active Rash 2021-0 7-10 00:00: 00 [facility] STATINS- HMG-COA REDUCTAS E INHIBITO RS Drug Class Active Rash 2021-0 7-10 00:00: 00 [facility] Penicill ins DA Active MO 07-10 00:00: 00 [facility] doxycycl ine DA Active U 07-10 00:00: 00 [facility] latex DA Active [place] 07-10 00:00: 00 [facility] Penicill ins DA Active MO 07-09 00:00: 00 [facility] doxycycl ine DA Active U 07-09 00:00: 00 [facility] latex DA Active HI 07-09 00:00: 00 [facility] Ezetimib e Propensi ty to adverse reaction s Active 05-11 00:00: 00 Other Reaction( s): Not available [facility] - Extern[facility] l Doxycycl ine Drug Allergy Active Contact Dermatitis 07-22 00:00: 00 [facility] Penicill ins DA Active MO 07-06 00:00: 00 [facility] Statins- Hmg-Coa Reductas e Inhibito r DA Active U 07-06 00:00: 00 [facility] latex DA Active HI 07-06 00:00: 00 [facility] Hmg-Coa- R Inhibito rs Propensi ty to adverse reaction s Active 07-06 00:00: 00 [facility] - Externa l Rosuvast atin Calcium Propensi ty to adverse reaction s Active Rash 08-29 00:00: 00 Cant take any statins [facility] Mc[facility] - Extern[facility] l Latex Propensi ty to adverse reaction s Active Swelling 08-29 00:00: 00 [facility] Mc[facility] - Externa l Penicill ins Propensi ty to adverse reaction s Active Rash 08-29 00:00: 00 [facility] Mc[facility]ide - Externa l Rosuvast atin Calcium Propensi ty to adverse reaction s Active Rash 08-29 00:00: 00 Cant take any statins [facility] Guadalupea l NO KNOWN ALLERGIE S Drug Class Active [facility] Doxylami ne Allergy to substanc e Active Severe [facility] Latex Allergy to substanc e Active Moderate to severe Edema [facility] PENICILL INS Allergy to substanc e Active Moderate to severe Hives [facility] STATINS- HMG-COA REDUCTAS E INHIBITO RS Allergy to substanc e Active [facility] Social History Social Habit Start Date Stop Date Quantity Comments Source Gender identity 2021-02-24 00:08:00 Identifies as female gender (finding) [facility] Mcbride - External ASSERTION Not [facility] Mcbride - External History of Occupation Lucero Mcbride - External History of tobacco use Cigarette Smoker Lucero levy - External Sexual orientation Dea veronika Mcbride - External Alcoholic beverage intake 2023-12-01 00:00:00 2023-12-01 00:00:00 Current non-drinker of alcohol (finding) Lucero [...] 2022-12-02 00:00:00 [facility] Mcbride - External Education 2022-04-05 00:00:00 2022-04-05 00:00:00 17 [facility] Mcbride - External Exposure to SARS-CoV-2 (event) 2021-09-13 00:00:00 2021-09-23 20:32:00 Not sure [facility] Sex 2012-04-01 19:41:39 2012-04-01 19:41:39 Female (finding) Lucero Mcbride - External Sex Assigned At 1955 00:00:00 1955 00:00:00 [facility] Smoking Status Start Date Stop Date Source Tobacco smoking consumption unknown [facility] Ex-smoker 2023-06-23 00:00:00 2023-06-23 00:00:00 [facility] Oneil Medications Ordered Medication Name Filled Medication Name Start Date Stop Date Current Medication? Ordering Clinician Indication Dosage Frequency Signature (SIG) Comments Components Source Celecoxib 200 MG oral Capsule 11-18 00:00: 00 Yes [id number] 200mg QD Take 1 capsule (200 mg total) by mouth daily. [facility] cr Levothyroxi ne Sodium 137 MCG oral Tablet 10-27 00:00: 00 Yes [id number] Every Friday, , and Friday. [facility] cr Levothyroxi ne Sodium 150 MCG oral Tablet 10-27 00:00: 00 Yes [id number] Every Friday, Friday, Friday and Friday. [facility] Tizanidine HCl 2 MG oral Tablet 10-27 00:00: 00 Yes [id number] 2mg QD Take 1 tablet (2 mg total) by mouth nightly as needed for muscle spasms. [facility] Fluticasone -Umeclidin- Vilant (Trelegy Ellipta) 200-62.5-25 MCG/ACT inhalation AEROSOL POWDER, BREATH ACTIVATED 10-21 00:00: 00 Yes 1{puff} QD Inhale 1 puff into the lungs daily. [facility] cr Pantoprazol e Sodium 40 MG oral Tablet Delayed Response 09-23 00:00: 00 Yes [id number] 40mg QD Take 1 tablet (40 mg total) by mouth daily. [facility] Alprazolam 0.5 MG oral Tablet 09-23 00:00: 00 Yes TAKE ONE (1) TABLET BY MOUTH 2 TIMES PER DAY NEEDED. [facility] cr Montelukast (SINGULAIR) 10 MG oral Tablet tablet 6-14 00:00: 00 Yes [id number] 10mg QD Take 1 tablet (10 mg total) by mouth daily. [facility] Levothyroxi ne Sodium 137 MCG oral Tablet 6-14 00:00: 00 Yes [id number] Every Friday, , and Friday. [facility] cr Levothyroxi ne Sodium 150 MCG oral Tablet 6-14 00:00: 00 Yes [id number] Every Friday, Friday, Friday and Friday. [facility] cr Evolocumab (Repatha SureClick) 140 MG/ML subcutaneou s Solution Auto-inject or 5-09 00:00: 00 Yes 140mg Inject 1 mL (140 mg total) into the skin every 14 days. [facility] cr Pantoprazol e Sodium 40 MG oral Tablet Delayed Response 4-15 00:00: 00 Yes [id number] 40mg Take 1 tablet (40 mg total) by mouth daily. [facility] cr Levothyroxi ne Sodium 137 MCG oral Tablet 4-08 00:00: 00 Yes [id number] Every Friday, , and Friday. [facility] cr Levothyroxi ne Sodium 150 MCG oral Tablet 4-08 00:00: 00 Yes [id number] Every Friday, Friday, Friday and Friday. [facility] cr Celecoxib 200 MG oral Capsule 3-07 00:00: 00 Yes [id number] 200mg QD Take 1 capsule (200 mg total) by mouth daily. [facility] cr Levothyroxi ne Sodium 137 MCG oral Tablet 2-23 00:00: 00 Yes [id number] 137ug Take 1 tablet (137 mcg total) by mouth daily. [facility] Fluticasone -Salmeterol (Advair Diskus) 500-50 MCG/ACT inhalation AEROSOL POWDER, BREATH ACTIVATED 2-20 00:00: 00 Yes [id number] 1{puff} Q.5D Inhale 1 puff into the lungs 2 times daily. [facility] cr Montelukast (SINGULAIR) 10 MG oral Tablet tablet 2-20 00:00: 00 Yes [id number] 10mg Take 1 tablet (10 mg total) by mouth daily. [facility]ero rc Tizanidine HCl 2 MG oral Tablet 1-30 00:00: 00 Yes [id number] 2mg QD Take 1 tablet (2 mg total) by mouth nightly as needed for muscle spasms. [facility] cr Pantoprazol e Sodium 40 MG oral Tablet Delayed Response 1-23 00:00: 00 Yes [id number] 40mg Take 1 tablet (40 mg total) by mouth daily. [facility] cr Alirocumab (Praluent) 75 MG/ML subcutaneou s Solution Auto-inject or 2022-03 1-16 00:00: 00 Yes [id number] 75mg Inject 75 mg into the skin every 14 days. [facility] cr predniSONE (DELTASONE) 10 MG oral tablet 2022-03 0-31 00:00: 00 05-22 00:00 :00 No [id number] 10mg Take 1 tablet (10 mg total) by mouth daily. [facility] cr Temazepam 30 MG oral Capsule 2022-03 0-24 00:00: 00 Yes [facility] HYDROcodone -Acetaminop hen (NORCO) 5-325 MG oral Tablet 2022-03 0-13 00:00: 00 06-22 00:00 :00 No 1{tbl} Q.25D Take 1 tablet by mouth every 6 hours as needed for pain. [facility] Docusate Sodium (Colace) 100 MG oral Capsule 2022-03 0-05 00:00: 00 Yes 100mg Q.5D Take 1 capsule (100 mg total) by mouth 2 times daily. [facility] Polyethyl Glycol-Prop yl Glycol (Systane) 0.4-0.3 % ophthalmic Solution 2022-03 0-05 00:00: 00 Yes 1[drp] Q.5D Place 1 drop into both eyes 2 times daily. [facility] cr White Petrolatum- Mineral Oil (Refresh Lacri-Lube) ophthalmic Ointment 2022-03 0-05 00:00: 00 Yes .25[in_ us] Place 0.25 inches into both eyes nightly If causing your vision to be too blurry, discontinu e use.. [facility] cr Celecoxib 200 MG oral Capsule 18 00:00: 00 Yes [id number] 200mg Take 1 capsule (200 mg total) by mouth daily. [facility] Triamcinolo ne Acetonide (Kenalog) 40 mg/mL - Physician Administere d ([id number]) 11-08 20:15: 00 11-08 22:04 :00 No [id number] 40mg [facility] cr Bupropion HCL XL 150 MG OR TB24 10-30 00:00: 00 Yes [id number] 150mg Take 1 tablet (150 mg total) by mouth every morning [facility] cr Celecoxib 200 MG oral Capsule 10-30 00:00: 00 Yes [id number] 200mg Take 1 capsule (200 mg total) by mouth daily [facility] cr Pantoprazol e Sodium 40 MG oral Tablet Delayed Response 10-30 00:00: 00 Yes [id number] 40mg Take 1 tablet (40 mg total) by mouth daily [facility] Metoprolol Tartrate (LOPRESSOR) 25 MG oral Tablet 10-30 00:00: 00 01-10 00:00 :00 No [id number] 12.5mg Take 0.5 tablets (12.5 mg total) by mouth daily [facility] Fluticasone -Salmeterol (Advair Diskus) 500-50 MCG/ACT inhalation AEROSOL POWDER, BREATH ACTIVATED 10-29 00:00: 00 Yes 1{puff} Inhale 1 puff into the lungs 2 times daily [facility] cr Albuterol (PROVENTIL) (2.5 MG/3ML) 0.083% inhalation Inhalant Solution 10-29 00:00: 00 01-10 00:00 :00 No [id number] 2.5mg Q4H Take 2.5 mg by nebulizati on every 4 hours as needed for wheezing [facility] Albuterol-I pratropium 0.5-2.5 (3) MG/3ML inhalation Solution 10-29 00:00: 00 11-29 04:59 :00 No [id number] 3mg Q4H Inhale 3.6 mL (3 mg total) into the lungs every 4 hours as needed (sob, cough, wheeze) [facility] cr Combivent Respimat 20-100 MCG/ACT inhalation aerosol inhaler 10-15 00:00: 00 Yes [facility] cr predniSONE (DELTASONE) 20 MG oral tablet 10-15 00:00: 00 Yes Take 2 tabs po daily x 3 days then 1 tab po daily x 4 days [facility] cr levoFLOXaci n 750 MG [...] MG oral Capsule 10-03 00:00: 00 Yes [id number] TAKE 1 CAPSULE BY MOUTH NIGHTLY NEEDED FOR SLEEP. [facility] cr Hydrocod Dax-Chlorp he Dax ER (Tussionex Pennkinetic ER) 10-8 MG/5ML oral Suspension Extended Release - 00:00: 00 Yes 5mL Take 5 mL by mouth every 12 hours as needed [facility] cr Famotidine 40 MG oral Tablet 09-14 00:00: 00 Yes 40mg QD Take 1 tablet (40 mg total) by mouth daily [facility] cr Azithromyci n 500 MG oral Tablet 09-13 00:00: 11-11 00:00 :00 No 500mg Take 1 tablet (500 mg total) by mouth daily for 5 days [facility] cr levoFLOXaci n 750 MG oral Tablet 09-13 00:00: 11-11 00:00 :00 No 750mg Take 1 tablet (750 mg total) by mouth daily for 7 days [facility] cr predniSONE (DELTASONE) 10 MG oral tablet 09-13 00:00: 00 11-11 00:00 :00 No Take 2 tablets (20 mg total) by mouth daily for 4 days, THEN 1 tablet (10 mg total) daily for 3 days. [facility]ero Mcbride - Collinsa tayo Nebulizers does not apply Mis 09-04 00:00: 00 11-30 00:00 :00 No [id number] USE EVERY 4-6 HOURS PRN SOB, WHEEZING OR COUGH FOR ASTHMA [facility] Mcbride - [place] Nebulizers does not apply Mis 08-28 00:00: 00 Yes [id number] Use every 4-6 hours prn sob, wheezing or cough for asthma [facility]ero Mcbride - Externa l Nebulizers does not apply Mis 08-26 00:00: 00 05-22 00:00 :00 No [id number] Nebulizer and supplies to be used every [...] tab po daily x 4 days [facility]ero Guadalupea tayo Albuterol (PROVENTIL) (2.5 MG/3ML) 0.083% inhalation Inhalant Solution 08-22 00:00: 00 09-22 04:59 :00 No [id number] 2.5mg Q4H Take 2.5 mg by nebulizati on every 4 hours as needed for wheezing [facility] cr Albuterol-I pratropium 0.5-2.5 (3) MG/3ML inhalation Solution 08-22 00:00: 00 09-22 04:59 :00 No [id number] 3mg Q4H Inhale 3.6 mL (3 mg total) into the lungs every 4 hours as needed (sob, cough, wheeze) [facility] cr Alirocumab (Praluent) 75 MG/ML subcutaneou s Solution Auto-inject or 08-20 00:00: 00 Yes 75mg Inject 75 mg into the skin every 14 days [facility] cr Temazepam 30 MG oral Capsule 08-01 00:00: 00 Yes [id number] 30mg QD Take 1 capsule (30 mg total) by mouth nightly as needed for sleep [facility] cr Bupropion HCL XL 150 MG OR TB24 08-01 00:00: 00 Yes [id number] 150mg Take 1 tablet (150 mg total) by mouth every morning [facility] Metoprolol Tartrate (LOPRESSOR) 25 MG oral Tablet 16 00:00: 00 Yes [id number] 12.5mg Take 0.5 tablets (12.5 mg total) by mouth daily [facility] cr Alirocumab (Praluent) 75 MG/ML subcutaneou s Solution Auto-inject or 07-15 00:00: 00 Yes 75mg Inject 75 mg into the skin every 14 days [facility] cr Fluticasone -Salmeterol (Advair Diskus) 500-50 MCG/ACT inhalation AEROSOL POWDER, BREATH ACTIVATED - 00:00: 00 Yes 1{puff} Inhale 1 puff into the lungs 2 times daily [facility] cr Fluticasone -Salmeterol (Advair Diskus) 500-50 MCG/ACT inhalation AEROSOL POWDER, BREATH ACTIVATED -14 00:00: 00 Yes 1{puff} Inhale 1 puff into the lungs 2 times daily [facility] cr Temazepam 30 MG oral Capsule 06-26 00:00: 00 Yes [id number] 30mg QD Take 1 capsule (30 mg total) by mouth nightly as needed for sleep [facility] Celecoxib 200 MG oral Capsule 06-26 00:00: 00 Yes [id number] 200mg QD Take 1 capsule (200 mg total) by mouth daily as needed for pain [facility] Montelukast (SINGULAIR) 10 MG oral Tablet tablet 06-26 00:00: 00 Yes 10mg Take 1 tablet (10 mg total) by mouth daily [facility] Paroxetine HCl 30 MG oral Tablet 06-21 00:00: 00 Yes 30mg QD Take 1 tablet (30 mg total) by mouth daily. [facility] cr Methylpredn isolone Acetate (Depo-Medro l) 40 mg/ml - Physician Administere d ([id number]) 06-05 22:00: 00 06-05 21:58 :00 No [id number] 40mg [facility] cr Triamcinolo ne Acetonide 55 MCG/ACT nasal Aerosol 06-05 14:25: 51 06-05 00:00 :00 No by nasal route Indication s: 2 sprays in each nostril every day [facility] cr Celecoxib 200 MG oral Capsule 05-27 00:00: 00 Yes [id number] 200mg QD Take 1 capsule (200 mg total) by mouth daily as needed for pain [facility] Montelukast (SINGULAIR) 10 MG oral Tablet tablet 05-27 00:00: 00 Yes 10mg Take 1 tablet (10 mg total) by mouth daily [facility] cr Pantoprazol e Sodium (Protonix) 40 MG oral Tablet Delayed Response 05-27 00:00: 00 Yes [id number] 40mg Take 1 tablet (40 mg total) by mouth daily [facility] cr Levothyroxi ne Sodium 175 MCG oral Tablet 2023-0 3-13 00:00: 00 Yes [id number] 175ug Take 1 tablet (175 mcg total) by mouth daily [facility] cr Bupropion HCL XL 150 MG OR TB24 3-11 00:00: 00 Yes 150mg Take 150 mg by mouth every morning [facility] cr Alirocumab (Praluent) 75 MG/ML subcutaneou s Solution Auto-inject or 3-07 00:00: 00 Yes 75mg Inject 75 mg into the skin every 14 days [facility] cr Cholecalcif javier (Vitamin D-3) 25 MCG (1000 UT) oral Capsule 04-08 00:00: 00 Yes [id number] 1{capsu le} QD Take 1 capsule by mouth daily Lucero [...] in each nostril every day [facility] cr Cetirizine HCl 10 MG oral Capsule 04-05 00:00: 00 Yes [id number] 10mg QD Take 1 capsule (10 mg total) by mouth daily [facility] cr Magnesium 100 MG oral Capsule 04-05 00:00: 00 Yes [id number] 1{capsu le} QD Take 1 capsule by mouth daily [facility] cr Temazepam 30 MG oral Capsule 04-05 00:00: 00 Yes [id number] 30mg QD Take 1 capsule (30 mg total) by mouth nightly as needed for sleep [facility] cr Ergocalcife rol 1.25 MG (28442 UT) oral Capsule 04-05 00:00: 00 Yes [id number] 66072H Take 1 capsule (50,000 units total) by mouth once a week [facility] busPIRone HCl 7.5 MG oral Tablet 04-05 00:00: 00 Yes [id number] 7.5mg QD Take 1 tablet (7.5 mg total) by mouth daily as needed (anxiety) [facility] cr Magnesium 100 MG oral Capsule 04-05 00:00: 00 Yes [id number] 1{capsu le} Take 1 capsule by mouth [...] 26 Yes 1{capsu le} 1 capsule [facility] cr Evolocumab (Repatha) 140 MG/ML subcutaneou s Solution Prefilled Syringe 03-29 00:00: 00 Yes [id number] 140mg Inject 1 mL (140 mg total) into the skin every 14 days [facility] cr Metoprolol Tartrate 25 MG oral Tablet 03-29 00:00: 00 07-30 00:00 :00 No [id number] 25mg Take 1 tablet (25 mg total) by mouth daily [facility] Cetirizine HCl 10 MG oral Capsule 2021-03 13:53: 18 Yes Take by mouth [facility] cr Triamcinolo ne Acetonide 55 MCG/ACT nasal Aerosol 2021-03 13:53: 18 Yes by nasal route Indication s: 2 sprays in each nostril every day [facility] cr Magnesium 100 MG oral Cap 2021-03 13:53: 18 Yes Take by mouth [facility] cr Coenzyme Q10 (COQ10) 100 MG oral Cap 2021-03 13:53: 18 Yes Take by mouth [facility] cr Temazepam 30 MG oral Capsule 2021-03 13:53: 18 Yes 1{capsu le} 1 capsule [facility] cr Fluticasone -Salmeterol (Advair Diskus) 500-50 MCG/ACT inhalation AEROSOL POWDER, BREATH ACTIVATED 2021-03 00:00: 00 Yes 1{puff} Inhale 1 puff into the lungs 2 times daily [facility] cr Ibuprofen 400 MG OR TABS 2021-03 15:18: 54 02-05 00:00 :00 No as needed for pain [facility] Temazepam 30 MG oral Capsule 2021-03 15:07: 05 Yes 1{capsu le} 1 capsule [facility] cr Cetirizine HCl 10 MG oral Capsule 2021-03 15:07: 05 Yes Take by mouth [facility] cr Triamcinolo ne Acetonide 55 MCG/ACT nasal Aerosol 2021-03 15:07: 05 Yes by nasal route Indication s: 2 sprays in each nostril every day [facility] Magnesium 100 MG oral Cap 2021-03 15:07: 05 Yes Take by mouth [facility] cr Coenzyme [...] MG oral Capsule 2021-03 00:00: 00 Yes [id number] 200mg QD Take 1 capsule (200 mg total) by mouth daily as needed for pain [facility] methylpredn isolone sod succ (SOLU-MEDRO L) injection 125 mg 09-24 02:45: 00 09-24 02:06 :00 No 125mg 125 mg, Intramuscu lar, ONCE, 1 dose, On 09/23/21 at 2145, 2 mL [facility] diazePAM (VALIUM) tablet 5 mg 09-24 01:45: 00 09-24 02:06 :00 No 5mg 5 mg, Oral, ONCE, 1 dose, On 09/23/21 at 2044, [facility] HYDROcodone -acetaminop hen (NORCO 5) 5-325 mg tablet 1 tablet 09-24 01:45: 00 09-24 02:06 :00 No 1{tbl} 1 tablet, Oral, ONCE, 1 dose, On 09/23/21 at 2044, [facility] methocarbam oL 750 mg tablet 09-23 00:00: 00 Yes [id number] 750mg Take 1 tablet by mouth 4 (four) times daily. [facility] Paroxetine HCl 20 MG oral Tablet 03-17 00:00: 00 06-05 00:00 :00 No 20mg Take 20 [...] No [facility] Ergocalcife rol 1.25 MG (12190 UT) oral Capsule 03-17 00:00: 00 04-05 [...] day by oral route for 90 days. [facility] e Polyethylen e Glycol 3350 oral Powder 07-16 00:00: 00 02-05 00:00 :00 No [id number] 17g Take 17 (seventeen ) g by mouth daily X 3 days as needed for constipati on [facility] Gabapentin 100 MG oral Cap 2017-03 00:00: 00 02-05 00:00 :00 No 200mg TAKE 2 (TWO) CAPSULES BY MOUTH 3 TIMES DAILY [facility] Pantoprazol e Sodium (PROTONIX) 40 MG oral Tablet Delayed Response 2017-03- 00:00: 00 Yes [id number] 40mg Take 1 (one) tablet by mouth daily [facility] Fluticasone -Salmeterol (ADVAIR DISKUS) 250-50 MCG/DOSE inhalation AEROSOL POWDER, BREATH ACTIVATED 2015-03 00:00: 00 04-05 00:00 :00 No 1{puff} Inhale 1 puff into the lungs 2 times daily [facility] Oxcarbazepi ne (TRILEPTAL) 600 MG oral Tab 2015-03 2-13 00:00: 00 02-05 00:00 :00 No [id number] 600mg Take 1 tablet by mouth every night at bedtime [facility] Albuterol 90 MCG/ACT IN AERS 2011-04-05 00:00: 00 Yes [id number] 6 2{puff} Q.25D 2 puffs 4 times daily As needed for shortness of breath [facility] clonazepam 0.5 mg tablet Take 1 tablet as needed by oral route for 30 days. clonazepam 0.5 mg tablet Take 1 tablet as needed by oral route for 30 days. No 1 clonazepam 0.5 mg tablet Take 1 tablet as needed by oral route for [address] [facility] gabapentin 100 mg capsule Take 3 capsules every day by oral route for 90 days. gabapentin 100 mg capsule Take 3 capsules every day by oral route for 90 days. No 3capsul e(s) Q1D gabapentin 100 mg capsule Take 3 capsules every day by oral route for [address] [facility] pantoprazol e 40 mg tablet,brooks yed release Take 1 tablet every day by oral route for 90 days. pantoprazol e 40 mg tablet,brooks yed release Take 1 tablet every day by oral route for 90 days. No 1 Q1D pantoprazo le 40 mg tablet,del ayed release Take 1 tablet every day by oral route for [address] [facility] venlafaxine ER 75 mg capsule,ext [...] day by oral route for [address] [facility] Immunizations Ordered Immunization Name Filled Immunization Name Date Status Comments Source Influenza Virus Vaccine, Quadrivalent, High Dose, Age 65 And Up 2022-02-28 00:00:00 Completed [facility]ero Mcbride - External Pneumococcal Vaccine, Polysaccharide 2022-02-28 00:00:00 Completed [facility]ero Gutierrez External Influenza Virus Vaccine, Quadrivalent, High Dose, Age 65 And Up 2022-02-28 00:00:00 Completed [facility]ero Gutierrez External Pneumococcal Vaccine, Polysaccharide 2022-02-28 00:00:00 Completed [facility]ero Gutierrez External Influenza Virus Vaccine, Quadrivalent, High Dose, [...] 2018-05-15 00:00:00 Completed Lucero Seybold - External influenza, injectable, quadrivalent influenza, injectable, quadrivalent 2018-05-15 00:00:00 Completed [facility] Influenza Virus Vaccine, age 6 months and up 2016-02-29 00:00:00 Completed Lucero Seybold - External Pneumococcal Vaccine, Conjugate 13 2016-02-29 00:00:00 Completed Luceor Seybold - External Influenza Virus Vaccine, age [...] Unknown Completed Lucero S eybold - External Influenza Virus Vaccine, No Preserv, [...] Unknown Completed Lucero S eybold - External Influenza Virus Vaccine, No Preserv, [...] Unknown Completed Lucero S eybold - External Influenza Virus Vaccine, No Preserv, [...] Unknown Completed Lucero S eybold - External Influenza Virus Vaccine, No Preserv, [...] Unknown Completed Lucero S eybold - External Influenza Virus Vaccine, No Preserv, age 6 months and up Unknown Completed Lucero Drake eybold - External Pneumococcal Vaccine, Polysaccharide Unknown Completed Lucero Jamesol d - External Influenza Virus Vaccine, age 6 months and up Unknown Completed Lucero Jamesold - External Pneumococcal Vaccine, Conjugate 13 Unknown Completed Lucero Villasenorybold - External Influenza Virus Vaccine, Quadrivalent, High Dose, Age 65 And Up Unknown Completed Lucero ogbold - External Influenza Virus Vaccine, No Preserv, age 6 months and up Unknown Completed Lucero Drake eybold - External Vital Signs Vital Name Observation Time Observation Value Comments S drake Systolic blood pressure 2023-12-01 18:18:00 112 mm[Hg] Lucero Seybo ld - External Diastolic blood pressure 2023-12-01 18:18:00 78 mm[Hg] Lucero Villasenorybo ld - External Heart rate 2023-12-01 18:18:00 82 /min Kelse y Seybold - External Body temperature 2023-12-01 18:18:00 36.61 Ariela Lucero Seybold - External Respiratory rate 2023-12-01 18:18:00 18 /min Lucero Seybold - External Body height 2023-12-01 18:18:00 157.5 cm Jessica og Seybold - External Body weight 2023-12-01 18:18:00 78.019 kg Jessica og Seybold - External BMI 2023-12-01 18:18:00 31.46 kg/m2 Jessica og Seybold - External Oxygen saturation in Arterial blood by Pulse oximetry 2023-12-01 18:18:00 96 /min Lucero Villasenorybo ld - External Systolic blood pressure 2023-06-23 16:43:00 102 mm[Hg] Lucero Seybo ld - External Diastolic blood pressure 2023-06-23 16:43:00 75 mm[Hg] Lucero Seybo ld - External Heart rate 2023-06-23 16:43:00 80 /min Kelse y Seybold - External Body temperature 2023-06-23 16:43:00 36.61 [...] External BMI 2022-02-05 20:58:00 32.74 kg/m2 Jessica Mcbride - External Systolic blood pressure 2021-09-24 02:00:00 107 mm[Hg] [facility] Diastolic blood pressure 2021-09-24 02:00:00 82 mm[Hg] [facility] Heart rate 2021-09-24 02:00:00 74 /min [facility] Respiratory rate 2021-09-24 02:00:00 16 /min [facility] Oxygen saturation in Arterial blood by Pulse oximetry 2021-09-24 02:00:00 96 /min [facility] Body temperature 2021-09-24 01:37:00 36.89 Ariela [facility] Body height 2021-09-24 01:37:00 157.5 cm [facility] Body weight 2021-09-24 01:37:00 78.926 kg [facility] BMI 2021-09-24 01:37:00 31.83 kg/m2 [facility] BP Diastolic 2018-08-20 00:00:00 84 mm[Hg] [facility] Height 2018-08-20 00:00:00 60.5 [in_i] [facility] BMI (Body Mass Index) 2018-08-20 00:00:00 32.1 kg/m2 [facility] BP Systolic 2018-08-20 00:00:00 112 mm[Hg] [facility] Body Weight 2018-08-20 00:00:00 167 [lb_av] [facility] Procedures Procedure Date / Time Performed Performing Clinician Source LUMBAR SPINE 2 VIEWS UPRIGHT - CHIRO 2022-11-11 21:12:51 Aicha Rodríguez [facility] - External THORACIC SPINE 3 VIEWS 2022-11-11 21:12:15 Inga Rodríguez - External CERVICAL SPINE - 2 VIEW 2022-11-08 20:38:55 Stan Rutledge [facility] - External QUANTAFLO 2022-04-05 20:17:56 Flavio Orourke - External EXTERNAL PROVIDER RECORDS 2021-10-26 05:01:00 Do ctor Unassigned, Rhine [facility] CT HIP RIGHT WO CONTRAST 2021-09-24 01:54:59 Bethany Grayson [facility] CONSENT/REFUSAL FOR DIAGNOSIS AND TREATMENT 2021-09-24 01:29:47 Doctor Unassigned, Rhine [facility] Colonoscopy 2016-03-17 00:00:00 [facility] Mastectomy (One Breast) 2007-03-17 00:00:00 [facility] Breast Surgery 2007-03-17 00:00:00 Christin fagan [facility] Reconstructive Surgery 2007-03-17 00:00:00 [facility] Cholecystectomy (Gall Bladder Removal) 1999-03-17 00:00:00 [facility] Orthopedic Surgery 1990-03-17 00:00:00 Helen ruano [facility] Caesarean Section 1979-03-17 00:00:00 Caden arzate [facility] Hysterectomy (Total) 1979-03-17 00:00:00 [facility] [employer] Surgery (Gynecology) 1977-03-17 00:00:00 [facility] Appendectomy 1974-03-17 00:00:00 [facility] Plan of Care Planned Activity Planned Date Details Comments Source Diagnostic Test Pending 2018-08-20 00:00:00 CBC w/ auto diff [code = CBC w/ auto diff] [facility] Diagnostic Test Pending 2018-08-20 00:00:00 CMP, serum or plasma [code = CMP, serum or plasma] [facility] Diagnostic Test Pending 2018-08-20 00:00:00 lipid panel, serum [code = lipid panel, serum] [facility] Diagnostic Test Pending 2018-08-20 00:00:00 hepatitis C virus RNA, quant, PCR, serum or plasma [code = hepatitis C virus RNA, quant, PCR, serum or plasma] [facility] Diagnostic Test Pending 2018-08-20 00:00:00 urinalysis, dipstick [code = urinalysis, dipstick] [facility] Diagnostic Test Pending 2018-08-20 00:00:00 TSH, serum or plasma [code = TSH, serum or plasma] [facility] Encounters Start Date/Time End Date/Time Encounter Type Admission Type Attending [facility] Care Facility Care Department Encounter ID Source 2024-03-16 11:30:00 2024-03-16 11:30:00 Outpatient PAWAN RECINOS [id number] [facility] 2024-02-11 00:00:00 2024-02-11 00:00:00 Outpatient PREZAFLAVIO Drake LUCERO CARRASCO [id number] [facility] 2024-02-04 00:00:00 2024-02-04 00:00:00 Outpatient PREZAFLAVIO Drake LUCERO CARRASCO [id number] [facility] 2024-02-02 15:15:00 2024-02-02 15:15:00 Outpatient NIHARIKAJOSETTE Ramirez LUCERO CARRASCO [id number] [facility] 2024-01-19 14:00:00 2024-01-19 14:00:00 Outpatient PREZAFLAVIO Drake LUCERO CARRASCO [id number] [facility] 2024-01-12 00:00:00 2024-01-12 00:00:00 Outpatient BERNARDO KRISHAN [facility]CO [id number] [facility] 2024-01-08 13:40:00 2024-01-08 13:40:00 Outpatient SARAH GLEN LUCERO CARRASCO [id number] [facility] 2024-01-05 16:00:00 2024-01-05 16:00:00 Outpatient PREZAFLAVIO Drake LUCERO CARRASCO [id number] [facility] 2023-12-22 16:30:00 2023-12-22 16:30:00 Outpatient MISSY COLLADO [id number] [facility] 2023-12-10 00:00:00 2023-12-10 00:00:00 Outpatient MISSY COLLADO [id number] [facility] Seybold 2023-12-10 00:00:00 2023-12-10 00:00:00 Outpatient LUCERO CARRASCO [id number] [facility] 2023-12-09 14:00:00 2023-12-09 14:00:00 Outpatient BROOKE BORJAS [id number] [facility] 2023-12-09 00:00:00 2023-12-09 00:00:00 Outpatient PREZAFLAVIO Drake LUCERO CARRASCO [id number] [facility] Seybold 2023-12-07 00:00:00 2023-12-07 00:00:00 Outpatient PREZAFLAVIO Drake LUCERO [id number] [facility] 2023-12-04 00:00:00 2023-12-04 00:00:00 Outpatient MISSY COLLADO LUCERO CARRASCO [id number] [facility] 2023-12-03 00:00:00 2023-12-03 00:00:00 Outpatient ELANZAFLAVIO Drake LUCERO LUCERO [id number] [facility] 2023-12-02 16:40:00 2023-12-02 16:40:00 Outpatient LUCERO CARRASCO [id number] [facility] Seybold 2023-12-01 13:30:00 2023-12-01 13:30:00 Outpatient MISSY COLLADO LUCERO CARRASCO [id number] [facility] 2023-11-30 00:00:00 2023-11-30 00:00:00 Outpatient PREZAFLAVIO Drake LUCERO CARRASCO [id number] [facility] 2023-11-18 00:00:00 2023-11-18 00:00:00 Outpatient MD LUCERO REED [id number] [facility] 2023-11-13 00:00:00 2023-11-13 00:00:00 Outpatient PREZAFLAVIO Drake LUCERO CARRASCO [id number] [facility] 2023-10-28 15:20:00 2023-10-28 15:20:00 Outpatient LENORA MAI [id number] [facility] 2023-10-27 00:00:00 2023-10-27 00:00:00 Outpatient PREZAFLAVIO Drake LUCERO CARRASCO [id number] [facility] 2023-10-27 00:00:00 2023-10-27 00:00:00 Outpatient PREZAFLAVIO Drake LUCERO CARRASCO [id number] [facility] 2023-10-24 10:15:00 2023-10-24 10:15:00 Outpatient LAB90 LUCERO CARRASCO [id number] [facility] 2023-10-24 00:00:00 2023-10-24 00:00:00 Outpatient PREZAS, FLAVIO CARRASCO [id number] [facility] 2023-10-23 00:00:00 2023-10-23 00:00:00 Outpatient WALT, LOREE CARRASCO [id number] [facility] 2023-10-20 16:00:00 2023-10-20 16:00:00 Outpatient WALT, LOREE CARRASCO [id number] [facility] 2023-10-20 00:00:00 2023-10-20 00:00:00 Outpatient WALT, LOREE CARRASCO [id number] [facility] 2023-10-20 00:00:00 2023-10-20 00:00:00 Outpatient WALT, LOREE CARRASCO [id number] [facility] 2023-10-16 15:30:00 2023-10-16 15:30:00 Outpatient PLAB [facility]CO [id number] [facility] 2023-10-14 16:00:00 2023-10-14 16:00:00 Outpatient WALT, LOREE CARARSCO [id number] [facility] 2023-10-10 16:00:00 2023-10-10 16:00:00 Outpatient PLRADHA [id number] [facility] 2023-10-06 00:00:00 2023-10-06 00:00:00 Outpatient LUCERO CARRASCO [id number] [facility] 2023-09-30 00:00:00 2023-09-30 00:00:00 Outpatient LOREE GODOY [id number] [facility] 2023-09-29 00:00:00 2023-09-29 00:00:00 Outpatient LOREE GODOY [id number] [facility] 2023-09-21 00:00:00 2023-09-21 00:00:00 Outpatient PREZAS, FLAVIO CARRASCO [id number] [facility] 2023-09-06 00:00:00 2023-09-06 00:00:00 Outpatient LOREE GODOY [id number] [facility] 2023-09-05 00:00:00 2023-09-05 00:00:00 Outpatient FLAVIO OROURKE LUCERO ACRRASCO [id number] [facility] 2023-09-04 00:00:00 2023-09-04 00:00:00 Outpatient WILLY FLAVIO CARRASCO [id number] [facility] 2023-08-29 00:00:00 2023-08-29 00:00:00 Outpatient MD LUCERO REED [id number] [facility] 2023-08-28 00:00:00 2023-08-28 00:00:00 Outpatient LUCERO CARRASCO [id number] [facility] 2023-08-28 00:00:00 2023-08-28 00:00:00 Outpatient ELANTIFF FLAVIO CARRASCO [id number] [facility] 2023-08-28 00:00:00 2023-08-28 00:00:00 Outpatient LOREE GODOY [id number] [facility] 2023-08-26 00:00:00 2023-08-26 00:00:00 Outpatient MD LUCERO REED [id number] [facility] 2023-08-25 11:15:00 2023-08-25 11:15:00 Outpatient FLAVIO OROURKE [id number] [facility] 2023-08-25 00:00:00 2023-08-25 00:00:00 Outpatient DANYELL ARROYO [id number] [facility] 2023-08-24 00:00:00 2023-08-24 00:00:00 Outpatient MD LUCERO REED [id number] [facility] 2023-08-24 00:00:00 2023-08-24 00:00:00 Outpatient LOREE GODOY [id number] [facility] 2023-08-23 00:00:00 2023-08-23 00:00:00 Outpatient KAREN COOK [id number] [facility] 2023-08-03 00:00:00 2023-08-03 00:00:00 Outpatient FLAVIO OROURKE LUCERO CARRASCO [id number] [facility] 2023-07-30 15:15:00 2023-07-30 15:15:00 Outpatient BROOKE BORJAS LUCERO CARRASCO [id number] [facility] 2023-07-25 00:00:00 2023-07-25 00:00:00 Outpatient PAULENORA TRENT [id number] [facility] 2023-07-24 15:00:00 2023-07-24 15:00:00 Outpatient PAULENORA [id number] [facility] 2023-07-23 15:00:00 2023-07-23 15:00:00 Outpatient PAU LENORA CARRASCO [id number] [facility] 2023-07-23 00:00:00 2023-07-23 00:00:00 Outpatient PAUL JANELLE LUCERO CARRASCO [id number] [facility] 2023-07-21 15:00:00 2023-07-21 15:00:00 Outpatient SYL KISER [id number] [facility] 2023-07-18 15:00:00 2023-07-18 15:00:00 Outpatient RECINOSPAWAN FUNK LUCERO CARRASCO [id number] [facility] 2023-07-18 14:15:00 2023-07-18 14:15:00 Outpatient LUCERO CARRASCO [id number] [facility] 2023-07-18 13:40:00 2023-07-18 13:40:00 Outpatient LUCERO CARRASCO [id number] [facility] 2023-07-18 00:00:00 2023-07-18 00:00:00 Outpatient MD LUCERO REED [id number] [facility] 2023-07-15 00:00:00 2023-07-15 00:00:00 Outpatient LUCERO CARRASCO [id number] [facility] 2023-07-11 00:00:00 2023-07-11 00:00:00 Outpatient PREZAS, FLAVIO CARRASCO LUCERO [id number] [facility] 2023-07-03 00:00:00 2023-07-03 00:00:00 Outpatient PREZAS, FLAVIO CARRASCO [id number] [facility] 2023-07-03 00:00:00 2023-07-03 00:00:00 Outpatient LUCERO LUCERO [id number] [facility] 2023-07-03 00:00:00 2023-07-03 00:00:00 Outpatient PREZAS, FLAVIO CARRASCO LUCERO [id number] [facility] 2023-07-01 16:00:00 2023-07-01 16:00:00 Outpatient LUCERO LUCERO [id number] [facility] 2023-06-30 00:00:00 2023-06-30 00:00:00 Outpatient PREZAS, FLAVIO CARRASCO LUCERO [id number] [facility] 2023-06-27 00:00:00 2023-06-27 00:00:00 Outpatient PREZAS, FLAVIO CARRASCO LUCERO [id number] [facility] 2023-06-24 00:00:00 2023-06-24 00:00:00 Outpatient LOREE GODOY [id number] [facility] 2023-06-23 11:30:00 2023-06-23 11:30:00 Outpatient PREZAS, FLAVIO LUCERO CARRASCO [id number] [facility] 2023-06-23 00:00:00 2023-06-23 00:00:00 Outpatient PREZAS, FLAVIO LUCERO CARRASCO [id number] [facility] 2023-06-22 00:00:00 2023-06-22 00:00:00 Outpatient LOREE GODOY [id number] [facility] 2023-06-20 08:50:00 2023-06-20 08:50:00 Outpatient LAB90 LUCERO CARRASCO [id number] [facility] 2023-06-20 00:00:00 2023-06-20 00:00:00 Outpatient PREZAS, FLAVIO LUCERO CARRASCO [id number] [facility] 2023-06-20 00:00:00 2023-06-20 00:00:00 Outpatient PREZAS, FLAVIO LUCERO CARRASCO [id number] [facility] 2023-06-18 00:00:00 2023-06-18 00:00:00 Outpatient PREZAS, FLAVIO CARRASCO [id number] [facility] 2023-06-18 00:00:00 2023-06-18 00:00:00 Outpatient MD LUCERO REED [id number] [facility] 2023-06-17 00:00:00 2023-06-17 00:00:00 Outpatient PREZAS, FLAVIO LUCERO CARRASCO [id number] [facility] 2023-06-12 15:30:00 2023-06-12 15:30:00 Outpatient LUCERO CARRASCO [id number] [facility] 2023-05-23 09:30:00 2023-05-23 09:30:00 Outpatient PREZAS, FLAVIO LUCERO CARRASCO [id number] [facility] 2023-05-22 00:00:00 2023-05-22 00:00:00 Outpatient PREZAS, FLAVIO LUCERO CARRASCO [id number] [facility] 2023-05-17 00:00:00 2023-05-17 00:00:00 Outpatient PREZAS, FLAVIO CARRASCO [id number] [facility] 2023-05-09 16:30:00 2023-05-09 16:30:[address], RADHA CARRASCO [id number] [facility] 2023-05-09 00:00:00 2023-05-09 00:00:00 Outpatient PREZAS, FLAVIO CARRASCO [id number] [facility] 2023-05-08 09:30:00 2023-05-08 09:30:00 Outpatient LAB90 LUCERO CARRASCO [id number] [facility] 2023-05-08 00:00:00 2023-05-08 00:00:00 Outpatient PREZAS, FLAVIO CARRASCO [id number] [facility] 2023-05-08 00:00:00 2023-05-08 00:00:00 Outpatient PREFLAVIO MATTHEW LUCERO CARRASCO [id number] [facility] 2023-05-06 00:00:00 2023-05-06 00:00:00 Outpatient MARIIA GODOYISTINE LUCERO CARRASCO [id number] [facility] 2023-05-06 00:00:00 2023-05-06 00:00:00 Outpatient LOREE GODOY [id number] [facility] 2023-05-06 00:00:00 2023-05-06 00:00:00 Outpatient LUCERO CARRASCO [id number] [facility] 2023-05-06 00:00:00 2023-05-06 00:00:00 Outpatient LOREE GODOY [id number] [facility] 2023-04-29 15:30:00 2023-04-29 15:30:00 Outpatient MISSY COLLADO LUCERO CARRASCO [id number] [facility] 2023-04-11 00:00:00 2023-04-11 00:00:00 Outpatient FLAVIO OROURKE LUCERO CARRASCO [id number] [facility] 2023-04-08 00:00:00 2023-04-08 00:00:00 Outpatient PREFLAVIO MATTHEW LUCERO CARRASCO [id number] [facility] 2023-04-03 00:00:00 2023-04-03 00:00:00 Outpatient FLAVIO OROURKE ULCERO CARRASCO [id number] [facility] 2023-04-03 00:00:00 2023-04-03 00:00:00 Outpatient LUCERO CARRASCO [id number] [facility] 2023-04-03 00:00:00 2023-04-03 00:00:00 Outpatient BROWN SHRUTHI LUCERO CARRASCO [id number] [facility] 2023-03-27 00:00:00 2023-03-27 00:00:00 Outpatient LOREE GODOY [id number] [facility] 2023-03-25 00:00:00 2023-03-25 00:00:00 Outpatient TATUM OROURKEAND LUCERO CARRASCO [id number] [facility] 2023-03-24 11:00:00 2023-03-24 11:00:00 Outpatient BURKE MAI [id number] [facility] 2023-03-24 00:00:00 2023-03-24 00:00:00 Outpatient MARIIA GODOYISTINE LUCERO CARRASCO [id number] [facility] 2023-03-24 00:00:00 2023-03-24 00:00:00 Outpatient LOREE GODOY [id number] [facility] 2023-03-21 10:30:00 2023-03-21 10:30:00 Outpatient CHERYL GALINDO [id number] [facility] 2023-03-19 00:00:00 2023-03-19 00:00:00 Outpatient LOREE GODOY [id number] [facility] 2023-03-14 00:00:00 2023-03-14 00:00:00 Outpatient LUCERO CARRASCO [id number] [facility] 2023-03-12 00:00:00 2023-03-12 00:00:00 Outpatient LUCERO CARRASCO [id number] [facility] 2023-03-12 00:00:00 2023-03-12 00:00:00 Outpatient BURKE MAI [id number] [facility] 2023-03-11 00:00:00 2023-03-11 00:00:00 Outpatient BURKE MAI [id number] [facility] 2023-02-25 00:00:00 2023-02-25 00:00:00 Outpatient BURKE MAI [id number] [facility] 2023-02-24 14:00:00 2023-02-24 14:00:00 Outpatient FLAVIO OROURKE [id number] [facility] 2023-02-11 16:15:00 2023-02-11 16:15:00 Outpatient PREZAS, FLAVIO LUCERO CARRASCO [id number] [facility] 2023-01-29 00:00:00 2023-01-29 00:00:00 Outpatient PAUBURKE TRENT LUCERO CARRASCO [id number] [facility] 2023-01-29 00:00:00 2023-01-29 00:00:00 Outpatient HARMS, BROOKE CARRASCO [id number] [facility] 2023-01-28 00:00:00 2023-01-28 00:00:00 Outpatient LUCERO CARRASCO [id number] [facility] 2023-01-27 00:00:00 2023-01-27 00:00:00 Outpatient HARMS, BROOKE LUCERO CARRASCO [id number] [facility] 2023-01-27 00:00:00 2023-01-27 00:00:00 Outpatient PREZAS, FLAVIOBETINA CARRASCO [id number] [facility] 2023-01-24 14:00:00 2023-01-24 14:00:00 Outpatient RUTLEDGEESTEBAN LUCERO CARRASCO [id number] [facility] 2023-01-20 11:00:00 2023-01-20 11:00:00 Outpatient PAUBURKE TRENT LUCERO CARRASCO [id number] [facility] 2023-01-20 00:00:00 2023-01-20 00:00:00 Outpatient JENNIFER CAMPOS [id number] [facility] 2023-01-20 00:00:00 2023-01-20 00:00:00 Outpatient HARMS, BROOKE CARRASCO [id number] [facility] 2023-01-16 00:00:00 2023-01-16 00:00:00 Outpatient PREZAS, FLAVIO CARRASCO [id number] [facility] 2023-01-15 00:00:00 2023-01-15 00:00:00 Outpatient PREZAS, FLAVIO CARRASCO [id number] [facility] 2023-01-14 00:00:00 2023-01-14 00:00:00 Outpatient PREZAS, FLAVIO CARRASCO [id number] [facility] 2023-01-14 00:00:00 2023-01-14 00:00:00 Outpatient FLAVIO OROURKE [facility]ERO CARRASCO [id number] [facility]23-01-13 00:00:00 2023-01-13 00:00:00 Outpatient PREFLAVIO MATTHEW [facility]ARRASCO [id number] [facility] 2023-01-10 11:55:00 2023-01-10 11:55:00 Outpatient LAB90 LUCERO CARRASCO [id number] [facility] 2023-01-10 11:00:00 2023-01-10 11:00:00 Outpatient PREFLAVIO MATTHEW LUCERO CARRASCO [id number] [facility] 2023-01-07 14:15:00 2023-01-07 14:15:00 Outpatient [facility]OSETTE SCHAFFER [id number] [facility]-01 13:45:00 2023-01-01 13:45:00 Outpatient MARIE DELGADO [id number] [facility] 2023-01-01 11:30:00 2023-01-01 11:30:00 Outpatient JENNIFER CAMPOS [id number] [facility] 2022-12-31 14:30:00 2022-12-31 14:30:00 Outpatient MOE YOON [id number] [facility] 2022-12-31 00:00:00 2022-12-31 00:00:00 Outpatient BURKE MAI [id number] [facility] 2022-12-30 09:00:00 2022-12-30 09:00:00 Outpatient BURKE MAI [id number] [facility] 2022-12-28 00:00:00 2022-12-28 00:00:00 Outpatient TONA CIFUENTES [id number] [facility] 2022-12-28 00:00:00 2022-12-28 00:00:00 Outpatient BURKE MAI [id number] [facility] 2022-12-27 07:10:00 2022-12-27 07:10:00 Outpatient BURKE MAI [id number] [facility] 2022-12-26 00:00:00 2022-12-26 00:00:00 Outpatient MD LUCERO REED [id number] [facility] 2022-12-26 00:00:00 2022-12-26 00:00:00 Outpatient MD LUCERO REED [id number] [facility] [facility] 2022-12-25 00:00:00 2022-12-25 00:00:00 Outpatient LUCERO CARRASCO [id number] [facility] 2022-12-23 00:00:00 2022-12-23 00:00:00 Outpatient BURKE MAI [id number] [facility] 2022-12-20 13:45:00 2022-12-20 13:45:00 Outpatient HUNG BRAMBILA [id number] [facility] 2022-12-20 00:00:00 2022-12-20 00:00:00 Outpatient LUCERO CARRASCO [id number] [facility] 2022-12-18 14:15:00 2022-12-18 14:15:00 Outpatient JOSETTE SCHAFFER [id number] [facility] 2022-12-17 14:30:00 2022-12-17 14:30:00 Outpatient MOE YOON [id number] [facility] 2022-12-16 09:45:00 2022-12-16 09:45:00 Outpatient ARTHUR KRAMER [id number] [facility] 2022-12-13 14:00:00 2022-12-13 14:00:00 Outpatient WALTER MELTON [id number] [facility] 2022-12-12 14:15:00 2022-12-12 14:15:00 Outpatient TRED47 LUCERO CARRASCO [id number] [facility] 2022-12-12 12:00:00 2022-12-12 12:00:00 Outpatient LAB39 LUCERO CARRASCO [id number] [facility] 2022-12-12 11:00:00 2022-12-12 11:00:00 Outpatient BURKE MAI [id number] [facility] 2022-12-10 00:00:00 2022-12-10 00:00:00 Outpatient DAVID PIEDRA LUCERO CARRASCO [id number] [facility] 2022-12-09 00:00:00 2022-12-09 00:00:00 Outpatient LUCERO CARRASCO [id number] [facility] 2022-12-06 00:00:00 2022-12-06 00:00:00 Outpatient VANGIE BRAMBILAEN LUCERO CARRASCO [id number] [facility] 2022-12-06 00:00:00 2022-12-06 00:00:00 Outpatient MD LUCERO REED [id number] [facility] 2022-12-05 00:00:00 2022-12-05 00:00:00 Outpatient LOREE GODOY [id number] [facility] 2022-12-05 00:00:00 2022-12-05 00:00:00 Outpatient BURKE MAI [id number] [facility] 2022-12-04 00:00:00 2022-12-04 00:00:00 Outpatient LUCERO CARRASCO [id number] [facility] 2022-12-02 00:00:00 2022-12-02 00:00:00 Outpatient BURKE MAI [id number] [facility] 2022-12-02 00:00:00 2022-12-02 00:00:00 Outpatient FLAVIO OROURKE [id number] [facility] 2022-12-02 00:00:00 2022-12-02 00:00:00 Outpatient FLAVIO OROURKE [id number] [facility] 2022-11-28 00:00:00 2022-11-28 00:00:00 Outpatient MD LUCERO REED [id number] [facility] 2022-11-27 00:00:00 2022-11-27 00:00:00 Outpatient ESTEBAN RUTLEDGE LUCERO CARRASCO [id number] [facility] 2022-11-26 00:00:00 2022-11-26 00:00:00 Outpatient LOREE GODOY LUCERO CARRASCO [id number] [facility] 2022-11-26 00:00:00 2022-11-26 00:00:00 Outpatient LOREE GODOY LUCERO CARRASCO [id number] [facility] 2022-11-19 14:00:00 2022-11-19 14:00:00 Outpatient AICHA RODRÍGUEZ [id number] [facility] 2022-11-19 00:00:00 2022-11-19 00:00:00 Outpatient RUTLEDGEESTEBAN ARCINIEGA [facility]ERO CARRASCO [id number] [facility] 2022-[facility]-15 00:00:00 2022-11-15 00:00:00 Outpatient BURKE MAI [id number] [facility] 2022-11-14 00:00:00 2022-11-14 00:00:00 Outpatient MD LUCERO REED [id number] [facility] 2022-11-13 08:00:00 2022-11-13 08:00:00 Outpatient JASWINDER HERRERA [id number] [facility] 2022-11-12 00:00:00 2022-11-12 00:00:00 Outpatient AICHA RODRÍGUEZ [id number] [facility] 2022-11-11 15:55:00 2022-11-11 15:55:00 Outpatient LUCERO CARRASCO [id number] [facility] 2022-11-11 15:50:00 2022-11-11 15:50:00 Outpatient LUCERO CARRASCO [id number] [facility] 2022-11-11 14:30:00 2022-11-11 14:30:00 Outpatient AICHA RODRÍGUEZ [id number] [facility] 2022-11-11 00:00:2022-11-11 00:00:00 Outpatient LUCERO CARRASCO [id number] [facility] 2022-11-08 15:25:00 2022-11-08 15:25:00 Outpatient LUCERO CARRASCO [id number] [facility] 2022-11-08 14:30:00 2022-11-08 14:30:00 Outpatient ESTEBAN RUTLEDGE LUCERO CARRASCO [id number] [facility] 2022-11-06 00:00:00 2022-11-06 00:00:00 Outpatient LOREE GODOY [id number] [facility] 2022-11-04 09:00:00 2022-11-04 09:00:00 Outpatient BURKE MAI [id number] [facility] 2022-11-01 00:00:00 2022-11-01 00:00:00 Outpatient LOREE GODOY [id number] [facility] 2022-10-31 09:45:00 2022-10-31 09:45:00 Outpatient LUCERO CARRASCO [id number] [facility] 2022-10-29 00:00:00 2022-10-29 00:00:00 Outpatient FLAVIO OROURKE [id number] [facility] 2022-10-29 00:00:00 2022-10-29 00:00:00 Outpatient LOREE GODOY [id number] [facility] 2022-10-29 00:00:00 2022-10-29 00:00:00 Outpatient LOREE GODOY [id number] [facility] 2022-10-25 00:00:00 2022-10-25 00:00:00 Outpatient LOREE GODOY [id number] [facility] 2022-10-17 09:30:00 2022-10-17 09:30:00 Outpatient LUCERO CARRASCO [id number] [facility] 2022-10-17 00:00:00 2022-10-17 00:00:00 Outpatient LOREE GODOY [id number] [facility] 2022-10-17 00:00:00 2022-10-17 00:00:00 Outpatient WALTLOREE ELLER LUCERO CARRASCO [id number] [facility] 2022-10-16 11:20:00 2022-10-16 11:20:00 Outpatient DAVID PIEDRA LUCERO CARRASCO [id number] [facility] 2022-10-15 13:30:00 2022-10-15 13:30:00 Outpatient NATANAELYAAKOV LUCERO CARRASCO [id number] [facility] 2022-10-15 00:00:00 2022-10-15 00:00:00 Outpatient WALT LOREE LUCERO CARRASCO [id number] [facility] 2022-10-14 00:00:00 2022-10-14 00:00:00 Outpatient BROOKE BORJAS [id number] [facility] 2022-10-10 00:00:00 2022-10-10 00:00:00 Outpatient MD LUCERO REED [id number] [facility] 2022-10-04 13:00:00 2022-10-04 13:00:00 Outpatient JACEK CARRASCO [id number] [facility] 2022-10-02 00:00:00 2022-10-02 00:00:00 Outpatient FLAVIO OROURKE [id number] [facility] 2022-09-30 14:30:00 2022-09-30 14:30:00 Outpatient HUNG BRAMBILA [id number] [facility] 2022-09-30 13:45:00 2022-09-30 13:45:00 Outpatient NEVILLE VACA [id number] [facility] 2022-09-30 00:00:00 2022-09-30 00:00:00 Outpatient LUCERO CARRASCO [id number] [facility] 2022-09-27 14:30:00 2022-09-27 14:30:00 Outpatient HUNG BRAMBILA [id number] [facility] 2022-09-27 14:00:00 2022-09-27 14:00:00 Outpatient HILDA RINCON LUCERO CARRASCO [id number] [facility] 2022-09-20 10:10:00 2022-09-20 10:10:00 Outpatient BROOKE BORJAS LUCERO CARRASCO [id number] [facility] 2022-09-18 00:00:00 2022-09-18 00:00:00 Outpatient BURKE MAI [id number] [facility] 2022-09-16 00:00:00 2022-09-16 00:00:00 Outpatient BROOKE BORJAS LUCERO CARRASCO [id number] [facility] 2022-09-13 17:20:00 2022-09-13 17:20:00 Outpatient LAN LUCERO CARRASCO [id number] [facility] 2022-09-13 17:00:00 2022-09-13 17:00:00 Outpatient LUCERO CARRASCO [id number] [facility] 2022-09-13 00:00:00 2022-09-13 00:00:00 Outpatient LOREE GODOY [id number] [facility] 2022-09-13 00:00:00 2022-09-13 00:00:00 Outpatient FLAVIO OROURKE [id number] [facility] 2022-09-13 00:00:00 2022-09-13 00:00:00 Outpatient LOREE GODOY [id number] [facility] 2022-09-13 00:00:00 2022-09-13 00:00:00 Outpatient LOREE GODOY [id number] [facility] 2022-09-12 00:00:00 2022-09-12 00:00:00 Outpatient BURKE MAI [id number] [facility] 2022-09-12 00:00:00 2022-09-12 00:00:00 Outpatient LOREE GODOY [id number] [facility] 2022-09-11 00:00:00 2022-09-11 00:00:00 Outpatient BURKE MAI [id number] [facility] 2022-09-11 00:00:00 2022-09-11 00:00:00 Outpatient LUCERO CARRASCO [id number] [facility] 2022-09-05 00:00:00 2022-09-05 00:00:00 Outpatient MD LUCERO REED [id number] [facility] 2022-09-05 00:00:00 2022-09-05 00:00:00 Outpatient JESSICA DARA LUCERO CARRASCO [id number] [facility] 2022-09-05 00:00:00 2022-09-05 00:00:00 Outpatient ELANTIFFFLAVIO LUCERO CARRASCO [id number] [facility] 2022-09-05 00:00:00 2022-09-05 00:00:00 Outpatient PREFLAVIO MATTHEW [id number] [facility] 2022-09-02 00:00:00 2022-09-02 00:00:00 Outpatient LUCERO CARRASCO [id number] [facility] 2022-08-30 00:00:00 2022-08-30 00:00:00 Outpatient ARMANDO AICHA LUCERO CARRASCO [id number] [facility] 2022-08-30 00:00:00 2022-08-30 00:00:00 Outpatient PRETIFF FLAVIO CARRASCO [id number] [facility] 2022-08-28 00:00:00 2022-08-28 00:00:00 Outpatient LOREE GODOY [id number] [facility] 2022-08-28 00:00:00 2022-08-28 00:00:00 Outpatient BURKE MAI [id number] [facility] 2022-08-27 00:00:00 2022-08-27 00:00:00 Outpatient LOREE GODOY [id number] [facility] 2022-08-27 00:00:00 2022-08-27 00:00:00 Outpatient LOREE GODOY [id number] [facility] 2022-08-27 00:00:00 2022-08-27 00:00:00 Outpatient PREZAS, FLAVIO [facility] CARRASCO [id number] [facility] 2022-08-27 00:00:00 2022-08-27 00:00:00 Outpatient WALT, LOREE CARRASCO [id number] [facility] 2022-08-26 15:00:00 2022-08-26 15:00:00 Outpatient PAU, BURKE LUCERO CARRASCO [id number] [facility] 2022-08-26 00:00:00 2022-08-26 00:00:00 Outpatient WALT, LOREE CARRASCO [id number] [facility] 2022-08-23 00:00:00 2022-08-23 00:00:00 Outpatient WALT, LOREE CARRASCO [id number] [facility] 2022-08-22 14:30:00 2022-08-22 14:30:00 Outpatient WALT, LOREE CARRASCO [id number] [facility] 2022-08-20 00:00:00 2022-08-20 00:00:00 Outpatient HARMS, BROOKE CARRASCO [id number] [facility] 2022-08-15 00:00:00 2022-08-15 00:00:00 Outpatient HARMS, BROOKE LUCERO CARRASCO [id number] [facility] 2022-08-13 00:00:00 2022-08-13 00:00:00 Outpatient PREZAS, FLAVIO [facility] [id number] [facility] 15:20:00 2022-08-06 15:20:00 Outpatient LOPEZ, DARA LUCERO CARRASCO [id number] [facility] 2022-08-06 14:00:00 2022-08-06 14:00:00 Outpatient VF1 LUCERO CARRASCO [id number] [facility] 2022-07-30 16:45:00 2022-07-30 16:45:00 Outpatient PREZAS, FLAVIO CARRASCO [id number] [facility] 2022-07-30 00:00:00 2022-07-30 00:00:00 Outpatient PREZAS, FLAVIO LUCERO CARRASCO [id number] [facility] 2022-07-30 00:00:00 2022-07-30 00:00:00 Outpatient HARMS, BROOKE CARRASCO [id number] [facility] 2022-07-28 00:00:00 2022-07-28 00:00:00 Outpatient HARMS, BROOKE CARRASCO [id number] [facility] 2022-07-28 00:00:00 2022-07-28 00:00:00 Outpatient PREZAS, FLAVIO [facility]ARRASCO [id number] [facility] 2022-07-28 00:00:00 2022-07-28 00:00:00 Outpatient HARMS, BROOKE CARRASCO [id number] [facility] 2022-07-23 14:00:00 2022-07-23 14:00:00 Outpatient WALT, LOREE CARRASCO [id number] [facility] 2022-07-23 00:00:00 2022-07-23 00:00:00 Outpatient WALT, LOREE CARRASCO [id number] [facility] 2022-07-15 00:00:00 2022-07-15 00:00:00 Outpatient HARMS, BROOKE CARRASCO [id number] [facility] 2022-07-11 14:30:00 2022-07-11 14:30:00 Outpatient TREEileen7 LUCERO CARRASCO [id number] [facility] 2022-07-04 00:00:00 2022-07-04 00:00:00 Outpatient WALT, LOREE CARRASCO [id number] [facility] 2022-07-04 00:00:00 2022-07-04 00:00:00 Outpatient HARMS, BROOKE CARRASCO [id number] [facility] 2022-07-02 15:45:00 2022-07-02 15:45:00 Outpatient ERICA CROSS [id number] [facility] 2022-07-01 08:30:00 2022-07-01 08:30:00 Outpatient YAAKOV SANTOYO [id number] [facility] 2022-06-28 10:30:00 2022-06-28 10:30:00 Outpatient BROOKE BORJAS LUCERO CARRASCO [id number] [facility] 2022-06-28 00:00:00 2022-06-28 00:00:00 Outpatient WALTLOREE ELLER [id number] [facility] 2022-06-26 14:30:00 2022-06-26 14:30:00 Outpatient DELGADO MARIE [facility]ERO CARRASCO [id number] [facility] 2022-06-26 00:00:00 2022-06-26 00:00:00 Outpatient PREZASFLAVIO [id number] [facility] 2022-06-26 00:00:00 2022-06-26 00:00:00 Outpatient WALT, LOREE CARRASCO [id number] [facility] 2022-06-21 00:00:00 2022-06-21 00:00:00 Outpatient LOREE GODOY [id number] [facility] 2022-06-17 13:30:00 2022-06-17 13:30:[address], RADHA CARRASCO [id number] [facility] 2022-06-14 00:00:00 2022-06-14 00:00:00 Outpatient PREZAS, FLAVIO CARRASCO [id number] [facility] 2022-06-07 11:00:00 2022-06-07 11:00:[address], TECH LUCERO CARRASCO [id number] [facility] 2022-06-05 14:05:00 2022-06-05 14:05:00 Outpatient LUCERO CARRASCO [id number] [facility] 2022-06-05 14:00:00 2022-06-05 14:00:00 Outpatient RAFIQ NERI [id number] [facility] 2022-06-05 00:00:00 2022-06-05 00:00:00 Outpatient RAFIQ NERI [id number] [facility] 2022-06-03 14:20:00 2022-06-03 14:20:00 Outpatient LOPEZDARA LUCERO CARRASCO [id number] [facility] 2022-06-03 13:15:00 2022-06-03 13:15:00 Outpatient VF1 LUCERO CARRASCO [id number] [facility] 2022-06-03 00:00:00 2022-06-03 00:00:00 Outpatient FLAVIO OROURKE LUCERO CARRASCO [id number] [facility] 2022-06-03 00:00:00 2022-06-03 00:00:00 Outpatient LOREE GODOY [id number] [facility] 2022-05-31 11:30:00 2022-05-31 11:30:00 Outpatient JOSE AGUILA LUCERO CARRASCO [id number] [facility] 2022-05-27 00:00:00 2022-05-27 00:00:00 Outpatient WALT, LOREE CARRASCO [id number] [facility] 2022-05-24 00:00:00 2022-05-24 00:00:00 Outpatient WALT, LOREE CARRASCO [id number] [facility] 2022-05-24 00:00:00 2022-05-24 00:00:00 Outpatient FLAVIO OROURKE LUCERO CARRASCO [id number] [facility] 2022-05-22 13:45:00 2022-05-22 13:45:00 Outpatient NEVILLE VACA [id number] [facility] 2022-05-22 13:45:00 2022-05-22 13:45:00 Outpatient YAAKOV SANTOYO [id number] [facility] 2022-05-21 13:45:00 2022-05-21 13:45:00 Outpatient PAWAN RECINOS [id number] [facility] 2022-05-20 00:00:00 2022-05-20 00:00:00 Outpatient BROOKE BORJAS [id number] [facility] 2022-05-17 11:30:00 2022-05-17 11:30:00 Outpatient MOE YOON LUCERO CARRASCO [id number] [facility] 2022-05-16 14:15:00 2022-05-16 14:15:00 Outpatient RAFIQ NERI LUCERO CARRASCO [id number] [facility] 2022-05-08 11:15:00 2022-05-08 11:15:00 Outpatient JOSE AGUILA LUCERO CARRASCO [id number] [facility] 2022-05-06 15:15:00 2022-05-06 15:15:00 Outpatient REFUGIO TOÑITO CARRASCO [id number] [facility] 2022-05-06 00:00:00 2022-05-06 00:00:00 Outpatient REFUGIO, TOÑITO CARRASCO [id number] [facility] 2022-05-06 00:00:00 2022-05-06 00:00:00 Outpatient LOREE GODOY [id number] [facility] 2022-05-03 15:15:00 2022-05-03 15:15:00 Outpatient PREZAS, FLAVIO CARRASCO [id number] [facility] 2022-05-02 09:25:00 2022-05-02 09:25:00 Outpatient [facility] LUCERO CARRASCO [id number] [facility] 2022-04-30 00:00:00 2022-04-30 00:00:00 Outpatient PREZAS, FLAVIO CARRASCO [id number] [facility] 2022-04-29 00:00:00 2022-04-29 00:00:00 Outpatient PRITI HAMILTON [id number] [facility] 2022-04-26 00:00:00 2022-04-26 00:00:00 Outpatient PREZAS, FLAVIO CARRASCO [id number] [facility] 2022-04-26 00:00:00 2022-04-26 00:00:00 Outpatient PREZASFLAVIO [id number] [facility] 2022-04-25 13:45:00 2022-04-25 13:45:00 Outpatient LAB90 LUCERO LUCERO [id number] [facility] 2022-04-23 14:20:00 2022-04-23 14:20:00 Outpatient LOPEZ, DARA [facility]ARRASCO [id number] [facility] 2022-04-23 12:30:00 2022-04-23 12:30:00 Outpatient VF1 LUCERO CARRASCO [id number] [facility] 2022-04-22 00:00:00 2022-04-22 00:00:00 Outpatient HARMS, BROOKE LUCERO CARRASCO [id number] [facility] 2022-04-19 00:00:00 2022-04-19 00:00:00 Outpatient PREZAS, FLAVIO [facility] CARRASCO [id number] [facility] 2022-04-19 00:00:00 2022-04-19 00:00:00 Outpatient PREZAS, FLAVIO CARRASCO [id number] [facility] 2022-04-18 13:30:00 2022-04-18 13:30:00 Outpatient BHAGIA, OTTO LUCERO CARRASCO [id number] [facility] 2022-04-17 09:20:00 2022-04-17 09:20:00 Outpatient LUCERO CARRASCO [id number] [facility] 2022-04-17 09:15:00 2022-04-17 09:15:00 Outpatient LUCERO CARRASCO [id number] [facility] 2022-04-17 09:10:00 2022-04-17 09:10:00 Outpatient LUCERO CARRASCO [id number] [facility] 2022-04-17 00:00:00 2022-04-17 00:00:00 Outpatient PREZAS, FLAVIO CARRASCO [id number] [facility] 2022-04-17 00:00:00 2022-04-17 00:00:00 Outpatient PREZAS, FLAVIO CARARSCO [id number] [facility] 2022-04-16 13:45:00 2022-04-16 13:45:00 Outpatient NEVILLE VACA [id number] [facility] 2022-04-15 00:00:00 2022-04-15 00:00:00 Outpatient LUCERO LUCERO [id number] [facility] 2022-04-12 14:30:00 2022-04-12 14:30:00 Outpatient VLAD BARAHONA LUCERO LUCERO [id number] [facility] 2022-04-11 13:00:00 2022-04-11 13:00:00 Outpatient CLEMENCIA GANDARA LUCERO LUCERO [id number] [facility] 2022-04-09 15:30:00 2022-04-09 15:30:00 Outpatient LUCERO LUCERO [id number] [facility] 2022-04-09 13:40:00 2022-04-09 13:40:00 Outpatient LUCERO LUCERO [id number] [facility] 2022-04-09 00:00:00 2022-04-09 00:00:00 Outpatient PREFLAVIO MATTHEW LUCERO CARRASCO [id number] [facility] 2022-04-09 00:00:00 2022-04-09 00:00:00 Outpatient PREFLAVIO MATTHEW LUCERO LUCERO [id number] [facility] 2022-04-08 00:00:00 2022-04-08 00:00:00 Outpatient PREFLAVIO MATTHEW [facility]UC[facility] LUCERO [id number] [facility] 2022-04-07 00:00:00 2022-04-07 00:00:00 Outpatient LOREE GODOY [id number] [facility] 2022-04-05 14:35:00 2022-04-05 14:35:00 Outpatient LAB90 LUCERO CARRASCO [id number] [facility] 2022-04-05 13:30:00 2022-04-05 13:30:00 Outpatient FLAVIO OROURKE L[facility]ERO CARRASCO [id number] [facility] 2022-04-04 14:10:00 2022-04-04 14:10:00 Outpatient PLAB LUCERO CARRASCO [id number] [facility] 2022-04-04 13:45:00 2022-04-04 13:45:00 Outpatient RAFIQ NERI [id number] [facility] 2022-04-04 00:00:00 2022-04-04 00:00:00 Outpatient FLAVIO OROURKE [facility]ARRASCO [id number] [facility] 2022-04-03 13:45:00 2022-04-03 13:45:00 Outpatient LUCERO CARRASCO [id number] [facility] 2022-04-01 00:00:00 2022-04-01 00:00:00 Outpatient ALFONSO PRITI [facility]UCERO CARRASCO [id number] [facility] 2022-03-29 15:35:00 2022-03-29 15:35:00 Outpatient LAB39 LUCERO CARRASCO [id number] [facility] 2022-03-29 15:00:00 2022-03-29 15:00:00 Outpatient DAVID PIEDRA [facility] CARRASCO [id number] [facility] 2022-03-29 14:15:00 2022-03-29 14:15:00 Outpatient 39MAYRA LUCERO CARRASCO [id number] [facility] 2022-03-29 13:30:00 2022-03-29 13:30:00 Outpatient BROOKE BORJAS [id number] [facility] 2022-03-29 00:00:00 2022-03-29 00:00:00 Outpatient PREZAFLAVIO Drake [facility] CARRASCO [id number] [facility] 2022-03-27 14:00:00 2022-03-27 14:00:00 Outpatient MARIE DELGADO [id number] [facility] 2022-03-26 14:30:00 2022-03-26 14:30:00 Outpatient ESTEBAN RUTLEDGE [id number] [facility] 2022-03-26 00:00:00 2022-03-26 00:00:00 Outpatient LUCERO CARRASCO [id number] [facility] 2022-03-25 11:20:00 2022-03-25 11:20:00 Outpatient PLAB [facility]ARR[facility] [id number] [facility] 2022-03-22 14:20:2022-03-22 14:20:00 Outpatient KITTY EDMONDSON [facility] [id number] [facility] 2022-03-22 00:00:00 2022-03-22 00:00:00 Outpatient RAFIQ NERI [facility] [id number] [facility] 2022-03-21 00:00:00 2022-03-21 00:00:00 Outpatient FLAVIO OROURKE [facility] [id number] [facility] 2022-03-15 09:40:00 2022-03-15 09:40:00 Outpatient NORMA SHETH [facility] [id number] [facility] 2022-03-15 00:00:00 2022-03-15 00:00:00 Outpatient FLAVIO OROURKE [facility] CARRASCO [id number] [facility] 2022-03-15 00:00:00 2022-03-15 00:00:00 Grace Dejah Manuel [facility] 1.2.840.114 350.1.13.10 [id number] [id number] [facility] 2022-03-12 00:00:00 2022-03-12 00:00:00 Outpatient LUCERO CARRASCO [id number] [facility] 2022-03-08 11:40:00 2022-03-08 11:40:00 Outpatient GUSTAVO CARRASCO [id number] [facility] 2022-03-08 00:00:00 2022-03-08 00:00:00 Outpatient LOREE GODOY [id number] [facility] 2022-03-07 13:30:00 2022-03-07 13:30:00 Outpatient GUSTAVO CARRASCO [id number] [facility] 2022-03-05 16:30:00 2022-03-05 16:30:00 Outpatient PAWAN RECINOS [id number] [facility] 2022-03-05 14:30:00 2022-03-05 14:30:00 Outpatient PLABrandon CARRASCO [id number] [facility] 2022-03-04 14:30:00 2022-03-04 14:30:00 Outpatient ALICE ABBOTT [facility] [id number] [facility] 2022-03-04 13:40:00 2022-03-04 13:40:00 Outpatient GLEN SMITH [facility] [id number] [facility] 2022-03-01 16:00:00 2022-03-01 16:00:00 Outpatient FLAVIO OROURKE L[facility]ERO CARRASCO [id number] [facility] 2022-03-01 15:15:00 2022-03-01 15:15:00 Outpatient PATTYHUNG LUCERO CARRASCO [id number] [facility] 2022-02-28 14:00:00 2022-02-28 14:00:00 [facility]patient [facility]EE [facility] [id number] [facility]22-[facility]-27 16:00:00 2022-02-27 16:00:00 Outpatient RULA JR [facility] [id number] [facility] 2022-02-22 13:00:00 2022-02-22 13:00:00 Outpatient LOUISESTEBAN [facility] [id number] [facility] 2022-02-21 14:00:00 2022-02-21 14:00:00 Outpatient RAFIQ NERI [id number] [facility] 2022-02-18 14:30:00 2022-02-18 14:30:00 Outpatient FLAVIO OROURKE [facility] CARRASCO [id number] [facility] 2022-02-18 00:00:00 2022-02-18 00:00:00 Telephone Dejah Manuel [facility] [id number] 350.1.13.10 4.2.7.2.686 [id number] [facility] 2022-02-14 00:00:00 2022-02-14 00:00:00 Outpatient DARONRAFIQ L[facility]ERO CARRASCO [id number] [facility] 2022-02-06 11:00:00 2022-02-06 11:00:00 Outpatient DAVID PIEDRA [facility] [id number] [facility] 2022-02-06 00:00:00 2022-02-06 00:00:00 Outpatient DAVID PIEDRA [facility] [id number] [facility] 2022-02-05 15:00:00 2022-02-05 15:00:00 Outpatient FLAVIO OROURKE [facility]ARR[facility]CO [id number] [facility] 2022-01-29 13:00:00 2022-01-29 13:00:00 Outpatient NORMA SHETH [facility] [id number] [facility] 2022-01-18 14:15:00 2022-01-18 14:15:00 Outpatient FLAVIO OROURKE [facility]CO [id number] [facility] 2021-11-02 00:00:00 2021-11-02 00:00:00 Telephone Mar [facility] 1.2.840.114 350.1.13.10 4.2.7.2.686 [id number] [facility] 2021-11-01 00:00:00 2021-11-01 00:00:00 Telephone Mar [facility] 1.2.840.114 350.1.13.10 4.2.7.2.686 [id number] [facility] 2021-10-26 00:00:00 2021-10-26 00:00:00 Orders Only Doctor Unassigned, [place] 1.2.840.114 350.1.13.10 4.2.7.2.686 [id number] [facility] 2021-09-23 20:40:00 2021-09-23 21:51:00 Emergency BETHANY ZHOU PINON [facility] [id number] [facility] 2021-09-23 20:40:00 2021-09-23 21:51:00 Emergency Bethany Grayson [facility] [id number] [facility] 2021-03-27 13:30:00 2021-03-27 13:30:00 Outpatient LOREE GODOY LUCERO CARRASCO [id number] Lucero Reed 2021-03-15 11:30:00 2021-03-15 11:30:00 Outpatient LOREE GODOY LUCERO CARRASCO [id number] Lucero Reed 2021-01-23 15:00:00 2021-01-23 15:00:00 Outpatient ARELIS MONTELONGO LUCERO CARRASCO [id number] Lucerosea Mcbride 2020-10-03 06:47:00 2020-10-03 06:47:00 Outpatient Sudireddy_R [facility] [id number] [facility] Practic e 2018-08-20 00:00:00 2018-08-20 00:00:00 Virginie Harris MD: [address], [facility] [address], [place] [address] , Ph. [facility] [place] - [facility] Practice - [facility] d [id number] [facility] e Results Test Description Test Time Test Comments Results Result Co mments Source Lucero Mcbride - ExternalVITAMIN [id number] 06:35:20* Test Item Value Reference Range Interpretation Comme [facility] VITAMIN B-12 (test code = 2840) 380 PG/ML 200-950 UNLESS OTHERWISE INDICATED, ALL TESTING PERFORMED [facility] [address] [place] [id number] [place] GUIDE: KATLIN MEDRANO M.D. CLIA NUMBER [id number] [facility] [place]. [id number] TSH + FREE T4 [id number] 06:35:20* Test Item Value Reference Range Interpretation Comme [facility] TSH, THIRD GENERATION (test code = 2821) 27.800 UIU/ML 0.400-4.100 H FREE T4 (THYROXINE) (test co de = 2823) 0.96 NG/DL 0.80-1.90 CBC W/AUTO DIFF WITH [id number] 04:17:03* Test Item Value Reference Range Interpretation [...] 0.00-0.10 ABS NUCLEATED RBCS (test code = 89920) 0.00 K/UL 0.00-0.11 LIPID [id number] 04:08:05* Test Item Value Reference Range Interpretation Comme nts CHOLESTEROL (test code = 2210) 298 MG/DL <200 H TRIGLYCERIDES (test code = 2232) 225 MG/DL <150 H HDL CHOLESTEROL (test code = 2220) 54 MG/DL >39 CALC LDL CHOL (test code = 2237) 202 MG/DL <100 H NOTE: CALCULATED LDL IS BASED ON MAIKOL-GRAJEDA METHOD WHICHINCLUDES ADJUSTABLE TRIGLYCERIDE:VLDL CHOLESTEROL RATIO.THIS FACTOR VARIES BY MEASURED TRIGLYCERIDE AND NON-HDLCHOLESTEROL CONCENTRATIONS WITH INCREASED CALCULATED LDL SEENIN HIGHER TRIGLYCERIDE OR LOWER NON-HDL SPECIMENS. FOR MOREINFORMATION, SEE CLIENT ANNOUNCEMENT AT [email or web address] RISK RATIO LDL/HDL (test code = 2238) 3.74 RATIO <3.22 H COMPREHENSIVE METABOLIC [id number] 04:08:05* Test Item Value Reference Range Interpretation Comme nts GLUCOSE (test code = 2217) 92 MG/DL 70-99 BUN (test code = 8) 16 MG/DL 8-23 CREATININE (test code = 2214) 0.93 MG/DL 0.60-1.30 eGFR (2020 CKD-EPI) (test code = 80190) 69 ML/MIN/1.73 >60 CALC BUN/CREAT (test code = 2235) 17 RATIO 6-28 SODIUM (test code = 2231) 141 MEQ/L 133-146 POTASSIUM (test code = 2228) 4.6 MEQ/L 3.5-5.4 CHLORIDE (test code = 2215) 103 MEQ/L 95-107 CARBON DIOXIDE (test code = 2206) 27 MEQ/L 19-31 CALCIUM (test code = 2209) 10.0 MG/DL 8.5-10.5 PROTEIN, TOTAL (test code = 2229) 6.8 G/DL 6.1-8.3 ALBUMIN (test code = 2201) 4.3 G/DL 3.5-5.2 CALC GLOBULIN (test code = 2240) 2.5 G/DL 1.9-3.7 CALC A/G RATIO (test code = 2234) 1.7 RATIO 1.0-2.6 BILIRUBIN, TOTAL (test code = 2207) 0.2 MG/DL See_Comment [Automated me ssage] The system which generated this result transmitted reference range: <=1.2. The reference range was not used to interpret this result as normal/abnormal. ALKALINE PHOSPHATASE (test code = 2204) 81 U/L 40-140 AST (test code = 2218) 16 U/L 9-40 ALT (test code = 2219) 14 U/L 5-40 BREAST ULTRASOUND CORE BIOPSY [id number] 14:00:24 Name: Chantel : 1955 Sex: F- BREAST ULTRASOUND CORE BIOPSY LEFTULTRASOUND GUIDED BIOPSY LEFT BREAST WITH MARKING DEVICE INSERTED: 08/30/2021LINICAL: Ultrasound biopsy, left breast. Comparison is made to exams dated 08/15/2021 ultrasound and 08/15/2021 mammogram - [facility]-. An ultrasound guided biopsy using [...] for screening mammography.Xavier Moreland M.D. ss/:09/05/2021 14:00:24 Laboratory Operations Coordinator: Oly KOCH, [facility]-FWletter sent: Benign BiopsyDIAG MAMM LEFT CAD [id number] 11:47:51Name: Chantel : 1955 Sex: F - DIAG MAMM LEFT CAD DIGITALUNILATERAL LEFT DIGITAL DIAGNOSTIC MAMMOGRAM WITH CAD - LEFT BREAST POST- PROCEDURE IMAGING FOR MARKER PLACEMENT:08/30/2021LINICAL: Post clip placement,left breast. Current mammographic images were evaluated by [employer] CAD (computer-aided detection) software. Comparison is made to exams dated 08/15/2021 ultrasound and 08/15/2021 mammogram - [facility]-. The tissue of the left breast ispredominantly fatty. Postprocedure mammogram demonstrates biopsy marker clip within the biopsied left axillary lymph node. IMPRESSION: POST PROCEDURE IMAGING FOR MARKER PLACEMENTSuccessful biopsy marker placement within the biopsied left axillary lymph node.Xavier Moreland M.D. ss/:08/30/2021 11:47:51 Laboratory Operations Coordinator: Anh KOCH, [facility]-FWMammogram BI-RADS: Post-procedure mammogram for marker placementBREAST ULTRASOUND [id number] 14:50:53 Name: Chantel : 1955 Sex: F - DIAG MAMM BILATERAL AJ CAD DIGITALBILATERAL DIGITAL DIAGNOSTIC MAMMOGRAM 3D/2D WITH CAD: 08/15/2021LINICAL: Left axillary breast lump.Personal history of breast cancer. Family history of breast cancer. Digital breast tomosynthesis was perf ormed in addition to routine CC and MLO views. Current mammographic images were evaluated by [employer] CAD (computer-aided detection) software. No prior exams [...] at this time.Xavier Moreland M.D. ss/:08/15/2021 14:50:53 Laboratory Operations Coordinator: Suzette KOCH, [facility]: BIRADS 4/5 Biopsy Mammogram BI-RADS: [...] views. Current mammographic images were evaluated by [employer] CAD (computer-aided detection) software. No prior exams [...] at this time.Xavier Moreland M.D. ss/:08/15/2021 14:50:53 Laboratory Operations Coordinator: Suzette KOCH, [facility]-FWletter sent: BIRADS 4/5 Biopsy Mammogram BI-RADS: 0 Incomplete: Additional Imaging Evaluation Needed Ultrasound BI-RADS: 4a Suspicious abnormality - low suspicion for malignancy- XR FLUORO FOR SPINE [id number] 16:06:00Patient Name: CHANTEL RODRIGUEZ Unit No: [id number] EXAMS: CPT CODE: [id number] XR FLUORO FOR SPINE INJ 74462 CERVICAL TRANSFORAMINAL INJECTION REFERRING PHYSICIAN:Inder Turcios M.D. [...] None DETAILS OF PROCEDURE: After obtaining stable vi guadalupe signs, informed consent and IV access, with no known contraindications to proceeding, the patient was taken to the fluoroscopy suite and placed in a supine position with all extremities padded and appropriate monitors placed. A sterile prep and drape was performed over the cervical spine. Usingfluoroscopic visualization at each level the insertion site [...] taken to the PACU in good condition. [facility] Pain NAME: CHANTEL RODRIGUEZ [address] [facility] PHYS: Edward Sacledo MD [place] [address] : 1955 AGE:63 SEX: F LOC: ARANZA PHONE #: [phone] EXAM DATE: 07/10/2018 STATUS: REG [facility] FAX #: [phone] RAD #: D/C DT PAGE 1 Signed Report (CONTINUED) Patient Name: Bre RODRIGUEZ No: [id number] EXAMS: CPT CODE: [id number] XR FLUORO FOR SPINE INJ 54018 (Continued) at 1606 Reported and signed by: Edward Vickers M.D. CC: Technologist: Shyann Hernandez(R) Transcribed D/ (5335) [facility] Ortho Pain NAME: CHANTEL RODRIGUEZ [address] [facility] PHYS: Edward Salcedo MD [place] [address] : 1955 AGE: 63 SEX: F LOC: ARANZA PHONE #: [phone] EXAM DATE: 07/10/2018 STATUS: REG [employer] FAX #: [phone] RAD #: D/C DT PAGE 2 Signed Report Patient Name: CHANTEL RODRIGUEZ Unit No: [id number] EXAMS: CPT CODE: [id number] XR FLUORO FOR SPINE [id number] (Continued) Orig Print D/T: S: 07/10/2018 (1609) [facility] [place] [facility] Pain NAME: CHANTEL RODRIGUEZ [address] [facility] PHYS: Edward Salcedo MD [place] [address] : 1955 AGE: 63 SEX: F LOC: ARANZA PHONE #: [phone] EXAM DATE: 07/10/2018 STATUS: REG [facility] FAX #: [phone] RAD #: D/C DT PAGE 3 Signed Report- MRI C- SPINE W/O [id number] 11:38:00Patient Name: CHANTEL RODRIGUEZ Unit No: [id number] EXAMS: CPT CODE: [id number] MRI C-SPINE W/O CONT 80969 MRI OF THE CERVICAL SPINE: DIAGNOSIS: 1. [...] M.D. Technologist: Char Oliveira, RT(R) Transcribed D/ (8548) t.[email or web address] [facility] [place] Orthopedic NAME: CHANTEL RODRIGUEZ [address] [facility] PHYS: Eriberto Hopkins MD : 1955 AGE: 63 SEX: F [place], [place] [address] LOC: Y.MRI PHONE #: [phone] EXAM DATE: 05/30/2018 STATUS: DEP CLI FAX #: [phone] RAD #: D/C DT PAGE1 Signed Report Patient Name: CHANTEL RODRIGUEZ Unit No: [id number] EXAMS: CPT CODE: [id number] MRI C-SPINE W/O CONT 64518 (Continued) Orig Print D/T: S: 06/01/2018 (1141) [facility] [place] [facility] NAME: CHANTEL RODRIGUEZ [address] [facility] PHYS: Eriberto Hopkins MD : 1955 AGE: 63 SEX: F [place], [place] [address] LOC: Y.MRI PHONE #: [phone] EXAM DATE: 05/30/2018 STATUS: DEP CLI FAX #: [phone] RAD #: D/C DT PAGE 2 Signed Report
[2024-02-23] MEDS ORDERED: dexAMETHasone 10 MG/ML VIAL ONE (11:09)
[2024-02-23] MEDS ORDERED: GABAPENTIN 300 MG CAP ONE (11:09)
--- NOTE | 2024-02-23 12:00 | RAD REPORT ---
EXAMINATION: CT ABDOMEN AND PELVIS WITHOUT CONTRAST CLINICAL INDICATION: Abdominal pain. Back pain TECHNIQUE: CT abdomen and pelvis was performed, as per department protocol. IV contrast and oral was not administered.Axial, sagittal and coronal reconstructions were obtained. One or more of the following dose reduction techniques were used: Automated exposure control, adjustment of the mA and/o r kV according to the patient size, and/or iterative reconstruction. Unless otherwise specified, incidental findings do not require dedicated imaging follow-up. [id number]. COMPARISON: No prior exam. FINDINGS: The lack of intravenous and oral contrast limits evaluation of solid organs, vessels and bowel. The liver, spleen, pancreas, adrenals and kidneys appear grossly normal. Subcentimeter left renal cys t. Cholecystectomy. Hysterectomy. No adnexal mass. Mild posterior subluxation L5 on S1 with disc space narrowing and subchondral sclerosis. Schmorl's node suspected L3-4. Right lateral disc herniation suspected at L3-4. Disc bulges L2-3, L4-5 and L5-S1 No evidence of diverticulitis IMPRESSION: Right lateral disc herniation suspected L3-4. If clinically indicated further evaluation with MRI cou ld be obtained. Spondylosis L4-5-5 S1.
--- NOTE | 2024-02-23 12:50 | ER ---
Nurse's Notes [facility] Name: Chantel Rodriguez Age: 69 yrs Sex: Female : 1955 Arrival Date: 02/23/2024 Time: 10:18 Bed 11 Private MD: Diagnosis: Intervertebral disc disorders with radiculopathy, lumbosacral region Presentation: 02/22 11:06 Chief complaint: Patient states: Low back pain x 1 week, denies injury. Coronavirus jl7 screen: At this time, the client does not indicate any symptoms associated with coronavirus-19. Ebola Screen: No symptoms or risks identified at this time. Initial Sepsis Screen: Does the patient meet any 2 criteria? No. Patient's initial sepsis screen is negative. Does the patient have a suspected source of infection? No. Patient's initial sepsis screen is negative. Risk Assessment: Do you want to hurt yourself or someone else? Patient reports no desire to harm self or others. Onset of symptoms is unknown. 11:06 Method Of Arrival: Wheelchair jl7 11:06 Acuity: MIKE 4 jl7 Triage Assessment: 11:07 General: Appears in no apparent distress. uncomfortable, Behavior is calm, cooperative, jl7 appropriate for age. Pain: Complains of pain in back Pain currently is 7 out of 10 on a pain scale. Musculoskeletal: Swelling absent. Historical: - Allergies: 11:07 all statins; jl7 11:07 doxycycline monohydrate (bulk); jl7 11:07 PENICILLINS; jl7 - PMHx: 11:07 Asthma; breast cancer; COPD; CPAP with oxygen; long covid; Pulmonary Stenosis; jl7 - PSHx: 11:07 breast CA R mastectomy; Cholecystectomy; jl7 - Immunization history:: Adult Immunizations unknown. - Infectious Disease History:: Denies. - Social history:: Smoking status: Patient denies any tobacco usage or history of. - Family history:: not pertinent. - Hospitalizations: : No recent hospitalization is reported. Assessment: 13:09 Reassessment: Patient appears in no apparent distress at this time. Patient and/or ss family updated on plan of care and expected duration. Pain level reassessed. Patient is alert, oriented x 3, equal unlabored respirations, skin warm/dry/pink. Vital Signs: 11:06 BP 112 / 73; Pulse 76; Resp 15; Temp 97.3; Pulse Ox 100% ; Weight 77.11 kg; Height 5 jl7 ft. 2 in. ; Pain 09/23; 11:06 Body Mass Index 31.09 (77.11 kg, 157.48 cm) jl7 11:06 Pain Scale: Adult [facility] ED Course: 10:22 Patient arrived in ED. mr 10:23 Mk Ackerman MD is Attending Physician. rn 10:53 CT Abd/Pelvis - Without Contrast In Process Unspecified. EDMS 11:07 Triage completed. jl7 11:07 Arm band placed on right wrist. jl7 13:09 Jaylyn Dunn, VADIM is Primary Nurse. ss 13:09 No provider procedures requiring assistance completed. Patient did not have IV access ss during this emergency room visit. Administered Medications: 11:13 Drug: Gabapentin PO 300 mg PO once Route: PO; jl7 13:10 Follow up: Response: No adverse reaction ss 11:13 Drug: Dexamethasone IM 10 mg IM once Route: IM; Site: right deltoid; jl7 13:10 Follow up: Response: No adverse reaction ss Outcome: 12:50 Discharge ordered by . rn 13:09 Discharged to home ambulatory, ss 13:09 Condition: good 13:09 Discharge instructions given to patient, family, Instructed on discharge instructions, follow up and referral plans. medication usage, Demonstrated understanding of instructions, follow-up care, medications, Prescriptions given X 3, 13:10 Patient left the ED. ss Signatures: Dispatcher [employer] EDPR Kiah De, Reg Reg mr Mk Ackerman MD MD rn Blanchard, Shelby, VADIM RN Viv Dominguez RN RN jl7
--- NOTE | 2024-02-23 12:51 | EDPHYS ---
Physician Documentation [facility] Name: Chantel Rodriguez Age: 69 yrs Sex: Female : 1955 Arrival Date: 02/23/2024 Time: 10:18 Bed 11 Private MD: ED Physician Mk Ackerman HPI: 02/22 11:15 This 69 yrs old Female presents to ER via Wheelchair with complaints of Back Pain. rn 11:15 The patient presents with pain that is acute. The symptoms are located in the low back. rn Onset: The symptoms/episode began/occurred 2 week(s) ago. The pain radiates to the pelvis. Associated signs and symptoms: Pertinent negatives: abdominal pain, chest pain, fever, hematuria, incontinence, nausea, numbness, tingling, urinary retention. Modifying factors: The patient symptoms are alleviated by remaining still, rest, the patient symptoms are aggravated by any movement. Severity of symptoms: At their worst the symptoms were moderate, in the emergency department the symptoms are unchanged. The patient has experienced similar episodes in the past. Patient reports low back pain with radiation around pelvis. No abdominal pain. No bowel or bladder issues. No fever or chills. No fall. 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 No vomiting or diarrhea. Has had back issues before due to work but worse pain today.. Historical: - Allergies: 11:07 all statins; jl 11:07 doxycycline monohydrate (bulk); jl 11:07 PENICILLINS; jl7 - PMHx: 11:07 Asthma; breast cancer; COPD; CPAP with oxygen; long covid; Pulmonary Stenosis; jl7 - PSHx: 11:07 breast CA R mastectomy; Cholecystectomy; jl - Immunization history:: Adult Immunizations unknown. - Infectious Disease History:: Denies. - Social history:: Smoking status: Patient denies any tobacco usage or history of. - Family history:: not pertinent. - Hospitalizations: : No recent hospitalization is reported. ROS: 11:15 Constitutional: Negative for fever, chills, and weight loss, Cardiovascular: Negative rn for chest pain, palpitations, and edema, Respiratory: Negative for shortness of breath, cough, wheezing, and pleuritic chest pain, Abdomen/GI: Negative for abdominal pain, nausea, vomiting, diarrhea, and constipation, Back: Positive for low back pain : Negative for injury, bleeding, discharge, and swelling, MS/Extremity: Negative for injury and deformity, Skin: Negative for injury, rash, and discoloration, Neuro: Negative for headache, weakness, numbness, tingling, and seizure, Exam: 11:15 Constitutional: This is a well developed, well nourished patient who is awake, alert, rn and in no acute distress. Cardiovascular: Regular rate and rhythm. No pulse deficits. Respiratory: No increased work of breathing, no retractions or nasal flaring. Abdomen/GI: Soft, non-tender Back: No spinal tenderness. No CVA tenderness MS/ Extremity: Pulses equal, no cyanosis. Neuro: Awake and alert, GCS 15, oriented to person, place, time, and situation. Motor strength 5/5 in all extremities. Sensory grossly intact. Cerebellar exam normal. Antalgic gait Vital Signs: 11:06 BP 112 / 73; Pulse 76; Resp 15; Temp 97.3; Pulse Ox 100% ; Weight 77.11 kg; Height 5 jl7 ft. 2 in. ; Pain 7; 11:06 Body Mass Index 31.09 (77.11 kg, 157.48 cm) jl7 11:06 Pain Scale: Adult jl7 MDM: 10:23 Medical Screening Exam initiated rn 12:47 Differential diagnosis: sprain, Ureterolithiasis vertebral fracture, disk disease. Data rn reviewed: vital signs, nurses notes, radiologic studies, CT scan, and as a result, I will discharge patient. Counseling: I had a detailed discussion with the patient and/or guardian regarding the historical points, exam findings, and any diagnostic results supporting the discharge/admit diagnosis, radiology results, the need for outpatient follow up, to return to the emergency department if symptoms worsen or persist or if there are any questions or concerns that arise at home. Response to treatment: the patient's symptoms have mildly improved after treatment, and as a result, I will discharge patient. Special discussion: I discussed with the patient/guardian in detail that at this point there is no indication for admission to the hospital. It is understood, however, that if the symptoms persist or worsen the patient needs to return immediately for re-evaluation. 02/22 10:45 Order name: CT Abd/Pelvis - Without Contrast; Complete Time: 12:02 rn Administered Medications: 11:13 Drug: Gabapentin PO 300 mg PO once Route: PO; jl7 13:10 Follow up: Response: No adverse reaction ss 11:13 Drug: Dexamethasone IM 10 mg IM once Route: IM; Site: right deltoid; jl7 13:10 Follow up: Response: No adverse reaction ss Disposition Summary: 02/23/24 12:50 Discharge Ordered Notes: Location: Home rn Problem: new rn Symptoms: have improved rn Condition: Stable rn Diagnosis - Intervertebral disc disorders with radiculopathy, lumbosacral region rn Followup: rn - With: Private Physician - When: As needed - Reason: Recheck today's complaints, Re-evaluation by your physician Discharge Instructions: - Discharge Summary Sheet rn - Herniated Disk rn - Lumbosacral Radiculopathy rn - Degenerative Disk Disease rn Forms: - Medication Reconciliation Form rn - Antibiotic claims attorney - Prescription Opioid Use rn - Patient Portal Instructions rn - Leadership Thank You Letter rn Prescriptions: - Cyclobenzaprine 10 mg Oral tablet - take 1 tablet ORAL route every 8 hours As needed; 15 tablet; Refills: 0, rn Product Selection Permitted - Tramadol 50 mg Oral Tablet - take 1 tablet ORAL route every 8 hours as needed; 12 tablet; Refills: 0, rn Product Selection Permitted - Medrol (Armond) 4 mg Oral Tablets, Dose Pack - take 1 tablet ORAL route as directed - follow package instructions; 1 packet; rn Refills: 0, Product Selection Permitted Signatures: Dispatcher [employer] EDMS Mk Ackerman MD MD rn Leal, Jahala, RN RN jl7 Jaylyn Dunn RN ss Corrections: (The following items were deleted from the chart) 10:45 10:45 Abdomen Pelvis Wo Con+CT.RAD.BRZ ordered. EDMS EDMS
[2024-02-23 16:36] VITALS: BP 112/73; TEMP 97.3; O2SAT 100
== END 2024-02-23 13:10 | disposition home or self-care (01) ==
LOC: ER 10:18
DX: M51.17 Intervertebral disc disorders with radiculopathy, lumbosacral region (principal)
CPT/HCPCS: 74176; 96372; 99284; J1100